=== PATIENT | female | born 1940 | race Caucasian/White ===

== ENCOUNTER 2016-06-03 18:05 | Observation (INO) | payer MEDICARE, BC ==
[2016-06-03] MEDS ORDERED: NITROGLYCERIN OINT 1 INCH/GM PACKET TOPICAL STA (18:22)
--- NOTE | 2016-06-03 18:24 | ED ---
General Adult HPI - General Chief complaint: Chest Pain Stated complaint: Chest Pain Time Seen by Provider: 06/03/16 18:10 Source: patient, EMS, RN notes reviewed Mode of arrival: EMS Limitations: altered mental status - History of Present Illness Initial comments: Patient is a pleasant 75-year-old female presenting to the emergency Department with complaints of chest discomfort. Patient believes her symptoms started yesterday and have been steady. Discomfort is mild at this time. Patient did have some associated dyspnea. Dyspnea has resolved. No nausea or diaphoresis. Patient feels she may have had similar symptoms once or twice previously however is unclear why. Her leg pain or swelling. No cough or fever. - Related Data Home Medications Medication Instructions Recorded Confirmed Gabapentin [Neurontin] 100 mg PO QAM 01/29/16 06/03/16 ALPRAZolam [Xanax] 0.25 mg PO TID 03/27/16 06/03/16 Atorvastatin [Lipitor] 40 mg PO HS 05/13/16 06/03/16 Furosemide [Lasix] 20 mg PO QAM 05/13/16 06/03/16 Levothyroxine Sodium [Synthroid] 50 mcg PO QAM 05/13/16 06/03/16 Nuedexta 1 tab PO BID 05/13/16 06/03/16 busPIRone HCL [Buspar] 7.5 mg PO BID 05/13/16 06/03/16 lamoTRIgine [LaMICtal] 25 mg PO BID 05/13/16 06/03/16 Gabapentin [Neurontin] 200 mg PO BID 05/29/16 06/03/16 Nystatin [Nystop] 1 applic TOPICAL BID 05/29/16 06/03/16 Phenytoin Sodium Extended 100 mg PO TID 05/29/16 06/03/16 [Dilantin] PARoxetine HCL [Paxil] 40 mg PO QAM 06/03/16 06/03/16 Allergies Allergy/AdvReac Type Severity Reaction Status Date / Time Penicillins Allergy Unknown Verified 06/03/16 18:44 aspirin AdvReac Severe Chest Pain Verified 06/03/16 18:44 cefuroxime axetil AdvReac Severe Chest Pain Verified 06/03/16 18:44 [From Ceftin] hydrocodone AdvReac Severe Confusion Verified 06/03/16 18:44 Iodinated Contrast Media - AdvReac Unknown Unknown Verified 06/03/16 18:44 Oral and antibiotics-all Allergy Unknown Uncoded 06/03/16 18:13 Review of Systems ROS Statement: Those systems with pertinent positive or pertinent negative responses have been documented in the HPI. ROS Other: All systems not noted in ROS Statement are negative. Constitutional: Denies: fever Eyes: Denies: eye pain ENT: Denies: ear pain Respiratory: Reports: dyspnea. Denies: cough Cardiovascular: Reports: chest pain Endocrine: Denies: fatigue Gastrointestinal: Denies: abdominal pain Genitourinary: Denies: dysuria Musculoskeletal: Denies: back pain Skin: Denies: rash Neurological: Denies: weakness Past Medical History Past Medical History: Cancer, Diabetes Mellitus, GERD/Reflux, Hearing Disorder / Deafness, Hyperlipidemia, Hypertension, Osteoarthritis (OA), Sleep Apnea/CPAP/ BIPAP, Thyroid Disorder Additional Past Medical History / Comment(s): Skin Cancer -left lower lip, right BREAST CANCER. left eye lid lump removed. SEIZURE WHEN HERE LAST.CATARACTS, UTI,CAREGIVER STATED PT HAS YEAST INFECTION UNDER BREAST AND GROIN FOLDS. History of Any Multi-Drug Resistant Organisms: None Reported Past Surgical History: Breast Surgery Additional Past Surgical History / Comment(s): Removal of skin cancer - left lower lip, [place] BREAST BX, HAD lumped removed from RT breast- THEN. RIGHT MASECTOMY with revision/COMPLICATED BY INFECTION(PER CAREGIVER). Past Anesthesia/Blood Transfusion Reactions: No Reported Reaction Additional Past Anesthesia/Blood Transfusion Reaction / Comment(s): TAKES HER A LONG TIME TO COME OUT ANESTHESIA Past Psychological History: Anxiety, Depression Additional Psychological History / Comment(s): SPOUSE OF 40 YEARS IN , uses cane.PTS STATED LIVES AT [facility]. Smoking Status: Never smoker Past Alcohol Use History: None Reported Additional Past Alcohol Use History / Comment(s): Patient states she is a lifelong nonsmoker. She denies any medical marijuana, marijuana, street drug or alcohol use. 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 She denies any recent travel. Her pets in the home. Past Drug Use History: None Reported - Past Family History Father Family Medical History: Coronary Artery Disease (CAD) (Father at age 72 from CAD) Additional Family Medical History / Comment(s): of heart disease Mother Family Medical History: Respiratory Disorder (Mother at the age of 79 from lung disease) Additional Family Medical History / Comment(s): of lung disease Brother(s) Family Medical History: Cancer, Coronary Artery Disease (CAD) Sister(s) Family Medical History: Cancer, Coronary Artery Disease (CAD) Additional Family Medical History / Comment(s): Patient has a nephew who cares for her and she has no children. General Exam Limitations: altered mental status General appearance: alert, in no apparent distress Head exam: Present: atraumatic Eye exam: Present: normal appearance, PERRL ENT exam: Present: normal oropharynx Neck exam: Present: normal inspection Respiratory exam: Present: normal lung sounds bilaterally. Absent: chest wall tenderness Cardiovascular Exam: Present: regular rate, normal rhythm Expanded Peripheral pulses: 2+: Radial (R), Radial (L), Dorsalis Pedis (R), Dorsalis Pedis (L) GI/Abdominal exam: Present: soft. Absent: tenderness Extremities exam: Present: normal inspection. Absent: pedal edema, calf tenderness Neurological exam: Present: alert Psychiatric exam: Present: normal affect, normal mood Skin exam: Absent: rash Course Vital Signs 06/03/16 06/03/16 06/03/16 18:07 18:17 19:14 Temperature 98.1 F Pulse Rate 61 60 58 L Respiratory 16 Rate Blood Pressure 200/87 192/86 198/91 O2 Sat by Pulse 99 96 98 Oximetry 06/03/16 19:50 Temperature Pulse Rate 58 L Respiratory Rate Blood Pressure 209/95 O2 Sat by Pulse 98 Oximetry EKG Findings - EKG Comments: EKG Findings:: Normal sinus rhythm at 61. Normal intervals. Normal axis. Normal QRS. Normal ST-T. Medical Decision Making - Medical Decision Making Patient reexamined and resting comfortably in bed. Patient is unable to recall where she lives. Patient is unable to recall what year it is. Case was discussed with Dr. Mendosa, who will admit for altered mental status. facility maintenance worker will be consult did for probable higher level of care at home. - Lab Data Result diagrams: 06/03/16 18:32 06/03/16 18:32 Lab Results 06/03/16 06/03/16 06/03/16 Range/Units 18:32 18:32 18:32 WBC 8.2 (3.8-10.6) k/uL RBC 4.50 (3.80-5.40) m/uL Hgb 12.9 (11.4-16.0) gm/dL Hct 38.7 (34.0-46.0) % MCV 86.0 (80.0-100.0) fL MCH 28.7 (25.0-35.0) pg MCHC 33.4 (31.0-37.0) g/dL RDW 14.1 (11.5-15.5) % Plt Count 255 (150-450) k/uL Neutrophils % 83 % Lymphocytes % 7 % Monocytes % 4 % Eosinophils % 4 % Basophils % 0 % Neutrophils # 6.8 (1.3-7.7) k/uL Lymphocytes # 0.6 L (1.0-4.8) k/uL Monocytes # 0.3 (0-1.0) k/uL Eosinophils # 0.3 (0-0.7) k/uL Basophils # 0.0 (0-0.2) k/uL Sodium 140 (137-145) mmol/L Potassium 3.7 (3.5-5.1) mmol/L Chloride 102 (98-107) mmol/L Carbon Dioxide 24 (22-30) mmol/L Anion Gap 14 mmol/L BUN 11 (7-17) mg/dL Creatinine 0.60 (0.52-1.04) mg/dL Est GFR (MDRD) Af Amer >60 (>60 ml/min/1.73 sqM) Est GFR (MDRD) Non-Af >60 (>60 ml/min/1.73 sqM) Glucose 284 H (74-99) mg/dL Calcium 8.5 (8.4-10.2) mg/dL Magnesium 2.0 (1.6-2.3) mg/dL Total Bilirubin 0.5 (0.2-1.3) mg/dL AST 25 (14-36) U/L ALT 29 (9-52) U/L Alkaline Phosphatase 97 (38-126) U/L Total Creatine Kinase 40 (30-135) U/L CK-MB (CK-2) <0.2 (0.0-2.4) ng/mL CK-MB (CK-2) Rel Index Troponin I <0.012 (0.000-0.034) ng/mL Total Protein 6.7 (6.3-8.2) g/dL Albumin 3.8 (3.5-5.0) g/dL - Radiology Data Radiology results: image reviewed (Chest x-ray shows no acute process.) Disposition Clinical Impression: Chest pain in adult, Altered mental status Disposition: ADMITTED IP TO THIS HOSP
[2016-06-03 18:47] LABS: Basophils % (A) 0 %; CH 29.3; CHCM 34.2; Eosinophils # (A) 0.3 k/uL (0-0.7); Eosinophils % (A) 4 %; HCT 38.7 % (34.0-46.0); HDW 2.84; HGB 12.9 gm/dL (11.4-16.0); Luc # (Auto) 0.11; Luc % (Auto) 1; Lymphocytes # (A) 0.6 k/uL (1.0-4.8); Lymphocytes % (A) 7 %; MCH 28.7 pg (25.0-35.0); MCHC 33.4 g/dL (31.0-37.0); Mean Platelet Volume 9.3; Monocytes # (A) 0.3 k/uL (0-1.0); Monocytes % (A) 4 %; Neutrophils # (A) 6.8 k/uL (1.3-7.7); Neutrophils % (A) 83 %; RDW 14.1 % (11.5-15.5); WBC 8.2 k/uL (3.8-10.6); WBC (Perox) 8.67
[2016-06-03 18:57] LABS: ALT 29 U/L (9-52); AST 25 U/L (14-36); Alkaline Phosphatase 97 U/L (38-126); Anion Gap 14 mmol/L; Blood Urea Nitrogen 11 mg/dL (7-17); Calcium 8.5 mg/dL (8.4-10.2); Carbon Dioxide 24 mmol/L (22-30); Chloride 102 mmol/L (98-107); Glucose 284 mg/dL (74-99); Non-African American GFR(MDRD) >60 (>60 ml/min/1.73 sqM); Potassium 3.7 mmol/L (3.5-5.1); Sodium 140 mmol/L (137-145); Total Bilirubin 0.5 mg/dL (0.2-1.3); Total Protein 6.7 g/dL (6.3-8.2)
[2016-06-03 18:59] LABS: Creatine Kinase 40 U/L (30-135)
[2016-06-03 19:11] LABS: Creatine Kinase MB <0.2 ng/mL (0.0-2.4); Troponin I <0.012 ng/mL (0.000-0.034)
--- NOTE | 2016-06-03 19:44 | XR ---
EXAMINATION TYPE: XR chest 2V DATE OF EXAM: 06/03/2016 6:45 PM COMPARISON: May 29, 2016 HISTORY: Pain with inspiration TECHNIQUE: Frontal and lateral views of the chest are obtained. FINDINGS: There is no focal air space opacity, pleural effusion, or pneumothorax seen. The cardiac silhouette size is within normal limits. The osseous structures are intact. IMPRESSION: No no interval change. No acute process.
[2016-06-03 20:13] LABS: Prothrombin Time 10.2 sec (9.0-12.0)
[2016-06-03] MEDS ORDERED: NITROGLYCERIN SL TABS 0.4 MG TAB SUBLINGUAL PRN (20:18)
[2016-06-03 20:31] LABS: Partial Thromboplastin Time 21.3 sec (22.0-30.0)
--- NOTE | 2016-06-03 20:55 | CT ---
EXAMINATION TYPE: CT brain wo con DATE OF EXAM: 06/03/2016 8:41 PM COMPARISON: February 01, [address] HISTORY: Patient poor historian. Patient shows signs of altered mental status. CT DLP: 827.3 mGycm. Automated exposure control for dose reduction was used. FINDINGS: There is no acute intracranial hemorrhage, mass effect, or midline shift identified. There are low-attenuation regions within the campos radiata and centrum semiovale bilaterally, but these a re seen on the prior study and there is no definite new attenuation defect. The ventricles and sulci are within normal limits in size. The globes are intact and the visualized sinuses are clear. IMPRESSION: NO ACUTE PROCESS, CT HEAD WITHOUT CONTRAST.
[2016-06-03] MEDS ORDERED: GABAPENTIN 100 MG CAP PO SCH (21:00)
[2016-06-03 21:33] VITALS: BMI 28.8
[2016-06-03] MEDS ORDERED: HALOPERIDOL LACTATE 5 MG/ML 1 ML VIAL IM PRN (21:46)
[2016-06-03] MEDS: ATORVASTATIN 40 MG TAB PO SCH (21:47)
[2016-06-03] MEDS: INSULIN LISPRO (humaLOG) 300 UNIT/3 ML VIAL SQ SCH (21:47)
[2016-06-03] MEDS: GABAPENTIN 100 MG CAP PO SCH (21:47)
[2016-06-03] MEDS: ALPRAZolam 0.25 MG TAB PO SCH (21:48)
[2016-06-03] MEDS: lamoTRIgine 25 MG TAB PO SCH (21:48)
[2016-06-03] MEDS: NITROGLYCERIN OINT 1 INCH/GM PACKET TOPICAL SCH (22:15)
[2016-06-04 05:23] LABS: Hemoglobin A1C 8.9 % (4.2-6.1)
[2016-06-04] MEDS: NITROGLYCERIN OINT 1 INCH/GM PACKET TOPICAL SCH ×3 (06:12→21:02)
[2016-06-04] MEDS: LEVOTHYROXINE 50 MCG TAB PO SCH (06:12)
[2016-06-04 06:43] LABS: Glucose,Whole Blood 262 mg/dL (75-99)
--- NOTE | 2016-06-04 10:16 | P.CRDCN ---
History of Present Illness Consult date: 06/04/16 History of present illness: This is a 75-year-old female with a history of anxiety and psychological disorders is admitted through the emergency room with complaints of chest discomfort. Patient is slightly confused but seemed to be oriented to place and time. She claims that she has been under a lot of stress because of some family health issues. She claims she is comfortable at the time of my examination. It is difficult to get more details about the nature of the pain. Patient has history of hypercholesterolemia. No definite history of previous myocardial infarctions. Her EKG showed a sinus rhythm without any acute ST-T abnormalities. First set of cardiac enzymes are negative. I'm going to get an echocardiogram to assess and rule out any segmental wall motion defects. If the second set of enzyme is negative and if echocardiogram is normal, patient could be evaluated by Lexiscan stress test and further recommendations depend upon the clinical course Review of Systems Not obtained Past Medical History Past Medical History: Cancer, Diabetes Mellitus, GERD/Reflux, Hearing Disorder / Deafness, Hyperlipidemia, Hypertension, Osteoarthritis (OA), Sleep Apnea/CPAP/ BIPAP, Thyroid Disorder Additional Past Medical History / Comment(s): Skin Cancer -left lower lip, right BREAST CANCER. left eye lid lump removed. SEIZURE WHEN HERE LAST8.CATARACTS, UTI,CAREGIVER STATED PT HAS YEAST INFECTION UNDER BREAST AND GROIN FOLDS. History of Any Multi-Drug Resistant Organisms: None Reported Past Surgical History: Breast Surgery Additional Past Surgical History / Comment(s): Removal of skin cancer - left lower lip, [place] BREAST BX, HAD lumped removed from RT breast- THEN. RIGHT MASECTOMY with revision/COMPLICATED BY INFECTION(PER CAREGIVER). Past Anesthesia/Blood Transfusion Reactions: No Reported Reaction Additional Past Anesthesia/Blood Transfusion Reaction / Comment(s): TAKES HER A LONG TIME TO COME OUT ANESTHESIA Past Psychological History: Anxiety, Depression Additional Psychological History / Comment(s): SPOUSE OF 40 YEARS IN , uses cane.PTS STATED LIVES AT [facility]. Smoking Status: Never smoker Past Alcohol Use History: None Reported Additional Past Alcohol Use History / Comment(s): Patient states she is a lifelong nonsmoker. She denies any medical marijuana, marijuana, street drug or alcohol use. 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 She denies any recent travel. Her pets in the home. Past Drug Use History: None Reported - Past Family History Father Family Medical History: Coronary Artery Disease (CAD) (Father at age 72 from CAD) Additional Family Medical History / Comment(s): of heart disease Mother Family Medical History: Respiratory Disorder (Mother at the age of 79 from lung disease) Additional Family Medical History / Comment(s): of lung disease Brother(s) Family Medical History: Cancer, Coronary Artery Disease (CAD) Sister(s) Family Medical History: Cancer, Coronary Artery Disease (CAD) Additional Family Medical History / Comment(s): Patient has a nephew who cares for her and she has no children. Medications and Allergies Home Medications Medication Instructions Recorded Confirmed Type Gabapentin [Neurontin] 100 mg PO QAM 01/29/16 06/03/16 History ALPRAZolam [Xanax] 0.25 mg PO TID 03/27/16 06/03/16 History Atorvastatin [Lipitor] 40 mg PO HS 05/13/16 06/03/16 History Furosemide [Lasix] 20 mg PO QAM 05/13/16 06/03/16 History Levothyroxine Sodium [Synthroid] 50 mcg PO QAM 05/13/16 06/03/16 History Nuedexta 1 tab PO BID 05/13/16 06/03/16 History busPIRone HCL [Buspar] 7.5 mg PO BID 05/13/16 06/03/16 History lamoTRIgine [LaMICtal] 25 mg PO BID 05/13/16 06/03/16 History Gabapentin [Neurontin] 200 mg PO BID 05/29/16 06/03/16 History Nystatin [Nystop] 1 applic TOPICAL BID 05/29/16 06/03/16 History Phenytoin Sodium Extended 100 mg PO TID 05/29/16 06/03/16 History [Dilantin] PARoxetine HCL [Paxil] 40 mg PO QAM 06/03/16 06/03/16 History Allergies Allergy/AdvReac Type Severity Reaction Status Date / Time Penicillins Allergy Unknown Verified 06/03/16 22:53 aspirin AdvReac Severe Chest Pain Verified 06/03/16 22:53 cefuroxime axetil AdvReac Severe Chest Pain Verified 06/03/16 22:53 [From Ceftin] hydrocodone AdvReac Severe Confusion Verified 06/03/16 22:53 Iodinated Contrast Media - AdvReac Unknown Unknown Verified 06/03/16 22:53 Oral and antibiotics-all Allergy Unknown Uncoded 06/03/16 22:53 Physical Exam Vitals: Vital Signs Temp Pulse Pulse Resp BP BP Pulse Ox 06/04/16 07:48 98.9 F 57 L 16 135/68 95 06/04/16 04:00 16 06/03/16 23:58 97.8 F 65 16 147/71 93 L 06/03/16 22:15 16 06/03/16 20:36 98.1 F 56 L 16 182/85 97 Intake and Output 06/03/16 06/04/16 06/04/16 22:59 06:59 14:59 Other: Voiding Method Toilet # Voids 0 1 # Bowel Movements 1 Weight 76.204 kg GENERAL EXAM: Patient is alert and oriented and doesn't appear to be in any acute distress HEENT: Normocephalic. Normal reaction of pupils, equal size, normal range of extraocular motion. No erythema or exudates in the throat. NECK: No masses, no nuchal rigidity. CHEST: No chest wall deformity. LUNGS: Equal air entry with no crackles or wheeze. HEART: S1 and S2 normal with no audible mumurs or gallops. Regular rhythm, femorals equal on both sides.. ABDOMEN: No hepatosplenomegaly, normal bowel sounds, no guarding or rigidity. SKIN: No rashes CENTRAL NERVOUS SYSTEM: No focal deficits. EXTREMITIES: No cyanosis, clubbing or edema. Results 06/03/16 18:32 06/03/16 18:32 Current Medications Generic Name Dose Route Start Last Admin Trade Name Freq PRN Reason Stop Dose Admin Alprazolam 0.25 mg 06/03/16 22:00 06/03/16 21:48 Xanax PO Not Given TID REBECCA Atorvastatin Calcium 40 mg 06/03/16 21:00 06/03/16 21:47 Lipitor PO Not Given HS REBECCA Furosemide 20 mg 06/04/16 09:00 Lasix PO QAM REBECCA Gabapentin 100 mg 06/04/16 09:00 Neurontin PO QAM REBECCA Gabapentin 200 mg 06/03/16 21:00 06/03/16 21:47 Neurontin PO Not Given BID@1700,2100 [facility] Haloperidol Lactate 4 mg 06/03/16 21:46 06/03/16 22:08 Haldol IM 4 mg Q4HR PRN Administration Psychosis Insulin Human Lispro 0 unit 06/03/16 21:00 06/03/16 21:47 Humalog SQ Not Given ACHS [facility] Protocol Lamotrigine 25 mg 06/03/16 21:00 06/03/16 21:48 Lamictal PO Not Given BID [facility] Levothyroxine Sodium 50 mcg 06/04/16 06:30 06/04/16 06:12 Synthroid PO Not Given DAILY@0630 [facility] Nitroglycerin 1 inch 06/04/16 00:00 06/04/16 06:12 Nitro-Bid Oint TOPICAL Not Given Q6HR [facility] Nitroglycerin 0.4 mg 06/03/16 20:18 Nitrostat SUBLINGUAL Q5M PRN Chest Pain Paroxetine HCl 40 mg 06/04/16 09:00 Paxil PO QAM [facility] Intake and Output 06/03/16 06/04/16 06/04/16 22:59 06:59 14:59 Other: Voiding Method Toilet # Voids 0 1 # Bowel Movements 1 Weight 76.204 kg EKG Interpretations (text) Sinus rhythm without acute ST-T changes Assessment and Plan (1) Chest pain in adult Status: Acute (2) Breast cancer Status: Acute (3) Hypertension Status: Acute Plan: I'm going to get an echocardiogram and a second set of cardiac enzymes. If they don't show any significant abnormality, Lexiscan stress test to be constricted. Further recommendations will depend upon clinical course.
[2016-06-04 11:07] LABS: Glucose,Whole Blood 352 mg/dL (75-99)
[2016-06-04] MEDS ORDERED: INSULIN LISPRO (humaLOG) 300 UNIT/3 ML VIAL SQ SCH (12:30)
[2016-06-04 12:31] LABS: Glucose,Whole Blood 364 mg/dL (75-99)
[2016-06-04] MEDS: FUROSEMIDE 20 MG TAB PO SCH (12:40)
[2016-06-04] MEDS: ALPRAZolam 0.25 MG TAB PO SCH ×3 (12:40→21:46)
[2016-06-04] MEDS: GABAPENTIN 100 MG CAP PO SCH ×3 (12:40→21:46)
[2016-06-04] MEDS: PARoxetine 20 MG TAB PO SCH (12:40)
[2016-06-04] MEDS: lamoTRIgine 25 MG TAB PO SCH ×2 (12:41→21:46)
[2016-06-04] MEDS: INSULIN LISPRO (humaLOG) 300 UNIT/3 ML VIAL SQ SCH ×4 (12:42→21:52)
--- NOTE | 2016-06-04 16:09 | P.HPIM ---
History of Present Illness H&P Date: 06/04/16 Chief Complaint: Chest pain This is a 75-year-old female one of Dr. Azar's patient with past medical history of breast cancer, diabetes, GERD, hypertension, hyperlipidemia, obstructive sleep apnea, and thyroid problem who also known to have history of seizure. Patient has been residing in [facility]. She had a recent hospitalization May 15 through May 19 for which she was treated for left-sided pneumonia, metabolic encephalopathy, depression and suicidal ideation. She was brought into [facility] emergency center on June 03 with complaints of chest discomfort that started the day before along with dyspnea which had resolved. Chest x-ray showed no acute process. CAT scan of the brain showed no acute process. Troponin was negative, phenytoin level less than 3. Patient was also found to be confused and was unable to relate where she lives in what year it was. Patient was placed in the observation unit and cardiology consult requested. Cardiology has recommended Lexiscan stress test if second set of enzymes are negative and echocardiogram is normal. Social worse consult was placed for possible placement which patient refuses. Consult placed with psychiatry to evaluate for competency to make own decisions. Patient does have a power of district attorney, Rajat, her nephew. Review of Systems All systems: negative Constitutional: Denies chills, Denies fever Eyes: denies blurred vision, denies pain Ears, nose, mouth and throat: Denies headache, Denies sore throat Cardiovascular: Reports chest pain, Denies shortness of breath Respiratory: Denies cough Gastrointestinal: Denies abdominal pain, Denies diarrhea, Denies nausea, Denies vomiting Genitourinary: Denies dysuria, Denies hematuria Musculoskeletal: Denies myalgias Integumentary: Denies pruritus, Denies rash Neurological: Denies numbness, Denies weakness Psychiatric: Denies anxiety, Denies depression Endocrine: Denies fatigue, Denies weight change Past Medical History Past Medical History: Cancer, Diabetes Mellitus, GERD/Reflux, Hearing Disorder / Deafness, Hyperlipidemia, Hypertension, Osteoarthritis (OA), Sleep Apnea/CPAP/ BIPAP, Thyroid Disorder Additional Past Medical History / Comment(s): Skin Cancer -left lower lip, right BREAST CANCER. left eye lid lump removed. SEIZURE WHEN HERE LAST8- 16.CATARACTS, UTI,CAREGIVER STATED PT HAS YEAST INFECTION UNDER BREAST AND GROIN FOLDS. History of Any Multi-Drug Resistant Organisms: None Reported Past Surgical History: Breast Surgery Additional Past Surgical History / Comment(s): Removal of skin cancer - left lower lip, [place] BREAST BX, HAD lumped removed from RT breast- THEN. RIGHT MASECTOMY with revision/COMPLICATED BY INFECTION(PER CAREGIVER). Past Anesthesia/Blood Transfusion Reactions: No Reported Reaction Additional Past Anesthesia/Blood Transfusion Reaction / Comment(s): TAKES HER A LONG TIME TO COME OUT ANESTHESIA Past Psychological History: Anxiety, Depression Additional Psychological History / Comment(s): SPOUSE OF 40 YEARS IN , uses cane.PTS STATED LIVES AT [facility]. Smoking Status: Never smoker Past Alcohol Use History: None Reported Additional Past Alcohol Use History / Comment(s): Patient states she is a lifelong nonsmoker. She denies any medical marijuana, marijuana, street drug or alcohol use. 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 She denies any recent travel. Her pets in the home. Past Drug Use History: None Reported - Past Family History Father Family Medical History: Coronary Artery Disease (CAD) (Father at age 72 from CAD) Additional Family Medical History / Comment(s): of heart disease Mother Family Medical History: Respiratory Disorder (Mother at the age of 79 from lung disease) Additional Family Medical History / Comment(s): of lung disease Brother(s) Family Medical History: Cancer, Coronary Artery Disease (CAD) Sister(s) Family Medical History: Cancer, Coronary Artery Disease (CAD) Additional Family Medical History / Comment(s): Patient has a nephew who cares for her and she has no children. Medications and Allergies Home Medications Medication Instructions Recorded Confirmed Type Gabapentin [Neurontin] 100 mg PO QAM 01/29/16 06/03/16 History ALPRAZolam [Xanax] 0.25 mg PO TID 03/27/16 06/03/16 History Atorvastatin [Lipitor] 40 mg PO HS 05/13/16 06/03/16 History Furosemide [Lasix] 20 mg PO QAM 05/13/16 06/03/16 History Levothyroxine Sodium [Synthroid] 50 mcg PO QAM 05/13/16 06/03/16 History Nuedexta 1 tab PO BID 05/13/16 06/03/16 History busPIRone HCL [Buspar] 7.5 mg PO BID 05/13/16 06/03/16 History lamoTRIgine [LaMICtal] 25 mg PO BID 05/13/16 06/03/16 History Gabapentin [Neurontin] 200 mg PO BID 05/29/16 06/03/16 History Nystatin [Nystop] 1 applic TOPICAL BID 05/29/16 06/03/16 History Phenytoin Sodium Extended 100 mg PO TID 05/29/16 06/03/16 History [Dilantin] PARoxetine HCL [Paxil] 40 mg PO QAM 06/03/16 06/03/16 History Allergies Allergy/AdvReac Type Severity Reaction Status Date / Time Penicillins Allergy Unknown Verified 06/03/16 22:53 aspirin AdvReac Severe Chest Pain Verified 06/03/16 22:53 cefuroxime axetil AdvReac Severe Chest Pain Verified 06/03/16 22:53 [From Ceftin] hydrocodone AdvReac Severe Confusion Verified 06/03/16 22:53 Iodinated Contrast Media - AdvReac Unknown Unknown Verified 06/03/16 22:53 Oral and antibiotics-all Allergy Unknown Uncoded 06/03/16 22:53 Physical Exam Vitals: Vital Signs Temp Pulse Pulse Resp BP BP Pulse Ox 06/04/16 07:48 98.9 F 57 L 16 135/68 95 06/04/16 04:00 16 06/03/16 23:58 97.8 F 65 16 147/71 93 L 06/03/16 22:15 16 06/03/16 20:36 98.1 F 56 L 16 182/85 97 Intake and Output 06/03/16 06/04/16 06/04/16 22:59 06:59 14:59 Other: Voiding Method Toilet # Voids 0 1 # Bowel Movements 1 Weight 76.204 kg Gen: This is a obese 75 Route female. She is seen sitting up in a chair and appears to be in no acute distress. She does appear to be somewhat anxious. HEENT: Head is atraumatic, normocephalic. Pupils equal, round. Sclerae is anicteric. NECK: Supple. No JVD. No lymphadenopathy. No thyromegaly. LUNGS: Clear to auscultation. No wheezes or rhonchi. No intercostal retractions. HEART: Regular rate and rhythm. Systolic murmur. ABDOMEN: Soft. Bowel sounds are present. No masses. No tenderness. EXTREMITIES: No pedal edema. No calf tenderness. NEUROLOGICAL: Patient is awake, alert and oriented x3. Cranial nerves 2 through 12 are grossly intact. Patient is unable to answer detailed questions. She is adamant that somebody is posing as her guardian and not her power of district attorney. Results CBC & Chem 7: 06/03/16 18:32 06/03/16 18:32 Labs: Abnormal Lab Results - Last 24 Hours (Table) 06/04/16 06/04/16 Range/Units 06:42 11:04 POC Glucose (mg/dL) 262 H 352 H (75-99) mg/dL Thrombosis Risk Factor Assmnt - DVT/VTE Prophylaxis DVT/VTE Prophylaxis: Mechanical Prophylaxis ordered - Choose All That Apply Each Risk Factor Represents 3 Points: Age 75 years or older Thrombosis Risk Factor Assessment Total Risk Factor Score: 3 Thrombosis Risk Factor Assessment Level: Moderate Risk Assessment and Plan Plan: 1. Chest pain. Cardiology has evaluated and ordered echocardiogram and possible plan for stress test. Troponin to be rechecked. 2. Mild confusion which has been chronically intermittent for patient. Consult with psychiatry regarding competence to make own decisions. 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 3. Diabetes mellitus type 2. Patient will be resumed back on Prandin 2 mg twice daily. 4. Chronic neuropathy. Continue Neurontin 200 mg twice daily. 5. Hyperlipidemia. Continue Lipitor 40 mg at bedtime. 6. Hypothyroidism. Continue levothyroxine 50 g daily. 7. History of breast cancer, stable. 8. Chronic edema. Continue Lasix. 9. History of seizure disorder, no seizures. 10. Depression recurrent with no suicidal ideation. Consult with psychiatry. Patient placed in the observation unit. Discharge plan: Consult to psychiatry and social work for discharge planning. Impression and plan of care have been directed as dictated by the signing physician. Harleen Chao nurse practitioner acting as scribe for signing physician. Time with Patient: Greater than 30
[2016-06-04 16:29] LABS: Glucose,Whole Blood 261 mg/dL (75-99)
[2016-06-04] MEDS: REPAGLINIDE 1 MG TAB PO SCH (17:45)
[2016-06-04 21:42] LABS: Glucose,Whole Blood 289 mg/dL (75-99)
[2016-06-04] MEDS: ATORVASTATIN 40 MG TAB PO SCH (21:46)
[2016-06-04] MEDS: NYSTATIN 100,000UNIT/GM CREAM 30 GM TUBE TOPICAL SCH (21:52)
[2016-06-05] MEDS: NITROGLYCERIN OINT 1 INCH/GM PACKET TOPICAL SCH ×3 (00:14→14:26)
[2016-06-05] MEDS: LEVOTHYROXINE 50 MCG TAB PO SCH (05:41)
[2016-06-05 07:20] LABS: Glucose,Whole Blood 310 mg/dL (75-99)
[2016-06-05] MEDS: INSULIN LISPRO (humaLOG) 300 UNIT/3 ML VIAL SQ SCH ×2 (07:51→14:35)
--- NOTE | 2016-06-05 10:56 | ECHOF ---
Referral Reason:Chest pain and cardiomyopathy MEASUREMENTS -------- HEIGHT: 162.6 cm WEIGHT: 76.2 kg BP: 135/68 RVIDd: 2.4 cm (< 3.3) IVSd: 1.2 cm (0.6 - 1.1) LVIDd: 3.6 cm (3.9 - 5.3) LVPWd: 1.2 cm (0.6 - 1.1) IVSs: 1.6 cm LVIDs: 2.6 cm LVPWs: 1.8 cm LA Diam: 3.7 cm (2.7 - 3.8) LAESV Index (A-L): 30.13 ml/m Ao Diam: 3.2 cm (2.0 - 3.7) AV Cusp: 1.9 cm (1.5 - 2.6) LA Diam: 3.9 cm (2.7 - 3.8) MV EXCURSION: 9.718 mm (> 18.000) MV EF SLOPE: 48 mm/s (70 - 150) EPSS: 1.0 cm MV E Wei: 0.75 m/s MV DecT: 335 ms MV A Wei: 1.23 m/s MV E/A Ratio: 0.61 RAP: 5.00 mmHg RVSP: 7.79 mmHg FINDINGS -------- Resting bradycardia (HR<60bpm). This was a technically adequate study. There is borderline concentric left ventricular hypertrophy. Overall left ventricular systolic function is normal with, an EF between 55 - 60 %. The right ventricle is normal in size. LA is midly dilated 29-33ml/m2. The right atrium is normal in size. Aortic valve is trileaflet and is mildly thickened. The mitral valve leaflets are mildly thickened. Mild mitral annular calcification present. Trace tricuspid regurgitation present. Right ventricular systolic pressure is normal at < 35 mmHg. Trace/mild (physiologic) pulmonic regurgitation. The aortic root size is normal. Normal inferior vena cava with normal inspiratory collapse consistent with estimated right atrial pressure of 5 mmHg. Echo free space may represent effusion or a pericardial fat pad. CONCLUSIONS -------- 1. Resting bradycardia (HR<60bpm). 2. Mild mitral annular calcification present. 3. Trace tricuspid regurgitation present. 4. Right ventricular systolic pressure is normal at < 35 mmHg. 5. Trace/mild (physiologic) pulmonic regurgitation. 6. The aortic root size is normal. 7. Echo free space may represent effusion or a pericardial fat pad. 8. This was a technically adequate study. 9. There is borderline concentric left ventricular hypertrophy. 10. Overall left ventricular systolic function is normal with, an EF between 55 - 60 %. 11. The right ventricle is normal in size. 12. LA is midly dilated 29-33ml/m2. 13. The right atrium is normal in size. 14. Aortic valve is trileaflet and is mildly thickened. 15. The mitral valve leaflets are mildly thickened. GLASS SELECTOR: Maria M Lizama RDCS
[2016-06-05] MEDS ORDERED: REGADENOSON 0.4 MG/5 ML SYRINGE IV ONE (11:49)
[2016-06-05] MEDS ORDERED: AMINOPHYLLINE 500 MG/20 ML VIAL IV PRN (11:49)
[2016-06-05 12:09] LABS: Glucose,Whole Blood 293 mg/dL (75-99)
[2016-06-05] MEDS ORDERED: AMINOPHYLLINE 250 MG/10 ML VIAL IV ONE (13:26)
--- NOTE | 2016-06-05 13:32 | P.CON ---
Psychiatric Consult - . Consult date: 06/05/16 Consult:: I went to Mrs. Tirado's room at 12:30, 1:30 and 2:00pm today. According to the nurse she left for study just prior to my first visit. I will try again tomorrow to complete my evaluation. 06/05/16 13:30 06/05/16 14:04
--- NOTE | 2016-06-05 14:27 | EST ---
DATE OF SERVICE: 06/05/2016 AGE: 75Y SEX: F HT: 64" WT: 168 lbs. Lexiscan Cardiolite Stress Test *Heart Rate Blood Pressure *Rest: 56 Rest: 198/87 * *Max. Achieved: 75 Maximum BP: 182/81 85% PMHR: 122 100% PMHR: 144 *METS: - INDICATIONS: - MEDICATIONS: - A Lexiscan nuclear study was performed. Patient was given Lexiscan injection over a period of 15 seconds. Peak heart rate of 75 was achieved. Maximum blood pressure of 182/80 mmHg was noted. An EKG shows normal sinus rhythm with normal DE interval and QRS duration and normal ST-T waves. No ST segment depression suggestive of ischemia was noted. Immediately after the Lexiscan injection was finished, the patient became kind of unresponsive and obtunded and staring at things. There is no definite convulsions noted. Patient remained normal sinus rhythm and her blood pressure was 190/90. Patient received 1 dose of ( ) and suddenly with that her condition improved. Patient does have a history of similar kind of seizure disorder in the past. These findings were reported to the patient's nurse on the floor. IMPRESSION: 1. This Lexiscan study did not show any evidence of stress-induced ischemia. 2. Patient had a possible seizure-like activity after the Lexiscan injection which spontaneously improved. Patient has history of similar kind of seizures in the past. 3. Patient's nurse was informed about that and she will get ( ) medications after she goes to the floor. The results of the nuclear study will follow.
[2016-06-05] MEDS: GABAPENTIN 100 MG CAP PO SCH (14:31)
[2016-06-05] MEDS: ALPRAZolam 0.25 MG TAB PO SCH (14:31)
[2016-06-05] MEDS: FUROSEMIDE 20 MG TAB PO SCH (14:31)
[2016-06-05] MEDS: REPAGLINIDE 1 MG TAB PO SCH (14:31)
[2016-06-05] MEDS: lamoTRIgine 25 MG TAB PO SCH (14:32)
[2016-06-05] MEDS: PARoxetine 20 MG TAB PO SCH (14:32)
[2016-06-05] MEDS: NYSTATIN 100,000UNIT/GM CREAM 30 GM TUBE TOPICAL SCH (14:41)
--- NOTE | 2016-06-05 15:06 | NM ---
EXAMINATION TYPE: NM stress Lexiscan cardiolite DATE OF EXAM: 06/05/2016 2:28 PM COMPARISON: NONE HISTORY: Chest pain TECHNIQUE: After the intravenous administration of 10.32 mCi Tc 99m Sestamibi - Cardiolite resting S PECT images acquired 45 minutes post injection. The patient received 0.4mg Lexiscan, 27.2 mCi Tc 99m Sestamibi - Stress images obtained [address] injection FINDINGS: Review of stress and rest SPECT images demonstrates no distinct perfusion abnormality. Gated analysi s shows normal wall motion with an estimated left ventricular ejection fraction of 77 %. There is no convincing evidence of inducible ischemic change. IMPRESSION: No scintigraphic evidence for reversible ischemia.
[2016-06-05 16:21] VITALS: BP 161/90; PULSE 95; RESP 16; TEMP 97.8
--- NOTE | 2016-06-05 16:38 | P.DS ---
Providers Date of admission: 06/03/16 20:18 Expected date of discharge: 06/05/16 Attending physician: Odette Rodney Consults: 06/04/16 09:40 Consult Physician Routine Consulting Provider: Deandre Venegas Consult Reason/Comments: chest pain Do you want consulting provider notified?: Already Contacted 06/04/16 11:45 Consult Physician Routine Consulting Provider: Lalo Arriaza Consult Reason/Comments: assess capability to make own decisions Do you want consulting provider notified?: Already Contacted Primary care physician: Stated None Hospital Course: This is a 75-year-old female one of Dr. Azar's patient with past medical history of breast cancer, diabetes, GERD, hypertension, hyperlipidemia, obstructive sleep apnea, and thyroid problem who also known to have history of seizure. Patient has been residing in [facility]. She had a recent hospitalization May 15 through May 19 for which she was treated for left-sided pneumonia, metabolic encephalopathy, depression and suicidal ideation. She was brought into [facility] emergency center on June 03 with complaints of chest discomfort that started the day before along with dyspnea which had resolved. Chest x-ray showed no acute process. CAT scan of the brain showed no acute process. Troponin was negative, phenytoin level less than 3. Patient was also found to be confused and was unable to relate where she lives in what year it was. Patient was placed in the observation unit and cardiology consult requested. Cardiology has recommended Lexiscan stress test if second set of enzymes are negative and echocardiogram is normal. Social worse consult was placed for possible placement which patient refuses. Consult placed with psychiatry to evaluate for competency to make own decisions. Patient does have a power of trademark attorney, Rajat, her nephew. Patient underwent Lexiscan stress test which was negative. It is noted that patient had a seizure like activity after Lexiscan injection which is not uncommon for the patient. Echocardiogram reveals trace tricuspid regurgitation , borderline concentric left ventricular hypertrophy, EF 55-60%, dilated. Psychiatry has made several attempts to see the patient but she was gone for testing. Patient will be discharged home today in stable condition. Discharge diagnoses: 1. Chest pain, resolved 2. Mild confusion which has been chronically intermittent for patient. 3. Diabetes mellitus type 2. 4. Chronic neuropathy. 5. Hyperlipidemia. 6. Hypothyroidism. 7. History of breast cancer, stable. 8. Chronic edema. 9. History of seizure disorder, no seizures. 10. Depression recurrent with no suicidal ideation. Patient placed in the observation unit. Discharge plan: Consult to psychiatry and social work for discharge planning. Impression and plan of care have been directed as dictated by the signing physician. Harleen Chao nurse practitioner acting as scribe for signing physician. Patient Condition at Discharge: Good Plan - Discharge Summary Discharge Medication List Gabapentin [Neurontin] 100 mg PO QAM 01/29/16 [History] ALPRAZolam [Xanax] 0.25 mg PO TID 03/27/16 [History] Atorvastatin [Lipitor] 40 mg PO HS 05/13/16 [History] Furosemide [Lasix] 20 mg PO QAM 05/13/16 [History] Levothyroxine Sodium [Synthroid] 50 mcg PO QAM 05/13/16 [History] Nuedexta 1 tab PO BID 05/13/16 [History] busPIRone HCL [Buspar] 7.5 mg PO BID 05/13/16 [History] lamoTRIgine [LaMICtal] 25 mg PO BID 05/13/16 [History] Gabapentin [Neurontin] 200 mg PO BID 05/29/16 [History] Nystatin [Nystop] 1 applic TOPICAL BID 05/29/16 [History] Phenytoin Sodium Extended [Dilantin] 100 mg PO TID 05/29/16 [History] PARoxetine HCL [Paxil] 40 mg PO QAM 06/03/16 [History] Follow up Appointment(s)/Referral(s): None,Stated [Primary Care Provider] - 1-2 days Fabiana Azar MD [STAFF PHYSICIAN] - 1 Week Discharge Disposition: HOME WITH HOME HEALTH SERVICES
== END 2016-06-05 18:20 | disposition home health service (06) ==
LOC: EC 18:05 → 3OBS 20:18
PROVIDERS: ADMIT Internal Medicine; ATTEND Internal Medicine
DX: R07.89 Other chest pain (principal); R41.82 Altered mental status, unspecified; E11.40 Type 2 diabetes mellitus with diabetic neuropathy, unspecified; E78.5 Hyperlipidemia, unspecified; E03.9 Hypothyroidism, unspecified; R60.9 Edema, unspecified; G40.909 Epilepsy, unspecified, not intractable, without status epilepticus; F32.9 Major depressive disorder, single episode, unspecified; I10 Essential (primary) hypertension; M19.90 Unspecified osteoarthritis, unspecified site; E78.00 Pure hypercholesterolemia, unspecified; G47.33 Obstructive sleep apnea (adult) (pediatric); F41.9 Anxiety disorder, unspecified; Z90.11 Acquired absence of right breast and nipple; Z99.89 Dependence on other enabling machines and devices; Z85.3 Personal history of malignant neoplasm of breast; Z85.828 Personal history of other malignant neoplasm of skin; Z79.899 Other long term (current) drug therapy; Z88.1 Allergy status to other antibiotic agents; Z88.0 Allergy status to penicillin; Z82.49 Family history of ischemic heart disease and other diseases of the circulatory system
CPT/HCPCS: 99285 ×2; 36415; 93005; 93017; 93306; 80053; 83036; 82550; 82553; 80185; 83735; 84484 ×3; 85025; 85610; 85730; 71020; 70450; 78452; G0378 ×3; A9500; J1630; J2785; J0280; 96372

== ENCOUNTER 2016-06-13 16:59 | Emergency (ER) | payer MEDICARE, BC ==
[2016-06-13 17:24] LABS: Glucose,Whole Blood 257 mg/dL (75-99)
[2016-06-13 17:52] VITALS: RESP 18
[2016-06-13 18:14] LABS: Basophils # (A) 0.1 k/uL (0-0.2); Basophils % (A) 1 %; CH 29.2; Eosinophils # (A) 0.2 k/uL (0-0.7); Eosinophils % (A) 3 %; HCT 45.1 % (34.0-46.0); HDW 2.79; HGB 14.5 gm/dL (11.4-16.0); Luc # (Auto) 0.13; Luc % (Auto) 2; Lymphocytes # (A) 0.5 k/uL (1.0-4.8); Lymphocytes % (A) 8 %; MCH 27.8 pg (25.0-35.0); MCHC 32.2 g/dL (31.0-37.0); MCV 86.3 fL (80.0-100.0); Mean Platelet Volume 10.2; Monocytes # (A) 0.4 k/uL (0-1.0); Monocytes % (A) 5 %; Neutrophils # (A) 5.5 k/uL (1.3-7.7); Neutrophils % (A) 81 %; RBC 5.22 m/uL (3.80-5.40); RDW 13.9 % (11.5-15.5); WBC 6.8 k/uL (3.8-10.6); WBC (Perox) 6.66
[2016-06-13 18:25] LABS: Anion Gap 13 mmol/L; Blood Urea Nitrogen 10 mg/dL (7-17); Calcium 9.3 mg/dL (8.4-10.2); Carbon Dioxide 23 mmol/L (22-30); Chloride 101 mmol/L (98-107); Glucose 285 mg/dL (74-99); Non-African American GFR(MDRD) >60 (>60 ml/min/1.73 sqM); Potassium 5.3 mmol/L (3.5-5.1); Sodium 137 mmol/L (137-145)
[2016-06-13] MEDS ORDERED: SODIUM POLYSTYRENE SULFONATE 15 GM/60 ML BOTTLE PO STA (18:35)
--- NOTE | 2016-06-13 18:37 | ED ---
General Adult HPI - General Chief complaint: Chest Pain Stated complaint: hypertension Time Seen by Provider: 06/13/16 17:05 Source: EMS Mode of arrival: EMS Limitations: altered mental status - History of Present Illness Initial comments: This patient is a 75-year-old woman with history of diabetes and also history of dementia. She is reportedly sent to be evaluated for chest pain. When I interview the patient she is not able to accurately identified symptoms. -: unknown Location: chest Consistency: now resolved Improves with: none Worsens with: none - Related Data Previous Rx's Medication Instructions Recorded Repaglinide [Prandin] 2 mg PO TID #90 tablet 06/17/16 Atorvastatin [Lipitor] 40 mg PO HS 30 Days 07/17/16 Clotrimazole/Betameth Cream 1 applic TOPICAL BID 30 Days 07/17/16 [Lotrisone] FLUoxetine ORAL SOLN [PROzac ORAL 20 mg PO DAILY 30 Days 07/17/16 SOLN] Famotidine [Pepcid] 40 mg PO HS 30 Days 07/17/16 Furosemide [Lasix] 20 mg PO QAM 30 Days 07/17/16 INSULIN LISPRO (humaLOG) [humaLOG 0 unit SQ ACHS #0 vial 07/17/16 (formulary)] Insulin Glargine [Lantus] 10 unit SQ 0900 vial 07/17/16 Insulin Glargine [Lantus] 15 unit SQ HS vial 07/17/16 LORazepam [Ativan] 0.5 mg PO HS #30 tab 07/17/16 Levothyroxine Sodium [Synthroid] 50 mcg PO QAM 30 Days 07/17/16 Lisinopril [Zestril] 20 mg PO BID 30 Days 07/17/16 Mirtazapine [Remeron] 7.5 mg PO HS 30 Days 07/17/16 Ziprasidone [Geodon] 20 mg PO HS 30 Days 07/17/16 amLODIPine [Norvasc] 10 mg PO DAILY 30 Days 07/17/16 sitaGLIPtin PHOSPHATE [Januvia] 25 mg PO DAILY 30 Days 07/17/16 Allergies Allergy/AdvReac Type Severity Reaction Status Date / Time Penicillins Allergy Unknown Verified 06/18/16 00:22 strawberry Allergy Rash/Hives Verified 07/14/16 16:18 aspirin AdvReac Severe Chest Pain Verified 06/18/16 00:23 cefuroxime axetil AdvReac Severe Chest Pain Verified 06/18/16 00:23 [From Ceftin] hydrocodone AdvReac Severe Confusion Verified 06/18/16 00:23 Iodinated Contrast Media - AdvReac Unknown Unknown Verified 06/18/16 00:23 Oral and antibiotics-all Allergy Unknown Uncoded 06/18/16 00:23 Review of Systems ROS Statement: Those systems with pertinent positive or pertinent negative responses have been documented in the HPI. ROS Other: All systems not noted in ROS Statement are negative. Limitations: ROS unobtainable due to patients medical condition Past Medical History Past Medical History: Cancer, Diabetes Mellitus, GERD/Reflux, Hearing Disorder / Deafness, Hyperlipidemia, Hypertension, Osteoarthritis (OA), Sleep Apnea/CPAP/ BIPAP, Thyroid Disorder Additional Past Medical History / Comment(s): Skin Cancer -left lower lip, right BREAST CANCER. left eye lid lump removed. SEIZURE WHEN HERE LAST8.CATARACTS, UTI,CAREGIVER STATED PT HAS YEAST INFECTION UNDER BREAST AND GROIN FOLDS. History of Any Multi-Drug Resistant Organisms: None Reported Past Surgical History: Breast Surgery Additional Past Surgical History / Comment(s): Removal of skin cancer - left lower lip, [place] BREAST BX, HAD lumped removed from RT breast- THEN. RIGHT MASECTOMY with revision/COMPLICATED BY INFECTION(PER CAREGIVER). Past Anesthesia/Blood Transfusion Reactions: No Reported Reaction Additional Past Anesthesia/Blood Transfusion Reaction / Comment(s): TAKES HER A LONG TIME TO COME OUT ANESTHESIA Past Psychological History: Anxiety, Depression Additional Psychological History / Comment(s): SPOUSE OF 40 YEARS IN , uses cane.PTS STATED LIVES AT [facility]. Smoking Status: Never smoker Past Alcohol Use History: None Reported Additional Past Alcohol Use History / Comment(s): Patient states she is a lifelong nonsmoker. She denies any medical marijuana, marijuana, street drug or alcohol use. 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 She denies any recent travel. Her pets in the home. Past Drug Use History: None Reported - Past Family History Father Family Medical History: Coronary Artery Disease (CAD) (Father at age 72 from CAD) Additional Family Medical History / Comment(s): of heart disease Mother Family Medical History: Respiratory Disorder (Mother at the age of 79 from lung disease) Additional Family Medical History / Comment(s): of lung disease Brother(s) Family Medical History: Cancer, Coronary Artery Disease (CAD) Sister(s) Family Medical History: Cancer, Coronary Artery Disease (CAD) Additional Family Medical History / Comment(s): Patient has a nephew who cares for her and she has no children. General Exam General appearance: alert, in no apparent distress Head exam: Present: atraumatic, normocephalic Neck exam: Present: normal inspection, full ROM Respiratory exam: Present: normal lung sounds bilaterally. Absent: respiratory distress, wheezes, rales, rhonchi Cardiovascular Exam: Present: regular rate, normal rhythm, normal heart sounds GI/Abdominal exam: Present: soft. Absent: tenderness, guarding, rebound Extremities exam: Present: normal capillary refill. Absent: pedal edema, calf tenderness Back exam: Absent: vertebral tenderness Neurological exam: Present: alert Skin exam: Present: warm, dry, intact, normal color. Absent: rash Course Vital Signs 06/13/16 06/13/16 17:50 19:07 Temperature 97.8 F 98.2 F Pulse Rate 68 75 Respiratory 18 18 Rate Blood Pressure 203/84 206/91 O2 Sat by Pulse 98 96 Oximetry Medical Decision Making - Lab Data Result diagrams: 06/13/16 17:40 06/13/16 17:40 Lab Results 06/13/16 06/13/16 06/13/16 Range/Units 17:21 17:40 17:40 WBC 6.8 (3.8-10.6) k/uL RBC 5.22 (3.80-5.40) m/uL Hgb 14.5 (11.4-16.0) gm/dL Hct 45.1 (34.0-46.0) % MCV 86.3 (80.0-100.0) fL MCH 27.8 (25.0-35.0) pg MCHC 32.2 (31.0-37.0) g/dL RDW 13.9 (11.5-15.5) % Plt Count 240 (150-450) k/uL Neutrophils % 81 % Lymphocytes % 8 % Monocytes % 5 % Eosinophils % 3 % Basophils % 1 % Neutrophils # 5.5 (1.3-7.7) k/uL Lymphocytes # 0.5 L (1.0-4.8) k/uL Monocytes # 0.4 (0-1.0) k/uL Eosinophils # 0.2 (0-0.7) k/uL Basophils # 0.1 (0-0.2) k/uL Sodium 137 (137-145) mmol/L Potassium 5.3 H (3.5-5.1) mmol/L Chloride 101 (98-107) mmol/L Carbon Dioxide 23 (22-30) mmol/L Anion Gap 13 mmol/L BUN 10 (7-17) mg/dL Creatinine 0.60 (0.52-1.04) mg/dL Est GFR (MDRD) Af Amer >60 (>60 ml/min/1.73 sqM) Est GFR (MDRD) Non-Af >60 (>60 ml/min/1.73 sqM) Glucose 285 H (74-99) mg/dL POC Glucose (mg/dL) 257 H (75-99) mg/dL POC Glu Mutual Funds Agent ID Lory Mcdowell Calcium 9.3 (8.4-10.2) mg/dL Disposition Clinical Impression: Hyperglycemia, Hyperkalemia, Hypertension Disposition: HOME SELF-CARE Condition: Fair Instructions: Diabetic Hyperglycemia (ED), Hypertension (ED) Referrals: None,Stated [Primary Care Provider] - 1-2 days
[2016-06-13 19:14] VITALS: BP 206/91; PULSE 75; TEMP 98.2
== END 2016-06-13 19:15 | disposition home or self-care (01) ==
LOC: EC 16:59
DX: I10 Essential (primary) hypertension (principal); E11.65 Type 2 diabetes mellitus with hyperglycemia; E87.5 Hyperkalemia; F41.9 Anxiety disorder, unspecified; E07.9 Disorder of thyroid, unspecified; G40.909 Epilepsy, unspecified, not intractable, without status epilepticus; F32.9 Major depressive disorder, single episode, unspecified; M19.90 Unspecified osteoarthritis, unspecified site; G47.30 Sleep apnea, unspecified; E78.5 Hyperlipidemia, unspecified; Z79.4 Long term (current) use of insulin; Z79.899 Other long term (current) drug therapy; Z88.0 Allergy status to penicillin; Z88.1 Allergy status to other antibiotic agents; Z99.89 Dependence on other enabling machines and devices
CPT/HCPCS: 36415; 80048; 85025; 93005; 99285

== ENCOUNTER 2016-06-14 06:24 | Emergency (ER) | payer MEDICARE ==
[2016-06-14 06:33] VITALS: RESP 18
[2016-06-14 07:30] LABS: Basophils % (A) 1 %; CHCM 33.2; Eosinophils # (A) 0.3 k/uL (0-0.7); Eosinophils % (A) 4 %; HCT 46.7 % (34.0-46.0); HDW 2.79; HGB 15.4 gm/dL (11.4-16.0); Luc # (Auto) 0.08; Luc % (Auto) 1; Lymphocytes # (A) 0.5 k/uL (1.0-4.8); Lymphocytes % (A) 7 %; MCH 28.8 pg (25.0-35.0); MCV 87.4 fL (80.0-100.0); Mean Platelet Volume 9.8; Monocytes # (A) 0.3 k/uL (0-1.0); Monocytes % (A) 5 %; Neutrophils # (A) 5.6 k/uL (1.3-7.7); Neutrophils % (A) 82 %; RBC 5.35 m/uL (3.80-5.40); RDW 13.7 % (11.5-15.5); WBC 6.8 k/uL (3.8-10.6)
[2016-06-14 07:42] LABS: Anion Gap 14 mmol/L; Blood Urea Nitrogen 10 mg/dL (7-17); Calcium 9.3 mg/dL (8.4-10.2); Carbon Dioxide 26 mmol/L (22-30); Chloride 99 mmol/L (98-107); Glucose 296 mg/dL (74-99); Non-African American GFR(MDRD) >60 (>60 ml/min/1.73 sqM); Potassium 4.2 mmol/L (3.5-5.1); Sodium 139 mmol/L (137-145)
--- NOTE | 2016-06-14 07:42 | ED ---
General Adult HPI - General Chief complaint: Weakness Stated complaint: DEHYDRATION Time Seen by Provider: 06/14/16 07:19 Source: EMS, RN notes reviewed Mode of arrival: EMS Limitations: altered mental status - History of Present Illness Initial comments: This patient is 75-year-old woman sent from her facility reportedly for having mental status changes. -: unknown - Related Data Home Medications Medication Instructions Recorded Confirmed Gabapentin [Neurontin] 100 mg PO QAM 01/29/16 06/14/16 ALPRAZolam [Xanax] 0.25 mg PO TID 03/27/16 06/14/16 Atorvastatin [Lipitor] 40 mg PO HS 05/13/16 06/14/16 Furosemide [Lasix] 20 mg PO QAM 05/13/16 06/14/16 Levothyroxine Sodium [Synthroid] 50 mcg PO QAM 05/13/16 06/14/16 Nuedexta 1 tab PO BID 05/13/16 06/14/16 busPIRone HCL [Buspar] 7.5 mg PO BID 05/13/16 06/14/16 lamoTRIgine [LaMICtal] 25 mg PO BID 05/13/16 06/14/16 Gabapentin [Neurontin] 200 mg PO BID 05/29/16 06/14/16 Nystatin [Nystop] 1 applic TOPICAL BID 05/29/16 06/14/16 Phenytoin Sodium Extended 100 mg PO TID 05/29/16 06/14/16 [Dilantin] PARoxetine HCL [Paxil] 40 mg PO QAM 06/03/16 06/14/16 Previous Rx's Medication Instructions Recorded Lisinopril [Zestril] 5 mg PO DAILY #14 tab 06/13/16 Allergies Allergy/AdvReac Type Severity Reaction Status Date / Time Penicillins Allergy Unknown Verified 06/14/16 07:31 aspirin AdvReac Severe Chest Pain Verified 06/14/16 07:31 cefuroxime axetil AdvReac Severe Chest Pain Verified 06/14/16 07:31 [From Ceftin] hydrocodone AdvReac Severe Confusion Verified 06/14/16 07:31 Iodinated Contrast Media - AdvReac Unknown Unknown Verified 06/14/16 07:31 Oral and antibiotics-all Allergy Unknown Uncoded 06/03/16 22:53 Review of Systems ROS Statement: Those systems with pertinent positive or pertinent negative responses have been documented in the HPI. ROS Other: All systems not noted in ROS Statement are negative. Constitutional: Denies: fever Respiratory: Denies: cough Cardiovascular: Denies: chest pain Gastrointestinal: Denies: abdominal pain, vomiting Musculoskeletal: Denies: back pain Neurological: Denies: headache Past Medical History Past Medical History: Cancer, Diabetes Mellitus, GERD/Reflux, Hearing Disorder / Deafness, Hyperlipidemia, Hypertension, Osteoarthritis (OA), Sleep Apnea/CPAP/ BIPAP, Thyroid Disorder Additional Past Medical History / Comment(s): Skin Cancer -left lower lip, right BREAST CANCER. left eye lid lump removed. SEIZURE WHEN HERE LAST8.CATARACTS, UTI,CAREGIVER STATED PT HAS YEAST INFECTION UNDER BREAST AND GROIN FOLDS. History of Any Multi-Drug Resistant Organisms: None Reported Past Surgical History: Breast Surgery Additional Past Surgical History / Comment(s): Removal of skin cancer - left lower lip, [place] BREAST BX, HAD lumped removed from RT breast- THEN. RIGHT MASECTOMY with revision/COMPLICATED BY INFECTION(PER CAREGIVER). Past Anesthesia/Blood Transfusion Reactions: No Reported Reaction Additional Past Anesthesia/Blood Transfusion Reaction / Comment(s): TAKES HER A LONG TIME TO COME OUT ANESTHESIA Past Psychological History: Anxiety, Depression Additional Psychological History / Comment(s): SPOUSE OF 40 YEARS IN , uses cane.PTS STATED LIVES AT [facility]. Smoking Status: Never smoker Past Alcohol Use History: None Reported Additional Past Alcohol Use History / Comment(s): Patient states she is a lifelong nonsmoker. She denies any medical marijuana, marijuana, street drug or alcohol use. 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 She denies any recent travel. Her pets in the home. Past Drug Use History: None Reported - Past Family History Father Family Medical History: Coronary Artery Disease (CAD) (Father at age 72 from CAD) Additional Family Medical History / Comment(s): of heart disease Mother Family Medical History: Respiratory Disorder (Mother at the age of 79 from lung disease) Additional Family Medical History / Comment(s): of lung disease Brother(s) Family Medical History: Cancer, Coronary Artery Disease (CAD) Sister(s) Family Medical History: Cancer, Coronary Artery Disease (CAD) Additional Family Medical History / Comment(s): Patient has a nephew who cares for her and she has no children. General Exam Limitations: altered mental status General appearance: alert, in no apparent distress Head exam: Present: atraumatic, normocephalic, normal inspection Eye exam: Present: normal appearance. Absent: scleral icterus, conjunctival injection ENT exam: Present: normal oropharynx Neck exam: Present: normal inspection, full ROM Respiratory exam: Present: normal lung sounds bilaterally. Absent: respiratory distress, wheezes, rales, rhonchi, stridor Cardiovascular Exam: Present: regular rate, normal rhythm, normal heart sounds. Absent: systolic murmur, diastolic murmur, rubs, gallop GI/Abdominal exam: Present: soft. Absent: distended, tenderness, guarding, rebound, mass Extremities exam: Present: normal inspection, normal capillary refill. Absent: pedal edema, calf tenderness Back exam: Present: normal inspection. Absent: CVA tenderness (R), CVA tenderness (L) Skin exam: Present: warm, dry, intact, normal color. Absent: rash Course Vital Signs 06/14/16 06/14/16 06/14/16 06:28 06:36 08:46 Temperature 97.5 F L Pulse Rate 66 Respiratory 18 Rate Blood Pressure 205/92 188/90 196/91 O2 Sat by Pulse 97 Oximetry 06/14/16 06/14/16 09:08 09:36 Temperature 98.0 F Pulse Rate 71 67 Respiratory 18 18 Rate Blood Pressure 159/77 O2 Sat by Pulse 97 98 Oximetry Medical Decision Making - Lab Data Result diagrams: 06/14/16 06:32 06/14/16 06:32 Lab Results 06/14/16 06/14/16 Range/Units 06:32 06:32 WBC 6.8 (3.8-10.6) k/uL RBC 5.35 (3.80-5.40) m/uL Hgb 15.4 (11.4-16.0) gm/dL Hct 46.7 H (34.0-46.0) % MCV 87.4 (80.0-100.0) fL MCH 28.8 (25.0-35.0) pg MCHC 33.0 (31.0-37.0) g/dL RDW 13.7 (11.5-15.5) % Plt Count 261 (150-450) k/uL Neutrophils % 82 % Lymphocytes % 7 % Monocytes % 5 % Eosinophils % 4 % Basophils % 1 % Neutrophils # 5.6 (1.3-7.7) k/uL Lymphocytes # 0.5 L (1.0-4.8) k/uL Monocytes # 0.3 (0-1.0) k/uL Eosinophils # 0.3 (0-0.7) k/uL Basophils # 0.0 (0-0.2) k/uL Sodium 139 (137-145) mmol/L Potassium 4.2 (3.5-5.1) mmol/L Chloride 99 (98-107) mmol/L Carbon Dioxide 26 (22-30) mmol/L Anion Gap 14 mmol/L BUN 10 (7-17) mg/dL Creatinine 0.70 (0.52-1.04) mg/dL Est GFR (MDRD) Af Amer >60 (>60 ml/min/1.73 sqM) Est GFR (MDRD) Non-Af >60 (>60 ml/min/1.73 sqM) Glucose 296 H (74-99) mg/dL Calcium 9.3 (8.4-10.2) mg/dL Disposition Clinical Impression: Hypertension, Dementia Disposition: HOME SELF-CARE Condition: Fair Instructions: Hypertension (ED) Referrals: Ana Luisa Resendiz MD [Primary Care Provider] - 1-2 days
[2016-06-14] MEDS ORDERED: LISINOPRIL 5 MG TAB PO STA (08:35)
[2016-06-14 09:37] VITALS: BP 159/77; PULSE 67; TEMP 98
== END 2016-06-14 10:55 | disposition home or self-care (01) ==
LOC: EC 06:24
DX: I10 Essential (primary) hypertension (principal); F03.90 Unspecified dementia, unspecified severity, without behavioral disturbance, psychotic disturbance, mood disturbance, and anxiety; Z79.899 Other long term (current) drug therapy; E78.5 Hyperlipidemia, unspecified; E07.9 Disorder of thyroid, unspecified; Z88.0 Allergy status to penicillin; Z88.5 Allergy status to narcotic agent; Z88.6 Allergy status to analgesic agent; Z88.1 Allergy status to other antibiotic agents; Z91.041 Radiographic dye allergy status; G47.30 Sleep apnea, unspecified; M19.90 Unspecified osteoarthritis, unspecified site; F41.9 Anxiety disorder, unspecified; F32.9 Major depressive disorder, single episode, unspecified
CPT/HCPCS: 36415; 80048; 85025; 99285

== ENCOUNTER 2016-06-14 15:22 | Observation (INO) | payer MEDICARE, BC ==
--- NOTE | 2016-06-14 16:18 | ED ---
General Adult HPI - General Chief complaint: Psychiatric Symptoms Stated complaint: mental health Time Seen by Provider: 06/14/16 15:59 Source: patient, police, EMS Mode of arrival: EMS Limitations: no limitations - History of Present Illness Initial comments: This 75-year-old white female presents via EMS from [facility]. She apparently was unresponsive in their lobby today. She apparently was somewhat dizzy. She apparently has multiple similar incidents. She was just seen earlier today as well as yesterday. She apparently had some blood pressure and blood sugar concerns. There apparently is some psychiatric concerns as well. She apparently is unable to care for herself at home. She was petitioned by the police and a temporary court appointed guardian is assigned. They are requesting ECF placement as she is unable to further care for herself at this facility. She did not take any of her medications this week. She is threatening the commander police [employer]. She apparently has been very paranoid and agitated. There maybe a degree of dementia as well. No other complaints or modifying factors. She denies any actual physical or medical type of complaints. She is quite argumentative with staff and is verbally abusive to just about every one in the emergency department. - Related Data Home Medications Medication Instructions Recorded Confirmed Gabapentin [Neurontin] 100 mg PO QAM 01/29/16 06/14/16 ALPRAZolam [Xanax] 0.25 mg PO TID 03/27/16 06/14/16 Atorvastatin [Lipitor] 40 mg PO HS 05/13/16 06/14/16 Furosemide [Lasix] 20 mg PO QAM 05/13/16 06/14/16 Levothyroxine Sodium [Synthroid] 50 mcg PO QAM 05/13/16 06/14/16 Nuedexta 1 tab PO BID 05/13/16 06/14/16 busPIRone HCL [Buspar] 7.5 mg PO BID 05/13/16 06/14/16 lamoTRIgine [LaMICtal] 25 mg PO BID 05/13/16 06/14/16 Gabapentin [Neurontin] 200 mg PO BID 05/29/16 06/14/16 Nystatin [Nystop] 1 applic TOPICAL BID 05/29/16 06/14/16 Phenytoin Sodium Extended 100 mg PO TID 05/29/16 06/14/16 [Dilantin] PARoxetine HCL [Paxil] 40 mg PO QAM 06/03/16 06/14/16 Previous Rx's Medication Instructions Recorded Lisinopril [Zestril] 5 mg PO DAILY #14 tab 06/13/16 Allergies Allergy/AdvReac Type Severity Reaction Status Date / Time Penicillins Allergy Unknown Verified 06/14/16 15:29 aspirin AdvReac Severe Chest Pain Verified 06/14/16 15:29 cefuroxime axetil AdvReac Severe Chest Pain Verified 06/14/16 15:29 [From Ceftin] hydrocodone AdvReac Severe Confusion Verified 06/14/16 15:29 Iodinated Contrast Media - AdvReac Unknown Unknown Verified 06/14/16 15:29 Oral and antibiotics-all Allergy Unknown Uncoded 06/03/16 22:53 Review of Systems ROS Statement: Those systems with pertinent positive or pertinent negative responses have been documented in the HPI. ROS Other: All systems not noted in ROS Statement are negative. Past Medical History Past Medical History: Cancer, Diabetes Mellitus, GERD/Reflux, Hearing Disorder / Deafness, Hyperlipidemia, Hypertension, Osteoarthritis (OA), Sleep Apnea/CPAP/ BIPAP, Thyroid Disorder Additional Past Medical History / Comment(s): Skin Cancer -left lower lip, right BREAST CANCER. left eye lid lump removed. SEIZURE WHEN HERE LAST.CATARACTS, UTI,CAREGIVER STATED PT HAS YEAST INFECTION UNDER BREAST AND GROIN FOLDS. History of Any Multi-Drug Resistant Organisms: None Reported Past Surgical History: Breast Surgery Additional Past Surgical History / Comment(s): Removal of skin cancer - left lower lip, [place] BREAST BX, HAD lumped removed from RT breast- THEN. RIGHT MASECTOMY with revision/COMPLICATED BY INFECTION(PER CAREGIVER). Past Anesthesia/Blood Transfusion Reactions: No Reported Reaction Additional Past Anesthesia/Blood Transfusion Reaction / Comment(s): TAKES HER A LONG TIME TO COME OUT ANESTHESIA Past Psychological History: Anxiety, Depression Additional Psychological History / Comment(s): SPOUSE OF 40 YEARS IN , uses cane.PTS STATED LIVES AT [facility]. Smoking Status: Never smoker Past Alcohol Use History: None Reported Additional Past Alcohol Use History / Comment(s): Patient states she is a lifelong nonsmoker. She denies any medical marijuana, marijuana, street drug or alcohol use. 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 She denies any recent travel. Her pets in the home. Past Drug Use History: None Reported - Past Family History Father Family Medical History: Coronary Artery Disease (CAD) (Father at age 72 from CAD) Additional Family Medical History / Comment(s): of heart disease Mother Family Medical History: Respiratory Disorder (Mother at the age of 79 from lung disease) Additional Family Medical History / Comment(s): of lung disease Brother(s) Family Medical History: Cancer, Coronary Artery Disease (CAD) Sister(s) Family Medical History: Cancer, Coronary Artery Disease (CAD) Additional Family Medical History / Comment(s): Patient has a nephew who cares for her and she has no children. General Exam - General Exam Comments Initial Comments: GENERAL: The patient is well nourished and well hydrated. VITAL SIGNS: Heart rate, blood pressure, respiratory rate reviewed as recorded in nurse's notes. EYES: Pupils are round and reactive. Extraocular movements are intact. No conjunctival / lid redness or swelling. ENT: No external evidence of injury, swelling, or ecchymosis. Airway is patent. Throat is clear. NECK: Nontender. No swelling or evidence of injury. No subcutaneous emphysema. Trachea is midline. No thyroid mass. HEART: Regular rate and rhythm. Good peripheral pulses. LUNGS/CHEST: Breath sounds clear and equal bilaterally. No rales, rhonchi, or wheezes. No ecchymosis, subcutaneous emphysema, or tenderness. ABDOMEN: Abdomen soft without tenderness. No palpable masses or organomegaly. No peritoneal signs. No abdominal wall swelling or ecchymosis. EXTREMITIES: No extremity tenderness. Normal muscle tone and function. No thoracolumbar tenderness. NEUROLOGIC: Sensation is grossly intact. Cranial nerve exam reveals face is symmetrical, tongue is midline, speech is clear. SKIN: No abrasions or ecchymosis is noted. No induration or masses noted. PSYCHIATRIC: Alert and conversive, agitated, very mad. Limitations: no limitations Course Vital Signs 06/14/16 15:42 Temperature 98.1 F Pulse Rate 85 Respiratory 18 Rate Blood Pressure 143/64 O2 Sat by Pulse 93 L Oximetry Medical Decision Making - Medical Decision Making The patient was seen and examined. Old records were reviewed. Case is discussed with staff who is aware of patient being here earlier today. She is fairly well known to the emergency department. This is her third visit here in the last day. It is felt as though she would require admission to the hospital. It is felt as though she would require an evaluation by psychiatry. She will likely need ECF placement. Case is discussed with Dr. Resendiz her and he is agreeable to admission. Disposition Clinical Impression: Agitation, Inability to perform activities of daily living, Accelerated hypertension, Diabetes, Hyperglycemia, Dementia Disposition: ADMITTED IP TO THIS HOSP Condition: Fair Time of Disposition: 16:59 Decision Date: 06/14/16 Decision Time: 16:59
[2016-06-14] MEDS ORDERED: LORazepam 2 MG/ML SYRINGE IM STA (16:35)
[2016-06-14] MEDS: LORazepam 2 MG/ML SYRINGE IV STA ×2 (16:39)
[2016-06-14 18:27] LABS: Glucose,Whole Blood 405 mg/dL (75-99)
[2016-06-14] MEDS ORDERED: HALOPERIDOL LACTATE 5 MG/ML 1 ML VIAL IM PRN (18:45)
[2016-06-14 19:37] VITALS: BMI 28.3
[2016-06-14] MEDS: ATORVASTATIN 40 MG TAB PO SCH (20:13)
[2016-06-14] MEDS: PHENYTOIN SODIUM EXTENDED 100 MG CAP PO SCH (20:13)
[2016-06-14] MEDS: GABAPENTIN 100 MG CAP PO SCH (20:13)
[2016-06-14] MEDS: FAMOTIDINE 20 MG TAB PO SCH (20:13)
[2016-06-14] MEDS: lamoTRIgine 25 MG TAB PO SCH (20:13)
[2016-06-14] MEDS: busPIRone HCl 5 MG TAB PO SCH (20:13)
[2016-06-14] MEDS: NYSTATIN 100,000 UNIT/GM POWD 15 GM TOPICAL SCH (20:13)
[2016-06-14 20:20] LABS: Glucose,Whole Blood 406 mg/dL (75-99)
[2016-06-14] MEDS ORDERED: NUEDEXTA PO SCH (21:00)
[2016-06-14] MEDS: INSULIN LISPRO (humaLOG) 300 UNIT/3 ML VIAL SQ SCH (21:40)
[2016-06-15 03:24] LABS: Glucose,Whole Blood 219 mg/dL (75-99)
[2016-06-15 03:27] LABS: Appearance,Urine Clear (Clear); Bilirubin,Urine Negative (Negative); Glucose,Urine (UA) 4+ (Negative); Ketones,Urine Negative (Negative); Leukocyte Esterase,Urine Negative (Negative); Nitrite,Urine Negative (Negative); Protein,Urine Negative (Negative); Specific Gravity,Urine 1.028 (1.001-1.035); UA Billing (MACRO vs. MICRO) CHEM; Urobilinogen,Urine <2.0 mg/dL (<2.0)
[2016-06-15] MEDS: LEVOTHYROXINE 50 MCG TAB PO SCH (05:07)
[2016-06-15 06:52] LABS: Glucose,Whole Blood 183 mg/dL (75-99)
[2016-06-15 12:23] LABS: Glucose,Whole Blood 302 mg/dL (75-99)
[2016-06-15] MEDS: INSULIN LISPRO (humaLOG) 300 UNIT/3 ML VIAL SQ SCH ×4 (12:55→21:08)
[2016-06-15 15:24] LABS: Glucose,Whole Blood 328 mg/dL (75-99)
[2016-06-15 17:18] LABS: Glucose,Whole Blood 281 mg/dL (75-99)
[2016-06-15] MEDS: REPAGLINIDE 1 MG TAB PO SCH ×2 (17:36→17:52)
[2016-06-15] MEDS: FUROSEMIDE 20 MG TAB PO SCH (17:45)
[2016-06-15] MEDS: lamoTRIgine 25 MG TAB PO SCH ×2 (17:47→19:47)
[2016-06-15] MEDS: GABAPENTIN 100 MG CAP PO SCH ×3 (17:48→19:47)
[2016-06-15] MEDS: ENOXAPARIN 40 MG/0.4 ML SYRINGE SQ SCH (17:49)
[2016-06-15] MEDS: PHENYTOIN SODIUM EXTENDED 100 MG CAP PO SCH ×3 (17:49→19:47)
[2016-06-15] MEDS: busPIRone HCl 5 MG TAB PO SCH ×2 (17:49→19:46)
[2016-06-15] MEDS: FAMOTIDINE 20 MG TAB PO SCH ×2 (17:51→19:48)
[2016-06-15] MEDS: NYSTATIN 100,000 UNIT/GM POWD 15 GM TOPICAL SCH ×2 (17:52→19:46)
[2016-06-15] MEDS: LISINOPRIL 5 MG TAB PO SCH (17:55)
[2016-06-15] MEDS: LORazepam 0.5 MG TAB PO PRN (17:55)
[2016-06-15] MEDS: ATORVASTATIN 40 MG TAB PO SCH (19:47)
[2016-06-15 20:09] LABS: Glucose,Whole Blood 262 mg/dL (75-99)
[2016-06-15] MEDS: PARoxetine 20 MG TAB PO SCH (21:08)
--- NOTE | 2016-06-15 21:16 | P.HPIM ---
History of Present Illness H&P Date: 06/15/16 Chief Complaint: paranoia, self neglect this document serves both hand p and discharge summary This is a 75-year-old female one of Dr. Azar's patient with past medical history of breast cancer, diabetes, GERD, hypertension, hyperlipidemia, obstructive sleep apnea, and thyroid problem who also known to have history of seizure. Patient has been residing in [facility]. She had a recent hospitalization May 15 through May 19 for which she was treated for left-sided pneumonia, metabolic encephalopathy, depression and suicidal ideation. She again was admitted to [facility] form 05/21/16- for metabolic encephalopathyy and anxiety with agitation worsening depression. the lengthy admission was complicated with hypersomnolence related to her ativan qhich was later switched to xanax which she tolerated, buspar was increased then, paxil lamictal and nuexta was unchanged. She was recommended to go to subacute rehab which she adamantly declined and was threatening people if she does not get her way. She was admitted again on 06/03 in our facilit for chest pain along with her increased stress, anxiety and depression. She was discharged to her assisted living place at [facility] in the [facility]. By the time she got to her own, she has been neglecting her care, not taking her medications , we tried getting home services for nursing for medication dispensation which she refused. she exhibits suicidality when not around her cats, and threatens to kill herself. she has called the practice performance manager to her place several times in a day that the senior facility has been for several months to the point of ridiculousness. multiple ER visits for her behaviors. she is aggressive to nursing staff as well as staff and house staff. Social work consult was placed for possible placement which patient refuses. Consult placed with psychiatry to evaluate for competency to make own decisions. Patient does have a power of sql ssrs developer, Rajat, her nephew, who is indisposed as he is in the hospital and cannot be available for medical decision making. the police has petitioned her for unpredictable threatening behaviors with paranoia and suicidal ideation. She gets emotional and get severyly sad and cries, once the topic is replaced to something she dislikes she gets angry and starts saying leave me alone, "i dont like you" later she says "huh" on everything else that requires a straight answer. She laughs at her mischief and her fierce behaviors and would recant her behavior and says she is only joking, all these after she puts a fist in the nurse's face or have thrown a chair or her shoes at nursing staff. Review of Systems Constitutional: Reports as per HPI, Denies anorexia, Denies chills, Denies chronic headaches, Denies chronic pain, Denies daytime sleepiness, Denies fatigue, Denies fever, Denies lethargy, Denies malaise, Denies night sweats, Denies poor appetite, Denies sweats, Denies weakness, Denies weight gain, Denies weight loss Ears, nose, mouth and throat: Reports as per HPI, Denies ant. neck pain, Denies bleeding gums, Denies dental pain, Denies dysphagia, Denies epistaxis, Denies headache, Denies hoarseness, Denies mouth pain, Denies nasal congestion, Denies nasal discharge, Denies neck fullness/pressure, Denies neck lump, Denies nose pain, Denies odynophagia, Denies post-nasal drip, Denies sinus pain, Denies sinus pressure, Denies swelling in mouth, Denies swelling in throat, Denies sore throat, Denies vertigo, Denies voice changes Cardiovascular: Reports as per HPI, Denies chest pain, Denies claudication, Denies decreased exercise tolerance, Denies dyspnea on exertion, Denies edema, Denies high blood pressure, Denies irregular heart beat, Denies leg edema, Denies lightheadedness, Denies orthopnea, Denies palpitations, Denies paroxysmal nocturnal dyspnea, Denies phlebitis, Denies rapid heart beat, Denies shortness of breath, Denies syncope Respiratory: Reports as per HPI, Denies congestion, Denies cough, Denies cough with sputum, Denies dyspnea, Denies excessive sputum, Denies hemoptysis, Denies home oxygen, Denies pain, Denies pain on inspiration, Denies pleurisy, Denies respiratory infections, Denies sleep apnea, Denies snoring, Denies wheezing Gastrointestinal: Reports as per HPI, Denies abdominal pain, Denies belching, Denies bloating, Denies BRBPR, Denies change in bowel habits, Denies coffee ground emesis, Denies constipation, Denies diarrhea, Denies dyspepsia, Denies early satiety, Denies excessive gas, Denies heartburn, Denies hematemesis, Denies hematochezia, Denies indigestion, Denies jaundice, Denies lactose intolerance, Denies loss of appetite, Denies melena, Denies nausea, Denies vomiting Genitourinary: Reports as per HPI, Reports urge incontinence, Denies abnormal vaginal bleeding, Denies decreased libido, Denies difficulty conceiving, Denies difficulty voiding, Denies dysmenorrhea, Denies dyspareunia, Denies dysuria, Denies flank pain, Denies genital sores, Denies hematuria, Denies hot flashes, Denies incomplete emptying, Denies kidney stones, Denies menorrhagia, Denies mixed incontinence, Denies nocturia, Denies pelvic pain, Denies post void dribbling, Denies , Denies prolapse symptoms, Denies stress incontinence , Denies urgency, Denies urinary frequency, Denies vaginal discharge, Denies vaginal dryness, Denies vaginal itching, Denies vaginal odor Menstruation: Reports as per HPI, Reports postmenopausal Musculoskeletal: Reports as per HPI, Denies arm numbness/tingling, Denies atrophy, Denies fractures, Denies frequent falls, Denies gait dysfunction, Denies hot joints, Denies leg numbness/tingling, Denies limitation of motion, Denies loss of height, Denies low back pain, Denies morning stiffness, Denies muscle cramps, Denies muscle weakness, Denies myalgias, Denies neck pain, Denies neck stiffness, Denies prior amputations, Denies redness of joints, Denies shooting arm pain, Denies shooting leg pain Integumentary: Reports as per HPI, Denies acne, Denies boils, Denies brittle nails, Denies change in hair/nails, Denies color changes, Denies darkening of skin, Denies depigmentation, Denies dryness, Denies foot/leg ulcers, Denies growths, Denies hirsutism, Denies lesions, Denies onychomycosis, Denies pruritus , Denies rash, Denies sores, Denies striae, Denies unusual bruising, Denies wounds Neurological: Reports as per HPI, Reports memory loss, Denies aphasia, Denies ataxia, Denies balance difficulties, Denies burning pain, Denies change in mentation, Denies change in smell/taste, Denies change in speech, Denies confusion, Denies convulsions, Denies double vision, Denies gait dysfunction, Denies head injury, Denies headaches, Denies hearing difficulties, Denies lack of coordination, Denies loss of vision, Denies migraines, Denies motor disturbance, Denies numbness, Denies paralysis, Denies paresthesias, Denies seizures, Denies sensory deficit, Denies spasticity, Denies syncope, Denies tic , Denies tingling, Denies transient paralysis, Denies tremors, Denies vertigo, Denies weakness, Denies visual changes Psychiatric: Reports as per HPI, Reports anxiety, Reports anxiety attacks, Reports change in sleep habits, Reports depression, Reports difficulty concentrating, Reports hallucinations, Reports insomnia, Reports irritability, Reports memory loss, Reports mood swings, Reports paranoia, Reports sadness/ tearfulness, Reports sleep disturbances, Reports suicidal ideation Endocrine: Reports as per HPI Hematologic/Lymphatic: Reports as per HPI, Denies easy bleeding, Denies easy bruising, Denies lymphadenopathy, Denies lymphedema, Denies thrombophilia Allergic/Immunologic: Reports as per HPI, Denies allergic rhinitis, Denies anaphylaxis, Denies angioedema, Denies gluten intolerance, Denies persistent infections, Denies seasonal allergies, Denies urticaria, Denies wheezing Past Medical History Past Medical History: Cancer, Diabetes Mellitus, GERD/Reflux, Hearing Disorder / Deafness, Hyperlipidemia, Hypertension, Osteoarthritis (OA), Sleep Apnea/CPAP/ BIPAP, Thyroid Disorder Additional Past Medical History / Comment(s): Skin Cancer -left lower lip, right BREAST CANCER. left eye lid lump removed. SEIZURE WHEN HERE LAST829- 16.CATARACTS, UTI,CAREGIVER STATED PT HAS YEAST INFECTION UNDER BREAST AND GROIN FOLDS. History of Any Multi-Drug Resistant Organisms: None Reported Past Surgical History: Breast Surgery Additional Past Surgical History / Comment(s): Removal of skin cancer - left lower lip, [place] BREAST BX, HAD lumped removed from RT breast- THEN. RIGHT MASECTOMY with revision/COMPLICATED BY INFECTION(PER CAREGIVER). Past Anesthesia/Blood Transfusion Reactions: No Reported Reaction Additional Past Anesthesia/Blood Transfusion Reaction / Comment(s): TAKES HER A LONG TIME TO COME OUT ANESTHESIA Past Psychological History: Anxiety, Depression Additional Psychological History / Comment(s): SPOUSE OF 40 YEARS IN , uses cane.PTS ST[facility] LIVES AT [facility]. Smoking Status: Never smoker Past Alcohol Use History: None Reported Additional Past Alcohol Use History / Comment(s): Patient states she is a lifelong nonsmoker. She denies any medical marijuana, marijuana, street drug or alcohol use. 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 She denies any recent travel. Her pets in the home. Past Drug Use History: None Reported - Past Family History Father Family Medical History: Coronary Artery Disease (CAD) (Father at age 72 from CAD) Additional Family Medical History / Comment(s): of heart disease Mother Family Medical History: Respiratory Disorder (Mother at the age of 79 from lung disease) Additional Family Medical History / Comment(s): of lung disease Brother(s) Family Medical History: Cancer, Coronary Artery Disease (CAD) Sister(s) Family Medical History: Cancer, Coronary Artery Disease (CAD) Additional Family Medical History / Comment(s): Patient has a nephew who cares for her and she has no children. Medications and Allergies Home Medications Medication Instructions Recorded Confirmed Type ALPRAZolam [Xanax] 0.25 mg PO TID 03/27/16 06/18/16 History Atorvastatin [Lipitor] 40 mg PO HS 05/13/16 06/18/16 History Furosemide [Lasix] 20 mg PO QAM 05/13/16 06/18/16 History Levothyroxine Sodium [Synthroid] 50 mcg PO QAM 05/13/16 06/18/16 History Nuedexta 1 tab PO BID 05/13/16 06/18/16 History busPIRone HCL [Buspar] 7.5 mg PO BID 05/13/16 06/18/16 History lamoTRIgine [LaMICtal] 25 mg PO BID 05/13/16 06/18/16 History Gabapentin [Neurontin] 200 mg PO BID 05/29/16 06/18/16 History Nystatin [Nystop] 1 applic TOPICAL BID 05/29/16 06/18/16 History Phenytoin Sodium Extended 100 mg PO TID 05/29/16 06/18/16 History [Dilantin] PARoxetine HCL [Paxil] 40 mg PO QAM 06/03/16 06/18/16 History Allergies Allergy/AdvReac Type Severity Reaction Status Date / Time Penicillins Allergy Unknown Verified 06/18/16 00:22 aspirin AdvReac Severe Chest Pain Verified 06/18/16 00:23 cefuroxime axetil AdvReac Severe Chest Pain Verified 06/18/16 00:23 [From Ceftin] hydrocodone AdvReac Severe Confusion Verified 06/18/16 00:23 Iodinated Contrast Media - AdvReac Unknown Unknown Verified 06/18/16 00:23 Oral and antibiotics-all Allergy Unknown Uncoded 06/18/16 00:23 Physical Exam Vitals: Vital Signs Temp Pulse Pulse Pulse Resp BP BP 06/15/16 12:12 98.6 F 61 16 153/67 06/15/16 12:00 16 06/15/16 08:00 97.7 F 56 L 16 189/73 06/15/16 04:00 98.1 F 60 18 158/75 06/15/16 03:53 71 16 06/15/16 00:00 71 16 06/14/16 20:00 71 16 06/14/16 18:17 98.6 F 71 16 161/69 06/14/16 18:05 16 06/14/16 18:01 97.4 F L 81 18 156/80 Pulse Ox 06/15/16 12:12 96 06/15/16 12:00 06/15/16 08:00 98 06/15/16 04:00 97 06/15/16 03:53 06/15/16 00:00 06/14/16 20:00 06/14/16 18:17 95 06/14/16 18:05 06/14/16 18:01 96 Intake and Output 06/14/16 06/15/16 06/15/16 22:59 06:59 14:59 Intake Total 0 Output Total 500 Balance -500 Intake: Oral 0 Output: Urine 500 Other: Voiding Method Bedpan Diaper Incontinent # Voids 1 Weight 75 kg - Constitutional General appearance: average body habitus, cooperative, no acute distress - EENT Eyes: anicteric sclerae, EOMI, PERRLA, dentition normal, normal appearance ENT: hearing grossly normal, NA/AT, normal oropharynx - Respiratory Respiratory: bilateral: CTA, negative: diminished, dullness, rales, wheezing - Cardiovascular Rhythm: regular Heart sounds: normal: S1, S2 Abnormal Heart Sounds: no systolic murmur, no diastolic murmur, no rub, no S3 Gallop, no S4 Gallop, no click, no other - Gastrointestinal General gastrointestinal: normal bowel sounds, soft - Integumentary Integumentary: normal, normal turgor - Musculoskeletal Musculoskeletal: gait normal, strength equal bilaterally - Psychiatric Psychiatric: A&O x's 3, appropriate affect (inappropriate) Results Labs: Abnormal Lab Results - Last 24 Hours (Table) 06/14/16 06/14/16 06/15/16 Range/Units 18:24 20:18 03:04 POC Glucose (mg/dL) 405 H 406 H 219 H (75-99) mg/dL Urine Glucose (UA) (Negative) 06/15/16 06/15/16 06/15/16 Range/Units 03:16 06:48 12:20 POC Glucose (mg/dL) 183 H 302 H (75-99) mg/dL Urine Glucose (UA) 4+ H (Negative) Care Plans Diabetes Mellitus Start: 06/14/16 18: 26 Freq: Status: Active Created 06/14/16 18:26 [facility] (Rec: 06/14/16 18:26 [id number] MPH Standard Problems Start: 06/14/16 17: 53 Freq: Status: Active Created 06/14/16 17:53 System (Rec: 06/14/16 17:53 [id number] POC Problems Discharge Planning Start: 06/14/16 17: 53 Freq: Status: Active Created 06/14/16 17:53 System (Rec: 06/14/16 17:53 [id number] Falls - Risk of Start: 06/14/16 19: 05 Freq: Status: Active Created 06/14/16 19:05 [facility] (Rec: 06/14/16 19:05 [id number] Fluid Volume - Risk of, Imbalanced Start: 06/14/16 18: 26 Freq: Status: Active Created 06/14/16 18:26 [facility] (Rec: 06/14/16 18:26 [id number]) Knowledge Deficit Start: 06/14/16 17: 53 Text: May be related to: Status: Active Recent diagnosis Ineffective past teaching/learning Possibly evidenced by: Requests for information Verbalizing inaccurate information Inaccurate task performance Denying need to learn Freq: Created 06/14/16 17:53 System (Rec: 06/14/16 17:53 System [place] [id number]-) Knowledge Deficit Start: 06/14/16 19: 05 Text: May be related to: Status: Active Recent diagnosis Ineffective past teaching/learning Possibly evidenced by: Requests for information Verbalizing inaccurate information Inaccurate task performance Denying need to learn Freq: Created 06/14/16 19:05 [facility] (Rec: 06/14/16 19:05 [email or web address]-) Pain Management Start: 06/14/16 17: 53 Freq: Status: Active Created 06/14/16 17:53 System (Rec: 06/14/16 17:53 System [place] [id number]) Safety/Protection Start: 06/14/16 17: 53 Freq: Status: Active Created 06/14/16 17:53 System (Rec: 06/14/16 17:53 System [place] [id number]) Sensory Perception - Impaired Start: 06/14/16 18: 26 Freq: Status: Active Created 06/14/16 18:26 [facility] (Rec: 06/14/16 18:26 [id number] Serum Glucose Level - Abnormal Start: 06/14/16 18: 26 Freq: Status: Active Created 06/14/16 18:26 [facility] (Rec: 06/14/16 18:26 [id number]-) Skin Integrity - Risk of, Impaired Start: 06/14/16 19: 05 Freq: Status: Active Created 06/14/16 19:05 [facility] (Rec: 06/14/16 19:05 [id number] Outcomes Absence of Imbalanced Fluid Volume S/S Start: 06/14/16 18:26 Freq: 0200,1400 Status: Active Target: Created 06/14/16 18:26 [facility] (Rec: 06/14/16 18:26 [id number] Edit Target 06/15/16 01:33 [facility] (Rec: 06/15/16 01:33 [id number] 06/17/16 Document 06/15/16 01:34 [facility] (Rec: 06/15/16 01:37 [id number]-) Outcome Progress Current Progress Partially Met Comment po intake encouraged. no iv Query Text:*If Not Met or Partially Met, access. no s/s of imbalanced State Reason fluid status Document 06/15/16 14:00 [facility] (Rec: 06/15/16 18:[address] [facility]-[id number]-) Outcome Progress Current Progress Partially Met Comment pt. toelrating PO fluids, skin Query Text:*If Not Met or Partially Met, pink, brisk capillary refill State Reason Absence of Neurologic Deterioration S/S Start: 06/14/16 18:26 Freq: 0200,1400 Status: Active Target: Created 06/14/16 18:26 JRS (Rec: 06/14/16 18:26 [id number]) Edit Target 06/15/16 01:33 JR (Rec: 06/15/16 01:33 [facility][id number]-) 06/17/16 Document 06/15/16 01:34 [facility] (Rec: 06/15/16 01:37 [id number] Outcome Progress Current Progress Partially Met Comment pt a & ox1. no new neuro Query Text:*If Not Met or Partially Met, deficits noted at this time State Reason Document 06/15/16 14:00 [facility] (Rec: 06/15/16 18:[address] [facility]-[id number]) Outcome Progress Current Progress Partially Met Comment pt. at baseline level of Query Text:*If Not Met or Partially Met, mentation, neuro checks in State Reason place, Absence of falls Start: 06/14/16 19:05 Freq: Status: Active Target: Created 06/14/16 19:05 JRS (Rec: 06/14/16 19:05 [id number] Edit Target 06/15/16 01:32 [facility] (Rec: 06/15/16 01:32 [id number] 06/17/16 Absence of physical injury Start: 06/14/16 17:53 Freq: 0200,1400 Status: Active Target: Created 06/14/16 17:53 System (Rec: 06/14/16 17:53 System [facility]-[id number]-) Edit Target 06/15/16 01:33 JRG (Rec: 06/15/16 01:33 [facility][id number]-) 06/17/16 Document 06/15/16 01:34 J[facility] (Rec: 06/15/16 01:37 [facility][id number]-) Outcome Progress Current Progress Partially Met Comment safety intern at bedside. pt Query Text:*If Not Met or Partially Met, remains free from injury at State Reason this time Document 06/15/16 14:00 JR (Rec: 06/15/16 18:04 [id number] Outcome Progress Current Progress Partially Met Comment pt. free from injury, bed low, Query Text:*If Not Met or Partially Met, call light in reach, sitter State Reason at bedside Glucose Level W/In Specified Parameters Start: 06/14/16 18:26 Freq: 0200,1400 Status: Active Target: Created 06/14/16 18:26 JRS (Rec: 06/14/16 18:[address] [facility]-[id number]-) Edit Target 06/15/16 01:33 JRG (Rec: 06/15/16 01:33 [id number]-) 06/17/16 Document 06/15/16 01:34 J[facility] (Rec: 06/15/16 01:37 [facility][id number]-) Outcome Progress Current Progress Partially Met Comment cbg elevated. sliding scale Query Text:*If Not Met or Partially Met, coverage as needed State Reason Document 06/15/16 14:00 JRS (Rec: 06/15/16 18:04 [id number] Outcome Progress Current Progress Partially Met Comment accu checks completed per Query Text:*If Not Met or Partially Met, protocol, continue monitoring State Reason Knowledge of Discharge Instructions Start: 06/14/16 17:53 Text: *Verbalizes understanding of discharge Status: Active Target: instructions Freq: 0200,1400 Created 06/14/16 17:53 System (Rec: 06/14/16 17:53 System [place] [id number]-) Edit Target 06/15/16 01:32 JRG (Rec: 06/15/16 01:32 JRG [facility]-[id number]) 06/17/16 Document 06/15/16 01:34 JRG (Rec: 06/15/16 01:37 JRG [facility]-[id number]-) Outcome Progress Current Progress Partially Met Comment pt unable to comprehend info Query Text:*If Not Met or Partially Met, at this time State Reason Document 06/15/16 14:00 JRS (Rec: 06/15/16 18:[address] [facility]-65-) Outcome Progress Current Progress Partially Met Comment education ongoing on placement Query Text:*If Not Met or Partially Met, , safety, POA, possible State Reason discharge Reduction in Pain Sensation Start: 06/14/16 17:53 Text: *Verbalizes decrease in pain sensation Status: Active Target: Freq: 0200,1400 Created 06/14/16 17:53 System (Rec: 06/14/16 17:53 System [facility]--) Edit Target 06/15/16 01:33 JRG (Rec: 06/15/16 01:33 [id number] 06/17/16 Document 06/15/16 01:34 JRG (Rec: 06/15/16 01:37 [facility]65-) Outcome Progress Current Progress Partially Met Comment pt denies pain at this time Query Text:*If Not Met or Partially Met, State Reason Document 06/15/16 14:00 JRS (Rec: 06/15/16 18:[address] [facility]-[id number]-) Outcome Progress Current Progress Partially Met Comment pharmalogical and non- Query Text:*If Not Met or Partially Met, pharmalogical interventions State Reason utilized Skin integrity intact Start: 06/14/16 19:05 Freq: 0200,1400 Status: Active Target: Created 06/14/16 19:05 JRS (Rec: 06/14/16 19:[address] [facility]-[id number]-) Edit Target 06/15/16 01:33 JRG (Rec: 06/15/16 01:33 [facility]65-) 06/17/16 Document 06/15/16 01:34 JRG (Rec: 06/15/16 01:37 [id number] Outcome Progress Current Progress Partially Met Comment excoriation noted in several Query Text:*If Not Met or Partially Met, areas. no new skin breakdown State Reason noted Document 06/15/16 14:00 JRS (Rec: 06/15/16 18:04 [id number] Outcome Progress Current Progress Partially Met Comment barrier cream applied, Query Text:*If Not Met or Partially Met, nystatin per order, pt. turned State Reason , continue to monitor Understand Plan of Care Start: 06/14/16 17:53 Freq: 0200,1400 Status: Active Target: Created 06/14/16 17:53 System (Rec: 06/14/16 17:53 [id number] Edit Target 06/15/16 01:33 JRG (Rec: 06/15/16 01:33 [id number] 06/17/16 Document 06/15/16 01:34 JR (Rec: 06/15/16 01:37 [facility]65-) Outcome Progress Current Progress Partially Met Comment pt unable to comprehend info Query Text:*If Not Met or Partially Met, at this time State Reason Document 06/15/16 14:00 [facility] (Rec: 06/15/16 18:04 [email or web address] Outcome Progress Current Progress Partially Met Comment pt. educated on court Query Text:*If Not Met or Partially Met, appointed guardian, safety State Reason plan, discharge Understand disease process Start: 06/14/16 19:05 Text: * Understands anatomy and physiology Status: Active Target: * Describes reportable s/s * Understands treatment plan * Understands medication regime Freq: Created 06/14/16 19:05 JRS (Rec: 06/14/16 19:05 [email or web address] Edit Target 06/15/16 01:33 JRG (Rec: 06/15/16 01:33 JRG [facility]-[id number]) 06/17/16 Document 06/15/16 01:37 JRG (Rec: 06/15/16 01:37 [id number]) Outcome Progress Current Progress Partially Met Comment pt unable to comprehend Query Text:*If Not Met or Partially Met, education at this time State Reason Document 06/15/16 14:00 JR (Rec: 06/15/16 18:04 [id number] Outcome Progress Current Progress Partially Met Comment education ongoing dementia, Query Text:*If Not Met or Partially Met, weakness, depression, diabetes State Reason Interventions/Assessments *Admission Data Start: 06/14/16 17: 53 Text: Status: Complete Freq: ONCE Created 06/14/16 17:53 System (Rec: 06/14/16 17:53 System [facility]-[id number]) Document 06/14/16 18:05 [facility] (Rec: 06/14/16 19:[address] [facility]-[id number]) General Questions General Date of Arrival on Unit 06/14/16 Time of Arrival on Unit 18:05 Admitted From Emergency Dept Mode of Arrival Stretcher Self Treatment of Chief Complaint PT. WAS FOUND UNRESPONSIVE AT [facility] TODAY, PT. WAS PETITIONED BY POLICE AND BROUGHT INTO THE HOSPITAL, PT. NOW HAS COURT APPOINTED GUARDIAN History Provided by Patient Medical [facility] No Query Text:*Enter Information in Comment Discharge Rx Information Discharge Rx Participant No Communication Assessment Preferred Language [place] CITIZ[place] Preferred Language for Discussing [place] CITIZ[place] Healthcare Professional Athlete Required No Oral/Written Communicaton Needs No Access to Glasses Comprehension Ability Mild Impairment Oral Expression Ability No Impairment Written Expression Ability Mild Impairment Ability to Follow Directions Poor Able to Read Yes Able to Write Yes Speech Pattern Clear Appropriate Visual Communication Barrier Bilateral Visual Assistive Devices Glasses Auditory Communication Barrier Bilateral Hearing Ability Hard of Hearing Admission Information Healthcare Provider Information DR. AZAR DVT/PE Present on Admission No Patient ? No: POST MENOPAUSAL Currently Breast Feeding? N/A Have You Been Hospitalized in the Last Yes: PT. HAS HAD MULTIPLE 30 Days? ADMISSIONS Query Text:*If yes then specify reason Is Patient Currently Admitted with HF No Query Text:*If yes, finish summary below Clinical Trial Information Clinical Trial Participant No Substance Abuse Smoking Status Never smoker Substance Use Type None Spiritual/Cultural Assessment Sabianism Preference No Preference Race Advance Directives Advance Directives Advance Directives No Advance Directives Information Provided Yes: WELCOME PACKET Query Text:*A.D. information included in "Welcome Packet" Patient Wishes *This pertains to the patient's wishes NOT the Physician order. Wishes Provided By Family/Legal Produce Wrapper Family/Legal Produce Wrapper Name Sharon Sanders Resuscitation Status Full Code Legal Guardian Legal Guardian Name Sharon Sanders Legal Guardian Organ Donation Organ Donor No Teaching Assessment Teaching Assessment Person Assessed Patient Preferences Visual Barriers to Learning Cognitive/Verbal Cognitive/Written Motivation Age related Emotional Readiness To Learn Poor Safety Assessment Orientation Patient Orientation Person Place Precautions Orientation To Call Light Bed Phone TV Bathroom ID Bracelet On Safety Policy Call Seay Within Reach Yes Bed Position Side Rails Up X2 Low Precautions/Isolation Fall Prevention Pain Management Pain Management Information Given to Yes Patient Abuse Screening General Patient Lives With 24-7 Care Feels Safe at Home No Safety Social Service Consult Yes Initial Screening Do you have a history of any of the Vulnerable Adult following: Is The Abuse Currently Happening? No Height and Weight Height *Height 5 ft 4 in Weight *Weight 75 kg Weight Measurement [facility] Body Mass Index (BMI) 28.3 BMI Classification Normal Pain Assessment Pain Scale Scale Used PAINAD Comment Pain Comment PT. RESTING COMFORTABLY AT THIS TIME Admission Assessment Confirmation Assessment Complete Admission Assessment Complete Yes Edit Status 06/14/16 18:05 [facility] (Rec: 06/14/16 19:[address] [facility]-[id number]) Active=>Complete *Admission [facility] Start: 06/14/16 17: 53 Text: Status: Complete Freq: ONCE Document 06/14/16 17:53 [facility] (Rec: 06/14/16 19:[address] [facility]-[id number]) Past Medical History Verified Past Medical History Verified /Confirmed Past Medical History Verified/Confirmed Yes w/ Pt or Caregiver Date Past Medical History Verified w06/14/16 Patient or Caregiver Travel History Screen History of Travel Domestic or International Travel No Past Medical History Past Medical History Past Medical History Cancer Diabetes Mellitus GERD/Reflux Hearing Disorder / Deafness Hyperlipidemia Hypertension Osteoarthritis (OA) Sleep Apnea/CPAP/BIPAP Thyroid Disorder Additional Past Medical History / Skin Cancer -left lower lip, Comment(s) right BREAST CANCER. left eye lid lump removed. SEIZURE WHEN HERE LAST8. CATARACTS, UTI,CAREGIVER STATED PT HAS YEAST INFECTION UNDER BREAST AND GROIN FOLDS. Past Surgical History Past Surgical History Past Surgical History Breast Surgery Additional Past Surgical History / Removal of skin cancer - left Comment(s) lower lip, [place] BREAST BX, HAD lumped removed from RT breast- THEN RIGHT MASECTOMY with revision/ COMPLICATED BY INFECTION(PER CAREGIVER). History of Multi-Drug Resisitant Organisms Multi-Drug Resistant Organism History of Any Multi-Drug Resistant None Reported Organisms Query Text:*If any MDRO exist specify the year and source *If other specify below *Only document C-diff if positive w/in last 30 days Past Anesthesia/Blood Transfusion Reactions Past Anesthesia/Blood Transfusion Reactions Past Anesthesia/Blood Transfusion No Reported Reaction Reactions Additional Past Anesthesia/Blood TAKES HER A LONG TIME TO COME Transfusion Reaction / Comment(s) OUT ANESTHESIA Past Psychological/Social History Psychological History Past Psychological History Anxiety Depression Additional Psychological History / SPOUSE OF 40 YEARS Comment(s) IN , uses cane.PTS STATED LIVES AT [facility] . Social History Smoking Status Never smoker Past Alcohol Use History None Reported Additional Past Alcohol Use History / Patient states she is a Comment(s) lifelong nonsmoker. She denies any medical marijuana, marijuana, street drug or alcohol use. 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 She denies any recent travel. Her pets in the home. Past Drug Use History None Reported Family Medical History Family Medical History Sister(s) Family Medical History Cancer Coronary Artery Disease (CAD) Additional Family Medical History / Patient has a nephew who cares Comment(s) for her and she has no children. Brother(s) Family Medical History Cancer Coronary Artery Disease (CAD) Created 06/14/16 17:53 System (Rec: 06/14/16 17:53 System [facility]-[id number]) Edit Status 06/14/16 19:57 [facility] (Rec: 06/14/16 19:57 [facility]-[id number]) Active=>Complete *Complete Clinical Data Tab Start: 06/14/16 17: 53 Freq: ONCE Status: Complete Document 06/14/16 17:53 [facility] ([facility]14[facility]16 [id number] Edit Status 06/14/16 17:53 JRS (Rec: 06/14/16 18:[address] [facility]-[id number]-) Active=>Complete Created 06/14/16 17:53 System (Rec: 06/14/16 17:53 System [facility]-[id number]) *Complete Immunizations in Summary Tab Start: 06/14/16 17: 53 Freq: ONCE Status: Complete Document 06/14/16 17:53 JRS (Rec: 06/14/16 18:[address] [facility]-[id number]-) Edit Status 06/14/16 17:53 JRS (Rec: 06/14/16 18:[address] [facility]-[id number]-) Active=>Complete Created 06/14/16 17:53 System (Rec: 06/14/16 17:53 System [facility]-[id number]) *Immunization Screen Start: 06/14/16 19: 05 Freq: .NOW Status: Complete Created 06/14/16 19:05 JRS (Rec: 06/14/16 19:05 [id number] Edit Status 06/14/16 19:57 JRG (Rec: 06/14/16 19:57 JRG [facility]-[id number]) Active=>Complete *Initiate Individualized Plan of Care Start: 06/14/16 17: 53 Freq: ONCE Status: Complete Document 06/14/16 17:53 JRS (Rec: 06/14/16 18:[address] [facility]-[id number]-) Edit Status 06/14/16 17:53 JRS (Rec: 06/14/16 18:[address] [facility]-[id number]-) Active=>Complete Created 06/14/16 17:53 System (Rec: 06/14/16 17:53 System [facility]-[id number]) *Risk Screen Start: 06/14/16 17: 53 Freq: ONCE Status: Complete Document 06/14/16 17:53 JRS (Rec: 06/14/16 19:[address] [facility]-[id number]-) Immunization Reporting Opt Out [facility] Reporting Immunization Reporting Opt Out No Query Text: *To NOT send patient immunization information to the [place] [facility] ([facility]) select "Yes. " *If yes, print [facility] Participation form and obtain patient signature. Then give signed form to [employer] for faxing . Immunization Screening Pneumonia Vaccine Screen Contraindications Patient Refuses Do You Want the Pneumonia Vaccine AT No THIS TIME? Influenza Vaccine Screen Contraindications Patient Refuses Do You Want the Flu Vaccine AT THIS TIME No ? Diabetes Screening Diabetes Screening Diabetes Screening Yes - Complete Diabetes Query Text:*If answer is yes, complete Education Diabetes Mellitus Self-Assessment* Type of Diabetes Type II Diabetes Mellitus Self-Assessment How often do you check your blood PT. STATES SHE HAS NOT DONE glucose? ANYTHING IN A WEEK What physician currently manages your [place] Nissa diabetes? Depression Scale Over the last two weeks, how often have you been bothered by any of the following problems? *If "Not At All" selected for first two questions, skip down to next documentation section. Little interest or pleasure in doing Not At All things Feeling down, depressed, or hopeless Not At All Trouble falling or staying asleep, or Not At All sleeping too much Feeling tired or having little energy Not At All Poor appetitie or overeating Not At All Suicide Risk Screen Suicidal Ideation Wish to be No Query Text:In the past week, have you wished you were , or wished you could go to sleep and not wake up? Suicidal Thoughts No Query Text:In the past week, have you had any actual thoughts of killing yourself? Thrombosis Risk Factor Assessment Choose All That Apply Any of the Below Risk Factors Present? Yes Each Factor Represents 1 point Obesity (BMI >25) Other Risk Factors Yes Each Risk Factor Represents 3 Points Age 75 years or older Other congenital or acquired No thrombophilia - If yes, enter type in comment Total Risk Factor Score 4 Risk Level Moderate Risk Lencho Scale Lencho Scale Sensory Perception Very Limited Moisture Occasionally Moist Activity Walks Occasionally Mobility Slightly Limited Nutrition Probably Inadequate Friction/Shear Potential Problem Lencho Score Total 15 Lencho Score Mild Risk Elias Fall Risk Scale Fall Risk History of Falling < 3 Months Yes Query Text:*Yes=20 No=0 * Select "Yes" if the patient has fallen during the present hospital admission or if there was an immediate history of physiological falls, such as from seizure or impaired gait prior to admission. * Select "No" if the patient has not fallen. Secondary Diagnosis Yes Query Text:*Yes=15 No=0 * Select "Yes" if more than one active medical diagnosis is identified. * Select "No" if only one active diagnosis is identified. IV Access No Query Text:*Yes=20 No=0 * Select "Yes" if patient has IV or Lock access. * Select "No" if patient does not have IV or Lock access. Gait/Transfer Weak Query Text:*Weak=10 Impaired=20 Normal =0 Bedrest=0 Immobile=0 Mental Status Over Estimates or Forgets Query Text:*Over Estimates or Forgets=15Limitations Oriented=0 Fall Risk Total Score 65 Fall Risk Level High Risk Fall Level of Risk > 51 Confusion Disoriented Nutritional Screen Level of Care/Transition Change Change in Level of Care or Transition No Query Text:*If yes, update Nutrition Screen Nutritional Screen Have you recently lost weight without No trying? Query Text:*If yes, advance directly to next question. Weight Loss Score 0 TB Screening TB Screening Tool Have You Been Exposed to Anyone With TB? No History of Positive TB Skin Test? No Latex Allergy Latex Allergy Screening Tool Any Latex Reactions? No Reactions Query Text:*Initiate Latex Precautions Per Policy Latex Precautions None Travel History Screen History of Travel Domestic or International Travel No Clostridium difficile Screen C.difficile History Arrived From Emergency Dept Hospitalized in the last 30 days Yes Antibiotics in the last 30 days No Change in bowel pattern No Liquid Watery Stools x 3 Within 24 hr No Created 06/14/16 17:53 System (Rec: 06/14/16 17:53 System [facility]-[id number]) Edit Status 06/14/16 19:56 JRG (Rec: 06/14/16 19:56 JRG [facility]-[id number]) Active=>Complete Activities of Daily Living Start: 06/14/16 17: 53 Freq: .PRN Status: Active Created 06/14/16 17:53 JRS (Rec: 06/14/16 17:53 JRS [facility]-[id number]) Document 06/14/16 18:17 JLW (Rec: 06/14/16 18:20 JLW [facility]-[id number]) Activities of Daily Living Height and Weight Height 5 ft 4 in Weight 75 kg Weight Measurement Method Built in Bedscale Room Orientation Orientation To Call Light Bed Phone TV Safety Policy Activity Patient Activity HOB up Safety Safety Precautions Bed Low Fall Precautions Call Light Within Reach Patient Checked Rails Up x2 Document 06/15/16 08:00 ESC (Rec: 06/15/16 08:46 [facility]-[id number]) Activities of Daily Living Activity Patient Activity HOB Flat HOB up Safety Safety Precautions Bed Low Fall Precautions Call Light Within Reach Patient Checked Rails Up x2 Yellow Socks On Yellow Fall Bracelet On Fall [place] on Door Document 06/15/16 12:12 ESC (Rec: 06/15/16 12:13 ESC [facility]-[id number]) Activities of Daily Living Activity Patient Activity HOB Flat Safety Safety Precautions Bed Low Fall Precautions Call Light Within Reach Patient Checked Rails Up x2 Sitter at Bedside Yellow Socks On Yellow Fall Bracelet On Fall [place] on Door Document 06/15/16 17:15 [facility] (Rec: 06/15/16 19:[address] [facility]-[id number]-) Activities of Daily Living Room Orientation Orientation To Call Light Bed Phone TV Bathroom ID Bracelet On Safety Policy Activity Patient Activity Bathroom Privilege Chair Activity Ability Standby Assistance Gait Weak Stiff Tolerates Activity Fair Safety Safety Precautions Bed Low Fall Precautions Bed Alarm nutrition intern Light Within Reach Close Observation Close to Nurse's Station Rails Up x2 Staff at Bedside Sitter at Bedside Yellow Socks On Yellow Fall Bracelet On Fall [place] on Door Activity Assistance Start: 06/14/16 19: 05 Freq: Status: Active Created 06/14/16 19:05 [facility] (Rec: 06/14/16 19:05 [id number] Assess Blood Glucose Start: 06/14/16 18: 26 Freq: Status: Active Created 06/14/16 18:26 [facility] (Rec: 06/14/16 18:26 [id number] Assess IV /invasive line status Start: 06/14/16 17: 53 Text: Status: Active Freq: 0000,0400,0800,1200,1600,2000 Created 06/14/16 17:53 [facility] (Rec: 06/14/16 17:53 [id number] Document 06/14/16 18:05 [facility] (Rec: 06/14/16 19:[address] [facility]-XA65-) IV/Invasive Line Assessment IV Invasive Line 1 IV Comment pt. has no IV line, physician aware Document 06/14/16 19:55 JRG (Rec: 06/14/16 19:55 JRG [id number]) IV/Invasive Line Assessment IV Invasive Line 1 IV Comment no iv access. dr nissa roth Document 06/15/16 00:00 JRG (Rec: 06/15/16 01:26 [facility]-XA65-) IV/Invasive Line Assessment IV Invasive Line 1 IV Comment no iv access. dr nissa roth Document 06/15/16 03:50 JRG (Rec: 06/15/16 03:51 [facility] IV/Invasive Line Assessment IV Invasive Line 1 IV Comment no iv access. dr nissa roth Additional Central Line Documentation *FAQ Given CLABSI Edit Result 06/15/16 03:50 JRG (Rec: 06/15/16 19:35 [facility]-[id number]) IV/Invasive Line Assessment IV Invasive Line 1 IV Comment pt. has no iv access, Dr. Nissa roth Additional Central Line Documentation *FAQ Given Document 06/15/16 08:00 [facility] (Rec: 06/15/16 12:[address] [facility]-[id number]-) IV/Invasive Line Assessment IV Invasive Line 1 IV Comment pt. has no iv access, Dr. Nissa roth Additional Central Line Documentation *FAQ Given CLABSI Document 06/15/16 12:00 [facility] (Rec: 06/15/16 12:[address] [facility]-XA65-) IV/Invasive Line Assessment IV Invasive Line 1 IV Comment pt. has no iv access, Dr. Nissa roth Additional Central Line Documentation *FAQ Given CLABSI Document 06/15/16 16:00 JRS (Rec: 06/15/16 19:[address] [facility]-XA65-) IV/Invasive Line Assessment IV Invasive Line 1 IV Comment pt. has no iv access, Dr. Nissa roth Additional Central Line Documentation *FAQ Given CLABSI Document 06/15/16 19:34 [facility] (Rec: 06/15/16 19:35 [facility]-[id number]) IV/Invasive Line Assessment IV Invasive Line 1 IV Comment pt. has no iv access, Dr. Nissa roth Additional Central Line Documentation *FAQ Given Assess Pain Signs/Symptoms Start: 06/14/16 17: 53 Freq: Status: Active Created 06/14/16 17:53 System (Rec: 06/14/16 17:53 [id number] Assess feeding method and intake Start: 06/14/16 17: 53 Text: Status: Active Freq: 0900,1300,1900,2200 Created 06/14/16 17:53 [facility] (Rec: 06/14/16 17:53 [id number] Document 06/14/16 19:00 [facility] (Rec: 06/14/16 19:20 [id number] Feeding Assessment Diet Meal Dinner *Percent Meal Consumed 25% Diet Tolerated Poor Actions Taken Alternate Foods Offered Declined Substitution Self Feeding Ability Independent Not Done 06/14/16 22:00 [facility] (Rec: 06/14/16 22:05 [id number] Patient Asleep Document 06/15/16 09:00 [facility] (Rec: 06/15/16 12:06 [email or web address] Feeding Assessment Diet Meal Breakfast *Percent Meal Consumed 25% Diet Tolerated Fair Self Feeding Ability Independent Document 06/15/16 13:00 [facility] (Rec: 06/15/16 13:27 [facility] Feeding Assessment Diet Meal Lunch *Percent Meal Consumed 50% Diet Tolerated Fair Self Feeding Ability Minimum Assistance Document 06/15/16 19:00 [facility] (Rec: 06/15/16 19:21 [email or web address] Feeding Assessment Diet Meal Dinner *Percent Meal Consumed 50% Diet Tolerated Fair Self Feeding Ability Minimum Assistance Assess pain Start: 06/14/16 17: 53 Freq: 0000,0400,0800,1200,1600,2000 Status: Active Created 06/14/16 17:53 [facility] (Rec: 06/14/16 17:53 [id number] Document 06/14/16 18:05 [facility] (Rec: 06/14/16 19:22 [id number] Pain Assessment Pain Scale Scale Used PAINAD Location None Intensity 0 Comment Pain Comment pt. resting comfortably at this time Document 06/14/16 19:55 [facility] (Rec: 06/14/16 19:55 [facility]-[id number]) Pain Assessment Pain Scale Scale Used Numeric (1 - 10) Location None Intensity 0 Document 06/15/16 00:00 JRG (Rec: 06/15/16 01:26 [facility]65-) Pain Assessment Pain Scale Scale Used Numeric (1 - 10) Location None Intensity 0 Document 06/15/16 03:50 JRG (Rec: 06/15/16 03:51 [facility]65-) Pain Assessment Pain Scale Scale Used Numeric (1 - 10) Location None Intensity 0 Document 06/15/16 08:00 JRS (Rec: 06/15/16 12:09 [facility]-) Pain Assessment Pain Scale Scale Used PAINAD Comment Pain Comment pt. resting comfortably at time of assessment Document 06/15/16 12:00 JRS (Rec: 06/15/16 12:28 [facility]-) Pain Assessment Pain Scale Scale Used PAINAD Comment Pain Comment pt. resting comfortably at this time, no distress noted Document 06/15/16 16:00 JRS (Rec: 06/15/16 19:31 [facility]-) Pain Assessment Pain Scale Scale Used Numeric (1 - 10) Comment Pain Comment pt. has no complaints of pain at this time Document 06/15/16 19:35 JR (Rec: 06/15/16 19:35 [id number] Pain Assessment Pain Scale Scale Used Numeric (1 - 10) Location None Intensity 0 Blood Glucose Monitoring Start: 06/14/16 21: 59 Text: Notify physician for CBG less than 70 mg/dL or over Status: Active 400 mg/dL. Freq: Document 06/14/16 20:18 JRG (Rec: 06/14/16 22:05 [id number] Blood Glucose Assessment Blood Glucose Finger Stick Blood Glucose (70-120) 406 Critical Value Critical Value Critical Value Lab Physician/Practitioner Notified dr azar Hyperglycemia Assessment MD Notification *Two Blood Glucose Levels of >180 or One Blood Glucose >150 for Cardiac Surgery Patients will Require Physician Notification MD Notified of Blood Glucose Yes MD Notified: dr azar aware of blood glucose levels > 400. Hypoglycemia Assessment-Adult MD Notification MD notified: pt had blood glucose level of [address] azar aware of cbg of 405. no coverage provided awaiting insulin for cbg. cbg of 406 covered per protocol. will contact dr azar again per protocol if needed Created 06/14/16 21:59 JRG (Rec: 06/14/16 21:59 JRG [facility]-[id number]-) Blood glucose assessment Start: 06/14/16 21: 58 Freq: Status: Active Created 06/14/16 21:58 JRG (Rec: 06/14/16 21:58 JRG [facility]-[id number]-) Lencho Scale Start: 06/14/16 17: 53 Freq: 0800 Status: Active Created 06/14/16 17:53 JRS (Rec: 06/14/16 17:53 JRS [facility]-[id number]-) Public Service Administrator Start: 06/14/16 17: 53 Freq: 0000,0400,0800,1200,1600,2000 Status: Complete Created 06/14/16 17:53 JRS (Rec: 06/14/16 17:53 JRS [facility]-XA65-) Document 06/14/16 18:05 JRS (Rec: 06/14/16 19:22 JRS [facility]-65-) Public Service Administrator Public Service Administrator TTX# N/A Edit Status 06/15/16 06:28 JRG (Rec: 06/15/16 06:28 JRG [facility]-[id number]-) Active=>Complete Case Management/Social Work Assessment Start: 06/14/16 17: 53 Freq: ONCE Status: Active Created 06/14/16 17:53 JRS (Rec: 06/14/16 17:53 JRS [facility]-[id number]-) Collect Specimen: Phenytoin (Dilantin) Start: 06/14/16 17: 10 Freq: ONCE Status: Complete Created 06/14/16 17:05 MJK (Rec: 06/14/16 17:05 MJK [facility]-[id number]) Document 06/14/16 17:10 MLK (Rec: 06/14/16 17:10 MLK [facility]-[id number]) Edit Status 06/14/16 17:10 MLK (Rec: 06/14/16 17:10 MLK [facility]-[id number]) Active=>Complete Edit Status 06/14/16 17:10 MLK (Rec: 06/14/16 17:10 MLK [facility]-[id number]) Active=>Completed Collect Specimen: Urinalysis Start: 06/15/16 03: 21 Freq: ONCE Status: Complete Created 06/14/16 16:23 MJK (Rec: 06/14/16 16:23 [facility]-[id number]) Document 06/15/16 03:21 SMS (Rec: 06/15/16 03:21 [facility]-[id number]) Edit Status 06/15/16 03:21 SMS (Rec: 06/15/16 03:21 [id number] Active=>Complete Edit Status 06/15/16 03:21 SMS (Rec: 06/15/16 03:21 [id number] Active=>Completed [place]-Suicide Severity Rating Scale Start: 06/15/16 17: 07 Text: Wish to be Status: Active Person endorses thoughts about a wish to be or not alive anymore, or wish to fall asleep and not wake up . In the past week, have you wished you were , or wished you could go to sleep and not wake up? Suicidal Thoughts General non-specific thoughts of wanting to end one 's life/commit suicide, "I've thought about killing myself " without general thoughts of ways to kill oneself/ associated methods, intent or plan. In the past week, have you had any actual thoughts of killing yourself? Suicidal Thoughts w/Method (w/o Specific Plan/ Intent to Act) Person endorses thoughts of suicide and has thought of at least one method during the assessment period. This is different than a specific plan w/time, place, or method details worked out. "I thought about taking an overdose but I never made a specific plan as to when, where, or how I would actually do it...and I would never go through with it." In the past week, have you been thinking about how you might do this? Suicidal Intent (without specific plan) Active suicidal thoughts of killing oneself and patient reports having some intent to act on such thoughts , as opposed to "I have the thoughts but I definitely will not do anything about them." In the past week, have you had these thoughts and had some intention of acting on them? Suicidal Intent With Specific Plan Thoughts of killing oneself with details of plan fully or partially worked out, and person has some intent to carry it out. In the past week, have you started to work out or worked out the details of how to kill yourself ? Do you intend to carry out this plan? Suicide Behavior Question Have you ever done anything, started to do anything , or prepared to do anything with any intent to ? Examples: Attempt: Took pills, shot self, cut self, jumped from a tall place; Preparation: Collecting pills, getting a gun, giving valuables away, writing a suicide or goodbye note, etc. If yes, How Long Ago Did You Do Any of These -More than a Year Ago - Within the Last Year - Between a Week and Year Freq: Created 06/15/16 17:07 [facility] (Rec: 06/15/16 17:07 [facility]-[id number]) Document 06/15/16 17:08 [facility] (Rec: 06/15/16 17:10 [facility]-[id number]) [place]-Suicide Severity Rating Suicide Ideation Wish to be No Query Text:In the past week, have you wished you were , or wished you could go to sleep and not wake up? Suicidal Thoughts No Query Text:In the past week, have you had any actual thoughts of killing yourself? Suicidal Thoughts w/Method (w/o Specific No Plan/Intent to Act) Query Text:In the past week, have you been thinking about how you might do this? Disposition Disposition Psychiatric Consultation and Patient Safety Monitor/ Procedures Communication, Pharmacist Start: 06/14/16 19: 05 Freq: Status: Active Created 06/14/16 19:05 JRS (Rec: 06/14/16 19:[address] [facility]-[id number]) Daily Weight Start: 06/14/16 17: 53 Freq: 0500 Status: Complete Created 06/14/16 17:53 JRS (Rec: 06/14/16 17:[address] [facility]-[id number]-) Edit Status 06/15/16 05:18 [facility] (Rec: 06/15/16 05:18 [facility]-[id number]) Active=>Complete Dehydration Signs/Symptoms Assessment Start: 06/14/16 18: 26 Freq: Status: Active Created 06/14/16 18:26 JRS (Rec: 06/14/16 18:[address] [facility]-[id number]) Distress Thermometer for Patients Start: 06/14/16 19: 20 Freq: Status: Active Created 06/14/16 19:20 JR (Rec: 06/14/16 19:[address] [facility]-[id number]) E.D. Triage Assessment Start: 06/14/16 15: 22 Freq: Status: Complete Created 06/14/16 15:22 System (Rec: 06/14/16 15:22 System [facility]-[id number]) Document 06/14/16 15:42 MLK (Rec: 06/14/16 15:47 MLK [facility]-[id number]) Triage Intake Arrival Mode of arrival EMS Source patient police EMS Limitations no limitations ED Triage Comment petitioned unable to take care of self and basic needs greens or grounds superintendent ekllbindu petitioned pt and has new guardian at this time states wants to leave home states where she lives there trying to kill here, states they are trying to decapitate her cats seen here yesterday and this am. When did these symptoms begin? 06/14/16 Type of Emergency Medical OJ/Chief Complaint OJ 2 Chief Complaint Psychiatric Symptoms Medical Jewelry Medical Jewelry No Query Text:*Enter Information in Comment Vital Signs Temperature (97.6 F-99.6 F) 98.1 F Temperature Source Oral Pulse Rate (60-100 beats/min) 85 Respiratory Rate (12-24 breaths/min) 18 Blood Pressure (mm Hg) 143/64 Blood Pressure Mean (mm Hg) 90 O2 Sat by Pulse Oximetry (95-100) 93 Oxygen Delivery Method Room Air Pain Scale Used Numeric (1 - 10) Pain Scale 0 Sepsis Screen Recent Fever No Suspicion or Documented Infection No Query Text:If yes: *EC - Notify Physician *Inpatient - Obtain lactic acid per protocol & call A-Team *Proceed to "Organ Dysfunction New/Unexplained Mental Status No Is Sepsis Result Severe No Height/Weight Height 5 ft 3 in Weight 79.379 kg Immunization/Infectious Risk Hx Tetanus, Diphtheria Vaccination No Hx Influenza Vaccination No Hx Pneumococcal Vaccination No Immunizations Up to Date No TB Screen None of the Above Query Text:* For cough > 3 weeks and 3 or > S/S in TB Screen: * Initiate Airborne Precautions * Initiate TB Order Suicide Risk Assessment Wish to be No Query Text:In the past week, have you wished you were , or wished you could go to sleep and not wake up? Suicidal Thoughts No Query Text:In the past week, have you had any actual thoughts of killing yourself? Suicidal Thoughts w/Method (w/o Specific No Plan/Intent to Act) Query Text:In the past week, have you been thinking about how you might do this? Contraband Assessment No Items Present Domestic Abuse Screen Do you have a history of any of the None following: Alexis Coma Scale Eye Response (4) open spontaneously Motor Response (6) obeys commands Verbal Response (5) oriented Alexis Total 15 Elias Fall Risk Scale Assessment Fall Risk History of Falling < 3 Months No Query Text:*Yes=20 No=0 * Select "Yes" if the patient has fallen during the present hospital admission or if there was an immediate history of physiological falls, such as from seizure or impaired gait prior to admission. * Select "No" if the patient has not fallen. Secondary Diagnosis No Query Text:*Yes=15 No=0 * Select "Yes" if more than one active medical diagnosis is identified. * Select "No" if only one active diagnosis is identified. IV Access No Query Text:*Yes=20 No=0 * Select "Yes" if patient has IV or Lock access. * Select "No" if patient does not have IV or Lock access. Gait/Transfer Normal Query Text:*Weak=10 Impaired=20 Normal =0 Bedrest=0 Immobile=0 Mental Status Oriented to Own Ability Query Text:*Over Estimates or Forgets=15 Oriented=0 Fall Risk Total Score 0 Edit Status 06/14/16 15:47 MLK (Rec: 06/14/16 15:47 MLK [facility]-[id number]) Active Edit Start 06/14/16 15:47 MLK (Rec: 06/14/16 15:47 MLK [facility]-[id number]) =>06/14/16 15:22 Edit Status 06/14/16 19:57 JRG (Rec: 06/14/16 19:57 JRG [facility]-[id number]) Active=>Complete EC Charge Sheet Start: 06/14/16 15: 22 Freq: Status: Complete Created 06/14/16 15:22 System (Rec: 06/14/16 15:22 System [facility]-[id number]) Edit Status 06/14/16 15:47 MLK (Rec: 06/14/16 15:47 [id number] Active Edit Start 06/14/16 15:47 MLK (Rec: 06/14/16 15:47 MLK [facility]-[id number]) =>06/14/16 15:22 Document 06/14/16 18:01 JLM (Rec: 06/14/16 18:02 JLM [facility]-[id number]) Emergency Center Supplies Supplies *If documenting splints please document on Splint Intervention on Worklist . EC Charge Item Sheet NO SUPPLIES USED Edit Status 06/14/16 19:57 JRG (Rec: 06/14/16 19:57 [id number] Active=>Complete EC Mental Health Start: 06/14/16 15: 47 Freq: Status: Active Created 06/14/16 15:47 System (Rec: 06/14/16 15:47 [facility] Document 06/14/16 16:18 MLK (Rec: 06/14/16 16:21 MLK [facility]-[id number]) EC Mental Health Precautions Suicide Precautions No Safe Environment Implemented Yes Query Text:*Secure Environment: Immediate Safety - Call seay, cords - Sheets, linen, gowns w/ties - Plastic bags, trash containers - Elastic, oxygen tubing, dressings - Access to anchor points, fixtures - Personal belongings including cell phone, chargers, clothing, belts, shoes - Elopement - Body wand Valuables EC Locked Cabinent Belongings Purse Shoes Belongings labeled and secured Yes Belongings Searched No ED Discharge Assessment Start: 06/14/16 15: 22 Freq: Status: Complete Created 06/14/16 15:22 System (Rec: 06/14/16 15:22 System [facility]-[id number]) Edit Status 06/14/16 15:47 MLK (Rec: 06/14/16 15:47 MLK [facility]-[id number]) Active Edit Start 06/14/16 15:47 MLK (Rec: 06/14/16 15:47 MLK [facility]-[id number]) =>06/14/16 15:22 Document 06/14/16 18:01 [facility] (Rec: 06/14/16 18:02 [facility]-[id number]) Discharge Assessment Instructions Summary of Care Provided No Discharge Instructions Given To Patient Patient Education Given Yes Was a PHS printed/downloaded for the No patient? Was follow up care ordered for the No patient? Mode of Discharge Stretcher Glascow Coma Scale Eye Response (4) open spontaneously Motor Response (6) obeys commands Verbal Response (5) oriented Alexis Total 15 Vital Signs Temperature (97.6 F-99.6 F) 97.4 F Temperature Source Oral Pulse Rate (60-100 beats/min) 81 Respiratory Rate (12-24 breaths/min) 18 Blood Pressure (mm Hg) 156/80 Pulse Ox (95-100) 96 Pain Severity scale (1-10) 0 Pain Scale Used Standard (1-10) Edit Status 06/14/16 18:01 [facility] (Rec: 06/14/16 18:02 [facility]-[id number]) Active=>Complete ED Past Medical History Start: 06/14/16 15: 22 Freq: Status: Complete Created 06/14/16 15:22 System (Rec: 06/14/16 15:22 System [facility]-[id number]) Document 06/14/16 15:42 MLK (Rec: 06/14/16 15:47 MLK [facility]-[id number]) Past Medical History Medical History Past Medical History Cancer Diabetes Mellitus GERD/Reflux Hearing Disorder / Deafness Hyperlipidemia Hypertension Osteoarthritis (OA) Sleep Apnea/CPAP/BIPAP Thyroid Disorder Additional Past Medical History / Skin Cancer -left lower lip, Comment(s) right BREAST CANCER. left eye lid lump removed. SEIZURE WHEN HERE LAST8-16. CATARACTS, UTI,CAREGIVER STATED PT HAS YEAST INFECTION UNDER BREAST AND GROIN FOLDS. Surgical History Past Surgical History Breast Surgery Additional Past Surgical History / Removal of skin cancer - left Comment(s) lower lip, [place] BREAST BX, HAD lumped removed from RT breast- THEN RIGHT MASECTOMY with revision/ COMPLICATED BY INFECTION(PER CAREGIVER). Social History Smoking Status Never smoker Past Alcohol Use History None Reported Past Drug Use History None Reported Infectious Risk History of Any Multi-Drug Resistant None Reported Organisms Query Text:*If any MDRO exist specify the year and source *If other specify below *Only document C-diff if positive w/in last 30 days Psych History Past Psychological History Anxiety Depression Edit Status 06/14/16 15:42 MLK (Rec: 06/14/16 15:47 MLK [facility]-[id number]) Active=>Complete Edit Status 06/14/16 15:47 MLK (Rec: 06/14/16 15:47 MLK [facility]-[id number]) Complete Edit Start 06/14/16 15:47 MLK (Rec: 06/14/16 15:47 MLK [facility]-[id number]) =>06/14/16 15:22 EPS Assessment Start: 06/15/16 17: 07 Freq: Status: Active Created 06/15/16 17:07 [facility] (Rec: 06/15/16 17:07 [facility]-[id number]) Document 06/15/16 17:10 [facility] (Rec: 06/15/16 17:51 [facility]-[id number]) EPS Assessment EPS Contact Information EPS Contact Time 13:57 EPS Referral Source Observation Unit Demographic Validation Verified Demographics Yes Registration Notified No Psychiatric History Current Psychiatric Treatment No Hx Psychiatric Hospitalization Yes: [facility] [place] Initial Presentation Presenting Problem The pt. lives at [facility] and was found unresponsive and brought to the EC; She was petitioned by a female public safety police of 25 years; The pt's. nephew Rajat was her DPOA, but is unable to assist with her care , as he's hospitalized and unable to make decisions; Thus , the pt. now has a public guardian; The pt. states: " Someone at [facility] told me they would cut my cat's heads off; Herman sleeps with me all night and kisses me; Morenita hides under the recliner, but then he comes to bed and kisses me too; I'm upset about being here; I'm depressed because I haven't talked to Rajat; I want to know the truth about Rajat; Is he or alive; My brother has told me that Rajat was over at his house, but why hasn't he called me? He always calls me." When this RN asked the pt. why she isn't taking her meds., she states: "Dr. Magana in the ER told me "don't take this med., it's not proper"." The pt. also states it's bothering her to be in bed and the curtains around her bed are making her claustraphobic. Suicidal Ideation Suicidal Within Last 6 Months No Currently Suicidal No Suicide Plan No Plan Previous Suicide Attempt No Suicide Ideation Comment The pt. denies being currently suicidal and states she would only be suicidal, if her cats were killed or . However , the OBS RN heard her say "if I can't have my cats, I just want to ; If I had a gun I' d just go bang". The petition states that the pt. stated she'd jump in the river. Homicidal Ideation Homicidal Within Last 6 Months No Currently Homicidal No Specific Target No Homicidal Ideation Comment The pt. denies homocidal ideations and states that she would only be homocidal toward the person that would or did kill her cats; However, the petition states that the pt. left a three minute msg. for Maria Del Rosario Pickett at 10pm on stating how she was going to assault Lt. Naomi Painting and kill her. Also, the OBS RN's heard the pt. say "if I see Maria Del Rosario, she's not my friend, I' d strangle her to ". Competency Delusions Paranoid Ideation Hallucinations None Impulse Control Description Poor Competency Comment The pt. states that an EC Dr. Magana told her not to take her meds. and that name isn't familiar to several RN's. The pt. states somebody at [facility] told her that they were going to cut her cat's heads off. It's unclear whether or not the pt's. having hallucinations or paranoid delusions. Daily Functioning Patient Appearance Disheveled Loss of Daily Functioning No Change in Appetite No Change Able to Maintain Adequate Hygiene Compromised Daily Functioning Comment The petition states that the pt. has been refusing to go down for breakfast or lunch for fear of ; She stated she stopped taking her meds., because it makes her sick. General Information Primary Care Provider Dr. Ana Luisa Resendiz Is Patient a ? No Does Patient Have a Guardian? Yes: Sharon Sanders/Public Guardian Are There Firearms in the Home? No Support System Family Behavior Problem in EC Yes: Pt. was argumentative and verbally abusive to the EC staff. General Information Comment Today on the OBS Unit the pt. was trying to get out of bed today stating: "I'm going to leave; You can't tell me what to do; I don't want Dr. Azar for my doctor; I fired her". This RN told the pt. if she is allowed to get up and walk that she shouldn't attempt to leave the unit until the doctor discharges her; Then, she put her hand up to hide her mouth from the other RN and told me in a whisper "I'll just leave", and then she laughed. Apparently she tried to elope from OBS on a previous hospital stay. Substance Abuse History Alcohol Current Use No Drug/Alcohol Use None Reported Additional Drug/Alcohol Use History / UDS negative; Bernice. 0.00 Comment(s) Legal Status Legal Status Involuntary Insurance Authorization Insurance Provider MEDICARE Edit Result 06/15/16 17:10 [facility] (Rec: 06/15/16 18:00 [facility]-[id number]) EPS Assessment Competency Thought Process Circumstantial Disorganized Substance Abuse History Alcohol Additional Drug/Alcohol Use History / UDS positive for Benzos but pt Comment(s) . is on Ativan; Serum Alcohol was negative. Psychiatrist Contact Psychiatrist Contacted Shree Verde Edit Result 06/15/16 17:10 [facility] (Rec: 06/15/16 18:17 [facility]-[id number]) EPS Assessment Psychiatrist Contact Time of Contact 18:[address] Azar to see if she wants the pt. to go to a Psychiatric Unit, and ask her if the pt. is medically cleared to come to Psych.; Also, inform her that we need her to do a Clinical Cert.; When Dr. Azar medically clears the pt. to go to Psych. and does the Clinical Cert., try to transfer the pt. out to a [facility]. Unit and if unable to find placement, admit her to our MHU. Edit Result 06/15/16 17:10 [facility] (Rec: 06/15/16 18:27 [facility]-[id number]) EPS Assessment Initial Presentation Presenting Problem The pt. lives at [facility] and was found unresponsive and brought to the EC; She was petitioned by a female friend/public safety police of 25 years; The pt's. nephew Rajat was her DPOA, but is unable to assist with her care , as he's hospitalized and unable to make decisions; Thus , the pt. now has a public guardian; The pt. states: " Someone at [facility] told me they would cut my cat's heads off; Herman sleeps with me all night and kisses me; Morenita hides under the recliner, but then he comes to bed and kisses me too; I'm upset about being here; I'm depressed because I haven't talked to Rajat; I want to know the truth about Rajat; Is he or alive; My brother has told me that Rajat was over at his house, but why hasn't he called me? He always calls me." When this RN asked the pt. why she isn't taking her meds., she states: "Dr. Magana in the ER told me "don't take this med., it's not proper"." The pt. also states it's bothering her to be in bed and the curtains around her bed are making her claustraphobic. Daily Functioning Daily Functioning Comment The petition states that the pt. has been refusing to go down for breakfast or lunch for fear of and thinks someone at [facility] wants to kill her; She stated she stopped taking her meds., because it makes her sick. Environmental Safety Management Start: 06/14/16 17: 53 Freq: Status: Active Created 06/14/16 17:53 System (Rec: 06/14/16 17:53 System [facility]-[id number]) Evaluate Coordination of Hospital DC Start: 06/14/16 17: 53 Freq: Status: Active Created 06/14/16 17:53 System (Rec: 06/14/16 17:53 System [facility]-[id number]) Fall Precaution Identifier Start: 06/14/16 19: 05 Text: *Fall-precaution medical chart sticker Status: Active *Fall-precaution sign Freq: Created 06/14/16 19:05 [facility] (Rec: 06/14/16 19:05 [id number] Fall Risk Assessment - Med-Related Start: 06/14/16 19: 05 Freq: Status: Active Created 06/14/16 19:05 JRS (Rec: 06/14/16 19:[address] [facility]-[id number]) Fall Risk Assessment Scale Start: 06/14/16 19: 05 Freq: Status: Active Created 06/14/16 19:05 JRS (Rec: 06/14/16 19:[address] [facility]-[id number]) Fall precautions Start: 06/14/16 17: 03 Freq: .Routine Status: Active Created 06/14/16 17:05 MJK (Rec: 06/14/16 17:05 [facility]-GIUSEPPE- [id number]) Fall risk assessment Start: 06/14/16 17: 53 Freq: 0000,0800,1600 Status: Active Created 06/14/16 17:53 JRS (Rec: 06/14/16 17:[address] [facility]-[id number]) Document 06/15/16 00:00 G (Rec: 06/15/16 01:26 [facility]-[id number]) Elias Fall Risk Scale Fall Risk History of Falling < 3 Months Yes Query Text:*Yes=20 No=0 * Select "Yes" if the patient has fallen during the present hospital admission or if there was an immediate history of physiological falls, such as from seizure or impaired gait prior to admission. * Select "No" if the patient has not fallen. Secondary Diagnosis Yes Query Text:*Yes=15 No=0 * Select "Yes" if more than one active medical diagnosis is identified. * Select "No" if only one active diagnosis is identified. IV Access No Query Text:*Yes=20 No=0 * Select "Yes" if patient has IV or Lock access. * Select "No" if patient does not have IV or Lock access. Gait/Transfer Bedrest Query Text:*Weak=10 Impaired=20 Normal =0 Bedrest=0 Immobile=0 Mental Status Over Estimates or Forgets Query Text:*Over Estimates or Forgets=15 Limitations Oriented=0 Fall Risk Total Score 55 Fall Risk Level High Risk Fall Level of Risk > 51 Confusion Disoriented Document 06/15/16 08:00 JRS (Rec: 06/15/16 12:[address] [facility]-[id number]) Elias Fall Risk Scale Fall Risk History of Falling < 3 Months Yes Query Text:*Yes=20 No=0 * Select "Yes" if the patient has fallen during the present hospital admission or if there was an immediate history of physiological falls, such as from seizure or impaired gait prior to admission. * Select "No" if the patient has not fallen. Secondary Diagnosis Yes Query Text:*Yes=15 No=0 * Select "Yes" if more than one active medical diagnosis is identified. * Select "No" if only one active diagnosis is identified. IV Access No Query Text:*Yes=20 No=0 * Select "Yes" if patient has IV or Lock access. * Select "No" if patient does not have IV or Lock access. Gait/Transfer Weak Query Text:*Weak=10 Impaired=20 Normal =0 Bedrest=0 Immobile=0 Mental Status Over Estimates or Forgets Query Text:*Over Estimates or Forgets=15 Limitations Oriented=0 Fall Risk Total Score 65 Fall Risk Level High Risk Fall Level of Risk > 51 Confusion Disoriented Document 06/15/16 16:00 [facility] (Rec: 06/15/16 19:[address] [facility]-[id number]) [place] Fall Risk Scale Fall Risk History of Falling < 3 Months Yes Query Text:*Yes=20 No=0 * Select "Yes" if the patient has fallen during the present hospital admission or if there was an immediate history of physiological falls, such as from seizure or impaired gait prior to admission. * Select "No" if the patient has not fallen. Secondary Diagnosis Yes Query Text:*Yes=15 No=0 * Select "Yes" if more than one active medical diagnosis is identified. * Select "No" if only one active diagnosis is identified. IV Access No Query Text:*Yes=20 No=0 * Select "Yes" if patient has IV or Lock access. * Select "No" if patient does not have IV or Lock access. Gait/Transfer Weak Query Text:*Weak=10 Impaired=20 Normal =0 Bedrest=0 Immobile=0 Mental Status Over Estimates or Forgets Query Text:*Over Estimates or Forgets=15 Limitations Oriented=0 Fall Risk Total Score 65 Fall Risk Level High Risk Fall Level of Risk > 51 Confusion Disoriented Fluid Overload Signs/Symptoms Assessment Start: 06/14/16 18: 26 Freq: Status: Active Created 06/14/16 18:26 JRS (Rec: 06/14/16 18:26 JRS [facility]-[id number]) Hourly Rounding Start: 06/14/16 15: 47 Freq: Q1H Status: Active Created 06/14/16 15:47 System (Rec: 06/14/16 15:47 System [facility]-[id number]) Document 06/14/16 17:04 JL (Rec: 06/14/16 17:06 [id number] Rounding Comment Comment/Details: safety intern with patient. Document 06/14/16 17:57 JL (Rec: 06/14/16 17:58 [id number] Rounding Patient Status Patient Status In Bed Side Rails Up Bed in Low Position Bed Locked Patient Comfort Level Comfortable Patient/Family Updated on Plan of Care? Yes Patient/Family Informed of Delays? Yes Call Light Within Reach? Yes Comment Comment/Details: PT RESTING WITH EYES CLOSED, NO DISTRESS NOTED Document 06/14/16 17:58 JL (Rec: 06/14/16 17:59 [id number] Patient Status Patient Status In Bed Side Rails Up Bed in Low Position Bed Locked Patient Comfort Level Comfortable Patient/Family Updated on Plan of Care? Yes Patient/Family Informed of Delays? Yes Call Light Within Reach? Yes Glascow Coma Scale Eye Response (4) open spontaneously Motor Response (6) obeys commands Verbal Response (5) oriented [place] Total 15 Transfer of Care Notified RN chart is ready for review: NAILA RN CALLED AND GIVEN REPORT. Identify Acceptable Level of Pain Start: 06/14/16 17: 53 Freq: Status: Active Created 06/14/16 17:53 System (Rec: 06/14/16 17:53 System [facility]-[id number]) Identify Alternatives to Medication Start: 06/14/16 17: 53 Freq: Status: Active Created 06/14/16 17:53 System (Rec: 06/14/16 17:53 System [facility]-[id number]) Identify Appropriate Pain Tool Start: 06/14/16 17: 53 Freq: Status: Active Created 06/14/16 17:53 System (Rec: 06/14/16 17:53 [id number] Impaired Neurovascular Risk Assessment Start: 06/14/16 18: 26 Freq: Status: Active Created 06/14/16 18:26 JRS (Rec: 06/14/16 18:26 [facility] Impaired Skin Integrity Risk Assessment Start: 06/14/16 19: 05 Freq: Status: Active Created 06/14/16 19:05 JRS (Rec: 06/14/16 19:05 [facility] Impaired Vision Risk Assessment Start: 06/14/16 18: 26 Freq: Status: Active Created 06/14/16 18:26 JRS (Rec: 06/14/16 18:26 [facility] Intake and Output - Adult Start: 06/14/16 17: 53 Freq: Q8H Status: Active Not Done 06/14/16 17:53 JRS (Rec: 06/14/16 18:58 [facility] Not In Room Created 06/14/16 17:53 JRS (Rec: 06/14/16 17:53 [email or web address] Document 06/15/16 01:53 JRG (Rec: 06/15/16 04:42 JRG [facility]65-) Intake and Output Oral Intake Intake, Oral Amount (ml) 0 Total Intake Amount Total, Intake Amount (ml) 0 Output Output, Urine Amount (ml) 500 Total, Output Amount (ml) 500 Document 06/15/16 09:00 JRS (Rec: 06/15/16 12:06 [id number]-) Intake and Output Output Number of Voids 1 Document 06/15/16 17:00 JRS (Rec: 06/15/16 19:21 [id number]-) Intake and Output Output Number of Voids 3 Interdisciplinary Rounds Start: 06/14/16 17: 53 Freq: .PRN Status: Active Created 06/14/16 17:53 JRS (Rec: 06/14/16 17:53 [id number] Leadership Rounding Start: 06/14/16 15: 47 Freq: Status: Active Created 06/14/16 15:47 System (Rec: 06/14/16 15:47 [id number] Maintain Fall Prevention Interventions Start: 06/14/16 17: 53 Freq: Status: Active Created 06/14/16 17:53 System (Rec: 06/14/16 17:53 [id number] Medication History Completed Start: 06/14/16 15: 28 Freq: Status: Active Created 06/14/16 15:28 BMG (Rec: 06/14/16 15:28 [id number] Document 06/14/16 15:44 BMG (Rec: 06/14/16 15:44 [id number] Medication History Completed Medication History Completed Medication History Completed Yes Edit Status 06/14/16 15:47 MLK (Rec: 06/14/16 15:47 [facility]K [id number] Active Edit Start 06/14/16 15:47 MLK (Rec: 06/14/16 15:47 MLK [id number][facility] =>06/14/16 15:28 Mental Health Agency Contact Start: 06/14/16 15: 47 Freq: Status: Active Created 06/14/16 15:47 System (Rec: 06/14/16 15:47 [id number] Mental Health Assessment Start: 06/14/16 15: 47 Text: Status: Active Freq: Created 06/14/16 15:47 System (Rec: 06/14/16 15:47 [id number] Document 06/14/16 16:18 MLK (Rec: 06/14/16 16:21 [id number][facility] Mental Health Assessment Mental Status Exam Patient Appearance Unkempt Mood Description Angry Anxious Apprehensive Affect Description Flat Patient Behavior Anxious Combative Talkative Confused Speech Pattern Clear Excessive Voice Loudness Normal Moderately Loud Thought Process Intact Hallucinations Visual Comment/Details: states people are trying to catch her cats and decapitate them, Monitor S/S Impaired Skin Integrity Start: 06/14/16 19: 05 Text: * Redness, especially over bony prominences Status: Active * Skin tears, abrasions * Skin lesions * Shearing/friction skin damage Freq: Created 06/14/16 19:05 JRS (Rec: 06/14/16 19:[address] [facility]-[id number]) Neurological Assessment Start: 06/14/16 17: 01 Freq: Q4H Status: Active Not Done 06/14/16 17:01 JRS (Rec: 06/14/16 18:58 JRS [facility]-[id number]) Not In Room Created 06/14/16 17:05 MJK (Rec: 06/14/16 17:05 BKG DAKEVIN [facility]- [id number]) Document 06/14/16 21:01 JRG (Rec: 06/14/16 21:43 [facility]-[id number]) Neuro Checks Orientation Patient Orientation Person Arousable To Name Eye Opening Spontaneous Facial Expression Alert/Appropriate Verbal Response Oriented Speech Pattern Clear Appropriate Motor Response Obeys Commands Neurological Assessment Bilateral Eye Position Normal Eye Deviation None Nystagmus Presence None Reflexes Hand Grasp Bilateral Hand Grasp Equal Weak Strength Bilateral Upper Extremity Motor Strength Mild Weakness Equal Bilateral Lower Extremity Motor Strength Severe Weakness Equal Sensation Sensation Description Within Normal Limits Document 06/15/16 01:00 JRG (Rec: 06/15/16 01:26 JRG [facility]-[id number]) Neuro Checks Orientation Patient Orientation Person Arousable To Name Eye Opening Spontaneous Facial Expression Alert/Appropriate Verbal Response Oriented Speech Pattern Clear Appropriate Motor Response Obeys Commands Neurological Assessment Bilateral Eye Position Normal Eye Deviation None Nystagmus Presence None Reflexes Hand Grasp Bilateral Hand Grasp Equal Weak Strength Bilateral Upper Extremity Motor Strength Mild Weakness Equal Bilateral Lower Extremity Motor Strength Severe Weakness Equal Sensation Sensation Description Within Normal Limits Document 06/15/16 05:00 JRG (Rec: 06/15/16 05:18 JRG [id number] Neuro Checks Orientation Patient Orientation Person Arousable To Name Eye Opening Spontaneous Facial Expression Alert/Appropriate Verbal Response Oriented Speech Pattern Clear Appropriate Motor Response Obeys Commands Neurological Assessment Bilateral Eye Position Normal Eye Deviation None Nystagmus Presence None Reflexes Hand Grasp Bilateral Hand Grasp Equal Weak Strength Bilateral Upper Extremity Motor Strength Mild Weakness Equal Bilateral Lower Extremity Motor Strength Severe Weakness Equal Sensation Sensation Description Within Normal Limits Document 06/15/16 09:00 JRS (Rec: 06/15/16 12:07 JRS [id number] Neuro Checks Orientation Patient Orientation Person Arousable To Name Touch Eye Opening To Voice Facial Expression Alert/Appropriate Verbal Response Confused Speech Pattern Clear Motor Response Obeys Commands Neurological Assessment Bilateral Pupil Size (mm) 2 Pupil Reaction Sluggish Pupil [place] PERRL Eye Position Sunken Eye Deviation None Nystagmus Presence None Reflexes Hand Grasp Bilateral Hand Grasp Equal Strength Bilateral Upper Extremity Motor Strength Mild Weakness Equal Bilateral Lower Extremity Motor Strength Severe Weakness Equal Sensation Sensation Description Within Normal Limits Document 06/15/16 13:00 JRS (Rec: 06/15/16 13:28 JRS [facility]-[id number]) Neuro Checks Orientation Patient Orientation Person Place Arousable To Name Touch Eye Opening To Voice Facial Expression Alert/Appropriate Verbal Response Confused Speech Pattern Clear Motor Response Obeys Commands Neurological Assessment Bilateral Pupil Size (mm) 2 Pupil Reaction Sluggish Pupil [place] PERRL Eye Position Sunken Eye Deviation None Nystagmus Presence None Reflexes Hand Grasp Bilateral Hand Grasp Equal Strength Bilateral Upper Extremity Motor Strength Mild Weakness Equal Bilateral Lower Extremity Motor Strength Severe Weakness Equal Sensation Sensation Description Within Normal Limits Document 06/15/16 17:00 JRS (Rec: 06/15/16 18:37 JRS [facility]-[id number]) Neuro Checks Orientation Patient Orientation Person Place Arousable To Name Touch Eye Opening Spontaneous Facial Expression Tense Verbal Response Confused Speech Pattern Clear Motor Response Obeys Commands Neurological Assessment Bilateral Pupil Size (mm) 2 Pupil Reaction Sluggish Pupil [place] PERRL Eye Position Sunken Reflexes Hand Grasp Bilateral Hand Grasp Equal Strength Bilateral Upper Extremity Motor Strength Equal Bilateral Lower Extremity Motor Strength Mild Weakness Sensation Sensation Description Within Normal Limits Notify Provider Start: 06/14/16 16: 17 Freq: Status: Active Document 06/14/16 15:55 EEV (Rec: 06/14/16 16:17 EEV [facility]-[id number]) Physician Notification Notification Comment Comment Paged Dr. Marie juarez Created 06/14/16 16:17 EEV (Rec: 06/14/16 16:17 EEV [facility]-[id number]) Document 06/14/16 16:20 EEV (Rec: 06/14/16 16:21 EEV [facility]-[id number]) Physician Notification Notification Comment Comment Second page to Dr. Marie juarez. Document 06/14/16 16:26 EEV (Rec: 06/14/16 16:30 EEV [facility]-[id number]) Physician Notification Physician/Practitioner Notified Physician/Practitioner Notifed: Dr. Resendiz Spoke With Dr. Bradley Notify Provider Start: 06/14/16 17: 53 Freq: .PRN Status: Active Created 06/14/16 17:53 JRS (Rec: 06/14/16 17:53 JRS [facility]-[id number]) Notify consulting provider of consult Start: 06/14/16 17: 02 Text: Notify physician of consult and document in Status: Complete physician notification assessment. Freq: .NOW Created 06/14/16 17:05 MJK (Rec: 06/14/16 17:05 [facility] SAMUELJACQUI [facility]- [id number]) Document 06/15/16 10:46 ESC (Rec: 06/15/16 10:47 ESC [facility]-[id number]) Physician Notification Physician/Practitioner Notified Physician/Practitioner Notifed: Will Gonzalez Spoke With EPS- Nurse Reason Consultation Edit Status 06/15/16 10:46 ESC (Rec: 06/15/16 10:47 ESC [facility]-[id number]) Active=>Complete Nursing End of Shift Summary Start: 06/14/16 17: 53 Freq: .PRN Status: Active Created 06/14/16 17:53 JRS (Rec: 06/14/16 17:53 S [facility]-XA65-) Patient/Family Participation Promotion Start: 06/14/16 17: 53 Freq: Status: Active Created 06/14/16 17:53 System (Rec: 06/14/16 17:53 System [facility]-[id number]) Peripheral venous cannula insertion/mgmt Start: 06/14/16 16: 31 Freq: .NOW Status: Inactive Created 06/14/16 16:32 MJK (Rec: 06/14/16 16:32 BK [facility]AC[facility]I [facility] [id number]) Edit Status 06/14/16 16:34 MJK (Rec: 06/14/16 16:34 K [facility]-[id number]) Active=>Inactive Physical Assessment Start: 06/14/16 17: 53 Text: Status: Active Freq: 0000,0400,0800,1200,1600,2000 Created 06/14/16 17:53 JRS (Rec: 06/14/16 17:53 JRS [facility]-XA65-) Document 06/14/16 18:05 SHIRLEY (Rec: 06/14/16 19:26 SHIRLEY [facility]-[id number]) Neurological Assessment Within Normal Limits: Within Normal Limits No Query Text:*Spontaneous Eye Opening *Alert and oriented to person, place, and time *Understands concepts *Speech is clear and appropriate *Patient is calm and relaxed Orientation Patient Orientation Person Place Arousable To Name Eye Opening Spontaneous Motor Response Obeys Commands Verbal Response Oriented Cognitive Comprehension Ability Unable to Comprehend Memory Description Recent Intact Recent Impaired Speech Pattern Clear Excessive Patient Behavior Cooperative Confused Mood Description Calm Hand Grasp Bilateral Hand Grasp Equal Neurological Comment Neurological Assessment Comment PT. ALERT TO PERSON AND PLACE AT THIS TIME, COOPERATIVE WITH STAFF, BUSINESS ADMINISTRATION TEACHER AT BEDSIDE, FALL PRECAUTIONS IN PLACE, WILL CONTINUE TO CLOSELY MONITOR Cardiovascular Assessment Within Normal Limits: Within Normal Limits Yes Query Text:*Pulse Rate 60-100 beats per minute *Heart rate and rhythm regular, no gallops, murmurs or rubs *S1 and S2 present *No jugular vein distention *Capillary refill is <3 seconds *Nati's sign is negative *No edema *No chest pain Heart Sounds Heart Sounds Regular S1 & S2 Circulation Jugular Vein Distention Flat Capillary Refill Fingers Toes < 3 seconds Chest Pain Chest Pain Complaint No Respiratory Assessment Within Normal Limits: Within Normal Limits Yes Query Text:*Rhythm regular *Breathes easily *Symmetrical chest expansion and contraction *No dyspnea *Lungs are clear throughout *Patient on room air with a pulse oximetry >92% *Cough absent Observation Respiratory Rate (12-24 breaths/min) 16 Effort Normal Non-Labored Depth Normal Pattern Normal Inspection and Palpation Chest Shape Normal Expansion Symmetrical Auscultation Throughout Phase Inspiratory & Expiratory Breath Sounds Clear Diminished Equal Gastrointestinal Assessment Within Normal Limits Within Normal Limits Yes Query Text:* Bowel sounds present in all four quadrants * Passing flatus * Abdomen symmetrical, rounded, or flat * Smooth, intact skin without lesions or rashes * Bowel movements normal soft and brown Abdomen Abdomen Description Soft Non-Tender Musculoskeletal Within Normal Limits: Within Normal Limits No Query Text:*Steady gait *Good balance *No signs of muscle weakness or pain *Equal muscle mass to bilateral upper and bilateral lower extremities *Full range of motion *Joints move freely without swelling *Symmetrical Movement Of Extremities Assessment Bilateral Lower Extremity Muscle tone Weak Movement Description Stiff Muscle Strength Poor Activity Patient Activity HOB up Hotel Room Attendant Physical Assistance Standby Assistance Gait Weak Stiff Ambulation Ability Moderate Assistance 2 Person Assist Factors Limiting Ambulation Function Poor Balance Poor Trunk/Head Control Decreased Strength Decreased Endurance Poor Safety Awareness Poor Cognition Dizziness Integumentary Assessment Within Normal Limits Within Normal Limits No Query Text:* Skin color is appropriate for race * Skin is warm, dry, elastic, and free from breakdown * Fingernails are smooth without clubbing Skin Generalized Skin Condition Bruise Skin Color Pallor Document 06/14/16 20:00 ZULMA (Rec: 06/14/16 20:29 ZULMA [facility]-[id number]) Neurological Assessment Within Normal Limits: Within Normal Limits No Query Text:*Spontaneous Eye Opening *Alert and oriented to person, place, and time *Understands concepts *Speech is clear and appropriate *Patient is calm and relaxed Orientation Patient Orientation Person Arousable To Name Eye Opening Spontaneous Motor Response Obeys Commands Verbal Response Oriented PERRLA Bilateral Eye Position Normal Eye Deviation None Nystagmus Presence None Visual Assistive Devices Glasses Cognitive Comprehension Ability Understands Concepts Memory Description Recent Intact Recent Impaired Speech Pattern Clear Appropriate Patient Behavior Cooperative Fatigued Confused Mood Description Calm Facial Expressions Facial Expression Alert/Appropriate Reflexes Blink Reflex Present Cough/Gag Reflex Normal Hand Grasp Bilateral Hand Grasp Equal Weak Strength Bilateral Upper Extremity Motor Strength Mild Weakness Equal Bilateral Lower Extremity Motor Strength Severe Weakness Equal Neurological Comment Neurological Assessment Comment PT. ALERT TO PERSON AT THIS TIME, COOPERATIVE WITH STAFF, BUSINESS ADMINISTRATION TEACHER AT BEDSIDE, FALL PRECAUTIONS IN PLACE, WILL CONTINUE TO CLOSELY MONITOR Cardiovascular Assessment Within Normal Limits: Within Normal Limits Yes Query Text:*Pulse Rate 60-100 beats per minute *Heart rate and rhythm regular, no gallops, murmurs or rubs *S1 and S2 present *No jugular vein distention *Capillary refill is <3 seconds *Nati's sign is negative *No edema *No chest pain Pulse Public Service Administrator Pulse Rate (60-100 beats/min) 71 Method Pulse Oximetry Heart Sounds Heart Sounds Regular S1 & S2 Circulation Jugular Vein Distention Flat Capillary Refill Fingers Toes < 3 seconds Chest Pain Chest Pain Complaint No Respiratory Assessment Within Normal Limits: Within Normal Limits Yes Query Text:*Rhythm regular *Breathes easily *Symmetrical chest expansion and contraction *No dyspnea *Lungs are clear throughout *Patient on room air with a pulse oximetry >92% *Cough absent Observation Respiratory Rate (12-24 breaths/min) 16 Effort Normal Non-Labored Depth Normal Pattern Normal Inspection and Palpation Chest Shape Normal Expansion Symmetrical Auscultation Throughout Phase Inspiratory & Expiratory Breath Sounds Clear Diminished Equal Cough Cough Description Non-productive Dry Cough Frequency Intermittent Sputum Sputum Amount None Color Described by Patient Consistency Described by Patient Genitourinary Assessment Within Normal Limits Within Normal Limits No Query Text:* Bladder is not distended * Urine is clear and yellow * Denies complaints or distress Voiding Pattern Bladder Pattern Incontinent Urine Urine Appearance Clear Color Yellow Odor None Palpatation Bladder Distention None Symptoms Genitourinary Symptoms Incontinent Gastrointestinal Assessment Within Normal Limits Within Normal Limits No Query Text:* Bowel sounds present in all four quadrants * Passing flatus * Abdomen symmetrical, rounded, or flat * Smooth, intact skin without lesions or rashes * Bowel movements normal soft and brown Abdomen Abdomen Description Soft Non-Tender Bowel Pattern Bowel Pattern Incontinent Date of Last Bowel Movement 06/14/16 Stool Characteristics Stool Characteristics Black Stool Size Smear Symptoms Gastrointestinal Symptoms No Symptoms Musculoskeletal Within Normal Limits: Within Normal Limits No Query Text:*Steady gait *Good balance *No signs of muscle weakness or pain *Equal muscle mass to bilateral upper and bilateral lower extremities *Full range of motion *Joints move freely without swelling *Symmetrical Movement Of Extremities Assessment Bilateral Upper Extremity Muscle tone Weak Movement Description Shaky Muscle Strength Fair Capillary Refill Fingers < 3 seconds Bilateral Lower Extremity Muscle tone Weak Movement Description Limited Stiff Muscle Strength Poor Capillary Refill Toes < 3 seconds Activity Patient Activity Bedrest HOB up Hotel Room Attendant Physical Assistance Ambulation Ability 2 Person Assist Integumentary Assessment Within Normal Limits Within Normal Limits No Query Text:* Skin color is appropriate for race * Skin is warm, dry, elastic, and free from breakdown * Fingernails are smooth without clubbing Skin Bilateral Groin Skin Condition excoriation Temperature Warm Moisture Moist Texture Intact Skin Color Erythema Face Physician/LIP Diagnosed scab on lip Temperature Warm Moisture Dry Skin Color Erythema Abdomen Skin Condition umbilicus Temperature Warm Moisture Moist Skin Color Erythema Buttock Skin Condition pink/blanchable Temperature Warm Moisture Dry Texture Intact Skin Color [place] Left Breast Skin Condition excoriation Temperature Warm Moisture Moist Skin Color Erythema Generalized Skin Condition Bruise Skin Color Pallor Integumentary Comment Integumentary Assessment Comment nystatin powder applied under left breast and bilat groin Edit Result 06/14/16 20:00 ZULMA (Rec: 06/14/16 20:32 [facility]-[id number]) VTE Assessment VTE Pharmacological Prophylaxis Pharmacological Prophylaxis for VTE Low Molecular Weight Heparin ( Enoxaparin-Lovenox) Edit Result 06/14/16 20:00 ZULMA (Rec: 06/15/16 01:31 ZULMA [id number]) Neurological Assessment Within Normal Limits: Within Normal Limits No Query Text:*Spontaneous Eye Opening *Alert and oriented to person, place, and time *Understands concepts *Speech is clear and appropriate *Patient is calm and relaxed Orientation Patient Orientation Person Arousable To Name Eye Opening Spontaneous Motor Response Obeys Commands Verbal Response Oriented PERRLA Bilateral Eye Position Normal Eye Deviation None Nystagmus Presence None Cognitive Comprehension Ability Understands Concepts Memory Description Recent Impaired Remote Impaired Speech Pattern Clear Appropriate Patient Behavior Cooperative Fatigued Confused Mood Description Appropriate Calm Facial Expressions Facial Expression Alert/Appropriate Reflexes Blink Reflex Present Cough/Gag Reflex Normal Hand Grasp Bilateral Hand Grasp Equal Weak Strength Bilateral Upper Extremity Motor Strength Mild Weakness Equal Bilateral Lower Extremity Motor Strength Severe Weakness Equal Neurological Comment Neurological Assessment Comment PT. ALERT TO PERSON AT THIS TIME, COOPERATIVE WITH STAFF, BUSINESS ADMINISTRATION TEACHER AT BEDSIDE, FALL PRECAUTIONS IN PLACE, WILL CONTINUE TO CLOSELY MONITOR Cardiovascular Assessment Within Normal Limits: Within Normal Limits Yes Query Text:*Pulse Rate 60-100 beats per minute *Heart rate and rhythm regular, no gallops, murmurs or rubs *S1 and S2 present *No jugular vein distention *Capillary refill is <3 seconds *Nati's sign is negative *No edema *No chest pain Pulse Public Service Administrator Pulse Rate (60-100 beats/min) 71 Method Pulse Oximetry Heart Sounds Heart Sounds Regular S1 & S2 Circulation Jugular Vein Distention Flat Capillary Refill Fingers Toes < 3 seconds Chest Pain Chest Pain Complaint No VTE Assessment VTE Pharmacological Prophylaxis Pharmacological Prophylaxis for VTE Low Molecular Weight Heparin ( Enoxaparin-Lovenox) Respiratory Assessment Within Normal Limits: Within Normal Limits Yes Query Text:*Rhythm regular *Breathes easily *Symmetrical chest expansion and contraction *No dyspnea *Lungs are clear throughout *Patient on room air with a pulse oximetry >92% *Cough absent Observation Respiratory Rate (12-24 breaths/min) 16 Effort Normal Non-Labored Depth Normal Pattern Normal Inspection and Palpation Chest Shape Normal Expansion Symmetrical Auscultation Throughout Phase Inspiratory & Expiratory Breath Sounds Clear Diminished Equal Cough Cough Description Non-productive Dry Congested Cough Frequency Intermittent Sputum Sputum Amount None Color Described by Patient Consistency Described by Patient Symptoms Respiratory Symptoms SOB with Exertion Genitourinary Assessment Within Normal Limits Within Normal Limits No Query Text:* Bladder is not distended * Urine is clear and yellow * Denies complaints or distress Voiding Pattern Bladder Pattern Incontinent Urine Urine Appearance Clear Color Yellow Odor None Palpatation Bladder Distention None Symptoms Genitourinary Symptoms Incontinent Gastrointestinal Assessment Within Normal Limits Within Normal Limits No Query Text:* Bowel sounds present in all four quadrants * Passing flatus * Abdomen symmetrical, rounded, or flat * Smooth, intact skin without lesions or rashes * Bowel movements normal soft and brown Abdomen Abdomen Description Soft Non-Tender Bowel Pattern Bowel Pattern Incontinent Date of Last Bowel Movement 06/14/16 Stool Characteristics Stool Characteristics Black Stool Size Smear Symptoms Gastrointestinal Symptoms No Symptoms Musculoskeletal Within Normal Limits: Within Normal Limits No Query Text:*Steady gait *Good balance *No signs of muscle weakness or pain *Equal muscle mass to bilateral upper and bilateral lower extremities *Full range of motion *Joints move freely without swelling *Symmetrical Movement Of Extremities Assessment Bilateral Upper Extremity Muscle tone Weak Movement Description Shaky Muscle Strength Fair Capillary Refill Fingers < 3 seconds Bilateral Lower Extremity Muscle tone Weak Movement Description Limited Stiff Muscle Strength Poor Capillary Refill Toes < 3 seconds Activity Patient Activity Bedrest HOB up Hotel Room Attendant Physical Assistance Ambulation Ability 2 Person Assist Integumentary Assessment Within Normal Limits Within Normal Limits No Query Text:* Skin color is appropriate for race * Skin is warm, dry, elastic, and free from breakdown * Fingernails are smooth without clubbing Skin Bilateral Groin Skin Condition excoriation Temperature Warm Moisture Moist Texture Intact Skin Color Erythema Face Physician/LIP Diagnosed scab on lip Temperature Warm Moisture Dry Skin Color Erythema Abdomen Skin Condition umbilicus Temperature Warm Moisture Moist Skin Color Erythema Buttock Skin Condition pink/blanchable Temperature Warm Moisture Dry Texture Intact Skin Color [place] Left Breast Skin Condition excoriation Temperature Warm Moisture Moist Skin Color Erythema Generalized Skin Condition Bruise Skin Color Pallor Document 06/15/16 00:00 ZULMA (Rec: 06/15/16 01:31 [id number]) Neurological Assessment Within Normal Limits: Within Normal Limits No Query Text:*Spontaneous Eye Opening *Alert and oriented to person, place, and time *Understands concepts *Speech is clear and appropriate *Patient is calm and relaxed Orientation Patient Orientation Person Arousable To Name Eye Opening Spontaneous Motor Response Obeys Commands Verbal Response Oriented PERRLA Bilateral Eye Position Normal Eye Deviation None Nystagmus Presence None Cognitive Comprehension Ability Understands Concepts Memory Description Recent Impaired Remote Impaired Speech Pattern Clear Appropriate Patient Behavior Cooperative Fatigued Confused Mood Description Appropriate Calm Facial Expressions Facial Expression Alert/Appropriate Reflexes Blink Reflex Present Cough/Gag Reflex Normal Hand Grasp Bilateral Hand Grasp Equal Weak Strength Bilateral Upper Extremity Motor Strength Mild Weakness Equal Bilateral Lower Extremity Motor Strength Severe Weakness Equal Neurological Comment Neurological Assessment Comment PT. ALERT TO PERSON AT THIS TIME, COOPERATIVE WITH STAFF, BUSINESS ADMINISTRATION TEACHER AT BEDSIDE, FALL PRECAUTIONS IN PLACE, WILL CONTINUE TO CLOSELY MONITOR Cardiovascular Assessment Within Normal Limits: Within Normal Limits Yes Query Text:*Pulse Rate 60-100 beats per minute *Heart rate and rhythm regular, no gallops, murmurs or rubs *S1 and S2 present *No jugular vein distention *Capillary refill is <3 seconds *Nati's sign is negative *No edema *No chest pain Pulse Public Service Administrator Pulse Rate (60-100 beats/min) 71 Method Pulse Oximetry Heart Sounds Heart Sounds Regular S1 & S2 Circulation Jugular Vein Distention Flat Capillary Refill Fingers Toes < 3 seconds Chest Pain Chest Pain Complaint No VTE Assessment VTE Pharmacological Prophylaxis Pharmacological Prophylaxis for VTE Low Molecular Weight Heparin ( Enoxaparin-Lovenox) Respiratory Assessment Within Normal Limits: Within Normal Limits Yes Query Text:*Rhythm regular *Breathes easily *Symmetrical chest expansion and contraction *No dyspnea *Lungs are clear throughout *Patient on room air with a pulse oximetry >92% *Cough absent Observation Respiratory Rate (12-24 breaths/min) 16 Effort Normal Non-Labored Depth Normal Pattern Normal Inspection and Palpation Chest Shape Normal Expansion Symmetrical Auscultation Throughout Phase Inspiratory & Expiratory Breath Sounds Clear Diminished Equal Cough Cough Description Non-productive Dry Congested Cough Frequency Intermittent Sputum Sputum Amount None Color Described by Patient Consistency Described by Patient Symptoms Respiratory Symptoms SOB with Exertion Genitourinary Assessment Within Normal Limits Within Normal Limits No Query Text:* Bladder is not distended * Urine is clear and yellow * Denies complaints or distress Voiding Pattern Bladder Pattern Incontinent Urine Urine Appearance Clear Color Yellow Odor None Palpatation Bladder Distention None Symptoms Genitourinary Symptoms Incontinent Gastrointestinal Assessment Within Normal Limits Within Normal Limits No Query Text:* Bowel sounds present in all four quadrants * Passing flatus * Abdomen symmetrical, rounded, or flat * Smooth, intact skin without lesions or rashes * Bowel movements normal soft and brown Abdomen Abdomen Description Soft Non-Tender Bowel Pattern Bowel Pattern Incontinent Date of Last Bowel Movement 01/13/17 Stool Characteristics Stool Characteristics Black Stool Size Smear Symptoms Gastrointestinal Symptoms No Symptoms Musculoskeletal Within Normal Limits: Within Normal Limits No Query Text:*Steady gait *Good balance *No signs of muscle weakness or pain *Equal muscle mass to bilateral upper and bilateral lower extremities *Full range of motion *Joints move freely without swelling *Symmetrical Movement Of Extremities Assessment Bilateral Upper Extremity Muscle tone Weak Movement Description Shaky Muscle Strength Fair Capillary Refill Fingers < 3 seconds Bilateral Lower Extremity Muscle tone Weak Movement Description Limited Stiff Muscle Strength Poor Capillary Refill Toes < 3 seconds Activity Patient Activity Bedrest HOB up Hotel Room Attendant Physical Assistance Ambulation Ability 2 Person Assist Integumentary Assessment Within Normal Limits Within Normal Limits No Query Text:* Skin color is appropriate for race * Skin is warm, dry, elastic, and free from breakdown * Fingernails are smooth without clubbing Skin Bilateral Groin Skin Condition excoriation Temperature Warm Moisture Moist Texture Intact Skin Color Erythema Face Physician/LIP Diagnosed scab on lip Temperature Warm Moisture Dry Skin Color Erythema Abdomen Skin Condition umbilicus Temperature Warm Moisture Moist Skin Color Erythema Buttock Skin Condition pink/blanchable Temperature Warm Moisture Dry Texture Intact Skin Color [place] Left Breast Skin Condition excoriation Temperature Warm Moisture Moist Skin Color Erythema Generalized Skin Condition Bruise Skin Color Pallor Document 06/15/16 03:53 [facility] (Rec: 06/15/16 03:55 [facility] ([place], [place])[id number]) Neurological Assessment Within Normal Limits: Within Normal Limits No Query Text:*Spontaneous Eye Opening *Alert and oriented to person, place, and time *Understands concepts *Speech is clear and appropriate *Patient is calm and relaxed Orientation Patient Orientation Person Arousable To Name Eye Opening Spontaneous Motor Response Obeys Commands Verbal Response Oriented PERRLA Bilateral Eye Position Normal Eye Deviation None Nystagmus Presence None Cognitive Comprehension Ability Understands Concepts Memory Description Recent Impaired Remote Impaired Speech Pattern Clear Appropriate Patient Behavior Cooperative Fatigued Confused Mood Description Appropriate Calm Facial Expressions Facial Expression Alert/Appropriate Reflexes Blink Reflex Present Cough/Gag Reflex Normal Hand Grasp Bilateral Hand Grasp Equal Weak Strength Bilateral Upper Extremity Motor Strength Mild Weakness Equal Bilateral Lower Extremity Motor Strength Severe Weakness Equal Neurological Comment Neurological Assessment Comment PT. ALERT TO PERSON AT THIS TIME, COOPERATIVE WITH STAFF, BUSINESS ADMINISTRATION TEACHER AT BEDSIDE, FALL PRECAUTIONS IN PLACE, WILL CONTINUE TO CLOSELY MONITOR Cardiovascular Assessment Within Normal Limits: Within Normal Limits Yes Query Text:*Pulse Rate 60-100 beats per minute *Heart rate and rhythm regular, no gallops, murmurs or rubs *S1 and S2 present *No jugular vein distention *Capillary refill is <3 seconds *Nati's sign is negative *No edema *No chest pain Pulse Public Service Administrator Pulse Rate (60-100 beats/min) 71 Method Pulse Oximetry Heart Sounds Heart Sounds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 Skin Color Erythema Abdomen Temperature Warm Moisture Moist Skin Color Erythema Buttock Skin Condition pink/blanchable Temperature Warm Moisture Dry Texture Intact Skin Color [place] Left Breast Skin Condition excoriation Temperature Warm Moisture Moist Skin Color Erythema Generalized Skin Condition Bruise Skin Color Pallor Integumentary Comment Integumentary Assessment Comment pt. with generalized bruisng on left thigh. 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 Status: Active Freq: .NOW Created 06/14/16 18:49 SHIRLEY (Rec: 06/14/16 18:49 [id number]- [id number]) Reevaluate Plan of Care Start: 06/14/16 17: 53 Freq: 0400,1600 Status: Active Created 06/14/16 17:53 JRS (Rec: 06/14/16 17:53 JRS [facility]-[id number]) Document 06/15/16 01:32 JRG (Rec: 06/15/16 01:32 JRG [facility]-[id number]) Document 06/15/16 14:00 JRS (Rec: 06/15/16 17:18 JRS [facility]-[id number]) Sepsis Screening Start: 06/14/16 17: 53 Freq: 0800,1600,0000 Status: Active Created 06/14/16 17:53 JRS (Rec: 06/14/16 17:53 JRS [facility]-[id number]) Document 06/15/16 00:00 JRG (Rec: 06/15/16 01:26 JRG [id number]) Sepsis Screening Level 1 - Infection Infection Criteria Present None Query Text:*As evidenced by any of the following: - Recent Invasive Procedure or Surgery - Fever/Chills - Cough/Shortness of Breath - Central Line - Abdominal Pain - Purulent Wound Drainage - On Antibiotic Therapy (Not Prophylactic) Level 2 - SIRS SIRS Criteria Present None Responses Sepsis Result No Definite Risk Action Taken No Definite Risk No Action Required Special Instructions *Common reasons that the nurse may initiate the A-Team are as follows. *Patient demonstrates any of the following: - Respiratory Distress/Threatened Airway - Acute changes in Blood Pressure/Heart Rate/Dysrhythmias - Changes in level of consciousness or altered mental status - Chest Pain - Acute Bleeding - Nursing is uncomfortable w/the situation or has a concern about the patient - S/S of sepsis *Upon activation of the A-Team, the A-Team responder may implement the A- Team protocol. Document 06/15/16 08:00 JRS (Rec: 06/15/16 12:09 JRS [facility]-[id number]) Sepsis Screening Level 1 - Infection Infection Criteria Present None Query Text:*As evidenced by any of the following: - Recent Invasive Procedure or Surgery - Fever/Chills - Cough/Shortness of Breath - Central Line - Abdominal Pain - Purulent Wound Drainage - On Antibiotic Therapy (Not Prophylactic) Level 2 - SIRS SIRS Criteria Present None Responses Sepsis Result No Definite Risk Special Instructions *Common reasons that the nurse may initiate the A-Team are as follows. *Patient demonstrates any of the following: - Respiratory Distress/Threatened Airway - Acute changes in Blood Pressure/Heart Rate/Dysrhythmias - Changes in level of consciousness or altered mental status - Chest Pain - Acute Bleeding - Nursing is uncomfortable w/the situation or has a concern about the patient - S/S of sepsis *Upon activation of the A-Team, the A-Team responder may implement the A- Team protocol. Document 06/15/16 16:00 [facility] (Rec: 06/15/16 19:[address] [facility]-[id number]) Sepsis Screening Level 1 - Infection Infection Criteria Present None Query Text:*As evidenced by any of the following: - Recent Invasive Procedure or Surgery - Fever/Chills - Cough/Shortness of Breath - Central Line - Abdominal Pain - Purulent Wound Drainage - On Antibiotic Therapy (Not Prophylactic) Level 2 - SIRS SIRS Criteria Present None Responses Sepsis Result No Definite Risk Special Instructions *Common reasons that the nurse may initiate the A-Team are as follows. *Patient demonstrates any of the following: - Respiratory Distress/Threatened Airway - Acute changes in Blood Pressure/Heart Rate/Dysrhythmias - Changes in level of consciousness or altered mental status - Chest Pain - Acute Bleeding - Nursing is uncomfortable w/the situation or has a concern about the patient - S/S of sepsis *Upon activation of the A-Team, the A-Team responder may implement the A- Team protocol. Sepsis Screening Tool Start: 06/14/16 17: 53 Freq: 0800,1600,0000 Status: Inactive Created 06/14/16 17:53 [facility] (Rec: 06/14/16 17:[address] [facility]-[id number]) Teach: Disease Process Start: 06/14/16 19: 05 Text: Status: Active Freq: Created 06/14/16 19:05 [facility] (Rec: 06/14/16 19:[address] [facility]-[id number]) Teach: Medication Regime Start: 06/14/16 19: 05 Text: * Name of medication Status: Active * Dosage of medication * Time of Administration * Purpose of medication * Side effects of medication Freq: Created 06/14/16 19:05 [facility] (Rec: 06/14/16 19:[address] [facility]-[id number]) Teach: Reportable Signs and Symptoms Start: 06/14/16 19: 05 Text: Status: Active Freq: Created 06/14/16 19:05 JRS (Rec: 06/14/16 19:05 [id number] Teach: Treatment Plan Start: 06/14/16 19: 05 Text: * Treatment Goals Status: Active * Procedures * Activity * Diet * Medications Freq: Created 06/14/16 19:05 JRS (Rec: 06/14/16 19:[address] [facility]-[id number]-) Teaching Record Start: 06/14/16 17: 53 Text: Status: Active Freq: Created 06/14/16 17:53 System (Rec: 06/14/16 17:53 [id number] Document 06/15/16 01:38 [facility] (Rec: 06/15/16 01:38 [id number] Teaching Record General Teaching Record Education Topic Pertinence Hospitalization Education Topics *Med/Related Fall Potential *Medication Side Effects *Discharge Plan *Medication Management *Nonpharmacological Int. *Pain Management Equipment Use Fall Prevention Hospital Environment Safety Methods Discussion Response Unable to comprehend Recipient Patient Teaching Record Start: 06/14/16 17: 53 Text: Status: Inactive Freq: .PRN Created 06/14/16 17:53 [facility] (Rec: 06/14/16 17:53 [id number] Travel History Screen Start: 06/14/16 15: 22 Freq: Status: Active Created 06/14/16 15:22 System (Rec: 06/14/16 15:22 [id number] Edit Status 06/14/16 15:47 MLK (Rec: 06/14/16 15:47 ML[id number] Active Edit Start 06/14/16 15:47 MLK (Rec: 06/14/16 15:47 MLK [id number] =>06/14/16 15:22 Unit to Unit Transfer Record Start: 06/14/16 17: 53 Freq: .PRN Status: Active Created 06/14/16 17:53 JR (Rec: 06/14/16 17:[address] [facility]-[id number]-) Use [facility] Approved Protocols Start: 06/14/16 17: 01 Text: *Oral Nutrition Supplement Protocol Status: Active *Clostridium difficile Protocol Freq: .PER PROTOCOL Created 06/14/16 17:05 LEIDY (Rec: 06/14/16 17:05 [facility]- [id number]) Vital Signs Assessment Start: 06/14/16 17: 53 Freq: Q8H Status: Active Created 06/14/16 17:53 JRS (Rec: 06/14/16 17:53 JRS [facility]-[id number]) Document 06/14/16 18:17 JLW (Rec: 06/14/16 18:20 JLW [facility]-[id number]) Vital Signs Temperature Temperature (97.6 F-99.6 F) 98.6 F Temperature Source Oral Pulse Public Service Administrator Pulse Rate (60-100 beats/min) 71 Pulse Assessment Method Pulse Oximetry Respirations Respiratory Rate (12-24 breaths/min) 16 Oxygen Delivery Method Room Air O2 Sat by Pulse Oximetry (95-100) 95 Blood Pressure Left Arm Blood Pressure (mm Hg) 161/69 Blood Pressure Mean (mm Hg) 99 Blood Pressure Source Automatic Cuff Not Done 06/14/16 20:00 JRG (Rec: 06/14/16 19:56 JRG [facility]-[id number]) done at 18:17 Not Done 06/15/16 00:00 JRG (Rec: 06/15/16 01:28 JRG [facility]-[id number]) q 8 Frequency 06/15/16 01:27 JRG (Rec: 06/15/16 01:27 G [facility]-[id number]) Date/Time Frequency 06/14/16 17:53 0000,0400,0800,1200,1600,2000 06/15/16 04:00 Q8H Document 06/15/16 04:00 JMD (Rec: 06/15/16 05:09 JMD [facility]-[id number]) Vital Signs Temperature Temperature (97.6 F-99.6 F) 98.1 F Temperature Source Oral Pulse Public Service Administrator Pulse Rate (60-100 beats/min) 60 Pulse Assessment Method Pulse Oximetry Respirations Respiratory Rate (12-24 breaths/min) 18 Oxygen Delivery Method Room Air O2 Sat by Pulse Oximetry (95-100) 97 Blood Pressure Left Arm Blood Pressure (mm Hg) 158/75 Blood Pressure Mean (mm Hg) 102 Blood Pressure Source Automatic Cuff Document 06/15/16 08:00 ESC (Rec: 06/15/16 08:46 ESC [facility]-[id number]) Vital Signs Temperature Temperature (97.6 F-99.6 F) 97.7 F Temperature Source Oral Pulse Left Pulse Oximetery Pulse Rate (60-100 beats/min) 56 Pulse Assessment Method Pulse Oximetry Respirations Respiratory Rate (12-24 breaths/min) 18 Oxygen Delivery Method Room Air O2 Sat by Pulse Oximetry (95-100) 98 Blood Pressure Left Arm Blood Pressure (mm Hg) 189/73 Blood Pressure Mean (mm Hg) 111 Document 06/15/16 12:12 [facility] (Rec: 06/15/16 12:13 ESC [facility]-[id number]) Vital Signs Temperature Temperature (97.6 F-99.6 F) 98.6 F Temperature Source Oral Pulse Left Pulse Oximetery Pulse Rate (60-100 beats/min) 61 Pulse Assessment Method Pulse Oximetry Respirations Respiratory Rate (12-24 breaths/min) 16 Oxygen Delivery Method Room Air O2 Sat by Pulse Oximetry (95-100) 96 Blood Pressure Left Arm Blood Pressure (mm Hg) 153/67 Blood Pressure Mean (mm Hg) 95 Blood Pressure Source Automatic Cuff Document 06/15/16 16:15 [facility] (Rec: 06/15/16 19:36 JRS [facility]-[id number]) Vital Signs Temperature Temperature (97.6 F-99.6 F) 97.9 F Temperature Source Oral Pulse Public Service Administrator Pulse Rate (60-100 beats/min) 57 Pulse Assessment Method Pulse Oximetry Respirations Respiratory Rate (12-24 breaths/min) 16 Oxygen Delivery Method Nasal Cannula Oxygen Flow Rate (L/min) 2 O2 Sat by Pulse Oximetry (95-100) 100 Blood Pressure Left Arm Blood Pressure (mm Hg) 151/87 Blood Pressure Mean (mm Hg) 108 Blood Pressure Source Automatic Cuff Document 06/15/16 19:38 BLAS (Rec: 06/15/16 19:38 D [facility]-[id number]) Vital Signs Temperature Temperature (97.6 F-99.6 F) 97.9 F Temperature Source Oral Pulse Left Pulse Oximetery Pulse Rate (60-100 beats/min) 64 Pulse Assessment Method Pulse Oximetry Laboratory Results POC Glucose (mg/dL) 281 mg/dL (75-99) H 01/14/17 17:14 POC Glu Plate Developer ID Senia Blanchard 06/15/16 17:14 Urine Color Yellow 06/15/16 03:16 Urine Appearance Clear (Clear) 06/15/16 03:16 Urine pH 5.0 (5.0-8.0) 06/15/16 03:16 Ur Specific Harper 1.028 (1.001-1.035) 06/15/16 03:16 Urine Protein Negative (Negative) 06/15/16 03:16 Urine Glucose (UA) 4+ (Negative) H 06/15/16 03:16 Urine Ketones Negative (Negative) 06/15/16 03:16 Urine Blood Negative (Negative) 06/15/16 03:16 Urine Nitrate Negative (Negative) 06/15/16 03:16 Urine Bilirubin Negative (Negative) 06/15/16 03:16 Urine Urobilinogen <2.0 mg/dL (<2.0) 06/15/16 03:16 Ur Leukocyte Esterase Negative (Negative) 06/15/16 03:16 Phenytoin <3.0 ug/mL 06/14/16 17:10 Respirations Respiratory Rate (12-24 breaths/min) 18 Oxygen Delivery Method Room Air O2 Sat by Pulse Oximetry (95-100) 93 Blood Pressure Left Arm Blood Pressure (mm Hg) 159/68 Blood Pressure Mean (mm Hg) 98 Blood Pressure Source Automatic Cuff Thrombosis Risk Factor Assmnt - Choose All That Apply Any of the Below Risk Factors Present?: Yes Each Factor Represents 1 point: Obesity (BMI >25) Other Risk Factors: Yes Each Risk Factor Represents 3 Points: Age 75 years or older Other congenital or acquired thrombophilia - If yes, enter type in comment: No Thrombosis Risk Factor Assessment Total Risk Factor Score: 4 Thrombosis Risk Factor Assessment Level: Moderate Risk Assessment and Plan Plan: 1. Paranoia with suicidality, major depression with mood disorder suspect bipolar 1 disorder, patient currently is petitioned by the police for mental health reasons. She is incapable of making sound decisions with her health, has multiple self harmful activities including non compliance, unable to provide simple adl's despite staying at assisted living situations, refusing nursing care for medication dispensation at her residence. patient need 24 supervision and med compliance. Psychotropics will be provided by psychiatry. She is expected to be in a geriatric psychiatry unit for mental stabilization. petition is filed by police, court appointed guardian is in place. She is medically cleared, she has multiple workup leading to this admission including a ct brain, multiple chest xrays, urinalysis including thyroid and gastrointestinal related encephalopathy, all leading to negative etiologies. 2 diabetes mellitus type 2 uncontrolled secondary to non-compliance.: Continue patient on Prandin Accu-Chek with sliding scales coverage will be done. 3 chronic neuropathy: Has been on Neurontin 100 mg twice a day. 4 hyperlipidemia: Patient is on Lipitor 40 mg daily. 5. Dementia with behavior disorder. currently on nuedexta 7 hypothyroidism: Continue patient on levothyroxine 50 g daily. 8 chronic depression and mild diffusion patient has been on nuedexta along with Paxil and Xanax with BuSpar. 9 pseudoseizure: follows closely by neurologist, her Lamictal 25 mg twice a day is for her mood disorder 10 chronic edema: Has been on Lasix 20 mg daily. 11 history of breast cancer: Has been on Femara 2.5 mg daily, right breast mastectomy, with residual wound dehisence, no signs of cellulitis, continue [facility] 12 GI prophylaxis: Patient will be on Pepcid 20 mg daily. 13 DVT prophylaxis: Patient will have knee-high KAMRYN hose and Venodyne boots. CODE STATUS: Full code. Expectation from this admission: Patient be in the hospital overnight with transfer to [facility]-psychiatry once accepted Procedures DRAINAGE OF CHEST SUBCU/FASCIA, OPEN APPROACH (04/09/15) EMERGENCY DEPT VISIT (06/03/16) EMERGENCY DEPT VISIT (05/30/16) EMERGENCY DEPT VISIT (05/29/16) EMERGENCY DEPT VISIT (04/11/16) EMERGENCY DEPT VISIT (03/28/16) EMERGENCY DEPT VISIT (03/27/16) EMERGENCY DEPT VISIT (12/21/15) EMERGENCY DEPT VISIT (11/11/15) EMERGENCY DEPT VISIT (09/19/15) EMERGENCY DEPT VISIT (09/08/15) EMERGENCY DEPT VISIT (06/24/15) EMERGENCY DEPT VISIT (11/23/14) EMERGENCY DEPT VISIT (08/31/14) EMERGENCY DEPT VISIT (06/30/14) EMERGENCY DEPT VISIT (05/31/14) EXCISION OF CHEST SUBCU/FASCIA, OPEN APPROACH (04/09/15) FLUOROSCOPY OF LEFT UPPER EXTREMITY VEINS, GUIDANCE (04/09/15) HYDRATE IV INFUSION ADD-ON (05/29/16) HYDRATION IV INFUSION INIT (05/29/16) INSERTION OF INFUSION DEV INTO L INNOM VEIN, PERC APPROACH (04/09/15) INTRODUCE OTH THERAP SUBST IN PERIPH VEIN, PERC (03/07/15) THER/PROPH/DIAG INJ IV PUSH (05/13/16) THER/PROPH/DIAG IV INF ADDON (03/07/15) THER/PROPH/DIAG IV INF INIT (03/27/16) TX/PRO/DX INJ NEW DRUG ADDON (03/27/16) TX/PRO/DX INJ SAME DRUG COMBINING MACHINE OPERATOR (09/08/15) UNILAT EXTEN SIMP MASTEC (02/16/15) Discharge Medication List Gabapentin [Neurontin] 100 mg PO QAM 01/29/16 [History] ALPRAZolam [Xanax] 0.25 mg PO TID 03/27/16 [History] Atorvastatin [Lipitor] 40 mg PO HS 05/13/16 [History] Furosemide [Lasix] 20 mg PO QAM 05/13/16 [History] Levothyroxine Sodium [Synthroid] 50 mcg PO QAM 05/13/16 [History] Nuedexta 1 tab PO BID 05/13/16 [History] busPIRone HCL [Buspar] 7.5 mg PO BID 05/13/16 [History] lamoTRIgine [LaMICtal] 25 mg PO BID 05/13/16 [History] Gabapentin [Neurontin] 200 mg PO BID 05/29/16 [History] Nystatin [Nystop] 1 applic TOPICAL BID 05/29/16 [History] Phenytoin Sodium Extended [Dilantin] 100 mg PO TID 05/29/16 [History] PARoxetine HCL [Paxil] 40 mg PO QAM 06/03/16 [History] Lisinopril [Zestril] 5 mg PO DAILY #14 tab 06/13/16 [Rx] INSULIN LISPRO (humaLOG) [humaLOG (formulary)] 0 unit SQ ACHS vial 06/16/16 [Rx ] Time with Patient: Greater than 30
[2016-06-16] MEDS: LEVOTHYROXINE 50 MCG TAB PO SCH (05:12)
[2016-06-16 07:00] LABS: Glucose,Whole Blood 250 mg/dL (75-99)
[2016-06-16] MEDS: FAMOTIDINE 20 MG TAB PO SCH ×2 (08:47→21:17)
[2016-06-16] MEDS: ENOXAPARIN 40 MG/0.4 ML SYRINGE SQ SCH (08:48)
[2016-06-16] MEDS: busPIRone HCl 5 MG TAB PO SCH ×2 (08:48→21:16)
[2016-06-16] MEDS: REPAGLINIDE 1 MG TAB PO SCH ×4 (08:49→18:21)
[2016-06-16] MEDS: PARoxetine 20 MG TAB PO SCH (08:50)
[2016-06-16] MEDS: FUROSEMIDE 20 MG TAB PO SCH (08:50)
[2016-06-16] MEDS: GABAPENTIN 100 MG CAP PO SCH ×3 (08:50→21:16)
[2016-06-16] MEDS: PHENYTOIN SODIUM EXTENDED 100 MG CAP PO SCH ×4 (08:50→21:17)
[2016-06-16] MEDS: LISINOPRIL 5 MG TAB PO SCH (08:51)
[2016-06-16] MEDS: lamoTRIgine 25 MG TAB PO SCH ×3 (08:51→21:17)
[2016-06-16] MEDS: LORazepam 0.5 MG TAB PO PRN ×3 (10:02→21:49)
[2016-06-16] MEDS: ACETAMINOPHEN TAB 325 MG TAB PO PRN ×2 (10:02→15:59)
[2016-06-16 12:20] LABS: Glucose,Whole Blood 318 mg/dL (75-99)
--- NOTE | 2016-06-16 12:47 | XR ---
EXAMINATION TYPE: XR chest 2V DATE OF EXAM: 06/16/2016 12:41 PM COMPARISON: 06/03/2016 HISTORY: Short of breath and COPD TECHNIQUE: Frontal and lateral views of the chest are obtained. FINDINGS: Heart is normal. Lungs are clear of consolidation. There is linear density in the right up per lobe. There are no hilar masses. There is no heart failure. There is mild pulmonary hyperinflatio n. Bony thorax appears intact. IMPRESSION: There is some right upper lobe atelectasis that is new compared to last exam. COPD. No h eart failure.
[2016-06-16] MEDS: INSULIN LISPRO (humaLOG) 300 UNIT/3 ML VIAL SQ SCH ×5 (13:41→21:17)
[2016-06-16] MEDS: NYSTATIN 100,000 UNIT/GM POWD 15 GM TOPICAL SCH ×2 (14:28→21:16)
--- NOTE | 2016-06-16 16:35 | XR ---
EXAMINATION TYPE: XR chest 2V DATE OF EXAM: 06/16/2016 4:15 PM COMPARISON: 06/03/2016 HISTORY: Chest pain TECHNIQUE: Frontal and lateral views of the chest are obtained. FINDINGS: Heart and mediastinum are normal. Lungs are clear of consolidation. There is no pleural ef fusion. There are no hilar masses. IMPRESSION: No active cardiopulmonary disease. No change.
[2016-06-16 17:17] LABS: Glucose,Whole Blood 263 mg/dL (75-99)
[2016-06-16 21:09] LABS: Glucose,Whole Blood 213 mg/dL (75-99)
[2016-06-16] MEDS: ATORVASTATIN 40 MG TAB PO SCH (21:16)
[2016-06-17 06:37] LABS: Glucose,Whole Blood 275 mg/dL (75-99)
[2016-06-17] MEDS: LEVOTHYROXINE 50 MCG TAB PO SCH (06:39)
[2016-06-17] MEDS: LISINOPRIL 5 MG TAB PO SCH (08:29)
[2016-06-17] MEDS: busPIRone HCl 5 MG TAB PO SCH (08:30)
[2016-06-17] MEDS: FAMOTIDINE 20 MG TAB PO SCH (08:30)
[2016-06-17] MEDS: GABAPENTIN 100 MG CAP PO SCH ×2 (08:30→18:22)
[2016-06-17] MEDS: REPAGLINIDE 1 MG TAB PO SCH ×2 (08:30→12:30)
[2016-06-17] MEDS: ENOXAPARIN 40 MG/0.4 ML SYRINGE SQ SCH (08:30)
[2016-06-17] MEDS: NYSTATIN 100,000 UNIT/GM POWD 15 GM TOPICAL SCH (08:31)
[2016-06-17] MEDS: PARoxetine 20 MG TAB PO SCH (08:31)
[2016-06-17] MEDS: PHENYTOIN SODIUM EXTENDED 100 MG CAP PO SCH ×2 (08:32→17:21)
[2016-06-17] MEDS: FUROSEMIDE 20 MG TAB PO SCH (08:32)
[2016-06-17] MEDS: lamoTRIgine 25 MG TAB PO SCH (08:32)
[2016-06-17] MEDS: INSULIN LISPRO (humaLOG) 300 UNIT/3 ML VIAL SQ SCH ×3 (08:34→18:24)
[2016-06-17 12:16] VITALS: TEMP 98.1
[2016-06-17 12:20] LABS: Glucose,Whole Blood 228 mg/dL (75-99)
[2016-06-17] MEDS: ACETAMINOPHEN TAB 325 MG TAB PO PRN (12:30)
[2016-06-17] MEDS: LORazepam 0.5 MG TAB PO PRN (12:30)
[2016-06-17] MEDS ORDERED: LISINOPRIL 5 MG TAB PO ONE (14:15)
--- NOTE | 2016-06-17 14:47 | P.PN ---
Subjective This is a 75-year-old female one of Dr. Azar's patient with past medical history of breast cancer, diabetes, GERD, hypertension, hyperlipidemia, obstructive sleep apnea, and thyroid problem who also known to have history of seizure. Patient has been residing in [facility]. She had a recent hospitalization May 15 through May 19 for which she was treated for left-sided pneumonia, metabolic encephalopathy, depression and suicidal ideation. She again was admitted to [facility] form 05/21/16- for metabolic encephalopathyy and anxiety with agitation worsening depression. the lengthy admission was complicated with hypersomnolence related to her ativan qhich was later switched to xanax which she tolerated, buspar was increased then, paxil lamictal and nuexta was unchanged. She was recommended to go to subacute rehab which she adamantly declined and was threatening people if she does not get her way. She was admitted again on 06/03 in our facilit for chest pain along with her increased stress, anxiety and depression. She was discharged to her assisted living place at [facility] in the [facility]. By the time she got to her own, she has been neglecting her care, not taking her medications , we tried getting home services for nursing for medication dispensation which she refused. she exhibits suicidality when not around her cats, and threatens to kill herself. she has called the preparole counseling aide to her place several times in a day that the senior facility has been for several months to the point of ridiculousness. multiple ER visits for her behaviors. she is aggressive to nursing staff as well as staff in nursing staff. Social worse consult was placed for possible placement which patient refuses. Consult placed with psychiatry to evaluate for competency to make own decisions. Patient does have a power of district attorney, Rajat, her nephew, who is indisposed as he is in the hospital and cannot be available for medicql decision making. the police has petitioned her for unpredictable threatening behaviors with paranoia and suicidal ideation. She gets emotional and get seveyly sad and cries, once the topic is replaced to something she dislikes she gets angry and starts saying leave me alone, "i dont like you" later she says "huh. on everything else that requires a straight answer. She laughs at her mischief and her fierce behaviors and would recant her behavior and says she is only joking, all these after she puts a fist in the nurse's face or have thrown a chair or her shoes at nursing staff. 06/17: Patient is very cooperative today. Blood pressure has been high for which lisinopril increased. Blood sugars have been elevated for which Prandin increased. We are waiting psychiatrist determination of discharge plan. Objective - Vital Signs Vital signs: Vital Signs Temp 98.1 F 06/17/16 12:14 Pulse 62 06/17/16 12:14 Resp 16 06/17/16 12:14 BP 184/98 06/17/16 12:14 Pulse Ox 95 06/17/16 12:14 Intake & Output 06/16/16 06/17/16 06/17/16 18:59 06:59 18:59 Intake Total 350 450 447 Output Total 350 Balance 0 450 447 Intake: Oral 350 450 447 Output: Urine 350 Other: Voiding Method Toilet Toilet Toilet Diaper Bedpan Diaper Diaper # Voids 3 2 - Exam General appearance: average body habitus, cooperative, no acute distress - EENT Eyes: anicteric sclerae, EOMI, PERRLA, dentition normal, normal appearance ENT: hearing grossly normal, NA/AT, normal oropharynx - Respiratory Respiratory: bilateral: CTA, negative: diminished, dullness, rales, wheezing - Cardiovascular Rhythm: regular Heart sounds: normal: S1, S2 Abnormal Heart Sounds: no systolic murmur, no diastolic murmur, no rub, no S3 Gallop, no S4 Gallop, no click, no other - Gastrointestinal General gastrointestinal: normal bowel sounds, soft - Integumentary Integumentary: normal, normal turgor - Musculoskeletal Musculoskeletal: gait normal, strength equal bilaterally - Psychiatric Psychiatric: A&O x's 3, appropriate affect (inappropriate) - Labs Labs: Abnormal Lab Results - Last 24 Hours (Table) 06/16/16 06/16/16 06/17/16 Range/Units 17:15 20:58 06:30 POC Glucose (mg/dL) 263 H 213 H 275 H (75-99) mg/dL 06/17/16 Range/Units 12:16 POC Glucose (mg/dL) 228 H (75-99) mg/dL Assessment and Plan Plan: 1. Paranoia with suicidality, major depression with mood disorder suspect bipolar 1 disorder, patient currently is petitioned by the police for mental health reasons. She is incapable of making sound decisions with her health, has multiple self harmful activities including non compliance, unable to provide simple adl's despite staying at assisted living situations, refusing nursing care for medication dispensation at her residence. patient need 24 supervision and med compliance. Psychotropics will be provided by psychiatry. She is expected to be in a geriatric psychiatry unit for mental stabilization. petition is filed by police, court appointed guardian is in place. She is medically cleared, she has multiple workup leading to this admission including a ct brain, multiple chest xrays, urinalysis including thyroid and gastrointestinal related encephalopathy, all leading to negative etiologies. 2 diabetes mellitus type 2 uncontrolled secondary to non-compliance.: Continue patient on Prandin Accu-Chek with sliding scales coverage will be done. 3 chronic neuropathy: Has been on Neurontin 100 mg twice a day. 4 hyperlipidemia: Patient is on Lipitor 40 mg daily. 5. Dementia with behavior disorder. currently on nuedexta 7 hypothyroidism: Continue patient on levothyroxine 50 g daily. 8 chronic depression and mild diffusion patient has been on nuedexta along with Paxil and Xanax with BuSpar. 9 pseudoseizure: follows closely by neurologist, her Lamictal 25 mg twice a day is for her mood disorder 10 chronic edema: Has been on Lasix 20 mg daily. 11 hypertension. Lisinopril increased to 20 mg twice daily. 12. history of breast cancer: Has been on Femara 2.5 mg daily, right breast mastectomy, with residual wound dehisence, no signs of cellulitis, continue [facility] 13 GI prophylaxis: Patient will be on Pepcid 20 mg daily. 14 DVT prophylaxis: Patient will have knee-high KAMRYN hose and Venodyne boots. CODE STATUS: Full code. Expectation from this admission: Patient be in the hospital overnight with transfer to [facility] once accepted Impression and plan of care have been directed as dictated by the signing physician. Harleen Chao nurse practitioner acting as scribe for signing physician. Time with Patient: Greater than 30
[2016-06-17 16:36] LABS: Glucose,Whole Blood 229 mg/dL (75-99)
[2016-06-17 17:07] VITALS: BP 142/77; RESP 18
[2016-06-17] MEDS ORDERED: REPAGLINIDE 1 MG TAB PO SCH (17:30)
[2016-06-17 18:36] VITALS: PULSE 58
[2016-06-17] MEDS ORDERED: LISINOPRIL 20 MG TAB PO SCH (21:00)
== END 2016-06-17 18:35 ==
LOC: EC 15:22 → 3OBS 17:01
PROVIDERS: ADMIT Internal Medicine; ATTEND Internal Medicine
DX: F32.3 Major depressive disorder, single episode, severe with psychotic features (principal); R41.82 Altered mental status, unspecified; E11.65 Type 2 diabetes mellitus with hyperglycemia; E11.40 Type 2 diabetes mellitus with diabetic neuropathy, unspecified; Z91.19 Patient's noncompliance with other medical treatment and regimen; E78.5 Hyperlipidemia, unspecified; F03.91 Unspecified dementia, unspecified severity, with behavioral disturbance; E03.9 Hypothyroidism, unspecified; F32.9 Major depressive disorder, single episode, unspecified; G47.33 Obstructive sleep apnea (adult) (pediatric); K21.9 Gastro-esophageal reflux disease without esophagitis; H91.90 Unspecified hearing loss, unspecified ear; I10 Essential (primary) hypertension; R45.851 Suicidal ideations; R45.850 Homicidal ideations; M19.90 Unspecified osteoarthritis, unspecified site; F41.9 Anxiety disorder, unspecified; R32 Unspecified urinary incontinence; Z99.89 Dependence on other enabling machines and devices; Z90.11 Acquired absence of right breast and nipple; Z85.3 Personal history of malignant neoplasm of breast; Z85.828 Personal history of other malignant neoplasm of skin; Z79.899 Other long term (current) drug therapy; Z88.0 Allergy status to penicillin; Z88.1 Allergy status to other antibiotic agents; Z91.040 Latex allergy status; Z82.49 Family history of ischemic heart disease and other diseases of the circulatory system
CPT/HCPCS: 99285 ×3; 96372 ×5; 36415; 97162; 80048; 80185; 85025; 81003; 71020; G0378 ×4; J2060; J1630; J1650 ×2

== ENCOUNTER 2016-06-17 18:40 | Inpatient (IN) | payer MEDICARE, BC ==
[2016-06-17] MEDS ORDERED: MAGNESIUM HYDROXIDE 2,400 MG/10 ML CUP PO PRN (19:13)
[2016-06-17] MEDS ORDERED: MAG HYDROX/AL HYDROX/SIMETH 30 ML CUP PO PRN (19:13)
[2016-06-17 20:02] LABS: Glucose,Whole Blood 285 mg/dL (75-99)
[2016-06-17] MEDS: INSULIN LISPRO (humaLOG) 300 UNIT/3 ML VIAL SQ SCH (20:29)
[2016-06-17] MEDS ORDERED: GABAPENTIN 100 MG CAP PO SCH (21:00)
[2016-06-17] MEDS: busPIRone HCl 5 MG TAB PO SCH (21:55)
[2016-06-17] MEDS: LISINOPRIL 20 MG TAB PO SCH (21:56)
[2016-06-17] MEDS: PHENYTOIN SODIUM EXTENDED 100 MG CAP PO SCH ×2 (21:57→22:05)
[2016-06-17] MEDS: GABAPENTIN 100 MG CAP PO SCH (21:57)
[2016-06-17] MEDS: FAMOTIDINE 20 MG TAB PO SCH (22:03)
[2016-06-17] MEDS: ATORVASTATIN 40 MG TAB PO SCH (22:03)
[2016-06-17] MEDS: NYSTATIN 100,000 UNIT/GM POWD 15 GM TOPICAL SCH (22:03)
[2016-06-17] MEDS: lamoTRIgine 25 MG TAB PO SCH (22:03)
[2016-06-18 04:29] LABS: Glucose,Whole Blood 247 mg/dL (75-99)
[2016-06-18] MEDS: ACETAMINOPHEN TAB 325 MG TAB PO PRN (04:47)
[2016-06-18] MEDS: LEVOTHYROXINE 50 MCG TAB PO SCH (06:44)
[2016-06-18 06:55] LABS: Glucose,Whole Blood 244 mg/dL (75-99)
[2016-06-18] MEDS: INSULIN LISPRO (humaLOG) 300 UNIT/3 ML VIAL SQ SCH ×4 (07:59→20:26)
[2016-06-18] MEDS: REPAGLINIDE 1 MG TAB PO SCH ×3 (08:00→17:57)
[2016-06-18 08:56] LABS: Basophils % (A) 1 %; CHCM 32.8; Eosinophils # (A) 0.3 k/uL (0-0.7); Eosinophils % (A) 5 %; HDW 2.69; HGB 13.9 gm/dL (11.4-16.0); Luc # (Auto) 0.21; Luc % (Auto) 3; Lymphocytes # (A) 0.6 k/uL (1.0-4.8); Lymphocytes % (A) 8 %; MCHC 31.6 g/dL (31.0-37.0); MCV 88.7 fL (80.0-100.0); Mean Platelet Volume 8.6; Monocytes # (A) 0.3 k/uL (0-1.0); Monocytes % (A) 4 %; Neutrophils # (A) 5.5 k/uL (1.3-7.7); Neutrophils % (A) 80 %; RBC 4.96 m/uL (3.80-5.40); RDW 13.9 % (11.5-15.5); WBC 6.9 k/uL (3.8-10.6); WBC (Perox) 6.99
[2016-06-18 09:19] LABS: ALT 38 U/L (9-52); AST 24 U/L (14-36); Alkaline Phosphatase 114 U/L (38-126); Anion Gap 11 mmol/L; Blood Urea Nitrogen 9 mg/dL (7-17); Calcium 8.9 mg/dL (8.4-10.2); Carbon Dioxide 27 mmol/L (22-30); Chloride 101 mmol/L (98-107); Glucose 321 mg/dL (74-99); Non-African American GFR(MDRD) >60 (>60 ml/min/1.73 sqM); Potassium 4.3 mmol/L (3.5-5.1); Sodium 139 mmol/L (137-145); Total Bilirubin 0.5 mg/dL (0.2-1.3)
[2016-06-18] MEDS: busPIRone HCl 5 MG TAB PO SCH (09:45)
[2016-06-18] MEDS: ENOXAPARIN 40 MG/0.4 ML SYRINGE SQ SCH (09:45)
[2016-06-18] MEDS: GABAPENTIN 100 MG CAP PO SCH ×3 (09:46→21:51)
[2016-06-18] MEDS: FAMOTIDINE 20 MG TAB PO SCH ×2 (09:46→21:49)
[2016-06-18] MEDS: lamoTRIgine 25 MG TAB PO SCH ×2 (09:46→21:50)
[2016-06-18] MEDS: FUROSEMIDE 20 MG TAB PO SCH (09:46)
[2016-06-18] MEDS: LISINOPRIL 20 MG TAB PO SCH ×2 (09:47→21:50)
[2016-06-18] MEDS: PARoxetine 20 MG TAB PO SCH (09:47)
[2016-06-18] MEDS: PHENYTOIN SODIUM EXTENDED 100 MG CAP PO SCH (09:48)
[2016-06-18] MEDS: NYSTATIN 100,000 UNIT/GM POWD 15 GM TOPICAL SCH ×2 (10:15→21:50)
[2016-06-18 12:26] LABS: Glucose,Whole Blood 312 mg/dL (75-99)
[2016-06-18 13:23] LABS: Glucose,Whole Blood 306 mg/dL (75-99)
[2016-06-18] MEDS: LINAGLIPTIN 5 MG TABLET PO SCH (13:25)
--- NOTE | 2016-06-18 14:17 | HP ---
DATE OF ADMISSION: DATE OF SERVICE: 06/18/2016 IDENTIFYING DATA: The patient is a 75-year-old female, for the last couple of years, who has been living in assisted living, patient had power of deputy commonwealth's attorney that was her nephew Rajat Hayden who is currently hospitalized at [facility] and that is why she was appointed a public guardian, her name is Sharon Sanders. Patient was transferred from the medical unit to the mental health unit on petition and physician certificate. HISTORY OF PRESENT ILLNESS: The patient has had much admission to the hospital throughout the year for multiple complicated medical problem, patient did try to elope from her assisted living at least a couple of times before and she was wandering in the street, patient was petitioned by the chief of police and according to the petition he stated that he knew her for at least 25 years and he does believe that she is not capable. According to the petition, patient believes that patient inside [facility] are trying to kill her. She will not come down for breakfast or lunch as she has irrational fear of dying. Patient stopped taking care of herself, even she stopped care of her medication. Patient called the police department more than once and she left a message saying that she is going to kill herself and also she will assault staff. I talked with patient's primary care physician, Dr. Azar who has been taking care of this patient for the last couple of years and she stated that the patient has been getting worse, very irritable, agitated, very labile, not able to take care of herself, even refusing her daily medication, neglecting her ADL's. She also threatening to if she does not get whatever she wants. In addition, her primary care physician told me that she has been abusive to the staff in the facility. She does believe that staff will hurt her and even she does believe that the staff killed her cats. Patient has been very impulsive for the last couple of weeks to the point that she throws things to people resulting to bruises. She is neglecting to take her medication, her blood sugar has been not stable for the last couple of weeks. When I talked to the patient, she described feeling hopeless, helpless, frequent crying spells, appetite has been decreased, also she has been feeling tired, no ambition, no motivation. She kept saying "I want to see my cats. Someone killed my cats." She endorses a lot of paranoia and delusional thinking towards the staff at the assisted living facility. She reports having depression since she lost her of more than 42 years who a couple of years ago with stroke. She did verbalize passive suicidal ideation by saying "If I have to go to a prison or assisted living, I will kill myself. I want to live independent." Patient reported that her depression has been getting worse over the last couple of weeks, since her only support system "Rajat" has been hospitalized in [facility] for complication of diabetes. Patient stated that she recently lost several other family members and continued to be very depressed. According to her "I had 11 siblings and now I have only 1 brother living." PAST PSYCHIATRIC HISTORY: Patient stated that this is her first inpatient psychiatric admission, no history of suicidal attempt. Patient was seen in consultation was done a couple of times by Psychiatry for depression and was started on Paxil. Dr. Azar did increase the Paxil to 40 mg daily and added BuSpar 7.5 mg twice a day. Her current home medications: 1. Paxil 40 mg daily. 2. BuSpar 7.5 twice a day. 3. Tylenol p.r.n. 4. Lipitor 40 mg at that time. 5. Lovenox 40 mg daily. 6. Pepcid 20 mg twice a day. 7. Lasix 20 mg in the morning. 8. Neurontin 100 mg in the morning at 200 at noon and at bedtime. 9. Insulin as protocol. 10. Synthroid 50 mcg daily. 11. Lisinopril 20 mg twice a day. 12. Lamotrigine or Lamictal 25 b.i.d. 13. Xanax 0.25 three times a day on a regular basis. 14. Milk of Magnesia. 15. Dilantin 100 mg 3 times a day. 16. Prandin 2 mg 3 times a day. 17. Nuedexta 1 mg b.i.d. for pseudobulbar effect. MEDICAL HISTORY: 1. Insulin dependent diabetes. 2. Hyperlipidemia. 3. Pseudoseizures or conversion disorder. 4. History of obstructive sleep apnea. 5. Hypertension. 6. Gastroesophageal reflux disease. 7. Thyroid problem. 8. History of breast cancer. Family history of psychiatric illness. Patient denied any history of depression or substance abuse in her family. SOCIAL HISTORY: Patient was born and raised in [place]. She is the youngest of 12. She denied any history of physical, verbal, emotional or sexual abuse during childhood. She graduated from high school. She was for 42 years, but she does not have any children as she stated that she did have rheumatic fever when she was young and she was told that she is not able to conceive. 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 As I mentioned before, all her siblings except 1 brother who is 5 years older than her. She denied any legal problem. She stated that she prefers to leave the assisted living and have her own apartment, despite that is seems that she is not capable to take care of her basic needs or her medical needs. SUBSTANCE ABUSE HISTORY: She denies any current substance abuse and she stated that she used to smoke but she stopped a long time ago. For physical examination, please review medical consultation report. ALLERGY: PENICILLIN, ASPIRIN, CEFTIN, HYDROCODONE. VITAL SIGNS: Temperature 98.6, pulse 61, respirations 16, blood pressure 153/67. Abnormal lab result, her blood glucose was 298. MENTAL STATUS EXAMINATION: Patient was seen lying in bed, she is casually dressed but disheveled and unkempt. She was cooperative. There is no aggression. She was alert, oriented to person, place and to the month and the year; however, she could not tell me exactly what is today's date. She is hard of hearing. She gives appropriate eye contact. Her speech was normal in rate, rhythm and volume. Her affect is very labile, tearful in one minute, then she starts getting irritable and angry. When she did realize when she has to stay on the mental unit, there is psychomotor agitation. Her thought process is tangential and there is some loss of association, thought content, feeling of hopeless, helpless, suicidal ideation, paranoia and delusional thinking. Her insight and judgment are poor. MEMORY FUNCTION: She did mini-mental examination and she did score 23 from 30 as she was not able to do ( ) or spell world backward. She could not recall the exact today's date. Also, she did recall 1 from 3 objects after a couple of minutes. Her intellectual function is average. Her strength, it seems that she has good support system, that including her brother and her nephew but her weakness, patient is not willing to accept treatment, also repeated admission to the medical floor due to multiple medical complications and poor compliance with medications. DIAGNOSES: 1. Major depression, recurrent severe with psychotic feature, rule out bipolar disorder type 2, depressed with delusional. 2. 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 3. Hypothyroidism, pseudoseizure, insulin-dependent, hypertension. PLAN: 1. Patient was admitted to the mental health unit on involuntary basis. Will pursue involuntary admission. 2. Will contact her current guardian to discuss patient's condition and treatment plan. 3. I will continue her on Paxil 20 mg; however, I will discontinue the BuSpar to avoid serotonin syndrome. 4. I did discuss with Dr. Azar her seizure medication and she did agree with me that we can discontinue Dilantin as patient has 4 or 5 EEG's normal. 5. I will increase her lamotrigine to 50 mg twice a day and I will continue her on the same dose of gabapentin. 6. I will add low dose of Risperdal to eliminate her paranoid and delusion. 7. Patient will participate in group therapy as tolerated. 8. Length of stay 7 to 10 days. Treatment team will arrange post-discharge placement when the patient is stable MTDD
--- NOTE | 2016-06-18 15:34 | P.CONS ---
History of Present Illness - Reason for Consult Consult date: 06/18/16 Medical management - History of Present Illness This is a 75-year-old female one of Dr. Azar's patient with past medical history of breast cancer, diabetes, GERD, hypertension, hyperlipidemia, obstructive sleep apnea, and thyroid problem who also known to have history of seizure. Patient has been residing in [facility]. She had a recent hospitalization May 15 through May 19 for which she was treated for left-sided pneumonia, metabolic encephalopathy, depression and suicidal ideation. She again was admitted to [facility] form 05/21/16- for metabolic encephalopathyy and anxiety with agitation worsening depression. the lengthy admission was complicated with hypersomnolence related to her ativan qhich was later switched to xanax which she tolerated, buspar was increased then, paxil lamictal and nuexta was unchanged. She was recommended to go to subacute rehab which she adamantly declined and was threatening people if she does not get her way. She was admitted again on 06/03 in our facilit for chest pain along with her increased stress, anxiety and depression. She was discharged to her assisted living place at [facility] the [facility]. By the time she got to her own, she has been neglecting her care, not taking her medications , we tried getting home services for nursing for medication dispensation which she refused. She exhibits suicidality when not around her cats, and threatens to kill herself. she has called the brand lead to her place several times in a day that the senior facility has been for several months to the point of ridiculousness. Multiple ER visits for her behaviors. She is aggressive to nursing staff. Social work consult was placed for possible placement which patient refuses. Consult placed with psychiatry to evaluate for competency to make own decisions. Patient does have a power of trial attorney, Rajat, her nephew , who is indisposed as he is in the hospital and cannot be available for medicql decision making. the police has petitioned her for unpredictable threatening behaviors with paranoia and suicidal ideation. She gets emotional and get severely sad and cries, once the topic is replaced to something she dislikes she gets angry and starts saying leave me alone, "i dont like you" later she says "huh. on everything else that requires a straight answer. She laughs at her mischief and her fierce behaviors and would recant her behavior and says she is only joking, all these after she puts a fist in the nurse's face or have thrown a chair or her shoes at nursing staff. Patient now has a public guardian Sharon Doll. Patient was seen on the observation unit until she was transferred to the psychiatric unit. Patient is now seen on psychiatric unit. She states she did not sleep well and she cried all night. Blood sugars have been high for which to gentle has been added. Hemoglobin A1c is 10. Dilantin has been discontinued by psychiatry. Review of Systems All systems: negative Constitutional: Denies chills, Denies fever Eyes: denies blurred vision, denies pain Ears, nose, mouth and throat: Denies headache, Denies sore throat Cardiovascular: Denies chest pain, Denies shortness of breath Respiratory: Denies cough Gastrointestinal: Denies abdominal pain, Denies diarrhea, Denies nausea, Denies vomiting Genitourinary: Denies dysuria, Denies hematuria Musculoskeletal: Denies myalgias Integumentary: Denies pruritus, Denies rash Neurological: Denies numbness, Denies weakness Psychiatric: Reports anxiety, Reports confusion, Reports depression, Reports insomnia, Reports irritability Endocrine: Denies fatigue, Denies weight change Past Medical History Past Medical History: Cancer, Diabetes Mellitus, GERD/Reflux, Hearing Disorder / Deafness, Hyperlipidemia, Hypertension, Osteoarthritis (OA), Sleep Apnea/CPAP/ BIPAP, Thyroid Disorder Additional Past Medical History / Comment(s): Skin Cancer -left lower lip, right BREAST CANCER. left eye lid lump removed. SEIZURE WHEN HERE LAST8.CATARACTS, UTI,CAREGIVER STATED PT HAS YEAST INFECTION UNDER BREAST AND GROIN FOLDS. History of Any Multi-Drug Resistant Organisms: None Reported Past Surgical History: Breast Surgery Additional Past Surgical History / Comment(s): Removal of skin cancer - left lower lip, [place] BREAST BX, HAD lumped removed from RT breast- THEN. RIGHT MASECTOMY with revision/COMPLICATED BY INFECTION(PER CAREGIVER). Past Anesthesia/Blood Transfusion Reactions: No Reported Reaction Additional Past Anesthesia/Blood Transfusion Reaction / Comm: TAKES HER A LONG TIME TO COME OUT ANESTHESIA Past Psychological History: Anxiety, Depression Additional Psychological History / Comment(s): SPOUSE OF 40 YEARS IN , uses cane.PTS STATED LIVES AT [facility]. Smoking Status: Never smoker Past Alcohol Use History: None Reported Additional Past Alcohol Use History / Comment(s): Patient states she is a lifelong nonsmoker. She denies any medical marijuana, marijuana, street drug or alcohol use. 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 She denies any recent travel. Her pets in the home. Past Drug Use History: None Reported - Past Family History Father Family Medical History: Coronary Artery Disease (CAD) (Father at age 72 from CAD) Additional Family Medical History / Comment(s): of heart disease Mother Family Medical History: Respiratory Disorder (Mother at the age of 79 from lung disease) Additional Family Medical History / Comment(s): of lung disease Brother(s) Family Medical History: Cancer, Coronary Artery Disease (CAD) Sister(s) Family Medical History: Cancer, Coronary Artery Disease (CAD) Additional Family Medical History / Comment(s): Patient has a nephew who cares for her and she has no children. Medications and Allergies Home Medications Medication Instructions Recorded Confirmed Type ALPRAZolam [Xanax] 0.25 mg PO TID 03/27/16 06/18/16 History Atorvastatin [Lipitor] 40 mg PO HS 05/13/16 06/18/16 History Furosemide [Lasix] 20 mg PO QAM 05/13/16 06/18/16 History Levothyroxine Sodium [Synthroid] 50 mcg PO QAM 05/13/16 06/18/16 History Nuedexta 1 tab PO BID 05/13/16 06/18/16 History busPIRone HCL [Buspar] 7.5 mg PO BID 05/13/16 06/18/16 History lamoTRIgine [LaMICtal] 25 mg PO BID 05/13/16 06/18/16 History Gabapentin [Neurontin] 200 mg PO BID 05/29/16 06/18/16 History Nystatin [Nystop] 1 applic TOPICAL BID 05/29/16 06/18/16 History Phenytoin Sodium Extended 100 mg PO TID 05/29/16 06/18/16 History [Dilantin] PARoxetine HCL [Paxil] 40 mg PO QAM 06/03/16 06/18/16 History Allergies Allergy/AdvReac Type Severity Reaction Status Date / Time Penicillins Allergy Unknown Verified 06/18/16 00:22 aspirin AdvReac Severe Chest Pain Verified 06/18/16 00:23 cefuroxime axetil AdvReac Severe Chest Pain Verified 06/18/16 00:23 [From Ceftin] hydrocodone AdvReac Severe Confusion Verified 06/18/16 00:23 Iodinated Contrast Media - AdvReac Unknown Unknown Verified 06/18/16 00:23 Oral and antibiotics-all Allergy Unknown Uncoded 06/18/16 00:23 Physical Exam Vitals: Vital Signs Temp Pulse Resp BP Pulse Ox 06/18/16 09:40 92 20 159/71 06/18/16 05:11 97.8 F 57 L 14 152/70 95 06/17/16 22:08 91 152/75 06/17/16 19:06 98.4 F 77 16 177/86 Intake and Output 06/17/16 06/18/16 06/18/16 22:59 06:59 14:59 Other: Weight 75 kg General appearance: average body habitus, cooperative, no acute distress - EENT Eyes: anicteric sclerae, EOMI, PERRLA, dentition normal, normal appearance ENT: hearing grossly normal, NA/AT, normal oropharynx - Respiratory Respiratory: bilateral: CTA, negative: diminished, dullness, rales, wheezing - Cardiovascular Rhythm: regular Heart sounds: normal: S1, S2 Abnormal Heart Sounds: no systolic murmur, no diastolic murmur, no rub, no S3 Gallop, no S4 Gallop, no click, no other - Gastrointestinal General gastrointestinal: normal bowel sounds, soft - Integumentary Integumentary: normal, normal turgor - Musculoskeletal Musculoskeletal: gait normal, strength equal bilaterally - Psychiatric Psychiatric: A&O x's 3, appropriate affect (inappropriate) Results CBC & Chem 7: 06/18/16 08:37 06/18/16 08:37 Labs: Abnormal Lab Results - Last 24 Hours (Table) 06/17/16 06/18/16 06/18/16 Range/Units 20:00 04:23 06:49 Lymphocytes # (1.0-4.8) k/uL Glucose (74-99) mg/dL POC Glucose (mg/dL) 285 H 247 H 244 H (75-99) mg/dL Hemoglobin A1c (4.2-6.1) % 06/18/16 06/18/16 06/18/16 Range/Units 08:37 08:37 08:37 Lymphocytes # 0.6 L (1.0-4.8) k/uL Glucose 321 H (74-99) mg/dL POC Glucose (mg/dL) (75-99) mg/dL Hemoglobin A1c 10.0 H (4.2-6.1) % 06/18/16 Range/Units 12:22 Lymphocytes # (1.0-4.8) k/uL Glucose (74-99) mg/dL POC Glucose (mg/dL) 312 H (75-99) mg/dL Hemoglobin A1c (4.2-6.1) % Assessment and Plan Plan: 1. Paranoia with suicidality, major depression with mood disorder suspect bipolar 1 disorder, patient currently is petitioned by the police for mental health reasons. Patient has been admitted to the mental health unit. Continue current plan of care. 2 diabetes mellitus type 2 uncontrolled secondary to non-compliance with hemoglobin A1c of 10. Prandin has been increased to 2 mg 3 times daily and Tradjenta 5 mg daily added. Continue patient on Accu-Chek with sliding scale coverage. 3 chronic neuropathy: Continue Neurontin. 4 hyperlipidemia: Patient is on Lipitor 40 mg daily. 5. Dementia with behavior disorder. currently on nuedexta 7 hypothyroidism: Continue patient on levothyroxine 50 g daily. 8 chronic depression and mild diffusion patient has been on nuedexta along with Paxil and Xanax with BuSpar. 9 pseudoseizure: follows closely by neurologist, her Lamictal 25 mg twice a day is for her mood disorder. Dilantin discontinued. 10 chronic edema: Has been on Lasix 20 mg daily. 11 hypertension. Lisinopril 20 mg twice daily. 12. history of breast cancer: Has been on Femara 2.5 mg daily, right breast mastectomy, with residual wound dehisence, no signs of cellulitis, continue [facility] 13 GI prophylaxis: Patient will be on Pepcid 20 mg daily. 14 DVT prophylaxis: Patient will have knee-high KAMRYN hose and Venodyne boots. Impression and plan of care have been directed as dictated by the signing physician. Harleen Chao nurse practitioner acting as scribe for signing physician. Time with Patient: Greater than 30
[2016-06-18 17:59] LABS: Glucose,Whole Blood 271 mg/dL (75-99)
[2016-06-18 20:28] LABS: Glucose,Whole Blood 265 mg/dL (75-99)
[2016-06-18] MEDS ORDERED: risperiDONE ODT 1 MG TAB PO SCH (21:00)
[2016-06-18] MEDS: ATORVASTATIN 40 MG TAB PO SCH (21:49)
[2016-06-19] MEDS: LEVOTHYROXINE 50 MCG TAB PO SCH (06:05)
[2016-06-19 06:18] LABS: Glucose,Whole Blood 298 mg/dL (75-99)
[2016-06-19] MEDS: INSULIN LISPRO (humaLOG) 300 UNIT/3 ML VIAL SQ SCH ×4 (08:42→21:02)
[2016-06-19] MEDS: REPAGLINIDE 1 MG TAB PO SCH ×3 (08:43→17:52)
[2016-06-19] MEDS: ENOXAPARIN 40 MG/0.4 ML SYRINGE SQ SCH (08:44)
[2016-06-19] MEDS: FUROSEMIDE 20 MG TAB PO SCH (08:44)
[2016-06-19] MEDS: LINAGLIPTIN 5 MG TABLET PO SCH (08:45)
[2016-06-19] MEDS: LISINOPRIL 20 MG TAB PO SCH ×2 (08:45→21:05)
[2016-06-19] MEDS: GABAPENTIN 100 MG CAP PO SCH ×3 (08:47→21:42)
[2016-06-19] MEDS: FAMOTIDINE 20 MG TAB PO SCH ×2 (08:47→20:59)
[2016-06-19] MEDS: lamoTRIgine 25 MG TAB PO SCH ×2 (08:48→21:00)
[2016-06-19] MEDS: PARoxetine 20 MG TAB PO SCH (08:49)
[2016-06-19] MEDS: NYSTATIN 100,000 UNIT/GM POWD 15 GM TOPICAL SCH ×2 (08:49→21:05)
[2016-06-19 12:26] LABS: Glucose,Whole Blood 329 mg/dL (75-99)
--- NOTE | 2016-06-19 14:25 | P.PN ---
Progress Note - Text CLINICAL PROBLEMS: Patient complained of " feeling tired ,dizzy and sleepy",she stated that she continues to feel depressed and helpless as "I missing my cats", somatic preoccupied,tearful at times, has been compliant with medications ,did shower with assistance,no aggressive or combative behavior, she stated that she was paranoia in [facility] and felt "Staffs were trying to hurt me",patient is still on 1:1 for her safety . VITALS: Temp:97.8,Pulse:57,Blood Pressure:145/65 Abnormal labs:Blood glucose:between 298 to 329 GAIT:walking with walker but unsteady,high risk for fall MENTAL STATUS EXAM: Patient was on W/Chair ,grooming and hygiene better than yesterday,pleasant on approach,hard of hearing ,labile affect,,alert to person ,place and time,speech is non spontaneous,no articulation difficulties,,she reports depressive symptoms including helpless and worthless feeling,has fear of loosing her independence,denies any hallucinations or suicidal ideation ,limited insight to her physical and cognitive limitation"I do not want [facility] ,I want my own place" ASSESSMENT Patient continue to complain of depression and paranoia however not able to tolerate side-effects:tiredness and fatigue PLAN: 1)Decrease Risperdol to 0.5 mg to minimize sedation 2) Discontinue AM Neurontin to minimize fall risk 3) Consult Physical therapy ,moniter her blood glucose,Continue Paxil 20 mg 4)Court hearing on 06/21
[2016-06-19] MEDS: ACETAMINOPHEN TAB 325 MG TAB PO PRN (15:34)
[2016-06-19 17:22] LABS: Glucose,Whole Blood 338 mg/dL (75-99)
[2016-06-19] MEDS: ATORVASTATIN 40 MG TAB PO SCH (20:59)
[2016-06-19 21:26] LABS: Glucose,Whole Blood 302 mg/dL (75-99)
[2016-06-19] MEDS: risperiDONE 0.5 MG TAB PO SCH (21:26)
[2016-06-20] MEDS: ACETAMINOPHEN TAB 325 MG TAB PO PRN (03:40)
[2016-06-20 07:01] LABS: Glucose,Whole Blood 264 mg/dL (75-99)
[2016-06-20] MEDS: LEVOTHYROXINE 50 MCG TAB PO SCH (07:04)
[2016-06-20] MEDS: REPAGLINIDE 1 MG TAB PO SCH ×3 (08:33→18:05)
[2016-06-20] MEDS: ENOXAPARIN 40 MG/0.4 ML SYRINGE SQ SCH (08:34)
[2016-06-20] MEDS: FAMOTIDINE 20 MG TAB PO SCH ×2 (08:34→20:31)
[2016-06-20] MEDS: FUROSEMIDE 20 MG TAB PO SCH (08:34)
[2016-06-20] MEDS: LINAGLIPTIN 5 MG TABLET PO SCH (08:35)
[2016-06-20] MEDS: LISINOPRIL 20 MG TAB PO SCH ×2 (08:35→21:58)
[2016-06-20] MEDS: lamoTRIgine 25 MG TAB PO SCH (08:35)
[2016-06-20] MEDS: NYSTATIN 100,000 UNIT/GM POWD 15 GM TOPICAL SCH ×2 (08:35→22:38)
[2016-06-20] MEDS: PARoxetine 20 MG TAB PO SCH (08:36)
[2016-06-20] MEDS: INSULIN LISPRO (humaLOG) 300 UNIT/3 ML VIAL SQ SCH ×5 (08:36→20:19)
[2016-06-20 12:52] LABS: Glucose,Whole Blood 401 mg/dL (75-99)
--- NOTE | 2016-06-20 14:56 | P.PN ---
Progress Note - Text DATE OF SERVICE:06/20/2016 SUBJECTIVE: Patient is pleasant on approach saying "I love this place and I love the staffs ,they are taking care of me "Patient denies any suicidal or homicidal ideation, denies any hallucination,still asking about her cats and somatic preoccupied Per nursing staff :patient does require assistance regarding her basic ADLS, still unsteady in her gait and high risk for fall ,PT consultation is pending.She has demonstrate no self harm or behavior problem,compliant with medications. VITALS: Temp:97.8,Pulse:72,Resp.:18,Blood Pressure:170/75 BLOOD GLUCOSE: between 264 to 401 Was seen yesterday in medical consult:REC. diabetes mellitus type 2 uncontrolled secondary to non-compliance with hemoglobin A1c of 10. Prandin has been increased to 2 mg 3 times daily and Tradjenta 5 mg daily added. Continue patient on Accu-Chek with sliding scale coverage. MENTAL STATUS EXAM: Patient was on W/Chair ,grooming and hygiene better ,pleasant on approach,hard of hearing ,labile affect,,alert to person ,place and time,speech is non spontaneous,no articulation difficulties,,she reports some anxiety regarding post-discharge placement,has fear of loosing her independence,denies any hallucinations or suicidal ideation ,limited insight to her physical and cognitive limitation ASSESSMENT Her overall clinical status appears better from admission ,still struggling with physical limitation(Unsteady gait ) PLAN: 1)Continue current dose of Paxil and Neurontin 2)Titrate Lamictal to 200 mg daily to stabilize her mood 3) Consult Physical therapy ,moniter her blood glucose 4)Patient deferred ,team treatment will work on post-discharge placement
[2016-06-20 16:11] LABS: Glucose,Whole Blood 251 mg/dL (75-99)
[2016-06-20] MEDS ORDERED: INSULIN LISPRO (humaLOG) 300 UNIT/3 ML VIAL SQ STA (16:11)
[2016-06-20] MEDS: GABAPENTIN 100 MG CAP PO SCH ×2 (16:58→22:06)
[2016-06-20 17:45] LABS: Glucose,Whole Blood 253 mg/dL (75-99)
[2016-06-20 20:11] LABS: Glucose,Whole Blood 302 mg/dL (75-99)
--- NOTE | 2016-06-20 20:25 | CT ---
EXAMINATION TYPE: CT brain wo con DATE OF EXAM: 06/20/2016 6:06 PM COMPARISON: June 03, [address] HISTORY: Recent syncopal episode. CT DLP: 1103.00 mGycm Automated exposure control for dose reduction was used. FINDINGS: There is no acute intracranial hemorrhage, mass effect, or midline shift identified. The ventricles and sulci are within normal limits in size. The globes are intact and the visualized sinuses are seferino ar. IMPRESSION: NO ACUTE PROCESS.
[2016-06-20] MEDS: ATORVASTATIN 40 MG TAB PO SCH (20:31)
[2016-06-20] MEDS ORDERED: lamoTRIgine 25 MG TAB PO SCH (21:00)
[2016-06-20] MEDS: INSULIN GLARGINE 100 UNIT/ML 10 ML VIAL SQ SCH (21:30)
[2016-06-20] MEDS: risperiDONE 0.5 MG TAB PO SCH (22:05)
[2016-06-21] MEDS: LEVOTHYROXINE 50 MCG TAB PO SCH (06:11)
[2016-06-21 06:19] LABS: Glucose,Whole Blood 226 mg/dL (75-99)
[2016-06-21] MEDS: INSULIN LISPRO (humaLOG) 300 UNIT/3 ML VIAL SQ SCH ×4 (07:45→20:39)
[2016-06-21] MEDS: REPAGLINIDE 1 MG TAB PO SCH ×3 (07:47→18:02)
[2016-06-21] MEDS: INSULIN GLARGINE 100 UNIT/ML 10 ML VIAL SQ SCH ×2 (08:21→20:37)
[2016-06-21] MEDS: ENOXAPARIN 40 MG/0.4 ML SYRINGE SQ SCH (08:49)
[2016-06-21] MEDS: PARoxetine 20 MG TAB PO SCH (08:49)
[2016-06-21] MEDS: FUROSEMIDE 20 MG TAB PO SCH (08:49)
[2016-06-21] MEDS: FAMOTIDINE 20 MG TAB PO SCH ×2 (08:50→20:41)
[2016-06-21] MEDS: lamoTRIgine 100 MG TAB PO SCH ×2 (08:50→20:41)
[2016-06-21] MEDS: LINAGLIPTIN 5 MG TABLET PO SCH (08:50)
[2016-06-21] MEDS: NYSTATIN 100,000 UNIT/GM POWD 15 GM TOPICAL SCH ×2 (08:50→22:20)
[2016-06-21] MEDS: LISINOPRIL 20 MG TAB PO SCH ×2 (08:50→20:41)
--- NOTE | 2016-06-21 10:55 | P.PN ---
Progress Note - Text DATE OF SERVICE:06/21/2016 SUBJECTIVE: Patient is still somatic preoccupied,she continues to fell depressed and anxious regarding her nephew who is still in hospital and her post-discharge placement,reports lot of resentment towards her new guardian "Before I came to hospital I called her couple of times and she was not answering my calls", patient continues to feel dizzy and unsteady PER NURSING STAFF: AT was called yesterday around 16:40 as patient slumped over to right side and was non-responsive to name ,complete work up including Brain CT was negative except ,Blood sugar and Blood Pressure are unstable.Patient is still on 1:1 for fall precaution , needs assistance for her ADLs MAR: Lisinopril was held last night BLOOD GLUCOSE THIS AM:226 ,Hospitalist on board for medical management VITALS:Temp:98.5,Pulse:52,Resp.16,Blood Pressure:150/78 MENTAL STATUS EXAM: Patient was on W/Chair , ,pleasant on approach,hard of hearing ,labile affect,, alert to person ,place and time,speech is non spontaneous,no articulation difficulties,,she reports some anxiety regarding post-discharge placement,has fear of loosing her independence,denies any hallucinations or suicidal ideation ,limited insight to her physical and cognitive limitation ASSESSMENT Her overall clinical status appears better from admission ,still struggling with multiple medical problems and unsteady gait PLAN: 1)Continue current dose of Paxil ,discontinue Neurontin to minimize sedation 2)Increase Lamictal to 200 mg daily to stabilize her mood 3) Consult Physical therapy ,moniter her blood glucose,Hospitalist on board for medical management 4)Patient deferred ,team treatment will work on post-discharge placement
[2016-06-21 12:44] LABS: Glucose,Whole Blood 251 mg/dL (75-99)
[2016-06-21] MEDS: amLODIPine 10 MG TAB PO SCH (13:07)
[2016-06-21 17:41] LABS: Glucose,Whole Blood 219 mg/dL (75-99)
[2016-06-21 20:15] LABS: Glucose,Whole Blood 187 mg/dL (75-99)
[2016-06-21] MEDS: risperiDONE 0.5 MG TAB PO SCH (20:41)
[2016-06-21] MEDS: ATORVASTATIN 40 MG TAB PO SCH (20:41)
[2016-06-21] MEDS: ACETAMINOPHEN TAB 325 MG TAB PO PRN (20:42)
[2016-06-21] MEDS: LORazepam 0.5 MG TAB PO PRN (22:20)
[2016-06-22] MEDS: LEVOTHYROXINE 50 MCG TAB PO SCH (06:06)
[2016-06-22 06:28] LABS: Glucose,Whole Blood 187 mg/dL (75-99)
[2016-06-22] MEDS: LORazepam 0.5 MG TAB PO PRN ×2 (06:46→16:34)
[2016-06-22] MEDS ORDERED: WATER FOR INJECTION, STERILE 10 ML IV ONE ×2 (07:11→16:41)
[2016-06-22] MEDS: ZIPRASIDONE 20 MG VIAL IM PRN (07:20)
[2016-06-22] MEDS: INSULIN LISPRO (humaLOG) 300 UNIT/3 ML VIAL SQ SCH ×4 (07:52→20:23)
[2016-06-22] MEDS: INSULIN GLARGINE 100 UNIT/ML 10 ML VIAL SQ SCH ×2 (07:53→20:23)
[2016-06-22] MEDS: ENOXAPARIN 40 MG/0.4 ML SYRINGE SQ SCH (08:04)
[2016-06-22] MEDS: REPAGLINIDE 1 MG TAB PO SCH ×3 (08:04→17:00)
[2016-06-22] MEDS: NYSTATIN 100,000 UNIT/GM POWD 15 GM TOPICAL SCH ×2 (08:04→21:35)
[2016-06-22] MEDS: FUROSEMIDE 20 MG TAB PO SCH (08:05)
[2016-06-22] MEDS: PARoxetine 20 MG TAB PO SCH (08:05)
[2016-06-22] MEDS: lamoTRIgine 100 MG TAB PO SCH ×2 (08:05→20:30)
[2016-06-22] MEDS: LISINOPRIL 20 MG TAB PO SCH ×2 (08:05→20:30)
[2016-06-22] MEDS: FAMOTIDINE 20 MG TAB PO SCH ×2 (08:05→20:30)
[2016-06-22] MEDS: LINAGLIPTIN 5 MG TABLET PO SCH (08:05)
[2016-06-22] MEDS: amLODIPine 10 MG TAB PO SCH (08:05)
[2016-06-22 12:52] LABS: Glucose,Whole Blood 270 mg/dL (75-99)
[2016-06-22] MEDS: ACETAMINOPHEN TAB 325 MG TAB PO PRN (13:52)
--- NOTE | 2016-06-22 15:41 | P.PN ---
Progress Note - Text SUBJECTIVE: Ms. Tirado had no particular complaints. She currently digressed to past events and experiences in her life. OBJECTIVE: She presented as a disheveled appearing elderly female who was pleasant on approach. She maintained eye contact and appeared to attend to interview. She had difficulty hearing to conversation unless I spoke directly into her ear. She was sitting comfortably in a wheelchair with her one-to-one in attendance. She displayed no abnormality of psychomotor activity. I did not evaluate her gait. Her speech was spontaneous with normal rate, rhythm and volume. She had no articulation difficulty. Her affect was bright, stable and appropriate. She denied depressive cognitions such as hopelessness, helplessness and worthlessness. She did not express ideas reference or paranoid ideation. Her thinking was concrete but her associations were coherent. Her answers to questions were tangential. Nursing staff called me me earlier today because she was acutely agitated. Nursing described her as combative and slapping and grabbing a staff. She refused by mouth indications. She called this receiving 10 mg of Geodon IM. We completed the [facility] Orientation Memory and Concentration test. Her total weighted error score was 8; awaited error score greater than 10 is consistent with dementia. She knew the month and the year. She was able to register the memory phrase "Lalo Austin, [address] [place] [address].". She did not estimate the time correctly within 1 hour at the actual time. She was able to count backwards from 20-1 and name the months of the year backwards from May ( with much encouragement). She remembered 3 elements of the memory phrase. ASSESSMENT: She is an elderly woman who presented to the psychiatric unit with confusion and agitation. She had a episode of agitation earlier this morning requiring treatment with IM medications. During our interview she did not demonstrate signs or symptoms of depression. On formal mental status testing she showed some impairment with memory. PLAN: Continue current treatment, continue one-to-one, encourage participation in therapeutic groups and activities as tolerated, evaluate clinical status and response to treatment on a daily basis.
[2016-06-22 17:30] LABS: Glucose,Whole Blood 215 mg/dL (75-99)
[2016-06-22 20:01] LABS: Glucose,Whole Blood 226 mg/dL (75-99)
[2016-06-22] MEDS: risperiDONE 0.5 MG TAB PO SCH (20:30)
[2016-06-22] MEDS: ATORVASTATIN 40 MG TAB PO SCH (20:30)
[2016-06-23] MEDS: LEVOTHYROXINE 50 MCG TAB PO SCH (05:44)
[2016-06-23 05:51] LABS: Glucose,Whole Blood 208 mg/dL (75-99)
[2016-06-23] MEDS: INSULIN LISPRO (humaLOG) 300 UNIT/3 ML VIAL SQ SCH ×4 (08:16→22:13)
[2016-06-23] MEDS: INSULIN GLARGINE 100 UNIT/ML 10 ML VIAL SQ SCH ×2 (08:17→22:11)
[2016-06-23] MEDS: NYSTATIN 100,000 UNIT/GM POWD 15 GM TOPICAL SCH ×2 (08:20→22:06)
[2016-06-23] MEDS: ENOXAPARIN 40 MG/0.4 ML SYRINGE SQ SCH (08:20)
[2016-06-23] MEDS: REPAGLINIDE 1 MG TAB PO SCH ×3 (08:21→17:54)
[2016-06-23] MEDS: amLODIPine 10 MG TAB PO SCH (08:24)
[2016-06-23] MEDS: LISINOPRIL 20 MG TAB PO SCH ×2 (08:25→22:00)
[2016-06-23] MEDS: FAMOTIDINE 20 MG TAB PO SCH ×2 (08:25→22:00)
[2016-06-23] MEDS: FUROSEMIDE 20 MG TAB PO SCH (08:25)
[2016-06-23] MEDS: LINAGLIPTIN 5 MG TABLET PO SCH (08:25)
[2016-06-23] MEDS: lamoTRIgine 100 MG TAB PO SCH ×2 (08:25→22:00)
[2016-06-23] MEDS: PARoxetine 20 MG TAB PO SCH (08:26)
[2016-06-23] MEDS: LORazepam 0.5 MG TAB PO PRN (10:54)
[2016-06-23 12:46] LABS: Glucose,Whole Blood 305 mg/dL (75-99)
--- NOTE | 2016-06-23 14:29 | P.PN ---
Progress Note - Text SUBJECTIVE: Ms. Tirado had no complaints. She had difficulty hearing and I had to repeat questions several times. Her answers were tangential and she digress to past history. Today, she talked about her relationship with her brother. OBJECTIVE: She presented as a casually groomed elderly woman who was pleasant on approach. She had a very difficult time understanding questions but appeared to attend to the interview. She had a bright facial expression. He' ll no abnormality of psychomotor activity. She had a slow and unsteady gait. She walked with the aid of a wheeled walker with her one-to-one in attendance. Her speech was spontaneous with normal rate, rhythm and volume. Her affect was bright and appropriate. She did not express suicidal thoughts or wishes. She has not expressed depressive cognitions. Her thinking was concrete but her associations were coherent. She did not appear to be responding to internal stimuli. She recalled received 0.5 mg of lorazepam by mouth this morning for restlessness. ASSESSMENT: She does not appear depressed. She appears to have a fluctuating pattern of confusion and restlessness. PLAN: Continue current treatment. Dr. Angeles to resume her care and 2016. Continue with one-to-one.
[2016-06-23] MEDS: ACETAMINOPHEN TAB 325 MG TAB PO PRN (16:47)
[2016-06-23] MEDS ORDERED: INSULIN LISPRO (humaLOG) 300 UNIT/3 ML VIAL SQ ONE (17:30)
[2016-06-23 17:45] LABS: Glucose,Whole Blood 127 mg/dL (75-99)
[2016-06-23 20:26] LABS: Glucose,Whole Blood 199 mg/dL (75-99)
[2016-06-23] MEDS: ATORVASTATIN 40 MG TAB PO SCH (22:00)
[2016-06-23] MEDS: risperiDONE 0.5 MG TAB PO SCH (22:00)
[2016-06-24] MEDS: LORazepam 0.5 MG TAB PO PRN ×2 (05:00→16:21)
[2016-06-24] MEDS: LEVOTHYROXINE 50 MCG TAB PO SCH (05:00)
[2016-06-24] MEDS: ACETAMINOPHEN TAB 325 MG TAB PO PRN (05:00)
[2016-06-24 07:10] LABS: Glucose,Whole Blood 178 mg/dL (75-99)
[2016-06-24] MEDS: REPAGLINIDE 1 MG TAB PO SCH ×3 (07:30→17:57)
[2016-06-24] MEDS: INSULIN LISPRO (humaLOG) 300 UNIT/3 ML VIAL SQ SCH ×4 (07:50→21:49)
[2016-06-24] MEDS: ENOXAPARIN 40 MG/0.4 ML SYRINGE SQ SCH (08:03)
[2016-06-24] MEDS: LINAGLIPTIN 5 MG TABLET PO SCH (10:47)
[2016-06-24] MEDS: amLODIPine 10 MG TAB PO SCH (10:47)
[2016-06-24] MEDS: FUROSEMIDE 20 MG TAB PO SCH (10:47)
[2016-06-24] MEDS: LISINOPRIL 20 MG TAB PO SCH ×2 (10:48→21:46)
[2016-06-24] MEDS: FAMOTIDINE 20 MG TAB PO SCH ×3 (10:49→22:02)
[2016-06-24] MEDS: lamoTRIgine 100 MG TAB PO SCH ×4 (10:49→22:02)
[2016-06-24] MEDS: INSULIN GLARGINE 100 UNIT/ML 10 ML VIAL SQ SCH ×2 (10:50→21:47)
[2016-06-24] MEDS: PARoxetine 20 MG TAB PO SCH (10:56)
[2016-06-24] MEDS: NYSTATIN 100,000 UNIT/GM POWD 15 GM TOPICAL SCH ×2 (10:57→22:01)
[2016-06-24 12:21] LABS: Glucose,Whole Blood 188 mg/dL (75-99)
--- NOTE | 2016-06-24 14:59 | P.PN ---
Subjective SUBJECTIVE: Ms. Tirado reports crying episodes ,ruminating about her cats , stated that she called her brother this morning and he told her that her cats are however she contradicting herself saying "I know my brother is lying , it was false statement ,"patient is aware that she lost her temper this weekend ,was agitated and did require PRN IM Geodon ,trying to justify her behavior saying "If someone take your kids ,what do you do,my cats are my babies" OBJECTIVE: She presented as a disheveled appearing elderly female who was pleasant on approach. She maintained eye contact and appeared to attend to interview. She had difficulty hearing to conversation unless I spoke directly into her ear. She was sitting comfortably in a wheelchair with her one-to-one in attendance. She displayed no abnormality of psychomotor activity. Her affect is labile,at times sobbing as she talked about her cats. Her speech was spontaneous with normal rate, rhythm and volume. She had no articulation difficulty. She denies any hallucinations,denies suicidal and homicidal ideations ,her insight to her physical and cognitive limitation is impaired ASSESSMENT: She is an elderly woman who presented to the psychiatric unit with confusion and agitation.She has some cognitive deficit with depressed mood and labile affect ,has been compliant with medications PLAN: Increase Paxil and Lamictal to control her depression and labile affect add low dose of aricept , continue one-to-one, encourage participation in therapeutic groups and activities as tolerated, evaluate clinical status and response to treatment on a daily basis Objective - Vital Signs Vital signs: Vital Signs Temp 97.5 F L 06/24/16 02:57 Pulse 77 06/24/16 02:57 Resp 18 06/24/16 02:57 BP 125/74 06/24/16 02:57 Pulse Ox 95 06/20/16 16:43 - Labs CBC & Chem 7: 06/18/16 08:37 06/18/16 08:37 Labs: Abnormal Lab Results - Last 24 Hours (Table) 06/23/16 06/23/16 06/24/16 Range/Units 17:39 20:24 06:59 POC Glucose (mg/dL) 127 H 199 H 178 H (75-99) mg/dL 06/24/16 Range/Units 12:20 POC Glucose (mg/dL) 188 H (75-99) mg/dL
[2016-06-24 17:19] LABS: Glucose,Whole Blood 132 mg/dL (75-99)
[2016-06-24 20:07] LABS: Glucose,Whole Blood 169 mg/dL (75-99)
[2016-06-24] MEDS: ATORVASTATIN 40 MG TAB PO SCH ×2 (21:50→22:02)
[2016-06-24] MEDS: DONEPEZIL 5 MG TAB PO SCH ×2 (21:50→22:02)
[2016-06-24] MEDS: risperiDONE 0.5 MG TAB PO SCH ×2 (21:50→22:02)
[2016-06-25] MEDS ORDERED: ZIPRASIDONE 20 MG VIAL IM ONE (01:29)
[2016-06-25] MEDS ORDERED: WATER FOR INJECTION, STERILE 10 ML IV ONE (01:29)
[2016-06-25] MEDS: ZIPRASIDONE 20 MG VIAL IM PRN (01:49)
[2016-06-25] MEDS ORDERED: LORazepam 2 MG/ML SYRINGE IV STA (02:05)
[2016-06-25 05:52] LABS: Glucose,Whole Blood 158 mg/dL (75-99)
[2016-06-25] MEDS: LEVOTHYROXINE 50 MCG TAB PO SCH (06:35)
[2016-06-25] MEDS: INSULIN LISPRO (humaLOG) 300 UNIT/3 ML VIAL SQ SCH ×4 (08:40→21:25)
[2016-06-25] MEDS: INSULIN GLARGINE 100 UNIT/ML 10 ML VIAL SQ SCH ×2 (08:47→21:28)
[2016-06-25] MEDS: REPAGLINIDE 1 MG TAB PO SCH ×3 (09:58→17:20)
[2016-06-25] MEDS: PARoxetine 20 MG TAB PO SCH (09:59)
[2016-06-25] MEDS: amLODIPine 10 MG TAB PO SCH (09:59)
[2016-06-25] MEDS: LISINOPRIL 20 MG TAB PO SCH ×2 (09:59→21:29)
[2016-06-25] MEDS: FUROSEMIDE 20 MG TAB PO SCH (09:59)
[2016-06-25] MEDS: lamoTRIgine 100 MG TAB PO SCH ×3 (10:00→21:24)
[2016-06-25] MEDS: NYSTATIN 100,000 UNIT/GM POWD 15 GM TOPICAL SCH ×2 (10:00→21:24)
[2016-06-25] MEDS: LINAGLIPTIN 5 MG TABLET PO SCH (10:00)
[2016-06-25] MEDS: FAMOTIDINE 20 MG TAB PO SCH ×2 (10:00→21:23)
[2016-06-25] MEDS: ENOXAPARIN 40 MG/0.4 ML SYRINGE SQ SCH (10:23)
--- NOTE | 2016-06-25 10:37 | P.PN ---
Subjective Principal diagnosis: SUBJECTIVE: "I want to go home ,my brother is cleaning my apartment and taking my stuffs", patient reports:poor sleep,irritability,anger outbursts,acting out behavior , patient is aware of her aggressive behavior for last 3 days and trying to justify it saying "I am missing my cats ,I found out that I have new guardian whom I never met and she is trying to put me in [facility]" Patient received couple of PRN Ativan and IM Geodon ,was resistant to take her oral medications last night PER NURSING STAFF NOTE:"Patient was assisted to restroom this shift by nursing staff, Patient ambulated with a strong gate with assistance of a walker without incident, Patient then observed laying on her bed sideways. This copy writer encouraged patient to lay in the center of her bed for safety. Patient moved minimal with assistance from staff. Patient then sat up on the side of her bed and demanded for her clothes, shoes and belongings because she wanted to leave the hospital. Patient was refusing to use a walker or wheelchair for assistance with her ambulation. Patient agreed to use a walker after much encouragement by staff. Patient then was observed walking in the [place] with her auto club safety program coordinator. Patient then was observed kicking at the front door multiple times, attempting to hit and strike out at nursing staff. Patient attempted to throw her shoes at staff also. Patient was making verbal threats to "smash everything". Patient was taken back to her room via wheelchair and given Geodon IM for increase agitation and aggression. " MENTAL STATUS EXAM: Patient was seen laying in her bed ,unkept ,disheveled,labile ,smiling then started to sob talking about her cats and her guardian ,speech is tangential , denies any suicidal or homicidal ideation,denies any hallucination ,endorses paranoia and suspicious feeling towards her brother, able to identify her "Erratic behavior",she is alert and oriented to place,person but not exact date ,insight and judgment are limited ASSESSMENT:Patient has been labile ,impulsive ,did threaten staffs last night , still unpredictable PLAN:Change Risperdol to Seroquel ,add Depakote to control her aggressive behavior ,cognitive behavior therapy was offered and she verbalized understanding,continue Paxil and Lamictal ,same dose Objective - Vital Signs Vital signs: Vital Signs Temp 97.5 F L 06/24/16 02:57 Pulse 66 06/24/16 16:23 Resp 18 06/24/16 16:23 BP 124/61 06/24/16 16:23 Pulse Ox 95 06/20/16 16:43 - Labs CBC & Chem 7: 06/18/16 08:37 06/18/16 08:37 Labs: Abnormal Lab Results - Last 24 Hours (Table) 06/24/16 06/24/16 06/24/16 Range/Units 12:20 17:17 20:06 POC Glucose (mg/dL) 188 H 132 H 169 H (75-99) mg/dL 06/25/16 Range/Units 05:50 POC Glucose (mg/dL) 158 H (75-99) mg/dL
[2016-06-25 12:50] LABS: Glucose,Whole Blood 202 mg/dL (75-99)
[2016-06-25] MEDS: ALPRAZolam 0.5 MG TAB PO PRN (16:01)
[2016-06-25 20:15] LABS: Glucose,Whole Blood 230 mg/dL (75-99)
[2016-06-25] MEDS: ATORVASTATIN 40 MG TAB PO SCH (21:21)
[2016-06-25] MEDS: DIVALPROEX SPRINKLE 125 MG CAP.SPRINK PO SCH (21:23)
[2016-06-25] MEDS: QUEtiapine 50 MG TAB PO SCH (21:24)
[2016-06-26 06:19] LABS: Glucose,Whole Blood 83 mg/dL (75-99)
[2016-06-26] MEDS: LEVOTHYROXINE 50 MCG TAB PO SCH (07:55)
[2016-06-26] MEDS: INSULIN LISPRO (humaLOG) 300 UNIT/3 ML VIAL SQ SCH ×4 (08:13→20:34)
[2016-06-26] MEDS: REPAGLINIDE 1 MG TAB PO SCH ×3 (08:15→17:16)
[2016-06-26] MEDS: FUROSEMIDE 20 MG TAB PO SCH (08:16)
[2016-06-26] MEDS: ENOXAPARIN 40 MG/0.4 ML SYRINGE SQ SCH (08:16)
[2016-06-26] MEDS: amLODIPine 10 MG TAB PO SCH (08:16)
[2016-06-26] MEDS: DIVALPROEX SPRINKLE 125 MG CAP.SPRINK PO SCH ×2 (08:16→20:38)
[2016-06-26] MEDS: FAMOTIDINE 20 MG TAB PO SCH ×2 (08:17→20:35)
[2016-06-26] MEDS: LINAGLIPTIN 5 MG TABLET PO SCH (08:18)
[2016-06-26] MEDS: MEMANTINE 5 MG TAB PO SCH (08:19)
[2016-06-26] MEDS: LISINOPRIL 20 MG TAB PO SCH ×2 (08:19→20:37)
[2016-06-26] MEDS: NYSTATIN 100,000 UNIT/GM POWD 15 GM TOPICAL SCH ×2 (08:19→20:38)
[2016-06-26] MEDS: PARoxetine 20 MG TAB PO SCH (08:20)
--- NOTE | 2016-06-26 08:45 | P.PN ---
Subjective Principal diagnosis: SUBJECTIVE: Patient complains of cough ,tiredness and fatigue this AM ,still endorsing depression related to her cats and post-discharge placement PER NURSING STAFF: Patient was compliant with her oral medication last night,no anger outburst or aggression,slept through night OBJECTIVE: She presented as a disheveled appearing elderly female who was pleasant on approach. She maintained eye contact and appeared to attend to interview. She had difficulty hearing to conversation unless I spoke directly into her ear. She was sitting comfortably in a wheelchair with her one-to-one in attendance. She displayed no abnormality of psychomotor activity. Her affect is labile,at times sobbing as she talked about her cats. Her speech was spontaneous with normal rate, rhythm and volume. She had no articulation difficulty. She denies any hallucinations,denies suicidal and homicidal ideation ,her insight to her physical and cognitive limitation is impaired ASSESSMENT: She is an elderly woman who presented to the psychiatric unit with confusion and agitation.She has some cognitive deficit with depressed mood and labile affect ,has been compliant with medications and no report of aggression or behavior problem last evening PLAN: Continue Paxil 40 mg for depression ,Lamictal and Depakote for behavior disturbance ,changed PRN Ativan to PRN Xanax to minimize fall risk,continue Seroquel for sleep and start Namenda for cognitive deficit ,order Chest xray and CBC to rule out pneumonia,will check Depakote level in 2 days , continue one -to-one, encourage participation in therapeutic groups and activities as tolerated, evaluate clinical status and response to treatment on a daily basis Objective - Vital Signs Vital signs: Vital Signs Temp 98.3 F 06/26/16 06:45 Pulse 53 L 06/26/16 06:45 Resp 20 06/26/16 06:45 BP 127/51 06/26/16 06:45 Pulse Ox 95 06/20/16 16:43 - Labs CBC & Chem 7: 06/18/16 08:37 06/18/16 08:37 Labs: Abnormal Lab Results - Last 24 Hours (Table) 06/25/16 06/25/16 Range/Units 12:48 20:12 POC Glucose (mg/dL) 202 H 230 H (75-99) mg/dL
--- NOTE | 2016-06-26 09:01 | XR ---
EXAMINATION TYPE: XR chest 2V DATE OF EXAM: 06/26/2016 8:54 AM HISTORY: Shortness of breath. COMPARISON: None. TECHNIQUE: 2 views of the chest submitted. FINDINGS: Demonstrated are scattered senescent parenchymal change. There is no evidence for focal infiltrate. The heart is stable. There is pulmonary venous congestion without overt failure. Hilar and mediastinal structures are within normal limits. Degenerative changes are seen of the dorsal spine. IMPRESSION: 1. Chronic changes without evidence for acute pulmonary disease.There is pulmonary venous congestion without overt failure.
[2016-06-26] MEDS: lamoTRIgine 100 MG TAB PO SCH ×2 (09:57→20:37)
[2016-06-26] MEDS: INSULIN GLARGINE 100 UNIT/ML 10 ML VIAL SQ SCH ×2 (10:00→20:34)
[2016-06-26 12:46] LABS: Glucose,Whole Blood 173 mg/dL (75-99)
[2016-06-26] MEDS: ALPRAZolam 0.5 MG TAB PO PRN (16:13)
[2016-06-26 17:11] LABS: Glucose,Whole Blood 100 mg/dL (75-99)
[2016-06-26 20:00] LABS: Glucose,Whole Blood 94 mg/dL (75-99)
[2016-06-26] MEDS: QUEtiapine 50 MG TAB PO SCH (20:35)
[2016-06-26] MEDS: ATORVASTATIN 40 MG TAB PO SCH (20:35)
[2016-06-27 06:58] LABS: Glucose,Whole Blood 68 mg/dL (75-99)
[2016-06-27] MEDS: LEVOTHYROXINE 50 MCG TAB PO SCH (07:06)
[2016-06-27 07:16] LABS: Glucose,Whole Blood 78 mg/dL (75-99)
[2016-06-27] MEDS: INSULIN LISPRO (humaLOG) 300 UNIT/3 ML VIAL SQ SCH ×4 (09:38→20:00)
[2016-06-27] MEDS: REPAGLINIDE 1 MG TAB PO SCH ×3 (09:38→18:03)
[2016-06-27] MEDS: amLODIPine 10 MG TAB PO SCH (09:38)
[2016-06-27] MEDS: MEMANTINE 5 MG TAB PO SCH (09:38)
[2016-06-27] MEDS: PARoxetine 20 MG TAB PO SCH (09:38)
[2016-06-27] MEDS: LISINOPRIL 20 MG TAB PO SCH ×2 (09:39→20:33)
[2016-06-27] MEDS: LINAGLIPTIN 5 MG TABLET PO SCH (09:39)
[2016-06-27] MEDS: FUROSEMIDE 20 MG TAB PO SCH (09:39)
[2016-06-27] MEDS: FAMOTIDINE 20 MG TAB PO SCH ×2 (09:39→20:33)
[2016-06-27] MEDS: ENOXAPARIN 40 MG/0.4 ML SYRINGE SQ SCH (09:39)
[2016-06-27] MEDS: lamoTRIgine 100 MG TAB PO SCH ×2 (09:40→20:33)
[2016-06-27] MEDS: INSULIN GLARGINE 100 UNIT/ML 10 ML VIAL SQ SCH ×2 (09:43→19:58)
[2016-06-27] MEDS: NYSTATIN 100,000 UNIT/GM POWD 15 GM TOPICAL SCH ×2 (10:35→20:34)
[2016-06-27] MEDS: DIVALPROEX SPRINKLE 125 MG CAP.SPRINK PO SCH ×2 (10:35→20:33)
[2016-06-27 12:22] LABS: Glucose,Whole Blood 142 mg/dL (75-99)
[2016-06-27] MEDS: ALPRAZolam 0.5 MG TAB PO PRN (15:18)
--- NOTE | 2016-06-27 17:21 | P.PN ---
Subjective SUBJECTIVE: Patient was sobbing as she asked to be discharged "I am missing my cats , everyone is lying to me and telling me that I will be discharged soon ",labile and needy at times but easy to redirect,does need assistance for her ADLs PER NURSING STAFF: Patient is compliant with her oral medication last night,no anger outburst or aggression,slept through night,was anxious this morning and had PRN Xanax OBJECTIVE: She presented as a disheveled appearing elderly female who was pleasant on approach. She maintained eye contact and appeared to attend to interview. She had difficulty hearing to conversation unless I spoke directly into her ear. She was sitting comfortably in a wheelchair with her one-to-one in attendance. She displayed no abnormality of psychomotor activity. Her affect is labile,at times sobbing as she talked about her cats. Her speech was spontaneous with normal rate, rhythm and volume. She had no articulation difficulty. She denies any hallucinations,denies suicidal and homicidal ideation ,her insight to her physical and cognitive limitation is impaired ASSESSMENT: She is an elderly woman who presented to the psychiatric unit with confusion and agitation.She has some cognitive deficit with depressed mood and labile affect ,has been compliant with medications and no report of aggression or behavior problem for last 2 days PLAN: Continue current medications ,increase Depakote to 250 mg TID to stabilize her mood,waiting for placement Objective - Vital Signs Vital signs: Vital Signs Temp 97.6 F 06/27/16 07:09 Pulse 66 06/27/16 09:30 Resp 18 06/27/16 09:30 BP 116/60 06/27/16 09:30 Pulse Ox 95 06/20/16 16:43 - Labs CBC & Chem 7: 06/18/16 08:37 06/18/16 08:37 Labs: Abnormal Lab Results - Last 24 Hours (Table) 06/27/16 06/27/16 Range/Units 06:56 12:20 POC Glucose (mg/dL) 68 L 142 H (75-99) mg/dL
[2016-06-27 18:13] LABS: Glucose,Whole Blood 107 mg/dL (75-99)
[2016-06-27 19:56] LABS: Glucose,Whole Blood 137 mg/dL (75-99)
[2016-06-27] MEDS: ATORVASTATIN 40 MG TAB PO SCH (20:33)
[2016-06-27] MEDS: QUEtiapine 50 MG TAB PO SCH (20:33)
[2016-06-27] MEDS: NUEDEXTA PO SCH ×2 (21:08→21:09)
[2016-06-28] MEDS: LEVOTHYROXINE 50 MCG TAB PO SCH (06:05)
[2016-06-28 06:13] LABS: Glucose,Whole Blood 73 mg/dL (75-99)
[2016-06-28] MEDS: INSULIN LISPRO (humaLOG) 300 UNIT/3 ML VIAL SQ SCH ×4 (08:06→22:17)
[2016-06-28] MEDS: REPAGLINIDE 1 MG TAB PO SCH ×3 (08:07→17:58)
[2016-06-28] MEDS: LINAGLIPTIN 5 MG TABLET PO SCH (08:08)
[2016-06-28] MEDS: ENOXAPARIN 40 MG/0.4 ML SYRINGE SQ SCH (09:14)
[2016-06-28] MEDS: DIVALPROEX SPRINKLE 125 MG CAP.SPRINK PO SCH ×4 (09:14→22:16)
[2016-06-28] MEDS: amLODIPine 10 MG TAB PO SCH (09:14)
[2016-06-28] MEDS: FAMOTIDINE 20 MG TAB PO SCH ×2 (09:16→22:16)
[2016-06-28] MEDS: FUROSEMIDE 20 MG TAB PO SCH (09:17)
[2016-06-28] MEDS: lamoTRIgine 100 MG TAB PO SCH ×2 (09:17→22:15)
[2016-06-28] MEDS: ALPRAZolam 0.5 MG TAB PO PRN ×2 (09:19→15:20)
[2016-06-28] MEDS: LISINOPRIL 20 MG TAB PO SCH ×2 (09:19→22:16)
[2016-06-28] MEDS: PARoxetine 20 MG TAB PO SCH (09:19)
[2016-06-28] MEDS: MEMANTINE 5 MG TAB PO SCH (09:19)
[2016-06-28] MEDS: INSULIN GLARGINE 100 UNIT/ML 10 ML VIAL SQ SCH ×2 (09:30→20:35)
[2016-06-28] MEDS: NYSTATIN 100,000 UNIT/GM POWD 15 GM TOPICAL SCH ×2 (09:37→22:49)
[2016-06-28 12:20] LABS: Bilirubin, Delta 0.3 mg/dL (0.0-0.2); Total Bilirubin 0.7 mg/dL (0.2-1.3); Total Protein 7.6 g/dL (6.3-8.2)
[2016-06-28 12:21] LABS: Glucose,Whole Blood 163 mg/dL (75-99)
--- NOTE | 2016-06-28 12:26 | P.PN ---
Subjective SUBJECTIVE: Patient was sobbing as she asked to be discharged ",labile and needy at times but easy to redirect,does need assistance for her ADLs,participating in some groups PER NURSING STAFF: Patient refused last night medication ,,no anger outburst or aggression,slept through night,was anxious this morning and had PRN Xanax OBJECTIVE: She presented as a disheveled appearing elderly female who was pleasant on approach. She maintained eye contact and appeared to attend to interview. She had difficulty hearing to conversation unless I spoke directly into her ear. She was sitting comfortably in a wheelchair with her one-to-one in attendance. She displayed no abnormality of psychomotor activity. Her affect is labile,at times sobbing as she talked about her cats. Her speech was spontaneous with normal rate, rhythm and volume. She had no articulation difficulty. She denies any hallucinations,denies suicidal and homicidal ideation ,her insight to her physical and cognitive limitation is impaired ASSESSMENT: She is an elderly woman who presented to the psychiatric unit with confusion and agitation.She has some cognitive deficit with depressed mood and labile affect compliant with medications but does need lot of reinforcement no report of aggression or behavior problem for last 2 days PLAN: Continue current medications ,Check her Depakote level,waiting for placement .Reconsult hospitalist regarding medical management of her Diabetes , had low blood glucose yesterday and this morning Objective - Vital Signs Vital signs: Vital Signs Temp 98.2 F 06/28/16 07:10 Pulse 50 L 06/28/16 07:10 Resp 16 06/28/16 07:10 BP 155/76 06/28/16 07:10 Pulse Ox 95 06/20/16 16:43 - Labs CBC & Chem 7: 06/18/16 08:37 06/18/16 08:37 Labs: Abnormal Lab Results - Last 24 Hours (Table) 06/27/16 06/27/16 06/27/16 Range/Units 12:20 17:59 19:54 POC Glucose (mg/dL) 142 H 107 H 137 H (75-99) mg/dL 06/28/16 Range/Units 06:09 POC Glucose (mg/dL) 73 L (75-99) mg/dL
[2016-06-28] MEDS ORDERED: WATER FOR INJECTION, STERILE 10 ML IV ONE (16:00)
[2016-06-28] MEDS ORDERED: ZIPRASIDONE 20 MG VIAL IM ONE (16:00)
[2016-06-28] MEDS: ZIPRASIDONE 20 MG VIAL IM PRN (16:02)
[2016-06-28 18:00] LABS: Glucose,Whole Blood 138 mg/dL (75-99)
[2016-06-28 20:42] LABS: Glucose,Whole Blood 160 mg/dL (75-99)
[2016-06-28] MEDS: ATORVASTATIN 40 MG TAB PO SCH (22:16)
[2016-06-28] MEDS: QUEtiapine 50 MG TAB PO SCH (22:17)
[2016-06-29] MEDS: LEVOTHYROXINE 50 MCG TAB PO SCH (06:28)
[2016-06-29 06:48] LABS: Glucose,Whole Blood 97 mg/dL (75-99)
[2016-06-29] MEDS: REPAGLINIDE 1 MG TAB PO SCH ×3 (07:48→17:46)
[2016-06-29] MEDS: INSULIN LISPRO (humaLOG) 300 UNIT/3 ML VIAL SQ SCH ×4 (07:50→21:04)
[2016-06-29] MEDS: INSULIN GLARGINE 100 UNIT/ML 10 ML VIAL SQ SCH ×2 (08:02→21:01)
[2016-06-29] MEDS: DIVALPROEX SPRINKLE 125 MG CAP.SPRINK PO SCH ×3 (09:00→21:00)
[2016-06-29] MEDS: FAMOTIDINE 20 MG TAB PO SCH ×2 (09:00→20:59)
[2016-06-29] MEDS: ENOXAPARIN 40 MG/0.4 ML SYRINGE SQ SCH (09:00)
[2016-06-29] MEDS: lamoTRIgine 100 MG TAB PO SCH ×2 (09:00→20:59)
[2016-06-29] MEDS: MEMANTINE 5 MG TAB PO SCH (09:01)
[2016-06-29] MEDS: LINAGLIPTIN 5 MG TABLET PO SCH (09:01)
[2016-06-29] MEDS: PARoxetine 20 MG TAB PO SCH (09:01)
[2016-06-29] MEDS: FUROSEMIDE 20 MG TAB PO SCH (10:05)
[2016-06-29] MEDS: LISINOPRIL 20 MG TAB PO SCH ×2 (10:05→20:59)
[2016-06-29] MEDS: amLODIPine 10 MG TAB PO SCH (10:05)
[2016-06-29] MEDS: NYSTATIN 100,000 UNIT/GM POWD 15 GM TOPICAL SCH ×2 (10:29→21:00)
--- NOTE | 2016-06-29 11:20 | P.PN ---
Progress Note - Text Interval history: Patient is seen in cross coverage today for Dr. Angeles. She initially states that she is in a good mood and then says she is in a bad mood related to thinking she was going home and then that changed. Her Depakote level yesterday is noted to be 14. Per nursing staff she is taking her medications. Per staff she does exhibit some agitation in the afternoon. Mental status exam: She initially is sleeping but does awaken and maintains alertness. She is cooperative, not showing any current agitation. She initially describes her mood as good and then says it's bad related to thinking she was going home and then that changed. She denies any thoughts of harm to self or others. Plan: We'll maintain current psychotropic medications. Monitor for any medication side effects. Consideration for further titration of Depakote if she is compliant and if she is still showing some agitation at times. Continue to cover this patient for Dr. Angeles through the weekend.
[2016-06-29 12:41] LABS: Glucose,Whole Blood 94 mg/dL (75-99)
[2016-06-29 17:43] LABS: Glucose,Whole Blood 134 mg/dL (75-99)
[2016-06-29 18:14] LABS: Basophils # (A) 0.1 k/uL (0-0.2); Basophils % (A) 1 %; CH 29.6; CHCM 34.5; Eosinophils # (A) 0.6 k/uL (0-0.7); Eosinophils % (A) 7 %; HCT 40.2 % (34.0-46.0); HDW 2.53; HGB 13.4 gm/dL (11.4-16.0); Luc % (Auto) 1; Lymphocytes # (A) 0.6 k/uL (1.0-4.8); Lymphocytes % (A) 7 %; MCH 28.7 pg (25.0-35.0); MCHC 33.4 g/dL (31.0-37.0); MCV 86.1 fL (80.0-100.0); Monocytes # (A) 0.4 k/uL (0-1.0); Monocytes % (A) 5 %; Neutrophils # (A) 6.3 k/uL (1.3-7.7); Neutrophils % (A) 79 %; RBC 4.67 m/uL (3.80-5.40); RDW 14.3 % (11.5-15.5); WBC (Perox) 7.86
[2016-06-29 19:43] LABS: Potassium 5.2 mmol/L (3.5-5.1)
[2016-06-29 19:56] LABS: Glucose,Whole Blood 143 mg/dL (75-99)
[2016-06-29] MEDS: ATORVASTATIN 40 MG TAB PO SCH (20:58)
[2016-06-29] MEDS: QUEtiapine 50 MG TAB PO SCH (21:00)
[2016-06-29] MEDS ORDERED: ZIPRASIDONE 20 MG VIAL IM ONE (22:23)
[2016-06-29] MEDS ORDERED: WATER FOR INJECTION, STERILE 10 ML IV ONE (22:23)
[2016-06-29] MEDS: ZIPRASIDONE 20 MG VIAL IM PRN (22:23)
[2016-06-30] MEDS: FAMOTIDINE 20 MG TAB PO SCH ×3 (00:46→22:39)
[2016-06-30] MEDS: lamoTRIgine 100 MG TAB PO SCH ×3 (00:46→22:39)
[2016-06-30] MEDS: ATORVASTATIN 40 MG TAB PO SCH ×2 (00:46→22:39)
[2016-06-30] MEDS: LISINOPRIL 20 MG TAB PO SCH ×3 (00:47→22:39)
[2016-06-30 06:49] LABS: Glucose,Whole Blood 71 mg/dL (75-99)
[2016-06-30 07:09] LABS: Glucose,Whole Blood 70 mg/dL (75-99)
[2016-06-30] MEDS: LEVOTHYROXINE 50 MCG TAB PO SCH (07:30)
[2016-06-30 07:55] LABS: Glucose,Whole Blood 124 mg/dL (75-99)
[2016-06-30] MEDS: REPAGLINIDE 1 MG TAB PO SCH ×3 (09:09→17:36)
[2016-06-30] MEDS: INSULIN LISPRO (humaLOG) 300 UNIT/3 ML VIAL SQ SCH ×4 (09:09→22:17)
[2016-06-30] MEDS: INSULIN GLARGINE 100 UNIT/ML 10 ML VIAL SQ SCH ×2 (09:12→22:20)
[2016-06-30] MEDS: DIVALPROEX SPRINKLE 125 MG CAP.SPRINK PO SCH ×3 (09:13→22:49)
[2016-06-30] MEDS: FUROSEMIDE 20 MG TAB PO SCH (09:13)
[2016-06-30] MEDS: LINAGLIPTIN 5 MG TABLET PO SCH (09:14)
[2016-06-30] MEDS: amLODIPine 10 MG TAB PO SCH (09:14)
[2016-06-30] MEDS: MEMANTINE 5 MG TAB PO SCH (09:14)
[2016-06-30] MEDS: PARoxetine 20 MG TAB PO SCH (09:16)
[2016-06-30] MEDS: ALPRAZolam 0.5 MG TAB PO PRN (09:36)
[2016-06-30] MEDS: NYSTATIN 100,000 UNIT/GM POWD 15 GM TOPICAL SCH ×2 (10:38→22:18)
--- NOTE | 2016-06-30 12:10 | P.PN ---
Progress Note - Text Interval history: Patient is seen in cross coverage for Dr. Angeles. She is found in the lounge coloring a picture with staff present. She seems to relay that she slept last night and is eating well. She makes reference to 2 cats that she has at home. She relays that she feels good. Mental status exam: She is found in the lounge coloring a picture with staff present. She is fully alert. She does not show any agitation. She does not make any reference to thoughts of harm to self or others. She relays "I feel good." She is very hard of hearing. I did not note any significant abnormal involuntary movements. Plan: We'll maintain current psychotropic medications. We'll monitor for any agitation. Her Depakote level was subtherapeutic, consider further titration if tolerating and if there is any agitation. Dr. Angeles will resume care this patient starting tomorrow.
[2016-06-30 12:24] LABS: Glucose,Whole Blood 142 mg/dL (75-99)
[2016-06-30] MEDS ORDERED: WATER FOR INJECTION, STERILE 10 ML IV ONE ×2 (13:58→22:22)
[2016-06-30] MEDS: ZIPRASIDONE 20 MG VIAL IM PRN ×2 (14:22→22:37)
[2016-06-30 17:30] LABS: Glucose,Whole Blood 100 mg/dL (75-99)
[2016-06-30 20:46] LABS: Glucose,Whole Blood 98 mg/dL (75-99)
[2016-06-30] MEDS ORDERED: ZIPRASIDONE 20 MG VIAL IM ONE (22:22)
[2016-06-30] MEDS: QUEtiapine 50 MG TAB PO SCH (22:40)
[2016-06-30] MEDS ORDERED: BACITRACIN OINT 1 EACH PACKET TOPICAL ONE (22:45)
[2016-07-01 04:26] LABS: Glucose,Whole Blood 60 mg/dL (75-99)
[2016-07-01 04:40] LABS: Glucose,Whole Blood 48 mg/dL (75-99)
[2016-07-01] MEDS: LEVOTHYROXINE 50 MCG TAB PO SCH (05:31)
[2016-07-01 05:53] LABS: Glucose,Whole Blood 145 mg/dL (75-99)
[2016-07-01] MEDS: INSULIN GLARGINE 100 UNIT/ML 10 ML VIAL SQ SCH ×3 (08:16→20:31)
[2016-07-01] MEDS: REPAGLINIDE 1 MG TAB PO SCH ×2 (08:17→12:51)
[2016-07-01] MEDS: INSULIN LISPRO (humaLOG) 300 UNIT/3 ML VIAL SQ SCH ×4 (08:18→20:31)
[2016-07-01] MEDS: LINAGLIPTIN 5 MG TABLET PO SCH (08:18)
[2016-07-01] MEDS: FAMOTIDINE 20 MG TAB PO SCH ×2 (09:00→19:59)
[2016-07-01] MEDS: LISINOPRIL 20 MG TAB PO SCH ×2 (09:00→20:00)
[2016-07-01] MEDS: amLODIPine 10 MG TAB PO SCH (09:17)
[2016-07-01] MEDS: DIVALPROEX SPRINKLE 125 MG CAP.SPRINK PO SCH (09:17)
[2016-07-01] MEDS: FUROSEMIDE 20 MG TAB PO SCH (09:17)
[2016-07-01] MEDS: MEMANTINE 5 MG TAB PO SCH (09:18)
[2016-07-01] MEDS: lamoTRIgine 100 MG TAB PO SCH ×2 (09:18→19:59)
[2016-07-01] MEDS: PARoxetine 20 MG TAB PO SCH (09:18)
[2016-07-01] MEDS: NYSTATIN 100,000 UNIT/GM POWD 15 GM TOPICAL SCH ×2 (10:14→20:37)
[2016-07-01 12:25] LABS: Glucose,Whole Blood 191 mg/dL (75-99)
[2016-07-01] MEDS: ALPRAZolam 0.5 MG TAB PO PRN (13:10)
[2016-07-01] MEDS ORDERED: WATER FOR INJECTION, STERILE 10 ML IV ONE (13:29)
[2016-07-01] MEDS: ZIPRASIDONE 20 MG VIAL IM PRN (13:33)
--- NOTE | 2016-07-01 14:38 | P.PN ---
Progress Note - Text SUBJECTIVE: Patient is labile , sobbing as she is missing her cats ,refused her night medications ,lot of anger towards patient safety attendant saying "You told me that I am going home Today ,I am not eating or taking medications till I go home" PER NURSING STAFF: Patient did require PRN Geodon yesterday ,non compliant with oral medication as RX ,her Depakote level was just 14,labile and easy agitated OBJECTIVE: She presented as a disheveled appearing elderly female who was pleasant on approach. She maintained eye contact and appeared to attend to interview. She had difficulty hearing to conversation unless I spoke directly into her ear. She was sitting comfortably in a wheelchair with her one-to-one in attendance. She displayed no abnormality of psychomotor activity. Her affect is labile,at times sobbing as she talked about her cats. Patient denies any psychotic features ,denies any suicidal or homicidal ideation ASSESSMENT: Patient is not consistent with compliance with oral medications ,requesting to be discharged PLAN: 1) Change Seroquel to XR and chane Depakote to ER 750 mg in morning ,continue Paxil and Lamictal,same 2) Recheck her Depakote level in 2 days
[2016-07-01 17:36] LABS: Glucose,Whole Blood 80 mg/dL (75-99)
[2016-07-01] MEDS: ATORVASTATIN 40 MG TAB PO SCH (19:59)
[2016-07-01 20:14] LABS: Glucose,Whole Blood 154 mg/dL (75-99)
[2016-07-02] MEDS: ACETAMINOPHEN TAB 325 MG TAB PO PRN (05:52)
[2016-07-02] MEDS: LEVOTHYROXINE 50 MCG TAB PO SCH (06:02)
[2016-07-02 06:27] LABS: Glucose,Whole Blood 95 mg/dL (75-99)
[2016-07-02] MEDS: DIVALPROEX ER 250 MG TAB.ER.24H PO SCH (09:00)
[2016-07-02] MEDS: amLODIPine 10 MG TAB PO SCH (09:00)
[2016-07-02] MEDS: lamoTRIgine 100 MG TAB PO SCH (09:00)
[2016-07-02] MEDS: FUROSEMIDE 20 MG TAB PO SCH (09:00)
[2016-07-02] MEDS: FAMOTIDINE 20 MG TAB PO SCH (09:00)
[2016-07-02] MEDS: LISINOPRIL 20 MG TAB PO SCH ×2 (09:01→22:02)
[2016-07-02] MEDS: PARoxetine 20 MG TAB PO SCH (09:01)
[2016-07-02] MEDS: LINAGLIPTIN 5 MG TABLET PO SCH (09:01)
[2016-07-02] MEDS: MEMANTINE 5 MG TAB PO SCH (09:01)
[2016-07-02] MEDS: INSULIN GLARGINE 100 UNIT/ML 10 ML VIAL SQ SCH ×2 (09:07→22:00)
[2016-07-02] MEDS: INSULIN LISPRO (humaLOG) 300 UNIT/3 ML VIAL SQ SCH ×4 (09:08→22:01)
[2016-07-02] MEDS: NYSTATIN 100,000 UNIT/GM POWD 15 GM TOPICAL SCH ×2 (09:08→22:03)
--- NOTE | 2016-07-02 11:41 | P.PN ---
Progress Note - Text SUBJECTIVE: Patient demanding to be discharged ,has no complain except "Going home to see my cats". She had difficulty hearing and I had to repeat questions several times. Her answers were tangential ,.perseveration and very concrete in her answers OBJECTIVE: She presented as a casually groomed elderly woman ,unkept ,hard of hearing She had a very difficult time understanding questions but appeared to attend to the interview. No abnormality of psychomotor activity. She had a slow and unsteady gait. She walked with the aid of a wheeled walker with her one-to-one in attendance. Her speech was spontaneous with normal rate, rhythm and volume. Her affect was labile She did not express suicidal thoughts or wishes. She has not expressed depressive cognitions. Her thinking was concrete but her associations were coherent. She did not appear to be responding to internal stimuli. PER NURSING STAFF:patient was irritable ,scratched staff around 1300 hour yesterday and received IM Geodon. ASSESSMENT: She does not appear depressed. She appears to have a fluctuating pattern of confusion and restlessness. PLAN: Adjust medications to be given in AM and Noon to stabilize her mood Continue with one-to-one .Waiting for placement PHYSICAL:Temp:98.7,Pulse:61,Resp.:18,Blood Pressure:170/72 Blood Glucose:95 ,patient does require wound change Q 72 hours for her Pressure ulcer
[2016-07-02] MEDS ORDERED: lamoTRIgine 100 MG TAB PO SCH (12:00)
[2016-07-02] MEDS ORDERED: LISINOPRIL 20 MG TAB PO SCH (12:00)
[2016-07-02 12:32] LABS: Glucose,Whole Blood 114 mg/dL (75-99)
[2016-07-02] MEDS ORDERED: WATER FOR INJECTION, STERILE 10 ML IV ONE ×2 (13:47→22:44)
[2016-07-02] MEDS: ZIPRASIDONE 20 MG VIAL IM PRN ×2 (13:47→22:45)
[2016-07-02 17:12] LABS: Glucose,Whole Blood 172 mg/dL (75-99)
[2016-07-02] MEDS ORDERED: PARoxetine 20 MG TAB PO SCH (19:00)
[2016-07-02 20:03] LABS: Glucose,Whole Blood 184 mg/dL (75-99)
[2016-07-02] MEDS ORDERED: FAMOTIDINE 20 MG TAB PO SCH (21:00)
[2016-07-02] MEDS ORDERED: MEMANTINE 5 MG TAB PO SCH (21:00)
[2016-07-02] MEDS: ATORVASTATIN 40 MG TAB PO SCH (22:02)
[2016-07-03] MEDS: LEVOTHYROXINE 50 MCG TAB PO SCH (06:04)
[2016-07-03 06:19] LABS: Glucose,Whole Blood 71 mg/dL (75-99)
[2016-07-03] MEDS: INSULIN LISPRO (humaLOG) 300 UNIT/3 ML VIAL SQ SCH ×4 (08:00→20:37)
[2016-07-03] MEDS: amLODIPine 10 MG TAB PO SCH ×2 (08:07→09:50)
[2016-07-03] MEDS: FUROSEMIDE 20 MG TAB PO SCH ×2 (08:07→09:50)
[2016-07-03] MEDS: LINAGLIPTIN 5 MG TABLET PO SCH (08:08)
[2016-07-03] MEDS: DIVALPROEX ER 250 MG TAB.ER.24H PO SCH ×2 (08:09→09:50)
[2016-07-03 09:57] LABS: Glucose,Whole Blood 160 mg/dL (75-99)
[2016-07-03] MEDS: INSULIN GLARGINE 100 UNIT/ML 10 ML VIAL SQ SCH ×2 (09:59→22:05)
[2016-07-03 10:12] LABS: Basophils # (A) 0.1 k/uL (0-0.2); Basophils % (A) 1 %; CH 28.8; CHCM 31.6; Eosinophils # (A) 0.5 k/uL (0-0.7); Eosinophils % (A) 5 %; HCT 41.5 % (34.0-46.0); HDW 2.42; HGB 12.8 gm/dL (11.4-16.0); Luc # (Auto) 0.11; Luc % (Auto) 1; Lymphocytes # (A) 0.5 k/uL (1.0-4.8); Lymphocytes % (A) 6 %; MCH 28.1 pg (25.0-35.0); MCHC 30.8 g/dL (31.0-37.0); Mean Platelet Volume 8.1; Monocytes # (A) 0.3 k/uL (0-1.0); Monocytes % (A) 3 %; Neutrophils # (A) 7.2 k/uL (1.3-7.7); Neutrophils % (A) 84 %; RBC 4.54 m/uL (3.80-5.40); RDW 14.3 % (11.5-15.5); WBC 8.6 k/uL (3.8-10.6); WBC (Perox) 9.11
[2016-07-03 10:19] LABS: ALT 36 U/L (9-52); AST 31 U/L (14-36); Alkaline Phosphatase 89 U/L (38-126); Anion Gap 14 mmol/L; Bilirubin, Delta 0.3 mg/dL (0.0-0.2); Blood Urea Nitrogen 22 mg/dL (7-17); Carbon Dioxide 23 mmol/L (22-30); Chloride 104 mmol/L (98-107); MCV 91.4 fL (80.0-100.0); Non-African American GFR(MDRD) >60 (>60 ml/min/1.73 sqM); Sodium 141 mmol/L (137-145); Total Bilirubin 0.7 mg/dL (0.2-1.3); Total Protein 7.5 g/dL (6.3-8.2)
[2016-07-03 10:26] LABS: Potassium 4.8 mmol/L (3.5-5.1)
[2016-07-03] MEDS: NYSTATIN 100,000 UNIT/GM POWD 15 GM TOPICAL SCH ×2 (10:39→21:56)
--- NOTE | 2016-07-03 11:05 | P.PN ---
Subjective SUBJECTIVE: Patient was sobbing ,irritable ,agitated ,kept yelling "I Do not want to talk to you ,I want another doctor ,I want to go home ,I am missing my cats" PER NURSING STAFF: ""pt has been noted to have fine tremors of the upper body and bilat arms. pt has been drooling steadily and speech is garbled at times. pt appears pale. pt is fixated on her 2 cats and talks about how Herman has been put down. pt is resistive to any encouragement from staff regarding her beloved pets. pt at times will say," Maybe it is for the better, someone else can take better care of them then me." pt after that comment will become tearful. pt does appear to like male staff for sitters verses females. pt was resistive on afternoon shift and punching, hitting, scratching staff Geodon IM 10 mg prn given. pt appears to have had for the last 3-4 days Geodon IM PRN injections for the acting out behavior with the staff that is sitting with pt. Medical has not seen pt. scott srinivasan talked with joni ENDS BREAKAGE CLERK with dr [facility]raw[facility] and told Joni of pt's ailments and asked when pt was going to be seen and joni stated that she would talk to dr garcia. reconsult placed back into computer. pt was placed back on the board on 07-01-16 to be reseen for the possible d-cube, yeast , conjunctivitis. Initialized on 07/03/16 05:36 " Patient slept 3.5 hours last night,refusing breakfast ,refused AM medications MENTAL STATUS EXAM:Patient is elderly female ,unkept ,disheveled,agitated , uncooperative ,sobbing and refusing to talk to medical underwriter ,insight and judgement are impaired ASSESSMENT: Patient is not consistent with compliance with oral medications ,requesting to be discharged PLAN: Will order labs to rule out any underlying organic problem ,discontinue PRN Geodon ,order PRN Ativan ,reconsult hospitalist Change XR Seroquel to regular Seroquel and add low dose of Seroquel at noon, continue rest of medications Objective - Vital Signs Vital signs: Vital Signs Temp 98.3 F 07/03/16 06:36 Pulse 60 07/03/16 06:36 Resp 16 07/03/16 06:36 BP 169/71 07/03/16 06:36 Pulse Ox 96 07/02/16 06:20 - Labs CBC & Chem 7: 07/03/16 09:54 07/03/16 09:54 Labs: Abnormal Lab Results - Last 24 Hours (Table) 07/02/16 07/02/16 07/02/16 Range/Units 12:31 17:08 20:02 MCHC (31.0-37.0) g/dL Lymphocytes # (1.0-4.8) k/uL BUN (7-17) mg/dL POC Glucose (mg/dL) 114 H 172 H 184 H (75-99) mg/dL Delta Bilirubin (0.0-0.2) mg/dL 07/03/16 07/03/16 07/03/16 Range/Units 06:10 09:54 09:54 MCHC 30.8 L (31.0-37.0) g/dL Lymphocytes # 0.5 L (1.0-4.8) k/uL BUN 22 H (7-17) mg/dL POC Glucose (mg/dL) 71 L (75-99) mg/dL Delta Bilirubin 0.3 H (0.0-0.2) mg/dL 07/03/16 Range/Units 09:55 MCHC (31.0-37.0) g/dL Lymphocytes # (1.0-4.8) k/uL BUN (7-17) mg/dL POC Glucose (mg/dL) 160 H (75-99) mg/dL Delta Bilirubin (0.0-0.2) mg/dL
[2016-07-03] MEDS ORDERED: QUEtiapine 25 MG TAB PO SCH ×2 (12:00→21:00)
[2016-07-03] MEDS ORDERED: lamoTRIgine 100 MG TAB PO SCH (12:00)
[2016-07-03 13:06] LABS: Glucose,Whole Blood 100 mg/dL (75-99)
[2016-07-03] MEDS: LISINOPRIL 20 MG TAB PO SCH ×2 (13:16→13:17)
[2016-07-03] MEDS: LORazepam 2 MG/ML SYRINGE IM PRN (16:00)
[2016-07-03 18:07] LABS: Glucose,Whole Blood 120 mg/dL (75-99)
[2016-07-03 20:16] LABS: Glucose,Whole Blood 149 mg/dL (75-99)
[2016-07-03] MEDS: PARoxetine 20 MG TAB PO SCH (20:35)
[2016-07-03] MEDS: ATORVASTATIN 40 MG TAB PO SCH ×2 (20:35→20:46)
[2016-07-03] MEDS: FAMOTIDINE 20 MG TAB PO SCH ×2 (20:35→20:46)
[2016-07-03] MEDS: QUEtiapine 50 MG TAB PO SCH ×2 (20:38→20:46)
[2016-07-03] MEDS ORDERED: MEMANTINE 5 MG TAB PO SCH (21:00)
[2016-07-03] MEDS ORDERED: HALOPERIDOL LACTATE 5 MG/ML 1 ML VIAL IM ONE (21:02)
[2016-07-03] MEDS: HALOPERIDOL LACTATE 5 MG/ML 1 ML VIAL IM ONE ×2 (22:11→22:21)
[2016-07-04] MEDS: ACETAMINOPHEN TAB 325 MG TAB PO PRN (00:47)
[2016-07-04] MEDS: LORazepam 2 MG/ML SYRINGE IM PRN (00:48)
[2016-07-04] MEDS: LEVOTHYROXINE 50 MCG TAB PO SCH (05:40)
[2016-07-04 05:54] LABS: Glucose,Whole Blood 85 mg/dL (75-99)
[2016-07-04] MEDS: INSULIN LISPRO (humaLOG) 300 UNIT/3 ML VIAL SQ SCH ×5 (08:00→21:12)
[2016-07-04] MEDS ORDERED: HALOPERIDOL LACTATE 5 MG/ML 1 ML VIAL IM PRN (08:23)
[2016-07-04] MEDS: amLODIPine 10 MG TAB PO SCH (08:48)
[2016-07-04] MEDS: INSULIN GLARGINE 100 UNIT/ML 10 ML VIAL SQ SCH ×2 (08:49→21:02)
[2016-07-04] MEDS: LINAGLIPTIN 5 MG TABLET PO SCH (08:51)
[2016-07-04] MEDS: NYSTATIN 100,000 UNIT/GM POWD 15 GM TOPICAL SCH (08:51)
[2016-07-04] MEDS: FUROSEMIDE 20 MG TAB PO SCH (08:51)
[2016-07-04] MEDS: DIVALPROEX ER 250 MG TAB.ER.24H PO SCH ×2 (08:51→19:37)
[2016-07-04] MEDS: LORazepam 1 MG TAB PO SCH ×3 (08:52→21:58)
[2016-07-04] MEDS ORDERED: HALOPERIDOL 1 MG TAB PO SCH (09:00)
[2016-07-04 12:41] LABS: Glucose,Whole Blood 116 mg/dL (75-99)
[2016-07-04] MEDS: LISINOPRIL 20 MG TAB PO SCH ×2 (12:48→21:58)
--- NOTE | 2016-07-04 13:24 | P.PN ---
Subjective SUBJECTIVE: Patient was sedated on her wheel-chair but able to open her eyes and was smiling ,not able to recall last night incident,asked "Where am I ",patient is still on 1:1 for fall risk She was seen by Hospitalist last evening,was compliant with morning medications LABS:Depakote level is sub therapeutic:37 PER NURSING STAFF:patient slept 4.5 hours after Haldol and Ativan ,has been labile ,easy agitated and uncooperative especially evening time PLEASE REFER TO NURSING NOTE FROM YESTERDAY: 07/04/16 01:10 - Nurse Note by Perla Camargo Acct Num: [id number] : 1940 Patient Age: 75 Pt woke up @ 0017 yelling, swearing, kicking, punching, scratching at staff, attempting to roll out of bed and put herself on the floor. Multiple attempts by 4 staff to redirect, educate and be supportive /c pt all resulted in no success. Pt continued with acting out behaviors. Pt offered Tylenol 650 mg po ; pt refused, yelling and swearing, kicking and swinging (punching and scratching at staff). Pt then given Ativan 1 mg IM. Pt continued same acting out behaviors. Call placed to supervisor computer operations psychiatrist, Dr. Verde, requesting order to be able to put pt's mattress on the floor for her safety in attempting to stop behavior of pt harming herself by putting herself on the floor. Dr. Verde agreed to give order to place pt's mattress on the floor and place pt on her mattress for pt's safety. Mattress from bed 2 (other bed in room) placed on floor and /c 4 staff assist, pt lowered to mattress on floor. Pt continued / c acting out behaviors. Staff then placed pt's mattress next to the one pt is lying on. Both mattresses have clean linen, wedge placed behind mattress. Continue to monitor /c One to One Staff precautions. Will follow up within one hour for effectiveness of Ativan 1 mg IM. Initialized on 07/04/16 01:10 - END OF NOTE 07/03/16 22:22 - Nurse Note by Mary Ellen Cornelius Acct Num: [id number] : 1940 Patient Age: 75 Patient given Haldol 2mg for agitation, hitting and kicking staff Initialized on 07/03/16 22:22 - END OF NOTE MENTAL STATUS EXAM:Patient is elderly female ,unkept ,disheveled,sedated ,not able to participate in session ASSESSMENT:Patient is still labile , aggressive and combative behavior last night PLAN: Increase Depakote to 750 BID to control her mood ,add Zyprexa instead of Seroquel QHS to restore her sleep ,behavioral modification and setting boundaries Objective - Vital Signs Vital signs: Vital Signs Temp 97.3 F L 07/04/16 06:55 Pulse 62 07/04/16 06:55 Resp 18 07/04/16 06:55 BP 151/67 07/04/16 06:55 Pulse Ox 96 07/02/16 06:20 Intake & Output 07/03/16 07/04/16 07/04/16 18:59 06:59 18:59 Weight 75 kg - Labs CBC & Chem 7: 07/03/16 09:54 07/03/16 09:54 Labs: Abnormal Lab Results - Last 24 Hours (Table) 07/03/16 07/03/16 07/04/16 Range/Units 18:05 20:09 12:38 POC Glucose (mg/dL) 120 H 149 H 116 H (75-99) mg/dL
--- NOTE | 2016-07-04 14:10 | P.PN ---
Subjective This is a 75-year-old female one of Dr. Azar's patient with past medical history of breast cancer, diabetes, GERD, hypertension, hyperlipidemia, obstructive sleep apnea, and thyroid problem who also known to have history of seizure. Patient has been residing in [facility]. She had a recent hospitalization May 15 through May 19 for which she was treated for left-sided pneumonia, metabolic encephalopathy, depression and suicidal ideation. She again was admitted to [facility] form 05/21/16- for metabolic encephalopathyy and anxiety with agitation worsening depression. the lengthy admission was complicated with hypersomnolence related to her ativan qhich was later switched to xanax which she tolerated, buspar was increased then, paxil lamictal and nuexta was unchanged. She was recommended to go to subacute rehab which she adamantly declined and was threatening people if she does not get her way. She was admitted again on 06/03 in our facilit for chest pain along with her increased stress, anxiety and depression. She was discharged to her assisted living place at [facility] in the [facility]. By the time she got to her own, she has been neglecting her care, not taking her medications , we tried getting home services for nursing for medication dispensation which she refused. She exhibits suicidality when not around her cats, and threatens to kill herself. she has called the junior mechanical engineer to her place several times in a day that the senior facility has been for several months to the point of ridiculousness. Multiple ER visits for her behaviors. She is aggressive to nursing staff. Social work consult was placed for possible placement which patient refuses. Consult placed with psychiatry to evaluate for competency to make own decisions. Patient does have a power of admitted attorneys, Rajat, her nephew , who is indisposed as he is in the hospital and cannot be available for medicql decision making. the police has petitioned her for unpredictable threatening behaviors with paranoia and suicidal ideation. She gets emotional and get severely sad and cries, once the topic is replaced to something she dislikes she gets angry and starts saying leave me alone, "i dont like you" later she says "huh. on everything else that requires a straight answer. She laughs at her mischief and her fierce behaviors and would recant her behavior and says she is only joking, all these after she puts a fist in the nurse's face or have thrown a chair or her shoes at nursing staff. Patient now has a public guardian Sharon Doll. Patient was seen on the observation unit until she was transferred to the psychiatric unit. Patient is now seen on psychiatric unit. She states she did not sleep well and she cried all night. Blood sugars have been high for which to gentle has been added. Hemoglobin A1c is 10. Dilantin has been discontinued by psychiatry. 07/03: We have been asked to reassess patient regarding a coccyx decubitus ulcer and East infection under her bilateral groins and breast. Patient has had some combative behavior and noncompliance. She apparently did eat a good lunch today. She intermittently is aggressive to nursing staff. Blood sugars have been well controlled with the most recent changes. Objective - Vital Signs Vital signs: Vital Signs Temp 98.3 F 07/03/16 06:36 Pulse 68 07/03/16 14:09 Resp 16 07/03/16 14:09 BP 112/61 07/03/16 14:09 Pulse Ox 96 07/02/16 06:20 Intake & Output 07/02/16 07/03/16 07/03/16 18:59 06:59 18:59 Weight 75 kg - Exam General appearance: average body habitus, cooperative, no acute distress - EENT Eyes: anicteric sclerae, EOMI, PERRLA, dentition normal, normal appearance ENT: hearing grossly normal, NA/AT, normal oropharynx - Respiratory Respiratory: bilateral: CTA, negative: diminished, dullness, rales, wheezing - Cardiovascular Rhythm: regular Heart sounds: normal: S1, S2 Abnormal Heart Sounds: no systolic murmur, no diastolic murmur, no rub, no S3 Gallop, no S4 Gallop, no click, no other - Gastrointestinal General gastrointestinal: normal bowel sounds, soft - Integumentary Integumentary: normal, normal turgor - Musculoskeletal Musculoskeletal: gait normal, strength equal bilaterally - Psychiatric Psychiatric: A&O x's 3, appropriate affect (inappropriate) Skin: Patient has East type infection under bilateral breasts and bilateral groins with significant erythema. Stage II possible stage III pressure ulcer to the coccyx area. No significant drainage. - Labs CBC & Chem 7: 07/03/16 09:54 07/03/16 09:54 Labs: Abnormal Lab Results - Last 24 Hours (Table) 07/02/16 07/03/16 07/03/16 Range/Units 20:02 06:10 09:54 MCHC (31.0-37.0) g/dL Lymphocytes # (1.0-4.8) k/uL BUN 22 H (7-17) mg/dL POC Glucose (mg/dL) 184 H 71 L (75-99) mg/dL Delta Bilirubin 0.3 H (0.0-0.2) mg/dL 07/03/16 07/03/16 07/03/16 Range/Units 09:54 09:55 13:04 MCHC 30.8 L (31.0-37.0) g/dL Lymphocytes # 0.5 L (1.0-4.8) k/uL BUN (7-17) mg/dL POC Glucose (mg/dL) 160 H 100 H (75-99) mg/dL Delta Bilirubin (0.0-0.2) mg/dL Assessment and Plan Plan: 1. Paranoia with suicidality, major depression with mood disorder suspect bipolar 1 disorder, patient currently is petitioned by the police for mental health reasons. Patient has been admitted to the mental health unit. Continue current plan of care. 2 diabetes mellitus type 2 uncontrolled secondary to non-compliance with hemoglobin A1c of 10. Currently on Lantus 10 units twice daily, Humalog scale, Cogentin 5 mg daily. 3 chronic neuropathy: Currently off Neurontin. 4 hyperlipidemia: Patient is on Lipitor 40 mg daily. 5. Dementia with behavior disorder. Patient was on nuedexta 7 hypothyroidism: Continue patient on levothyroxine 50 g daily. 8 chronic depression, recurrent. 9 pseudoseizure: follows closely by neurologist. Dilantin discontinued. 10 chronic edema: Has been on Lasix 20 mg daily. 11 hypertension. Lisinopril 20 mg twice daily. 12. history of breast cancer: Has been on Femara 2.5 mg daily, right breast mastectomy, with residual wound dehisence, no signs of cellulitis, continue [facility] 13. Candidiasis skin infection under bilateral breasts and bilateral groins. Nystatin powder changed to Lotrisone cream. 14. Stage II to stage III decubitus ulcer to the coccyx. Continue local wound care. Impression and plan of care have been directed as dictated by the signing physician. Harleen Chao nurse practitioner acting as scribe for signing physician. Time with Patient: Greater than 30
[2016-07-04 17:34] LABS: Glucose,Whole Blood 106 mg/dL (75-99)
[2016-07-04] MEDS ORDERED: DIVALPROEX ER 250 MG TAB.ER.24H PO SCH (19:00)
[2016-07-04] MEDS: PARoxetine 20 MG TAB PO SCH (19:37)
[2016-07-04 19:57] LABS: Glucose,Whole Blood 153 mg/dL (75-99)
[2016-07-04] MEDS ORDERED: CLOTRIMAZOLE/BETAMETH 1-0.05% CREAM 45 GM TUBE TOPICAL SCH (21:00)
[2016-07-04] MEDS ORDERED: OLANZapine 2.5 MG TAB PO SCH (21:00)
[2016-07-04] MEDS ORDERED: LORazepam 1 MG TAB PO SCH (21:00)
[2016-07-04] MEDS: ATORVASTATIN 40 MG TAB PO SCH (21:58)
[2016-07-04] MEDS: FAMOTIDINE 20 MG TAB PO SCH (22:25)
[2016-07-05] MEDS: LORazepam 2 MG/ML SYRINGE IM PRN (03:29)
[2016-07-05] MEDS ORDERED: LORazepam 2 MG/ML SYRINGE IM STA (03:59)
[2016-07-05 04:34] LABS: Glucose,Whole Blood 116 mg/dL (75-99)
[2016-07-05] MEDS: LEVOTHYROXINE 50 MCG TAB PO SCH (05:43)
[2016-07-05 05:46] LABS: Glucose,Whole Blood 110 mg/dL (75-99)
[2016-07-05] MEDS ORDERED: HALOPERIDOL LACTATE 5 MG/ML 1 ML VIAL IM PRN (07:20)
--- NOTE | 2016-07-05 07:52 | CT ---
EXAMINATION TYPE: CT brain cspine wo con DATE OF EXAM: 07/05/2016 7:42 AM COMPARISON: CT brain June 20, 2016. HISTORY: Fall onto back injury with headache and neck pain. CT DLP: 2073 mGycm. Automated Exposure Control for Dose Reduction was Utilized. TECHNIQUE: CT scan of the head and cervical spine are performed without contrast. FINDINGS: There is no acute intracranial hemorrhage hemorrhage or midline shift identified. There i s ventricular and sulcal prominence consistent with diffuse cerebral atrophy. Is low-attenuation in t he periventricular white matter presumed product of chronic small vessel ischemic change. The globes are intact and the visualized sinuses are clear. Cervical spine is visualized in its entirety from C1 through upper thoracic levels and demonstrates s atisfactory alignment without evidence of acute fracture or dislocation. Prevertebral soft tissue ap pears within normal limits. The C1-C2 articulation is within normal limits on the coronal images. O sseous structures are somewhat demineralized. Vertebral body heights and disc space heights are fairl y well-maintained. There is mild to moderate multilevel anterior spurring. Spinal canal is fairly wel l preserved. Thyroid gland is somewhat small or atrophic. Visualized lung apices show mild peripheral scarring. Exaggerated cervical curvature is present. IMPRESSION: 1. There is no acute fracture or dislocation evident in the cervical spine. 2. No acute intracranial hemorrhage or midline shift is seen. There is mild to moderate diffuse cereb ral atrophy and chronic small vessel ischemic change redemonstrated.
--- NOTE | 2016-07-05 07:55 | CT ---
EXAMINATION TYPE: CT chest wo con DATE OF EXAM: 07/05/2016 7:42 AM COMPARISON: NONE HISTORY: Fall onto back CT DLP: [address] of the chest was performed with lung and mediastinal window settings submitted. The la ck of contrast limits evaluation of the vascular, mediastinal and parenchymal structures including th e upper abdomen. LUNGS: The lungs are clear and free of infiltrate. No atelectasis. No pulmonary nodule or mass is de tected. No pleural effusion. Scattered parenchymal scarring and mild subpleural fibrosis. MEDIASTINUM/BERNADETTE: Thoracic aorta is of normal caliber with limited evaluation given lack of contrast . The heart is enlarged. No evidence for mediastinal mass. No lymph nodes greater than 1cm. UPPER ABDOMEN: Small sliding-type hiatal hernia. OTHER: Degenerative changes thoracic spine without evidence for fracture. T5 hemangioma. IMPRESSION: 1. COPD with parenchymal scarring and mild subpleural fibrosis. 2. Small hiatal hernia. 3. Degenerative changes of the thoracic spine.
[2016-07-05] MEDS: INSULIN LISPRO (humaLOG) 300 UNIT/3 ML VIAL SQ SCH ×4 (08:07→20:06)
[2016-07-05] MEDS: INSULIN GLARGINE 100 UNIT/ML 10 ML VIAL SQ SCH ×2 (08:12→20:12)
[2016-07-05] MEDS ORDERED: BACITRACIN OINT 1 EACH PACKET TOPICAL ONE (08:43)
[2016-07-05] MEDS ORDERED: PARoxetine 10 MG TAB PO SCH (09:00)
[2016-07-05] MEDS: amLODIPine 10 MG TAB PO SCH (09:17)
[2016-07-05] MEDS: LINAGLIPTIN 5 MG TABLET PO SCH (09:17)
[2016-07-05] MEDS: FUROSEMIDE 20 MG TAB PO SCH (09:18)
[2016-07-05] MEDS: DIVALPROEX SPRINKLE 125 MG CAP.SPRINK PO SCH ×2 (10:15→12:57)
[2016-07-05] MEDS: CLOTRIMAZOLE/BETAMETH 1-0.05% CREAM 45 GM TUBE TOPICAL SCH ×2 (10:20→21:13)
--- NOTE | 2016-07-05 12:24 | P.PN ---
Progress Note - Text SUBJECTIVE: Patient was seen in dining room ,eating her breakfast ,patient was not able to participate in session as she is sedated PER NURSING STAFF: Patient has been agitated and combative for last 4-5 days ,lab.work was negative and delirium reaction was ruled out ,was still experiencing sundown change in her behavior ,not able to stay asleep ,received PRN Ativan and Haldol for combative behavior Patient fell on her head ,please refer to Nursing note,did require two steppers ,CT of head :negative ,CT chest :no fracture,continue Neuro-check up PLAN: 1) Will hold AM psychotropic medications as patient is sedated ,as I tried Seroquel and Zyprexa , and were ineffective,will start on Risperdol 2 mg tonight and Trazodone to restore her sleep and prevent sundown combative behavior,we will cut down Depakote dose to minimize sedation,will continue 1:1 and fall precaution
--- NOTE | 2016-07-05 12:31 | P.PN ---
Subjective This is a 75-year-old female one of Dr. Azar's patient with past medical history of breast cancer, diabetes, GERD, hypertension, hyperlipidemia, obstructive sleep apnea, and thyroid problem who also known to have history of seizure. Patient has been residing in [facility]. She had a recent hospitalization May 15 through May 19 for which she was treated for left-sided pneumonia, metabolic encephalopathy, depression and suicidal ideation. She again was admitted to [facility] form 05/21/16- for metabolic encephalopathyy and anxiety with agitation worsening depression. the lengthy admission was complicated with hypersomnolence related to her ativan qhich was later switched to xanax which she tolerated, buspar was increased then, paxil lamictal and nuexta was unchanged. She was recommended to go to subacute rehab which she adamantly declined and was threatening people if she does not get her way. She was admitted again on 06/03 in our facilit for chest pain along with her increased stress, anxiety and depression. She was discharged to her assisted living place at [facility] in the [facility]. By the time she got to her own, she has been neglecting her care, not taking her medications , we tried getting home services for nursing for medication dispensation which she refused. She exhibits suicidality when not around her cats, and threatens to kill herself. she has called the motor operator to her place several times in a day that the senior facility has been for several months to the point of ridiculousness. Multiple ER visits for her behaviors. She is aggressive to nursing staff. Social work consult was placed for possible placement which patient refuses. Consult placed with psychiatry to evaluate for competency to make own decisions. Patient does have a power of assistant prosecuting attorney, Rajat, her nephew , who is indisposed as he is in the hospital and cannot be available for medicql decision making. the police has petitioned her for unpredictable threatening behaviors with paranoia and suicidal ideation. She gets emotional and get severely sad and cries, once the topic is replaced to something she dislikes she gets angry and starts saying leave me alone, "i dont like you" later she says "huh. on everything else that requires a straight answer. She laughs at her mischief and her fierce behaviors and would recant her behavior and says she is only joking, all these after she puts a fist in the nurse's face or have thrown a chair or her shoes at nursing staff. Patient now has a public guardian Sharon Doll. Patient was seen on the observation unit until she was transferred to the psychiatric unit. Patient is now seen on psychiatric unit. She states she did not sleep well and she cried all night. Blood sugars have been high for which to gentle has been added. Hemoglobin A1c is 10. Dilantin has been discontinued by psychiatry. 2: We have been asked to reassess patient regarding a coccyx decubitus ulcer and East infection under her bilateral groins and breast. Patient has had some combative behavior and noncompliance. She apparently did eat a good lunch today. She intermittently is aggressive to nursing staff. Blood sugars have been well controlled with the most recent changes. 07/04: We have been asked to reassess patient regarding the coccyx decubitus ulcer and possible tunneling. Evaluated wound with Q-tip and no tunneling was noted. Continue current plan. Objective - Vital Signs Vital signs: Vital Signs Temp 97.3 F L 07/04/16 06:55 Pulse 82 07/04/16 13:11 Resp 20 07/04/16 13:11 BP 179/86 07/04/16 13:11 Pulse Ox 96 07/02/16 06:20 Intake & Output 07/03/16 07/04/16 07/04/16 18:59 06:59 18:59 Weight 75 kg - Exam General appearance: average body habitus, cooperative, no acute distress - EENT Eyes: anicteric sclerae, EOMI, PERRLA, dentition normal, normal appearance ENT: hearing grossly normal, NA/AT, normal oropharynx - Respiratory Respiratory: bilateral: CTA, negative: diminished, dullness, rales, wheezing - Cardiovascular Rhythm: regular Heart sounds: normal: S1, S2 Abnormal Heart Sounds: no systolic murmur, no diastolic murmur, no rub, no S3 Gallop, no S4 Gallop, no click, no other - Gastrointestinal General gastrointestinal: normal bowel sounds, soft - Integumentary Integumentary: normal, normal turgor - Musculoskeletal Musculoskeletal: gait normal, strength equal bilaterally - Psychiatric Psychiatric: A&O x's 3, appropriate affect (inappropriate) Skin: Patient has East type infection under bilateral breasts and bilateral groins with significant erythema. Stage II possible stage III pressure ulcer to the coccyx area. No significant drainage. - Labs CBC & Chem 7: 07/03/16 09:54 07/03/16 09:54 Labs: Abnormal Lab Results - Last 24 Hours (Table) 07/03/16 07/03/16 07/04/16 Range/Units 18:05 20:09 12:38 POC Glucose (mg/dL) 120 H 149 H 116 H (75-99) mg/dL Assessment and Plan Plan: 1. Paranoia with suicidality, major depression with mood disorder suspect bipolar 1 disorder, patient currently is petitioned by the police for mental health reasons. Patient has been admitted to the mental health unit. Continue current plan of care. 2 diabetes mellitus type 2 uncontrolled secondary to non-compliance with hemoglobin A1c of 10. Currently on Lantus 10 units twice daily, Humalog scale, Cogentin 5 mg daily. 3 chronic neuropathy: Currently off Neurontin. 4 hyperlipidemia: Patient is on Lipitor 40 mg daily. 5. Dementia with behavior disorder. Patient was on nuedexta 7 hypothyroidism: Continue patient on levothyroxine 50 g daily. 8 chronic depression, recurrent. 9 pseudoseizure: follows closely by neurologist. Dilantin discontinued. 10 chronic edema: Has been on Lasix 20 mg daily. 11 hypertension. Lisinopril 20 mg twice daily. 12. history of breast cancer: Has been on Femara 2.5 mg daily, right breast mastectomy, with residual wound dehisence, no signs of cellulitis, continue [facility] 13. Candidiasis skin infection under bilateral breasts and bilateral groins. Nystatin powder changed to Lotrisone cream. 14. Stage II to stage III decubitus ulcer to the coccyx. Continue local wound care. Impression and plan of care have been directed as dictated by the signing physician. Harleen Chao nurse practitioner acting as scribe for signing physician. Time with Patient: Greater than 30
[2016-07-05] MEDS: LISINOPRIL 20 MG TAB PO SCH ×2 (12:38→20:05)
[2016-07-05 12:45] LABS: Glucose,Whole Blood 94 mg/dL (75-99)
[2016-07-05 17:02] LABS: Glucose,Whole Blood 128 mg/dL (75-99)
[2016-07-05 19:43] LABS: Glucose,Whole Blood 95 mg/dL (75-99)
[2016-07-05] MEDS: FAMOTIDINE 20 MG TAB PO SCH (20:05)
[2016-07-05] MEDS: traZODone HCL 50 MG TAB PO SCH (20:05)
[2016-07-05] MEDS: risperiDONE ODT 2 MG TAB PO SCH (20:05)
[2016-07-05] MEDS: ATORVASTATIN 40 MG TAB PO SCH (20:05)
[2016-07-06] MEDS: LEVOTHYROXINE 50 MCG TAB PO SCH (05:34)
[2016-07-06 05:49] LABS: Glucose,Whole Blood 146 mg/dL (75-99)
[2016-07-06] MEDS: INSULIN LISPRO (humaLOG) 300 UNIT/3 ML VIAL SQ SCH ×3 (07:47→18:18)
[2016-07-06] MEDS: INSULIN GLARGINE 100 UNIT/ML 10 ML VIAL SQ SCH (07:50)
[2016-07-06] MEDS: PARoxetine 20 MG TAB PO SCH (08:47)
[2016-07-06] MEDS: amLODIPine 10 MG TAB PO SCH (08:47)
[2016-07-06] MEDS: FUROSEMIDE 20 MG TAB PO SCH (08:47)
[2016-07-06] MEDS: LINAGLIPTIN 5 MG TABLET PO SCH (08:47)
[2016-07-06] MEDS: CLOTRIMAZOLE/BETAMETH 1-0.05% CREAM 45 GM TUBE TOPICAL SCH ×2 (08:47→23:52)
[2016-07-06 12:49] LABS: Glucose,Whole Blood 184 mg/dL (75-99)
[2016-07-06] MEDS: LISINOPRIL 20 MG TAB PO SCH ×2 (12:57→23:47)
--- NOTE | 2016-07-06 16:22 | XR ---
EXAMINATION TYPE: XR chest 1V DATE OF EXAM: 07/06/2016 4:04 PM COMPARISON: 06/26/2016 HISTORY: Cough TECHNIQUE: Single frontal view of the chest is obtained. FINDINGS: The heart is probably enlarged. There is coarsening of interstitial markings. There is no pulmonary consolidation. There is old left-sided healed rib fracture. There are no hilar masses. IMPRESSION: Mild pulmonary fibrotic changes. There is improved aeration of the lungs compared to las t exam. No gross heart failure.
[2016-07-06] MEDS: LORazepam 2 MG/ML SYRINGE IM PRN (17:06)
[2016-07-06] MEDS: HALOPERIDOL LACTATE 5 MG/ML 1 ML VIAL IM PRN (17:07)
[2016-07-06 17:57] LABS: Glucose,Whole Blood 161 mg/dL (75-99)
--- NOTE | 2016-07-06 18:53 | PN ---
DATE OF SERVICE: 07/06/2015 CHIEF COMPLAINT: The patient was admitted due to problems with confusion. She had been wandering in the street. She had paranoid feelings, believing people were trying to kill her in her living facility. She had poor self-care. She stopped medications. She had been calling the police in regard to threats against her. She has a public guardian. INTERVAL HISTORY: Patient has been doing fair. She continues with ups and downs in her mood. She has times where she can be pleasant and will respond appropriately. At other times, she can get restless and agitated. She has had a good appetite. She has not been attending groups. She has been on one-to-one care. She does respond fairly well to staff support, though also she has had some episodes of aggressive behavior when staff have tried to provide self-care. She does seem to respond to getting out on the unit and moving about the unit in her wheelchair. She tolerates her psychotropic medications. MENTAL STATUS: Patient was in her room, sitting in her wheelchair. She gave fair eye contact. She said a few things. Her thoughts were clear, though somewhat disconnected from the subject at hand. She smiled. She said a few pleasant comments. Her affect was in a reasonable range. She had an even mood. She did not appear to be distressed. ASSESSMENT: I will continue the current diagnosis and treatment plan. I will continue psychotropic medications the same. If the patient continues with fluctuations of mood, we may need to look further adjust her psychotropic medications. She has just been started on Risperdal, so she will need time to see if she responds. Will continue to focus on stabilization.
[2016-07-06] MEDS ORDERED: DIVALPROEX ER 500 MG TAB.ER.24H PO SCH (19:00)
[2016-07-06 19:58] LABS: Glucose,Whole Blood 210 mg/dL (75-99)
[2016-07-06 22:41] LABS: Glucose,Whole Blood 147 mg/dL (75-99)
[2016-07-06] MEDS: FAMOTIDINE 20 MG TAB PO SCH (23:46)
[2016-07-06] MEDS: traZODone HCL 50 MG TAB PO SCH (23:46)
[2016-07-06] MEDS: risperiDONE ODT 2 MG TAB PO SCH (23:46)
[2016-07-06] MEDS: ATORVASTATIN 40 MG TAB PO SCH (23:47)
[2016-07-07] MEDS: INSULIN GLARGINE 100 UNIT/ML 10 ML VIAL SQ SCH ×3 (00:14→21:16)
[2016-07-07] MEDS: INSULIN LISPRO (humaLOG) 300 UNIT/3 ML VIAL SQ SCH ×5 (00:15→21:30)
[2016-07-07] MEDS: LORazepam 2 MG/ML SYRINGE IM PRN ×2 (00:35→14:51)
[2016-07-07] MEDS: HALOPERIDOL LACTATE 5 MG/ML 1 ML VIAL IM PRN ×2 (00:35→14:51)
[2016-07-07] MEDS: LEVOTHYROXINE 50 MCG TAB PO SCH (07:27)
[2016-07-07 07:28] LABS: Glucose,Whole Blood 173 mg/dL (75-99)
[2016-07-07] MEDS: LINAGLIPTIN 5 MG TABLET PO SCH (07:55)
[2016-07-07] MEDS: amLODIPine 10 MG TAB PO SCH (07:55)
[2016-07-07] MEDS: FUROSEMIDE 20 MG TAB PO SCH (07:55)
[2016-07-07] MEDS: CLOTRIMAZOLE/BETAMETH 1-0.05% CREAM 45 GM TUBE TOPICAL SCH ×3 (07:55→21:15)
[2016-07-07] MEDS: PARoxetine 20 MG TAB PO SCH (07:57)
[2016-07-07 12:31] LABS: Glucose,Whole Blood 111 mg/dL (75-99)
[2016-07-07] MEDS: LISINOPRIL 20 MG TAB PO SCH ×2 (13:01→20:00)
[2016-07-07 17:40] LABS: Glucose,Whole Blood 139 mg/dL (75-99)
[2016-07-07 19:58] LABS: Glucose,Whole Blood 155 mg/dL (75-99)
[2016-07-07] MEDS: ATORVASTATIN 40 MG TAB PO SCH (19:59)
[2016-07-07] MEDS: risperiDONE ODT 1 MG TAB PO SCH (19:59)
[2016-07-07] MEDS: FAMOTIDINE 20 MG TAB PO SCH (20:00)
[2016-07-07] MEDS: DIVALPROEX SPRINKLE 125 MG CAP.SPRINK PO SCH (20:37)
[2016-07-08] MEDS: LEVOTHYROXINE 50 MCG TAB PO SCH (06:41)
[2016-07-08 07:02] LABS: Glucose,Whole Blood 143 mg/dL (75-99)
--- NOTE | 2016-07-08 08:42 | XR ---
EXAMINATION TYPE: XR chest 1V portable DATE OF EXAM: 07/08/2016 8:35 AM HISTORY: Shortness of breath. COMPARISON: July 06, 2016 TECHNIQUE: Single view of the chest is submitted. FINDINGS: Demonstrated are scattered senescent parenchymal change. There is no evidence for focal infiltrate. The heart is stable. Hilar and mediastinal structures are within normal limits. Degenerative changes are seen of the dorsal spine. IMPRESSION: 1. Chronic changes without evidence for acute pulmonary disease.
[2016-07-08] MEDS: INSULIN LISPRO (humaLOG) 300 UNIT/3 ML VIAL SQ SCH ×5 (09:21→22:01)
[2016-07-08] MEDS: INSULIN GLARGINE 100 UNIT/ML 10 ML VIAL SQ SCH ×2 (09:22→22:01)
[2016-07-08] MEDS: CLOTRIMAZOLE/BETAMETH 1-0.05% CREAM 45 GM TUBE TOPICAL SCH ×2 (09:35→22:00)
[2016-07-08] MEDS: amLODIPine 10 MG TAB PO SCH (09:35)
[2016-07-08] MEDS: FUROSEMIDE 20 MG TAB PO SCH (09:35)
[2016-07-08] MEDS: LINAGLIPTIN 5 MG TABLET PO SCH (09:35)
[2016-07-08] MEDS: FLUoxetine ORAL SOLN 20 MG/5 ML CUP PO SCH (10:47)
--- NOTE | 2016-07-08 10:57 | PN ---
DATE OF SERVICE: 07/07/2016. CHIEF COMPLAINT: The patient was admitted due to problems with confusion. She had been wandering in the street. She had paranoid feelings, believing people were trying to kill her in her living facility. She had poor self-care. She stopped medications. She had been calling the police in regard to threats against her. She has a public guardian. INTERVAL HISTORY: Patient continues to do about the same. It is quite sleepy. She naps on and off in the day. She will get out in the day area in her wheelchair, sometimes she can be a little irritable. She has been fairly reserved in her manner. She has not been as intense as she has been. She continues with one on one, she has been sleeping on and off today she will interact with staff but does not pay too much attention to others. MENTAL STATUS: Patient was in her room and then later in the day area. She did say a few things to me. Her thoughts were little disorganized, though she answered some questions appropriately. Her affect was blunted. She had a listless manner. Her mood was reserved. She did not appear to be distressed. ASSESSMENT: I will continue the current diagnosis and treatment plan. Given the level of sedation the patient has will discontinue medications that may be contributing to sedation. She has been tapered down on Paxil. Discontinue Paxil altogether. I will also stop her prn medications as well as including Haldol and Ativan as well as her trazodone. It is not clear that she benefits in any way from Depakote. Her Depakote level July 03 was 37. There might be consideration for stopping Depakote as well. At this point, I will continue her on Risperdal, though will reduce the dose to 1 mg at bedtime. There might be consideration for starting the patient on Ritalin. Ritalin has an indication for depression. Ritalin has a short half-life which provides safety margin for the medication as it is only in the system for a short period of time. Ritalin does have a tendency towards initiating quicker response in depression. I would look at starting 10 mg in the morning, and possibly titrating up to 10 mg morning and noon and even 20 mg morning 10 mg at noon. I will defer that change at present, we will continue to monitor for her status at this point.
[2016-07-08 12:21] LABS: Glucose,Whole Blood 204 mg/dL (75-99)
[2016-07-08] MEDS: LISINOPRIL 20 MG TAB PO SCH ×2 (12:22→22:02)
[2016-07-08] MEDS ORDERED: risperiDONE ODT 1 MG TAB PO PRN (13:15)
[2016-07-08] MEDS ORDERED: HALOPERIDOL LACTATE 5 MG/ML 1 ML VIAL IM PRN ×2 (13:18→21:51)
--- NOTE | 2016-07-08 14:00 | P.PN ---
Progress Note - Text INTERVAL HISTORY: Patient continues to do about the same ,labile ,irritable ,lot of somatic complains,smiling then sobbing saying "You killed my kitten", she continues with one on one ,less sedated this afternoon ,poor appetite and demanding to be discharged I reviewed Nursing notes and DR Elliott note ,I am reluctant to start patient on PSYCHOLOGY TECH stimulant as it is contraindicated in agitation ,tension and marked anxiety, patient was compliant with night and morning medications ,did not require PRN last night I ordered Chest xray and EKG this AM as patient was complaining of chest pain , Chest X ray :no acute infiltrate . I reviewed old record :patient has had history of pseudo seizure MENTAL STATUS EXAM: Patient was on her wheel chair ,unkept,disheveled ,hard of hearing ,labile affect ,needy at times and very somatic ,denies suicidal and homicidal ideations ASSESSMENT: 1) Cognitive deficit with Behavior problems 2) Depression and anxiety 3) Somatization disorder PLAN: Start Prozac for depression ,more stimulating than Paxil ,Continue Risperdal and Depakote ,add PRN Risperdal,we will continue to monitor her behavior and level of depression
[2016-07-08 17:19] LABS: Glucose,Whole Blood 121 mg/dL (75-99)
[2016-07-08] MEDS: ATORVASTATIN 40 MG TAB PO SCH (22:00)
[2016-07-08] MEDS: DIVALPROEX SPRINKLE 125 MG CAP.SPRINK PO SCH (22:01)
[2016-07-08] MEDS: FAMOTIDINE 20 MG TAB PO SCH (22:01)
[2016-07-08] MEDS: risperiDONE ODT 1 MG TAB PO SCH (22:02)
[2016-07-09] MEDS ORDERED: hydrOXYzine HCL 50 MG/ML 1 ML VIAL IM STA (02:31)
[2016-07-09] MEDS ORDERED: LORazepam 2 MG/ML SYRINGE IM STA (02:31)
[2016-07-09] MEDS: LEVOTHYROXINE 50 MCG TAB PO SCH (06:33)
[2016-07-09 06:40] LABS: Glucose,Whole Blood 177 mg/dL (75-99)
[2016-07-09] MEDS: INSULIN LISPRO (humaLOG) 300 UNIT/3 ML VIAL SQ SCH ×5 (07:46→22:00)
[2016-07-09] MEDS: INSULIN GLARGINE 100 UNIT/ML 10 ML VIAL SQ SCH ×2 (07:49→22:00)
[2016-07-09] MEDS: FLUoxetine ORAL SOLN 20 MG/5 ML CUP PO SCH ×2 (08:00→09:26)
[2016-07-09] MEDS: amLODIPine 10 MG TAB PO SCH ×2 (08:00→09:26)
[2016-07-09] MEDS: FUROSEMIDE 20 MG TAB PO SCH ×2 (08:01→09:26)
[2016-07-09] MEDS: LINAGLIPTIN 5 MG TABLET PO SCH ×2 (08:01→09:26)
[2016-07-09] MEDS: risperiDONE ODT 1 MG TAB PO SCH ×2 (08:01→22:01)
[2016-07-09] MEDS: CLOTRIMAZOLE/BETAMETH 1-0.05% CREAM 45 GM TUBE TOPICAL SCH ×3 (08:01→22:00)
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
[2016-07-09] MEDS ORDERED: risperiDONE ODT 1 MG TAB PO SCH ×2 (12:00→17:00)
[2016-07-09 12:44] LABS: Glucose,Whole Blood 192 mg/dL (75-99)
[2016-07-09] MEDS: LISINOPRIL 20 MG TAB PO SCH ×2 (12:48→22:01)
[2016-07-09 13:24] VITALS: BMI 27.6
[2016-07-09] MEDS: VALPROIC ACID ORAL SOLN 250 MG/5 ML CUP PO SCH ×3 (16:00→22:01)
[2016-07-09] MEDS ORDERED: DIVALPROEX ER 250 MG TAB.ER.24H PO SCH (17:00)
[2016-07-09] MEDS: LORazepam 2 MG/ML SYRINGE IM PRN (20:33)
[2016-07-09] MEDS: ATORVASTATIN 40 MG TAB PO SCH (21:59)
[2016-07-09] MEDS: FAMOTIDINE 20 MG TAB PO SCH (22:00)
[2016-07-10] MEDS: LEVOTHYROXINE 50 MCG TAB PO SCH (06:06)
[2016-07-10 06:25] LABS: Glucose,Whole Blood 169 mg/dL (75-99)
[2016-07-10] MEDS: amLODIPine 10 MG TAB PO SCH (08:35)
[2016-07-10] MEDS: FUROSEMIDE 20 MG TAB PO SCH (08:35)
[2016-07-10] MEDS: LINAGLIPTIN 5 MG TABLET PO SCH (08:35)
[2016-07-10] MEDS: risperiDONE ODT 1 MG TAB PO SCH (08:36)
[2016-07-10] MEDS: VALPROIC ACID ORAL SOLN 250 MG/5 ML CUP PO SCH (08:36)
[2016-07-10] MEDS: FLUoxetine ORAL SOLN 20 MG/5 ML CUP PO SCH (08:38)
[2016-07-10] MEDS: INSULIN LISPRO (humaLOG) 300 UNIT/3 ML VIAL SQ SCH ×4 (08:47→21:10)
[2016-07-10] MEDS: INSULIN GLARGINE 100 UNIT/ML 10 ML VIAL SQ SCH ×2 (08:50→21:10)
[2016-07-10] MEDS: CLOTRIMAZOLE/BETAMETH 1-0.05% CREAM 45 GM TUBE TOPICAL SCH ×2 (08:53→21:17)
[2016-07-10] MEDS: LISINOPRIL 20 MG TAB PO SCH ×2 (12:19→21:11)
[2016-07-10 12:42] LABS: Glucose,Whole Blood 315 mg/dL (75-99)
--- NOTE | 2016-07-10 15:08 | P.PN ---
Subjective CLINICAL PROBLEMS: Patient has been refusing all medications even refusing Insulin saying "I rather than taking any medication",very labile ,sobbing as she requesting to be discharged,she continues to have anger outbursts ,spitting or scratching staff, refusing treatment recommendation,I discussed treatment options and court hearing on Friday ,she replied"I am not going to court and I am not taking any medication ,I "d rather jump into river",patient is unpredictable , has been declining physically and mentally due to poor compliance with medication PER NURSING STAFF: 07/09/16 13:13 - Nurse Note by Ade Garvin [facility] Num: [id number] : 1940 Patient Age: 75 Pt. pushing writers hand away when attempting to give her meds. Pt. states "I will not take them. I want out of this program." When residential mortgage underwriter advised her that she should take her blood pressure meds or she could have an NH or stroke, she stated "I don't care, I want out" Initialized on 07/09/16 13:13 - END OF NOTE MENTAL STATUS EXAM: Patient was on her wheel chair ,unkept,disheveled ,hard of hearing ,labile affect ,refusing medications ,sobbing talking about her mother, verbalized passive suicidal ideation ,having difficulty trusting staff"You are liar ,I want to go home",insight and judgment impaired ASSESSMENT: 1) Cognitive deficit with Behavior problems 2) Depression and anxiety 3) Poor compliance with medications ,still resistant to treatment ,court hearing on Friday ,will recommend medications and transfer to Nursing facility , ordered PT consult Objective - Vital Signs Vital signs: Vital Signs Temp 98.3 F 07/10/16 07:56 Pulse 61 07/10/16 07:56 Resp 18 07/10/16 07:56 BP 155/72 07/10/16 07:56 Pulse Ox 94 L 07/09/16 07:27 Intake & Output 07/09/16 07/10/16 07/10/16 18:59 06:59 18:59 Weight 73.1 kg - Labs CBC & Chem 7: 07/03/16 09:54 07/03/16 09:54 Labs: Abnormal Lab Results - Last 24 Hours (Table) 07/10/16 07/10/16 Range/Units 06:09 12:40 POC Glucose (mg/dL) 169 H 315 H (75-99) mg/dL
[2016-07-10 17:22] LABS: Glucose,Whole Blood 178 mg/dL (75-99)
[2016-07-10 21:01] LABS: Glucose,Whole Blood 353 mg/dL (75-99)
[2016-07-10] MEDS: FAMOTIDINE 20 MG TAB PO SCH (21:10)
[2016-07-10] MEDS: ATORVASTATIN 40 MG TAB PO SCH (21:10)
[2016-07-11] MEDS ORDERED: BACITRACIN OINT 1 EACH PACKET TOPICAL ONE (01:35)
[2016-07-11] MEDS: LEVOTHYROXINE 50 MCG TAB PO SCH (05:43)
[2016-07-11 05:49] LABS: Glucose,Whole Blood 176 mg/dL (75-99)
[2016-07-11] MEDS: INSULIN LISPRO (humaLOG) 300 UNIT/3 ML VIAL SQ SCH ×4 (08:16→20:28)
[2016-07-11] MEDS: INSULIN GLARGINE 100 UNIT/ML 10 ML VIAL SQ SCH ×2 (08:21→20:27)
[2016-07-11] MEDS: amLODIPine 10 MG TAB PO SCH (08:25)
[2016-07-11] MEDS: CLOTRIMAZOLE/BETAMETH 1-0.05% CREAM 45 GM TUBE TOPICAL SCH ×2 (08:25→23:52)
[2016-07-11] MEDS: FUROSEMIDE 20 MG TAB PO SCH (08:26)
[2016-07-11] MEDS: LINAGLIPTIN 5 MG TABLET PO SCH (08:26)
[2016-07-11] MEDS: FLUoxetine ORAL SOLN 20 MG/5 ML CUP PO SCH (08:26)
[2016-07-11 12:54] LABS: Glucose,Whole Blood 289 mg/dL (75-99)
[2016-07-11] MEDS: LISINOPRIL 20 MG TAB PO SCH ×2 (12:54→20:32)
--- NOTE | 2016-07-11 13:18 | P.PN ---
Progress Note - Text SUBJECTIVE: She had no particular complaints. She enjoyed her visit with her nephew ,started to cry when she was served with probate court papers requesting to be discharged OBJECTIVE: She presented as a disheveled appearing elderly female who was pleasant on approach. She maintained eye contact and appeared to attend to interview. She had difficulty hearing to conversation unless I spoke directly into her ear. She was sitting comfortably in a wheelchair with her one-to-one in attendance. She displayed no abnormality of psychomotor activity. I did not evaluate her gait. Her speech was spontaneous with normal rate, rhythm and volume. She had no articulation difficulty. She reports helplessness feeling and grief as she is not able to see her cats She did not express ideas reference or paranoid ideation. Her thinking was concrete but her associations were coherent. Her answers to questions were tangential. Per Nursing Staff:patient had outburst of anger yesterday noon ,spitting on staff and was uncooperative with recommendation ,last evening she was more cooperative ,slept 5-6 hours last night ,did not require PRN IM last night,ate 75% of today breakfast Was seen by PT for evaluation ,report is pending ASSESSMENT: She is an elderly woman who presented to the psychiatric unit with confusion and agitation. She is still labile and unpredictable , was agitated yesterday noon On formal mental status testing she showed some impairment with memory. PLAN: Continue current treatment, continue one-to-one, court hearing tomorrow at 9 AM to assure compliance with medications ,patient called her circulator and wants to go to court
[2016-07-11 18:06] LABS: Glucose,Whole Blood 301 mg/dL (75-99)
[2016-07-11 19:54] LABS: Glucose,Whole Blood 260 mg/dL (75-99)
[2016-07-11] MEDS: ATORVASTATIN 40 MG TAB PO SCH (20:32)
[2016-07-11] MEDS: FAMOTIDINE 20 MG TAB PO SCH (20:32)
[2016-07-12] MEDS ORDERED: diphenhydrAMINE 25 MG CAP PO STA (00:53)
[2016-07-12] MEDS: LORazepam 0.5 MG TAB PO STA ×2 (02:08→02:16)
[2016-07-12] MEDS ORDERED: WATER FOR INJECTION, STERILE 10 ML IV ONE (02:18)
[2016-07-12] MEDS ORDERED: ZIPRASIDONE 20 MG VIAL IM ONE (02:18)
[2016-07-12] MEDS: LORazepam 2 MG/ML SYRINGE IM PRN (02:18)
[2016-07-12] MEDS: ZIPRASIDONE 20 MG VIAL IM PRN (02:18)
[2016-07-12] MEDS: LEVOTHYROXINE 50 MCG TAB PO SCH (06:46)
[2016-07-12 07:04] LABS: Glucose,Whole Blood 170 mg/dL (75-99)
[2016-07-12] MEDS: amLODIPine 10 MG TAB PO SCH (09:21)
[2016-07-12] MEDS: INSULIN LISPRO (humaLOG) 300 UNIT/3 ML VIAL SQ SCH ×4 (09:22→20:55)
[2016-07-12] MEDS: CLOTRIMAZOLE/BETAMETH 1-0.05% CREAM 45 GM TUBE TOPICAL SCH ×3 (09:22→22:30)
[2016-07-12] MEDS: FUROSEMIDE 20 MG TAB PO SCH (09:24)
[2016-07-12] MEDS: FLUoxetine ORAL SOLN 20 MG/5 ML CUP PO SCH (09:24)
[2016-07-12] MEDS: LINAGLIPTIN 5 MG TABLET PO SCH (09:24)
[2016-07-12] MEDS: INSULIN GLARGINE 100 UNIT/ML 10 ML VIAL SQ SCH ×2 (09:54→20:56)
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
[2016-07-12 12:44] LABS: Glucose,Whole Blood 191 mg/dL (75-99)
[2016-07-12] MEDS: LISINOPRIL 20 MG TAB PO SCH ×2 (13:33→21:00)
[2016-07-12 17:17] LABS: Glucose,Whole Blood 235 mg/dL (75-99)
[2016-07-12] MEDS: ATORVASTATIN 40 MG TAB PO SCH (19:35)
[2016-07-12] MEDS: FAMOTIDINE 20 MG TAB PO SCH (19:35)
[2016-07-12 19:58] LABS: Glucose,Whole Blood 220 mg/dL (75-99)
[2016-07-12] MEDS: diphenhydrAMINE 50 MG CAP PO PRN (20:43)
[2016-07-13] MEDS: LEVOTHYROXINE 50 MCG TAB PO SCH (06:39)
[2016-07-13 06:48] LABS: Glucose,Whole Blood 208 mg/dL (75-99)
[2016-07-13] MEDS: INSULIN LISPRO (humaLOG) 300 UNIT/3 ML VIAL SQ SCH ×4 (07:55→20:33)
[2016-07-13] MEDS: FUROSEMIDE 20 MG TAB PO SCH (08:50)
[2016-07-13] MEDS: CLOTRIMAZOLE/BETAMETH 1-0.05% CREAM 45 GM TUBE TOPICAL SCH ×2 (08:50→22:08)
[2016-07-13] MEDS: FLUoxetine ORAL SOLN 20 MG/5 ML CUP PO SCH (08:50)
[2016-07-13] MEDS: amLODIPine 10 MG TAB PO SCH (08:50)
[2016-07-13] MEDS: LINAGLIPTIN 5 MG TABLET PO SCH (08:51)
[2016-07-13] MEDS: INSULIN GLARGINE 100 UNIT/ML 10 ML VIAL SQ SCH ×2 (08:52→20:33)
[2016-07-13] MEDS: diphenhydrAMINE 50 MG CAP PO PRN ×2 (09:55→20:18)
[2016-07-13] MEDS: LISINOPRIL 20 MG TAB PO SCH ×2 (13:53→20:19)
[2016-07-13 13:59] LABS: Glucose,Whole Blood 177 mg/dL (75-99)
--- NOTE | 2016-07-13 15:58 | P.PN ---
Progress Note - Text Interval history: The patient remains on one-to-one supervision she is mobile with a wheelchair. She is interviewed in the [facility]. The patient is quite perseverative and is focused on the well-being of HER-2 cats. She is worried about being placed without her cats. She does require frequent verbal redirection. There has been report that she has been experiencing hives with the cause unknown at this time. There is question as to whether not the nutritional supplement flavoring is triggering this reaction. We have asked for a's follow-up medical consultation regarding that issue. We have been utilizing Benadryl which has been partially effective but would prefer to avoid an anti-cholinergic if possible. The patient has been on the mental health unit for an extended period of time. Mental status exam: The patient is an overweight female appearing her stated age. She is mobile with a wheelchair. She remains on one-to-one supervision. She has spontaneous speech at first her affect is stable but she demonstrates some lability during the course of our brief session. She demonstrates tearfulness when discussing her cats. She does demonstrate some circumstantial and tangential thinking. There is likely some contribution of delusional thought. She is oriented to person place is [facility] in hospital. She states the day is Friday the month is June and the year is somewhere in the . She does not verbalize insight into while she is in the hospital and judgment is impaired subsequently. She demonstrates no verbal or physical aggressiveness towards me during our brief session. Plan: The patient will continue on her current medications. We will await further recommendations regarding the medical reconsultation. Vital signs reviewed. We will continue her on one-to-one safety precautions. No further medication changes at this time.
[2016-07-13] MEDS: LORazepam 2 MG/ML SYRINGE IM PRN (16:21)
[2016-07-13 17:47] LABS: Glucose,Whole Blood 138 mg/dL (75-99)
[2016-07-13] MEDS: ACETAMINOPHEN TAB 325 MG TAB PO PRN (18:04)
[2016-07-13] MEDS: ATORVASTATIN 40 MG TAB PO SCH (20:18)
[2016-07-13 20:26] LABS: Glucose,Whole Blood 230 mg/dL (75-99)
[2016-07-13] MEDS: FAMOTIDINE 20 MG TAB PO SCH (21:59)
[2016-07-14] MEDS: ACETAMINOPHEN TAB 325 MG TAB PO PRN (03:54)
[2016-07-14] MEDS: LORazepam 2 MG/ML SYRINGE IM PRN (05:24)
[2016-07-14 06:22] LABS: Glucose,Whole Blood 169 mg/dL (75-99)
[2016-07-14] MEDS: LEVOTHYROXINE 50 MCG TAB PO SCH (06:26)
[2016-07-14] MEDS ORDERED: WATER FOR INJECTION, STERILE 10 ML IV ONE (06:52)
[2016-07-14] MEDS: ZIPRASIDONE 20 MG VIAL IM PRN (07:09)
[2016-07-14] MEDS: FUROSEMIDE 20 MG TAB PO SCH ×2 (10:24→11:11)
[2016-07-14] MEDS: CLOTRIMAZOLE/BETAMETH 1-0.05% CREAM 45 GM TUBE TOPICAL SCH ×3 (10:24→22:37)
[2016-07-14] MEDS: FLUoxetine ORAL SOLN 20 MG/5 ML CUP PO SCH ×2 (10:24→11:10)
[2016-07-14] MEDS: INSULIN LISPRO (humaLOG) 300 UNIT/3 ML VIAL SQ SCH ×4 (10:24→22:39)
[2016-07-14] MEDS: INSULIN GLARGINE 100 UNIT/ML 10 ML VIAL SQ SCH ×3 (10:24→22:42)
[2016-07-14] MEDS: amLODIPine 10 MG TAB PO SCH ×2 (10:24→11:13)
[2016-07-14] MEDS: LINAGLIPTIN 5 MG TABLET PO SCH ×2 (10:25→11:11)
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
[2016-07-14 12:22] LABS: Glucose,Whole Blood 223 mg/dL (75-99)
[2016-07-14] MEDS: LISINOPRIL 20 MG TAB PO SCH ×2 (13:33→22:39)
--- NOTE | 2016-07-14 14:06 | P.PN ---
Progress Note - Text Interval history: The patient is found in the hallway seated in a wheelchair she continues to have one-to-one supervision. This morning she was observed to be resting quietly in the chair. At other points during the day she was more verbally aggressive but was directable. She has not demonstrated any physical aggression. The patient was seen by Dr. Azar. Vital signs reviewed. Mental status exam: The patient is alert she is cooperative at different times of the day. She seated in her wheelchair. Overall she demonstrates confusion she demonstrates a disorganized thought process with some affect lability. There is likely presence of psychosis. Insight and judgment are impaired. She can be more verbally aggressive at times but this is redirected by staff successfully. No physical aggression observed today. She maintains eye contact. Speech is spontaneous fluent mildly pressured at times. Plan: Continue current psychotropic medications as written. Reviewed Dr. Azar' s documentation. We will continue to monitor the patient for safety and encourage her participation in the milieu.
[2016-07-14 17:57] LABS: Glucose,Whole Blood 201 mg/dL (75-99)
[2016-07-14 20:01] LABS: Glucose,Whole Blood 238 mg/dL (75-99)
[2016-07-14] MEDS: FAMOTIDINE 20 MG TAB PO SCH (22:37)
[2016-07-14] MEDS: ATORVASTATIN 40 MG TAB PO SCH (22:37)
[2016-07-15] MEDS ORDERED: WATER FOR INJECTION, STERILE 10 ML IV ONE
[2016-07-15] MEDS ORDERED: ZIPRASIDONE 20 MG VIAL IM ONE
[2016-07-15] MEDS: ZIPRASIDONE 20 MG VIAL IM PRN (00:03)
[2016-07-15] MEDS: LORazepam 2 MG/ML SYRINGE IM PRN (00:03)
[2016-07-15] MEDS: LEVOTHYROXINE 50 MCG TAB PO SCH (06:20)
[2016-07-15 07:10] LABS: Glucose,Whole Blood 241 mg/dL (75-99)
[2016-07-15] MEDS: INSULIN LISPRO (humaLOG) 300 UNIT/3 ML VIAL SQ SCH ×4 (08:30→20:29)
[2016-07-15] MEDS: INSULIN GLARGINE 100 UNIT/ML 10 ML VIAL SQ SCH ×2 (08:34→20:28)
[2016-07-15] MEDS: FLUoxetine ORAL SOLN 20 MG/5 ML CUP PO SCH (09:44)
[2016-07-15] MEDS: LINAGLIPTIN 5 MG TABLET PO SCH (09:44)
[2016-07-15] MEDS: FUROSEMIDE 20 MG TAB PO SCH (09:44)
[2016-07-15] MEDS: CLOTRIMAZOLE/BETAMETH 1-0.05% CREAM 45 GM TUBE TOPICAL SCH ×2 (10:15→21:22)
[2016-07-15] MEDS: amLODIPine 10 MG TAB PO SCH (10:54)
[2016-07-15] MEDS: LISINOPRIL 20 MG TAB PO SCH ×2 (12:22→21:21)
[2016-07-15 12:59] LABS: Glucose,Whole Blood 190 mg/dL (75-99)
--- NOTE | 2016-07-15 13:49 | P.PN ---
Progress Note - Text Interval history: . She initially states that she is in a good mood and then says she is in a bad mood related to court paper to notify her with next court hearing. Per nursing staff she is taking her medications. Per staff she does exhibit some agitation especially at 2 AM and did require PRN IM Geodon and Ativan for last 2 days Mental status exam: She initially is sleeping but does awaken and maintains alertness. She is cooperative, not showing any current agitation. She initially describes her mood as good and then says it's bad ,perseverating on her cats and her discharge. She denies any thoughts of harm to self or others. Plan:Will start low dose of oral Geodon HS and monitor her compliance with oral medication ,court hearing on 07/17
[2016-07-15 17:26] LABS: Glucose,Whole Blood 157 mg/dL (75-99)
[2016-07-15] MEDS: ACETAMINOPHEN TAB 325 MG TAB PO PRN (17:30)
[2016-07-15 20:00] LABS: Glucose,Whole Blood 224 mg/dL (75-99)
[2016-07-15] MEDS: ATORVASTATIN 40 MG TAB PO SCH (21:21)
[2016-07-15] MEDS: FAMOTIDINE 20 MG TAB PO SCH (21:21)
[2016-07-15] MEDS: ZIPRASIDONE 20 MG CAP PO SCH (21:21)
[2016-07-16] MEDS: LORazepam 2 MG/ML SYRINGE IM PRN (00:04)
[2016-07-16] MEDS: LEVOTHYROXINE 50 MCG TAB PO SCH (05:35)
[2016-07-16 05:42] LABS: Glucose,Whole Blood 214 mg/dL (75-99)
[2016-07-16 06:36] VITALS: TEMP 97.5
[2016-07-16] MEDS: INSULIN GLARGINE 100 UNIT/ML 10 ML VIAL SQ SCH ×2 (08:24→21:01)
[2016-07-16] MEDS: INSULIN LISPRO (humaLOG) 300 UNIT/3 ML VIAL SQ SCH ×4 (08:24→19:52)
[2016-07-16] MEDS: FLUoxetine ORAL SOLN 20 MG/5 ML CUP PO SCH (08:28)
[2016-07-16] MEDS: amLODIPine 10 MG TAB PO SCH (08:28)
[2016-07-16] MEDS: FUROSEMIDE 20 MG TAB PO SCH (08:28)
[2016-07-16] MEDS: LINAGLIPTIN 5 MG TABLET PO SCH (08:29)
[2016-07-16] MEDS: CLOTRIMAZOLE/BETAMETH 1-0.05% CREAM 45 GM TUBE TOPICAL SCH ×2 (08:29→21:50)
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
[2016-07-16 12:21] LABS: Glucose,Whole Blood 240 mg/dL (75-99)
[2016-07-16] MEDS: LISINOPRIL 20 MG TAB PO SCH ×2 (12:47→19:49)
[2016-07-16 17:07] LABS: Glucose,Whole Blood 220 mg/dL (75-99)
[2016-07-16] MEDS: ATORVASTATIN 40 MG TAB PO SCH (19:48)
[2016-07-16] MEDS: LORazepam 0.5 MG TAB PO SCH (19:49)
[2016-07-16] MEDS: ZIPRASIDONE 20 MG CAP PO SCH (19:50)
[2016-07-16 20:17] LABS: Glucose,Whole Blood 229 mg/dL (75-99)
[2016-07-16] MEDS: FAMOTIDINE 20 MG TAB PO SCH (21:03)
[2016-07-17 05:58] LABS: Glucose,Whole Blood 165 mg/dL (75-99)
[2016-07-17] MEDS: LEVOTHYROXINE 50 MCG TAB PO SCH (06:02)
[2016-07-17] MEDS ORDERED: INSULIN GLARGINE 100 UNIT/ML 10 ML VIAL SQ SCH (07:30)
[2016-07-17] MEDS: INSULIN LISPRO (humaLOG) 300 UNIT/3 ML VIAL SQ SCH ×4 (07:35→20:38)
[2016-07-17] MEDS: FLUoxetine ORAL SOLN 20 MG/5 ML CUP PO SCH (08:11)
[2016-07-17] MEDS: FUROSEMIDE 20 MG TAB PO SCH (08:12)
[2016-07-17] MEDS: LINAGLIPTIN 5 MG TABLET PO SCH (08:12)
[2016-07-17] MEDS: amLODIPine 10 MG TAB PO SCH (08:12)
[2016-07-17] MEDS: CLOTRIMAZOLE/BETAMETH 1-0.05% CREAM 45 GM TUBE TOPICAL SCH ×2 (08:13→22:13)
[2016-07-17] MEDS: INSULIN GLARGINE 100 UNIT/ML 10 ML VIAL SQ SCH ×2 (08:34→20:38)
[2016-07-17 12:32] LABS: Glucose,Whole Blood 174 mg/dL (75-99)
[2016-07-17] MEDS: LISINOPRIL 20 MG TAB PO SCH ×2 (13:12→20:25)
[2016-07-17] MEDS: ACETAMINOPHEN TAB 325 MG TAB PO PRN ×2 (14:19→20:25)
[2016-07-17] MEDS ORDERED: IBUPROFEN 800 MG TAB PO PRN (14:52)
--- NOTE | 2016-07-17 15:46 | P.PN ---
Progress Note - Text Interval history: The patient is found in the hallway seated in a wheelchair she continues to have one-to-one supervision. This morning she was observed walking with a walker ,went to probate court for hearing ,had hearing impairement and could not participate in hearing ,court ordered 90 days outpatient and forcing psychotropic medications Mental status exam: The patient is alert she is cooperative at different times of the day. She seated in her wheelchair. Overall she demonstrates confusion she demonstrates a disorganized thought process with some affect lability. Lot of somatization . Insight and judgment are impaired. She can be more verbally aggressive at times but this is redirected by staff successfully. No physical aggression observed today. She maintains eye contact. Speech is spontaneous fluent mildly pressured at times. ASSESSMENT : NEUROCOGNITIVE DISORDER ,Moderate with behavioral disturbances Plan: Continue current psychotropic medications as written. Add low dose of Remeron to restore her sleep . We will continue to monitor the patient for safety and encourage her participation in the milieu.Patient ,most likely ,will be discharged Tomorrow to Rehab.unit
[2016-07-17 17:14] LABS: Glucose,Whole Blood 255 mg/dL (75-99)
[2016-07-17] MEDS: diphenhydrAMINE 50 MG CAP PO PRN (18:00)
[2016-07-17 20:05] LABS: Glucose,Whole Blood 180 mg/dL (75-99)
[2016-07-17] MEDS: ZIPRASIDONE 20 MG CAP PO SCH (20:24)
[2016-07-17] MEDS: LORazepam 0.5 MG TAB PO SCH (20:24)
[2016-07-17] MEDS: ATORVASTATIN 40 MG TAB PO SCH (20:24)
[2016-07-17] MEDS: FAMOTIDINE 20 MG TAB PO SCH (20:25)
[2016-07-17] MEDS ORDERED: MIRTAZAPINE 15 MG TAB PO SCH (21:00)
[2016-07-18] MEDS: LEVOTHYROXINE 50 MCG TAB PO SCH (06:00)
[2016-07-18 06:26] LABS: Glucose,Whole Blood 110 mg/dL (75-99)
[2016-07-18] MEDS: LINAGLIPTIN 5 MG TABLET PO SCH (08:11)
[2016-07-18] MEDS: INSULIN LISPRO (humaLOG) 300 UNIT/3 ML VIAL SQ SCH (08:11)
[2016-07-18] MEDS: CLOTRIMAZOLE/BETAMETH 1-0.05% CREAM 45 GM TUBE TOPICAL SCH (08:43)
[2016-07-18] MEDS: FLUoxetine ORAL SOLN 20 MG/5 ML CUP PO SCH (08:43)
[2016-07-18] MEDS: amLODIPine 10 MG TAB PO SCH (08:43)
[2016-07-18] MEDS: FUROSEMIDE 20 MG TAB PO SCH (08:43)
[2016-07-18] MEDS: INSULIN GLARGINE 100 UNIT/ML 10 ML VIAL SQ SCH (08:49)
[2016-07-18] MEDS: ACETAMINOPHEN TAB 325 MG TAB PO PRN (09:55)
[2016-07-18] MEDS: LISINOPRIL 20 MG TAB PO SCH (11:42)
[2016-07-18 11:43] VITALS: BP 138/63; PULSE 66; RESP 20
[2016-07-18] MEDS ORDERED: LORazepam 1 MG TAB PO STA (12:01)
--- NOTE | 2016-07-19 09:35 | DS ---
DATE OF ADMISSION: 06/17/2016 DATE OF DISCHARGE: 07/18/2016 For complete history for admission please refer that to my initial psychiatric evaluation. ADMITTING DIAGNOSES: 1. Major depression, recurrent, with psychotic feature. 2. 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 DISCHARGE DIAGNOSES: 1. Major neurocognitive disorder, mild to moderate with behavior disturbance. 2. Borderline personality. 3. Somatization disorder. Consulting physician: Routine. Consulting provider is Dr. Azar. Consult reason for medical management. Do you want consulting provider notified: She was already notified. For brief admission notes: Patient was transferred from medical unit to the mental health unit on petition and certificate due to agitation and aggressive behavior. For further history, please refer to the admission notes. SUMMARY OF THE HOSPITAL COURSE: The patient was originally admitted to the mental health unit on petition and clinical certificate but she did defer after she met with her audiovisual technician and she did agree to start mood stabilizer to control her aggressive behavior and agitation. Patient was tried on different mood stabilizer including Depakote liquid as she was very resistant to take on oral medication. Throughout her hospitalization, she was on one to one due to unsteady gait. Also she was seen by physical therapy. Patient was on Geodon p.r.n., and Ativan p.r.n. On July 04 patient decided to not be compliant with all her medication including her insulin and blood pressure and staff has to restrain her to give her insulin dose as her blood glucose was above 300. I did contact her guardian a couple of times. In addition, I met with the commercial lending assistant public guardian on July 12. I did explain to them that patient has been declining physically. She does require to go to rehab facility to improve her gait. Patient was very labile and predictable, so she was started on Geodon and she was receptive to oral medication after she was in the court as I did reapply another petition due to her poor compliance with medication. Court hearing was on July 17, 2016 and my recommendation was that the patient has to be forced to take her psychotropic medication even with injection. Number two, to be transferred physical rehab to improve her gait and to show her compliance with the other medication for her medical illness. The disability representative also gave her a court order for outpatient treatment to be sure that she would be compliant. During her stay here, I did realize that the patient has more behavior problem than anything else especially when she was refusing any medication for almost one week from July 04 until July 12 and she was receiving IM injection. At that time I told her that trying to take her to the court to reinforce treatment plan so she did start taking her oral medication. Patient was able to tolerate Prozac liquid 20 mg in the morning and at bedtime, I did give her low dose of Geodon that might need some increase if she gets very agitated, however, adding low dose of Ativan at night in addition to mirtazapine or Remeron it did help the patient to sleep through the night. Patient has been very friendly with me and staff but she gets easily agitated with me and staff. The day of the discharge, she met with her public guardian again and also, I was in the meeting. Patient was getting agitated with her guardian, kept saying, "I'm firing you because I'm not going to the physical rehab". However, when she was told that she has to do this because of the court order, patient was more receptive. The mental status examination at the time of the discharge, patient was alert, was sitting on wheelchair, gives good eye contact. Her speech is spontaneous. She is hard of hearing. Gets easily agitated when she does not get her own way. She needs very firm boundary and limits on her behavior. She denied any psychotic features. She denied any hopeless or helpless feeling. There is no evidence of psychosis. Her insight and judgment are limited. Cognitive ability she scored 20 from 30 throughout her hospitalization. IMPRESSION: 1. Major neurocognitive disorder, mild to moderate with severe behavior disturbance. 2. Cluster B trait. 3. Multiple medical problems that can affect her mental stability. PLAN: Patient was discharged or was transferred to physical rehab facility. Patient to continue on her medication for her medical problem. In addition, I did give her a prescription for every medication and one month supply of Prozac 20 mg in the morning. Geodon 20 mg at bedtime, mirtazapine 7.5 at bedtime and Ativan 0.5 at bedtime to restore her sleep. Prognosis is guarded due to her behavior problem.
== END 2016-07-18 12:05 | DRG 884 ==
LOC: 3MHU 18:42
PROVIDERS: ADMIT Psychiatry & Neurology Psychiatry; ATTEND Psychiatry & Neurology Psychiatry
DX: F01.51 Vascular dementia, unspecified severity, with behavioral disturbance (principal); L89.159 Pressure ulcer of sacral region, unspecified stage; E11.65 Type 2 diabetes mellitus with hyperglycemia; R45.851 Suicidal ideations; Z91.14 Patient's other noncompliance with medication regimen; E78.5 Hyperlipidemia, unspecified; F41.9 Anxiety disorder, unspecified; F45.0 Somatization disorder; F60.3 Borderline personality disorder; G47.33 Obstructive sleep apnea (adult) (pediatric); H91.90 Unspecified hearing loss, unspecified ear; I10 Essential (primary) hypertension; K21.9 Gastro-esophageal reflux disease without esophagitis; Z79.4 Long term (current) use of insulin; Z82.49 Family history of ischemic heart disease and other diseases of the circulatory system; Z85.3 Personal history of malignant neoplasm of breast; Z85.828 Personal history of other malignant neoplasm of skin; Z86.73 Personal history of transient ischemic attack (TIA), and cerebral infarction without residual deficits; Z88.0 Allergy status to penicillin; Z91.19 Patient's noncompliance with other medical treatment and regimen; Z79.899 Other long term (current) drug therapy
CPT/HCPCS: 70450; 71010; 71020; 71250; 72125; 80051; 80053; 80076; 80164; 82140; 82565; 82947; 83036; 84520; 85025; 93005

== ENCOUNTER 2016-10-02 10:10 | Emergency (ER) | payer MEDICARE, BC ==
[2016-10-02 10:18] VITALS: BP 128/68; RESP 18; TEMP 98.8
--- NOTE | 2016-10-02 10:26 | ED ---
Fall HPI - General Chief Complaint: Fall Stated Complaint: Fall Time Seen by Provider: 10/02/16 10:12 Source: patient, EMS, RN notes reviewed Mode of arrival: EMS Limitations: no limitations - History of Present Illness Initial Comments: 75-year-old female presents emergency department via EMS from [facility] for fall. Patient states she quickly came around loss of balance and fell. Patient states she did strike her head. Patient complains of right hip region pain. Patient states that she has no back pain, upper extremity pain other than some abrasions. Patient denies any loss conscious. Patient denies nausea, vomiting, chest pain, shortness breath, fever or chills. She states she's had a cough for the last week or so states she always has a cough around this time of the year secondary to ALLERGIES. Patient did not ambulate after the fall. Patient denies any foot or ankle pain. - Related Data Home Medications Medication Instructions Recorded Confirmed ALPRAZolam [Xanax] 0.5 mg PO QID 10/02/16 10/02/16 Ibuprofen [Motrin] 800 mg PO TID PRN 10/02/16 10/02/16 Insulin Aspart [NovoLOG] 8 unit SQ DAILY@1700 10/02/16 10/02/16 Insulin Glargine,Hum.rec.anlog 28 unit SQ HS 10/02/16 10/02/16 [Lantus Solostar] Levothyroxine Sodium [Synthroid] 100 mcg PO DAILY 10/02/16 10/02/16 Omeprazole 20 mg PO DAILY@1700 10/02/16 10/02/16 PARoxetine HCL [Paxil] 40 mg PO DAILY 10/02/16 10/02/16 sitaGLIPtin [Januvia] 100 mg PO DAILY 10/02/16 10/02/16 Previous Rx's Medication Instructions Recorded Atorvastatin [Lipitor] 40 mg PO HS 30 Days 07/17/16 Furosemide [Lasix] 20 mg PO QAM 30 Days 07/17/16 Lisinopril [Zestril] 20 mg PO BID 30 Days 07/17/16 Mirtazapine [Remeron] 7.5 mg PO HS 30 Days 07/17/16 Ziprasidone [Geodon] 20 mg PO HS 30 Days 07/17/16 amLODIPine [Norvasc] 10 mg PO DAILY 30 Days 07/17/16 Allergies Allergy/AdvReac Type Severity Reaction Status Date / Time Penicillins Allergy Unknown Verified 10/02/16 10:27 strawberry Allergy Rash/Hives Verified 10/02/16 10:27 aspirin AdvReac Severe Chest Pain Verified 10/02/16 10:27 cefuroxime axetil AdvReac Severe Chest Pain Verified 10/02/16 10:27 [From Ceftin] hydrocodone AdvReac Severe Confusion Verified 10/02/16 10:27 Iodinated Contrast Media - AdvReac Unknown Unknown Verified 10/02/16 10:27 Oral and antibiotics-all Allergy Unknown Uncoded 06/18/16 00:23 Review of Systems ROS Statement: Those systems with pertinent positive or pertinent negative responses have been documented in the HPI. ROS Other: All systems not noted in ROS Statement are negative. Past Medical History Past Medical History: Cancer, Diabetes Mellitus, GERD/Reflux, Hearing Disorder / Deafness, Hyperlipidemia, Hypertension, Osteoarthritis (OA), Sleep Apnea/CPAP/ BIPAP, Thyroid Disorder Additional Past Medical History / Comment(s): Skin Cancer -left lower lip, right BREAST CANCER. left eye lid lump removed. SEIZURE WHEN HERE LAST.CATARACTS, UTI,CAREGIVER STATED PT HAS YEAST INFECTION UNDER BREAST AND GROIN FOLDS. History of Any Multi-Drug Resistant Organisms: None Reported Past Surgical History: Breast Surgery Additional Past Surgical History / Comment(s): Removal of skin cancer - left lower lip, [place] BREAST BX, HAD lumped removed from RT breast- THEN. RIGHT MASECTOMY with revision/COMPLICATED BY INFECTION(PER CAREGIVER). Past Anesthesia/Blood Transfusion Reactions: No Reported Reaction Additional Past Anesthesia/Blood Transfusion Reaction / Comment(s): TAKES HER A LONG TIME TO COME OUT ANESTHESIA Past Psychological History: Anxiety, Depression Additional Psychological History / Comment(s): SPOUSE OF 40 YEARS IN , uses cane.PTS STATED LIVES AT THE [facility]. Smoking Status: Never smoker Past Alcohol Use History: None Reported Additional Past Alcohol Use History / Comment(s): Patient states she is a lifelong nonsmoker. She denies any medical marijuana, marijuana, street drug or alcohol use. 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 She denies any recent travel. Her pets in the home. Past Drug Use History: None Reported - Past Family History Father Family Medical History: Coronary Artery Disease (CAD) (Father at age 72 from CAD) Additional Family Medical History / Comment(s): of heart disease Mother Family Medical History: Respiratory Disorder (Mother at the age of 79 from lung disease) Additional Family Medical History / Comment(s): of lung disease Brother(s) Family Medical History: Cancer, Coronary Artery Disease (CAD) Sister(s) Family Medical History: Cancer, Coronary Artery Disease (CAD) Additional Family Medical History / Comment(s): Patient has a nephew who cares for her and she has no children. General Exam General appearance: alert, in no apparent distress Head exam: Present: atraumatic, normocephalic, normal inspection Eye exam: Present: normal appearance, PERRL, EOMI. Absent: scleral icterus, conjunctival injection, periorbital swelling ENT exam: Present: normal exam, normal oropharynx, mucous membranes moist, TM's normal bilaterally, normal external ear exam Neck exam: Present: normal inspection, full ROM. Absent: tenderness, meningismus, lymphadenopathy Respiratory exam: Present: normal lung sounds bilaterally. Absent: respiratory distress, wheezes, rales, rhonchi, stridor Cardiovascular Exam: Present: regular rate, normal rhythm, normal heart sounds. Absent: systolic murmur, diastolic murmur, rubs, gallop, clicks Extremities exam: Present: other (Abrasions noted to bilateral elbow, mild right hip tenderness no shortening or rotation neurovascular intact lower extremities) Back exam: Present: full ROM. Absent: tenderness Neurological exam: Present: alert, oriented X3, CN II-XII intact, reflexes normal. Absent: motor sensory deficit Skin exam: Present: warm, dry, intact, normal color. Absent: rash Course Vital Signs 10/02/16 10/02/16 10:14 11:05 Temperature 98.8 F Pulse Rate 79 82 Respiratory 18 18 Rate Blood Pressure 128/68 O2 Sat by Pulse 92 L 95 Oximetry Medical Decision Making - Medical Decision Making 75-year-old female presented for fall. This was a mechanical fall. Patient x- ray show no acute fracture. Patient be discharged. Patient's CT shows no acute intracranial bleed no fracture of cervical spine. Disposition Clinical Impression: Fall, Abrasions of multiple sites, Multiple contusions Disposition: HOME SELF-CARE Condition: Stable Instructions: Fall Prevention for Older Adults (ED) Additional Instructions: Please return to the Emergency Department if symptoms worsen or any other concerns. Time of Disposition: 11:28
--- NOTE | 2016-10-02 10:44 | CT ---
EXAMINATION TYPE: CT brain lizeth wo con DATE OF EXAM: 10/02/2016 10:39 AM COMPARISON: 07/05/16 HISTORY: Fall CT DLP: [address] of the brain was performed. The ventricles, basal cisterns and sulci overlying the cerebral convexities demonstrate mild enlargem ent. There is no evidence for intracranial hemorrhage or sulcal effacement. There is decreased attenuatio n about the periventricular white matter and deep white matter of both cerebral hemispheres, compatib le with chronic small vessel ischemia. No mass effects are seen. If symptoms persist consider MRI. Osseous calvarium is intact. IMPRESSION: 1. Age related atrophic and chronic small vessel ischemic change without acute intracranial process seen at this time. CT Cervical Spine: Unenhanced CT of the cervical spine was performed with bone and soft tissue window settings submitted . Coronal and sagittal reconstruction is obtained. There is normal alignment and prevertebral soft tissues. No evidence for acute cervical fracture . Scattered degenerative disc disease and spondylosis. Biapical scarring. IMPRESSION: 1. No evidence for acute fracture or subluxation of the cervical spine.
[2016-10-02 11:06] VITALS: PULSE 82
--- NOTE | 2016-10-02 11:21 | XR ---
EXAMINATION TYPE: XR chest 2V DATE OF EXAM: 10/02/2016 10:45 AM COMPARISON: 07/08/2016 HISTORY: 75-year-old female pain TECHNIQUE: Frontal and lateral views FINDINGS: Heart is normal size. Aorta and pulmonary vasculature within normal limits. There is mild hyperinflat ion with mild interstitial prominence. Some patchy left basilar opacities noted. No pleural effusion. IMPRESSION: 1. Chronic-appearing changes, possible underlying COPD. 2. Some patchy left basilar atelectasis or early infiltrate. Clinical correlation.
--- NOTE | 2016-10-02 11:24 | XR ---
EXAMINATION TYPE: AP view pelvis and 2 views right hip. DATE OF EXAM: 10/02/2016 10:45 AM COMPARISON: NONE HISTORY: 75-year-old female with pain after recent fall. FINDINGS: Degenerative changes lower lumbar spine. There is moderate superolateral joint space narrowing of the right hip and mild on the left with marginal spurring. There is osteopenia without displaced fractur e. IMPRESSION: 1. Moderate right and mild left hip degenerative joint space narrowing. 2. Osteopenia without displaced fracture. If patient nonweightbearing and concern for underlying occu lt osseous injury, MRI can provide more sensitive evaluation.
== END 2016-10-02 12:58 | disposition home or self-care (01) ==
LOC: EC 10:10 → EEVIPCON 10:10 → EC 12:58
DX: S50.02XA Contusion of left elbow, initial encounter (principal); S50.01XA Contusion of right elbow, initial encounter; S70.01XA Contusion of right hip, initial encounter; E11.9 Type 2 diabetes mellitus without complications; K21.9 Gastro-esophageal reflux disease without esophagitis; E07.9 Disorder of thyroid, unspecified; F32.9 Major depressive disorder, single episode, unspecified; F41.9 Anxiety disorder, unspecified; Z79.4 Long term (current) use of insulin; Z79.899 Other long term (current) drug therapy; Z88.0 Allergy status to penicillin; Z88.6 Allergy status to analgesic agent; Z91.041 Radiographic dye allergy status; Z88.1 Allergy status to other antibiotic agents; Z88.5 Allergy status to narcotic agent; Z91.018 Allergy to other foods; W01.10XA Fall on same level from slipping, tripping and stumbling with subsequent striking against unspecified object, initial encounter
CPT/HCPCS: 70450; 71020; 72125; 73502; 99284

== ENCOUNTER 2016-10-03 19:52 | Emergency (ER) | payer MEDICARE, BC ==
[2016-10-03 20:48] VITALS: TEMP 98.9
--- NOTE | 2016-10-03 21:02 | XR ---
EXAMINATION TYPE: XR chest 2V DATE OF EXAM: 10/03/2016 8:56 PM COMPARISON: 10/02/2016 HISTORY: Shortness of breath TECHNIQUE: Frontal and lateral views of the chest are obtained. FINDINGS: Scattered senescent parenchymal changes noted. Hyperinflation compatible with COPD. No evidence for infiltrate. No evidence for atelectasis. The heart is enlarged. There is pulmonary venous congestion. Right infrahilar patchy density. Suspect small effusions. Mediastinal structures are stable and grossly unremarkable. No evidence for hilar prominence. Degenerative changes dorsal spine. IMPRESSION: 1. Correlate for mild congestive failure. Infiltrates of other etiology not excluded. Correlate clini jose and progress studies are advised.
[2016-10-03 21:35] LABS: Basophils # (A) 0.1 k/uL (0-0.2); Basophils % (A) 1 %; CH 30.1; CHCM 33.1; Eosinophils # (A) 0.7 k/uL (0-0.7); Eosinophils % (A) 5 %; HCT 37.9 % (34.0-46.0); HDW 2.98; HGB 12.5 gm/dL (11.4-16.0); Luc % (Auto) 1; Lymphocytes # (A) 0.4 k/uL (1.0-4.8); Lymphocytes % (A) 3 %; MCH 30.1 pg (25.0-35.0); MCV 91.1 fL (80.0-100.0); Mean Platelet Volume 8.2; Monocytes # (A) 0.3 k/uL (0-1.0); Monocytes % (A) 3 %; Neutrophils # (A) 11.3 k/uL (1.3-7.7); Neutrophils % (A) 88 %; RBC 4.16 m/uL (3.80-5.40); RDW 13.9 % (11.5-15.5); WBC 12.8 k/uL (3.8-10.6); WBC (Perox) 13.14
[2016-10-03 21:56] LABS: Anion Gap 13 mmol/L; Blood Urea Nitrogen 17 mg/dL (7-17); Calcium 8.8 mg/dL (8.4-10.2); Carbon Dioxide 25 mmol/L (22-30); Chloride 104 mmol/L (98-107); Glucose 87 mg/dL (74-99); Non-African American GFR(MDRD) 59 (>60 ml/min/1.73 sqM); Potassium 3.7 mmol/L (3.5-5.1); Sodium 142 mmol/L (137-145)
[2016-10-03] MEDS ORDERED: LEVOFLOXACIN 750 MG TAB PO STA (22:30)
--- NOTE | 2016-10-03 22:32 | ED ---
General Adult HPI - General Chief complaint: Psychiatric Symptoms Stated complaint: Mental health Time Seen by Provider: 10/03/16 20:00 Source: patient, EMS Mode of arrival: EMS Limitations: physical limitation - Related Data Home Medications Medication Instructions Recorded Confirmed ALPRAZolam [Xanax] 0.5 mg PO QID 10/02/16 10/03/16 Ibuprofen [Motrin] 800 mg PO TID PRN 10/02/16 10/03/16 Insulin Aspart [NovoLOG] 8 unit SQ DAILY@1700 10/02/16 10/03/16 Insulin Glargine,Hum.rec.anlog 28 unit SQ HS 10/02/16 10/03/16 [Lantus Solostar] Levothyroxine Sodium [Synthroid] 100 mcg PO DAILY 10/02/16 10/03/16 Omeprazole 20 mg PO DAILY@1700 10/02/16 10/03/16 PARoxetine HCL [Paxil] 40 mg PO DAILY 10/02/16 10/03/16 sitaGLIPtin [Januvia] 100 mg PO DAILY 10/02/16 10/03/16 Previous Rx's Medication Instructions Recorded Atorvastatin [Lipitor] 40 mg PO HS 30 Days 07/17/16 Furosemide [Lasix] 20 mg PO QAM 30 Days 07/17/16 Lisinopril [Zestril] 20 mg PO BID 30 Days 07/17/16 Mirtazapine [Remeron] 7.5 mg PO HS 30 Days 07/17/16 Ziprasidone [Geodon] 20 mg PO HS 30 Days 07/17/16 amLODIPine [Norvasc] 10 mg PO DAILY 30 Days 07/17/16 Levofloxacin [Levaquin] 750 mg PO DAILY #7 tab 10/03/16 Allergies Allergy/AdvReac Type Severity Reaction Status Date / Time Penicillins Allergy Unknown Verified 10/03/16 20:00 strawberry Allergy Rash/Hives Verified 10/03/16 20:00 aspirin AdvReac Severe Chest Pain Verified 10/03/16 20:00 cefuroxime axetil AdvReac Severe Chest Pain Verified 10/03/16 20:00 [From Ceftin] hydrocodone AdvReac Severe Confusion Verified 10/03/16 20:00 Iodinated Contrast Media - AdvReac Unknown Unknown Verified 10/03/16 20:00 Oral and antibiotics-all Allergy Unknown Uncoded 06/18/16 00:23 Review of Systems ROS Statement: Those systems with pertinent positive or pertinent negative responses have been documented in the HPI. ROS Other: All systems not noted in ROS Statement are negative. Past Medical History Past Medical History: Cancer, Diabetes Mellitus, GERD/Reflux, Hearing Disorder / Deafness, Hyperlipidemia, Hypertension, Osteoarthritis (OA), Sleep Apnea/CPAP/ BIPAP, Thyroid Disorder Additional Past Medical History / Comment(s): Skin Cancer -left lower lip, right BREAST CANCER. left eye lid lump removed. SEIZURE WHEN HERE LAST8.CATARACTS, UTI,CAREGIVER STATED PT HAS YEAST INFECTION UNDER BREAST AND GROIN FOLDS. History of Any Multi-Drug Resistant Organisms: None Reported Past Surgical History: Breast Surgery Additional Past Surgical History / Comment(s): Removal of skin cancer - left lower lip, [place] BREAST BX, HAD lumped removed from RT breast- THEN. RIGHT MASECTOMY with revision/COMPLICATED BY INFECTION(PER CAREGIVER). Past Anesthesia/Blood Transfusion Reactions: No Reported Reaction Additional Past Anesthesia/Blood Transfusion Reaction / Comment(s): TAKES HER A LONG TIME TO COME OUT ANESTHESIA Past Psychological History: Anxiety, Depression Additional Psychological History / Comment(s): SPOUSE OF 40 YEARS IN , uses cane.PTS STATED LIVES AT [facility]. Smoking Status: Never smoker Past Alcohol Use History: None Reported Additional Past Alcohol Use History / Comment(s): Patient states she is a lifelong nonsmoker. She denies any medical marijuana, marijuana, street drug or alcohol use. 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 She denies any recent travel. Her pets in the home. Past Drug Use History: None Reported - Past Family History Father Family Medical History: Coronary Artery Disease (CAD) (Father at age 72 from CAD) Additional Family Medical History / Comment(s): of heart disease Mother Family Medical History: Respiratory Disorder (Mother at the age of 79 from lung disease) Additional Family Medical History / Comment(s): of lung disease Brother(s) Family Medical History: Cancer, Coronary Artery Disease (CAD) Sister(s) Family Medical History: Cancer, Coronary Artery Disease (CAD) Additional Family Medical History / Comment(s): Patient has a nephew who cares for her and she has no children. General Exam Limitations: physical limitation Course Vital Signs 10/03/16 20:38 Temperature 98.9 F Pulse Rate 80 Respiratory 22 Rate Blood Pressure 119/57 O2 Sat by Pulse 94 L Oximetry Medical Decision Making - Lab Data Result diagrams: 10/03/16 21:15 10/03/16 21:15 Lab Results 10/03/16 10/03/16 10/03/16 Range/Units 21:15 21:15 21:15 WBC 12.8 H (3.8-10.6) k/uL RBC 4.16 (3.80-5.40) m/uL Hgb 12.5 (11.4-16.0) gm/dL Hct 37.9 (34.0-46.0) % MCV 91.1 (80.0-100.0) fL MCH 30.1 (25.0-35.0) pg MCHC 33.0 (31.0-37.0) g/dL RDW 13.9 (11.5-15.5) % Plt Count 239 (150-450) k/uL Neutrophils % 88 % Lymphocytes % 3 % Monocytes % 3 % Eosinophils % 5 % Basophils % 1 % Neutrophils # 11.3 H (1.3-7.7) k/uL Lymphocytes # 0.4 L (1.0-4.8) k/uL Monocytes # 0.3 (0-1.0) k/uL Eosinophils # 0.7 (0-0.7) k/uL Basophils # 0.1 (0-0.2) k/uL Sodium 142 (137-145) mmol/L Potassium 3.7 (3.5-5.1) mmol/L Chloride 104 (98-107) mmol/L Carbon Dioxide 25 (22-30) mmol/L Anion Gap 13 mmol/L BUN 17 (7-17) mg/dL Creatinine 0.93 (0.52-1.04) mg/dL Est GFR (MDRD) Af Amer >60 (>60 ml/min/1.73 sqM) Est GFR (MDRD) Non-Af 59 (>60 ml/min/1.73 sqM) Glucose 87 (74-99) mg/dL Calcium 8.8 (8.4-10.2) mg/dL NT-Pro-B Natriuret Pep 129 pg/mL Disposition Clinical Impression: Pneumonia Disposition: HOME SELF-CARE Condition: Fair Instructions: Pneumonia (ED) Prescriptions: Levofloxacin [Levaquin] 750 mg PO DAILY #7 tab Referrals: Ana Luisa Resendiz MD [Primary Care Provider] - 1-2 days
[2016-10-03] MEDS ORDERED: IPRATROPIUM-ALBUTEROL 3 ML NEB INHALATION STA (22:33)
[2016-10-04 02:35] VITALS: BP 141/86; PULSE 80; RESP 20
== END 2016-10-04 02:30 | disposition home or self-care (01) ==
LOC: EC 19:52
DX: J18.9 Pneumonia, unspecified organism (principal); E11.9 Type 2 diabetes mellitus without complications; E07.9 Disorder of thyroid, unspecified; K21.9 Gastro-esophageal reflux disease without esophagitis; F32.9 Major depressive disorder, single episode, unspecified; F41.9 Anxiety disorder, unspecified; Z85.828 Personal history of other malignant neoplasm of skin; Z85.3 Personal history of malignant neoplasm of breast; Z88.0 Allergy status to penicillin; Z88.6 Allergy status to analgesic agent; Z91.041 Radiographic dye allergy status; Z88.1 Allergy status to other antibiotic agents; Z91.018 Allergy to other foods; Z88.8 Allergy status to other drugs, medicaments and biological substances; Z79.4 Long term (current) use of insulin; Z79.899 Other long term (current) drug therapy
CPT/HCPCS: 36415; 71020; 80048; 83880; 85025; 94640; 99285

== ENCOUNTER 2016-10-09 19:47 | Inpatient (IN) | payer MEDICARE, BC ==
[2016-10-09 21:19] LABS: Basophils % (A) 1 %; CH 29.7; CHCM 33.3; Eosinophils # (A) 0.7 k/uL (0-0.7); Eosinophils % (A) 8 %; HCT 35.3 % (34.0-46.0); HDW 3.14; HGB 11.5 gm/dL (11.4-16.0); Luc # (Auto) 0.17; Luc % (Auto) 2; Lymphocytes # (A) 0.6 k/uL (1.0-4.8); Lymphocytes % (A) 7 %; MCH 29.2 pg (25.0-35.0); MCHC 32.6 g/dL (31.0-37.0); MCV 89.6 fL (80.0-100.0); Monocytes # (A) 0.5 k/uL (0-1.0); Monocytes % (A) 6 %; Neutrophils # (A) 6.4 k/uL (1.3-7.7); Neutrophils % (A) 76 %; RBC 3.94 m/uL (3.80-5.40); RDW 13.6 % (11.5-15.5); WBC 8.4 k/uL (3.8-10.6); WBC (Perox) 8.94
[2016-10-09 21:22] LABS: Appearance,Urine Cloudy (Clear); Bacteria,Urine Few /hpf; Bilirubin,Urine Negative (Negative); Glucose,Urine (UA) Negative (Negative); Ketones,Urine Negative (Negative); Leukocyte Esterase,Urine Large (Negative); Mucus,Urine Rare /hpf; Nitrite,Urine Negative (Negative); PH, Urine 5.5 (5.0-8.0); Particle Count 4321; Protein,Urine Trace (Negative); RBC,Urine 3 /hpf (0-5); Specific Gravity,Urine 1.012 (1.001-1.035); Squamous Epithelial Cell,Urine 9 /hpf (0-4); UA Billing (MACRO vs. MICRO) MICRO; Urobilinogen,Urine <2.0 mg/dL (<2.0); WBC,Urine 42 /hpf (0-5)
[2016-10-09 21:31] LABS: ALT 20 U/L (9-52); AST 15 U/L (14-36); Alkaline Phosphatase 107 U/L (38-126); Amylase <30 U/L (30-110); Anion Gap 11 mmol/L; Blood Urea Nitrogen 12 mg/dL (7-17); Calcium 8.5 mg/dL (8.4-10.2); Carbon Dioxide 25 mmol/L (22-30); Chloride 107 mmol/L (98-107); Glucose 114 mg/dL (74-99); Non-African American GFR(MDRD) >60 (>60 ml/min/1.73 sqM); Potassium 3.7 mmol/L (3.5-5.1); Sodium 143 mmol/L (137-145); Total Bilirubin 0.5 mg/dL (0.2-1.3); Total Protein 6.9 g/dL (6.3-8.2)
[2016-10-09] MEDS ORDERED: IBUPROFEN 600 MG TAB PO STA (21:54)
--- NOTE | 2016-10-09 22:13 | ED ---
Abdominal Pain HPI - General Chief Complaint: Abdominal Pain Stated Complaint: left flank pain Time Seen by Provider: 10/09/16 20:23 Source: patient, RN notes reviewed Mode of arrival: EMS Limitations: no limitations - History of Present Illness Initial Comments: Patient is 75-year-old female presents to the emergency room for evaluation of left sided flank pain. Patient is a very poor historian. Patient states she lives in a detention. Patient states that she fell on her left side about 2 days ago. Patient states having increasing pain and bruising at the area. Spoke with nurse at the patient's detention who states that patient fell about 2 days ago. Today patient was evaluated by the physician and told her that she was fine. Patient began complaining of worsening pain tonight an demanded to be sent to the emergency room. Nurse states that patient was beginning to become combative so they called EMS. Patient does have a history of the beginning stages of dementia. Patient was here 2 days ago and was diagnosed with pneumonia. - Related Data Home Medications Medication Instructions Recorded Confirmed ALPRAZolam [Xanax] 0.5 mg PO TID@0700,1300,1900 10/02/16 10/09/16 Ibuprofen [Motrin] 800 mg PO TID PRN 10/02/16 10/09/16 Insulin Aspart [NovoLOG] 8 unit SQ DAILY@169910/02/16 10/09/16 Insulin Glargine,Hum.rec.anlog 28 unit SQ HS@219910/02/16 10/09/16 [Lantus Solostar] Levothyroxine Sodium [Synthroid] 100 mcg PO DAILY@69910/02/16 10/09/16 Omeprazole 20 mg PO DAILY@169910/02/16 10/09/16 PARoxetine HCL [Paxil] 40 mg PO DAILY@0810/02/16 10/09/16 sitaGLIPtin [Januvia] 100 mg PO DAILY@69910/02/16 10/09/16 Atorvastatin [Lipitor] 40 mg PO HS@209910/09/16 10/09/16 Furosemide [Lasix] 20 mg PO DAILY@0710/09/16 10/09/16 Lisinopril [Zestril] 20 mg PO BID@1200,209910/09/16 10/09/16 Mirtazapine [Remeron] 7.5 mg PO HS@2100 10/09/16 10/09/16 Ziprasidone [Geodon] 20 mg PO BID@0800,2000 10/09/16 10/09/16 amLODIPine [Norvasc] 10 mg PO DAILY@0700 10/09/16 10/09/16 Allergies Allergy/AdvReac Type Severity Reaction Status Date / Time Penicillins Allergy Unknown Verified 10/09/16 20:29 strawberry Allergy Rash/Hives Verified 10/09/16 20:29 aspirin AdvReac Severe Chest Pain Verified 10/09/16 20:29 cefuroxime axetil AdvReac Severe Chest Pain Verified 10/09/16 20:29 [From Ceftin] hydrocodone AdvReac Severe Confusion Verified 10/09/16 20:29 Iodinated Contrast Media - AdvReac Unknown Unknown Verified 10/09/16 20:29 Oral and antibiotics-all Allergy Unknown Uncoded 10/09/16 19:55 Review of Systems ROS Statement: Those systems with pertinent positive or pertinent negative responses have been documented in the HPI. ROS Other: All systems not noted in ROS Statement are negative. Past Medical History Past Medical History: Cancer, Diabetes Mellitus, GERD/Reflux, Hearing Disorder / Deafness, Hyperlipidemia, Hypertension, Osteoarthritis (OA), Sleep Apnea/CPAP/ BIPAP, Thyroid Disorder Additional Past Medical History / Comment(s): Skin Cancer -left lower lip, right BREAST CANCER. left eye lid lump removed. SEIZURE WHEN HERE LAST8.CATARACTS, UTI,CAREGIVER STATED PT HAS YEAST INFECTION UNDER BREAST AND GROIN FOLDS. History of Any Multi-Drug Resistant Organisms: None Reported Past Surgical History: Breast Surgery Additional Past Surgical History / Comment(s): Removal of skin cancer - left lower lip, [place] BREAST BX, HAD lumped removed from RT breast- THEN. RIGHT MASECTOMY with revision/COMPLICATED BY INFECTION(PER CAREGIVER). Past Anesthesia/Blood Transfusion Reactions: No Reported Reaction Additional Past Anesthesia/Blood Transfusion Reaction / Comment(s): TAKES HER A LONG TIME TO COME OUT ANESTHESIA Past Psychological History: Anxiety, Depression Additional Psychological History / Comment(s): SPOUSE OF 40 YEARS IN , uses cane.PTS STATED LIVES AT [facility]. Smoking Status: Never smoker Past Alcohol Use History: None Reported Additional Past Alcohol Use History / Comment(s): Patient states she is a lifelong nonsmoker. She denies any medical marijuana, marijuana, street drug or alcohol use. 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 She denies any recent travel. Her pets in the home. Past Drug Use History: None Reported - Past Family History Father Family Medical History: Coronary Artery Disease (CAD) (Father at age 72 from CAD) Additional Family Medical History / Comment(s): of heart disease Mother Family Medical History: Respiratory Disorder (Mother at the age of 79 from lung disease) Additional Family Medical History / Comment(s): of lung disease Brother(s) Family Medical History: Cancer, Coronary Artery Disease (CAD) Sister(s) Family Medical History: Cancer, Coronary Artery Disease (CAD) Additional Family Medical History / Comment(s): Patient has a nephew who cares for her and she has no children. General Exam - General Exam Comments Initial Comments: Sitting in exam room, uncooperative during exam, Limitations: no limitations General appearance: alert, in no apparent distress Head exam: Present: atraumatic, normocephalic, normal inspection Eye exam: Present: normal appearance ENT exam: Present: normal exam Neck exam: Present: normal inspection Respiratory exam: Present: normal lung sounds bilaterally. Absent: respiratory distress Cardiovascular Exam: Present: regular rate, normal rhythm, normal heart sounds GI/Abdominal exam: Present: soft, normal bowel sounds. Absent: distended, tenderness, guarding, rebound, rigid Back exam: Present: CVA tenderness (L) (Ecchymosis over left flank area. Tenderness on palpating over the area. Patient has full range of motion of the hip. No pain on palpating over the abdomen. No rib tenderness.) Neurological exam: Present: alert Psychiatric exam: Present: normal affect Skin exam: Present: warm, dry, intact, normal color. Absent: rash Course Vital Signs 10/09/16 10/10/16 10/10/16 19:55 00:22 02:05 Temperature 98.6 F 98.0 F 97.3 F L Pulse Rate 71 89 64 Respiratory 18 18 18 Rate Blood Pressure 117/52 171/66 120/62 O2 Sat by Pulse 94 L 95 98 Oximetry - Reevaluation(s) Reevaluation #1: 10/10/16 01:18 Patient pulled rolled down and rolled out of bed. Patient states she hit her head. Patient states she's having a headache. No neuro deficits. No loss of consciousness. Medical Decision Making - Medical Decision Making Patient is a 75-year-old female presents to the emergency room for evaluation of left-sided flank pain and bruising. Patient had fallen 2 days ago. Patient was brought here by her detention for increasing pain. Patient noted to have pneumonia which appeared worse from last chest x-ray. Patient had been has already been started on Levaquin. Urinalysis also suspicious for urinary tract infection. Case discussed Dr. Bae. Patient's primary care provider on chart is Dr. Resendiz. Dr. Fisher was contacted by Dr. Bae. Dr. Fisher stated that because patient is in a detention and sees the in house physician there , that patient needs to be admitted under the on-call physician tonpiter. Patient will be admitted for failed outpatient treatment of pneumonia and urinary tract infection. While patient was waiting for bed upstairs, patient pulled on her railing and fell out of the bed. Patient states that she hit her head. Patient denies loss of consciousness. Patient denies any other increasing pain. Brain CT was ordered for patient. Patient refused. Patient has no neuro deficits. - Lab Data Result diagrams: 10/09/16 21:01 10/09/16 21:01 Lab Results 10/09/16 10/09/16 10/09/16 Range/Units 21:01 21:01 21:01 WBC 8.4 (3.8-10.6) k/uL RBC 3.94 (3.80-5.40) m/uL Hgb 11.5 (11.4-16.0) gm/dL Hct 35.3 (34.0-46.0) % MCV 89.6 (80.0-100.0) fL MCH 29.2 (25.0-35.0) pg MCHC 32.6 (31.0-37.0) g/dL RDW 13.6 (11.5-15.5) % Plt Count 259 (150-450) k/uL Neutrophils % 76 % Lymphocytes % 7 % Monocytes % 6 % Eosinophils % 8 % Basophils % 1 % Neutrophils # 6.4 (1.3-7.7) k/uL Lymphocytes # 0.6 L (1.0-4.8) k/uL Monocytes # 0.5 (0-1.0) k/uL Eosinophils # 0.7 (0-0.7) k/uL Basophils # 0.0 (0-0.2) k/uL Sodium 143 (137-145) mmol/L Potassium 3.7 (3.5-5.1) mmol/L Chloride 107 (98-107) mmol/L Carbon Dioxide 25 (22-30) mmol/L Anion Gap 11 mmol/L BUN 12 (7-17) mg/dL Creatinine 0.80 (0.52-1.04) mg/dL Est GFR (MDRD) Af Amer >60 (>60 ml/min/1.73 sqM) Est GFR (MDRD) Non-Af >60 (>60 ml/min/1.73 sqM) Glucose 114 H (74-99) mg/dL Calcium 8.5 (8.4-10.2) mg/dL Total Bilirubin 0.5 (0.2-1.3) mg/dL AST 15 (14-36) U/L ALT 20 (9-52) U/L Alkaline Phosphatase 107 (38-126) U/L Total Protein 6.9 (6.3-8.2) g/dL Albumin 3.4 L (3.5-5.0) g/dL Amylase <30 L (30-110) U/L Lipase 60 (23-300) U/L Urine Color Yellow Urine Appearance Cloudy H (Clear) Urine pH 5.5 (5.0-8.0) Ur Specific [place] 1.012 (1.001-1.035) Urine Protein Trace H (Negative) Urine Glucose (UA) Negative (Negative) Urine Ketones Negative (Negative) Urine Blood Negative (Negative) Urine Nitrite Negative (Negative) Urine Bilirubin Negative (Negative) Urine Urobilinogen <2.0 (<2.0) mg/dL Ur Leukocyte Esterase Large H (Negative) Urine RBC 3 (0-5) /hpf Urine WBC 42 H (0-5) /hpf Ur Squamous Epith Cells 9 H (0-4) /hpf Urine Bacteria Few H (None) /hpf Hyaline Casts 2 (0-2) /lpf Urine Mucus Rare H (None) /hpf - Radiology Data Radiology results: report reviewed, image reviewed Disposition Clinical Impression: Pneumonia, UTI (urinary tract infection) Disposition: ADMITTED IP TO THIS HOSP Condition: Stable Decision Date: 10/09/16
--- NOTE | 2016-10-09 22:34 | XR ---
EXAM: XR Chest, 2 Views CLINICAL HISTORY: Reason: Pain TECHNIQUE: Frontal and lateral views of the chest. COMPARISON: Chest radiography 10/03/16 FINDINGS: Lungs: Vague opacity at the peripheral aspect of the left upper to lower lung. No other airspace disease. Pleural space: Multilevel spine degenerative changes. No pleural effusion or pneumothorax. Heart: Mild cardiomegaly. Mediastinum: No mediastinal or hilar enlargement. Trachea is normal. Bones/joints: Unremarkable. IMPRESSION: Vague opacity at the peripheral aspect of the left upper to lower lung is nonspecific but could represent pneumonia in the right clinical setting. This appears slightly more conspicuous than on the prior examination.
[2016-10-09] MEDS ORDERED: NALOXONE 0.4 MG/ML 1 ML VIAL IV PRN (23:31)
[2016-10-09] MEDS ORDERED: DOXYCYCLINE 100 MG in SODIUM CHLORIDE 0.9% 100 ML IVPB ONE (23:44)
[2016-10-10] MEDS: SODIUM CHLORIDE 0.9% 1,000 ML IV SCH ×2 (00:22→14:37)
[2016-10-10] MEDS: IBUPROFEN 400 MG TAB PO PRN ×2 (02:57→06:28)
[2016-10-10] MEDS ORDERED: LEVOFLOXACIN 500MG-D5W PMX 500 MG in DEXTROSE/WATER 1 100ML.BAG IVPB STA (08:34)
[2016-10-10 08:58] LABS: Basophils % (A) 1 %; CH 29.6; CHCM 32.7; Eosinophils # (A) 0.6 k/uL (0-0.7); Eosinophils % (A) 11 %; HCT 30.7 % (34.0-46.0); HDW 3.11; Hypochromasia Slight; Luc # (Auto) 0.12; Luc % (Auto) 2; Lymphocytes # (A) 0.4 k/uL (1.0-4.8); Lymphocytes % (A) 7 %; MCH 29.3 pg (25.0-35.0); MCHC 32.3 g/dL (31.0-37.0); MCV 90.8 fL (80.0-100.0); Monocytes # (A) 0.4 k/uL (0-1.0); Monocytes % (A) 6 %; Neutrophils # (A) 4.3 k/uL (1.3-7.7); Neutrophils % (A) 74 %; RBC 3.39 m/uL (3.80-5.40); RDW 13.5 % (11.5-15.5); WBC 5.9 k/uL (3.8-10.6)
[2016-10-10 08:59] LABS: ALT 19 U/L (9-52); AST 11 U/L (14-36); Alkaline Phosphatase 90 U/L (38-126); Anion Gap 9 mmol/L; Blood Urea Nitrogen 12 mg/dL (7-17); Calcium 7.8 mg/dL (8.4-10.2); Carbon Dioxide 25 mmol/L (22-30); Chloride 109 mmol/L (98-107); Glucose 115 mg/dL (74-99); HGB 9.9 gm/dL (11.4-16.0); Non-African American GFR(MDRD) >60 (>60 ml/min/1.73 sqM); Potassium 3.4 mmol/L (3.5-5.1); Sodium 143 mmol/L (137-145); Total Bilirubin 0.4 mg/dL (0.2-1.3); Total Protein 5.8 g/dL (6.3-8.2)
[2016-10-10] MEDS ORDERED: ZIPRASIDONE 20 MG CAP PO SCH ×2 (11:36→20:00)
[2016-10-10] MEDS: ALPRAZolam 0.5 MG TAB PO SCH ×2 (11:43→18:09)
[2016-10-10] MEDS: LISINOPRIL 20 MG TAB PO SCH ×2 (11:43→21:21)
[2016-10-10] MEDS: ZIPRASIDONE 20 MG CAP PO SCH ×2 (11:43→19:53)
[2016-10-10 12:38] LABS: Glucose,Whole Blood 118 mg/dL (75-99)
--- NOTE | 2016-10-10 14:01 | P.PN ---
Progress Note - Text IDENTIFYING DATA: Ms Tirado is a 75-year-old woman who has history of dementia with behavioral disturbances. She presented to the emergency room with complaints of pain, a history of falling and increasing aggression and agitation. She was admitted to medicine with diagnosis of pneumonia and a urinary tract infection. HISTORY OF PRESENT ILLNESS: According to the information and medical record she presented for evaluation left flank pain. The ER physician spoke with her nurse at [facility] who reported that she fell 2 days prior to admission. She complained of [facility] at the [facility] and demanded to be sent to the emergency room. She was "beginning to become combative" so the [facility] called EMS. She presented to the ER on October 04 with a history of aggression. She told the EPS nurse that she was upset because of the food at the [facility]p was "terrible". She rdescribed conflict with staff where she "became scared" and grabbed glasses of one of the aides. She perseverated about not being arrested or being sent to longterm. We discharged her back to the [facility]. PAST PSYCHIATRIC HISTORY: She was discharged from psychiatry service on 2016 with diagnoses of major neurocognitive disorder with disturbances. Her psychotropic medications at discharge included Ativan 0.5 mg at bedtime, fluoxetine oral solution 20 mg daily, mirtazapine 7.5 mg at bedtime and Geodon 20 mg at bedtime. MENTAL STATUS EXAM: She presented as a sedated elderly woman who was resting quietly in bed. She was markedly obtunded and unable to provide information. She did not respond to her name but awoke when I shook her. She quickly return to sleep. She has not received a when necessary for sedation but received her scheduled dose of Geodon 20 mg and Xanax 0.5 mg at 1143. IMPRESSIONS: Primary unable to complete a full psychiatric assessment because she is markedly obtunded. She has history of a major neurocognitive disorder with behavioral disturbances in and she is become more agitated and aggressive at the [facility]. I suspect that the change her behaviors are related to the worsening of her physical health. PLAN: Continue current psychotropic medications. Will follow.
--- NOTE | 2016-10-10 15:58 | P.HPIM ---
History of Present Illness H&P Date: 10/10/16 Chief Complaint: Sepsis/UTI, possible left upper lobe pneumonia, advanced dementia, encephal 75-year-old female one of Dr. Azar's patient who was in the hospital last back in June he was in the psych service for over one month she is known to have history of diabetes hypertension hyperlipidemia and chronic history of dementia obstructive sleep apnea hypothyroidism and multiple other who is known to have severe history of dementia and worsening behavioral problem. Patient apparently has been living in assisted living in the last few month she brought to the emergency room for evaluation on 10/09/2016 for not feeling well fever or chills significant change mental status with flank pain as well and worsening cough shortness of breath and hypoxia. Her workup showed positive few a culture was done also chest x-ray showed suspicion for elevation and possible pneumonia in the left upper lobe. Patient was started on IV antibiotics and admitted to the hospital with above problem. Review of Systems Constitutional: Reports anorexia, Reports chronic pain, Reports fatigue, Reports lethargy, Reports malaise, Reports poor appetite, Reports weakness, Reports weight loss, Denies as per HPI, Denies chills, Denies chronic headaches , Denies daytime sleepiness, Denies fever, Denies night sweats, Denies sweats, Denies weight gain Eyes: bilateral as per HPI Ears: bilateral: decreased hearing Ears, nose, mouth and throat: Reports ant. neck pain, Reports nasal congestion, Reports sinus pain, Reports sinus pressure, Denies as per HPI, Denies bleeding gums, Denies dental pain, Denies dysphagia, Denies epistaxis, Denies headache, Denies hoarseness, Denies mouth pain, Denies nasal discharge, Denies neck fullness/pressure, Denies neck lump, Denies nose pain, Denies odynophagia, Denies post-nasal drip, Denies swelling in mouth, Denies swelling in throat, Denies sore throat, Denies vertigo, Denies voice changes Cardiovascular: Reports dyspnea on exertion, Reports orthopnea, Reports paroxysmal nocturnal dyspnea, Denies as per HPI, Denies chest pain, Denies claudication, Denies decreased exercise tolerance, Denies edema, Denies high blood pressure, Denies irregular heart beat, Denies leg edema, Denies lightheadedness, Denies palpitations, Denies phlebitis, Denies rapid heart beat , Denies shortness of breath, Denies syncope Respiratory: Reports congestion, Reports cough, Reports cough with sputum, Reports dyspnea, Denies as per HPI, Denies excessive sputum, Denies hemoptysis, Denies home oxygen, Denies pain, Denies pain on inspiration, Denies pleurisy, Denies respiratory infections, Denies sleep apnea, Denies snoring, Denies wheezing Gastrointestinal: Reports bloating, Reports dyspepsia, Reports early satiety, Reports indigestion, Reports nausea, Denies as per HPI, Denies abdominal pain, Denies belching, Denies BRBPR, Denies change in bowel habits, Denies coffee ground emesis, Denies constipation, Denies diarrhea, Denies excessive gas, Denies heartburn, Denies hematemesis, Denies hematochezia, Denies jaundice, Denies lactose intolerance, Denies loss of appetite, Denies melena, Denies vomiting Genitourinary: Reports nocturia, Reports urgency, Reports urinary frequency, Denies as per HPI, Denies abnormal vaginal bleeding, Denies decreased libido, Denies difficulty conceiving, Denies difficulty voiding, Denies dysmenorrhea, Denies dyspareunia, Denies dysuria, Denies flank pain, Denies genital sores, Denies hematuria, Denies hot flashes, Denies incomplete emptying, Denies kidney stones, Denies menorrhagia, Denies mixed incontinence, Denies pelvic pain, Denies post void dribbling, Denies , Denies prolapse symptoms, Denies stress incontinence, Denies urge incontinence, Denies vaginal discharge, Denies vaginal dryness, Denies vaginal itching, Denies vaginal odor Musculoskeletal: Reports low back pain, Reports muscle cramps, Reports muscle weakness, Reports myalgias, Reports neck pain, Denies as per HPI, Denies arm numbness/tingling, Denies atrophy, Denies fractures, Denies frequent falls, Denies gait dysfunction, Denies hot joints, Denies leg numbness/tingling, Denies limitation of motion, Denies loss of height, Denies morning stiffness, Denies neck stiffness, Denies prior amputations, Denies redness of joints, Denies shooting arm pain, Denies shooting leg pain Musculoskeletal: bilateral: ankle pain Integumentary: Reports rash, Reports sores, Denies as per HPI, Denies acne, Denies boils, Denies brittle nails, Denies change in hair/nails, Denies color changes, Denies darkening of skin, Denies depigmentation, Denies dryness, Denies foot/leg ulcers, Denies growths, Denies hirsutism, Denies lesions, Denies onychomycosis, Denies pruritus, Denies striae, Denies unusual bruising, Denies wounds Neurological: Reports ataxia, Reports tingling, Denies as per HPI, Denies aphasia, Denies balance difficulties, Denies burning pain, Denies change in mentation, Denies change in smell/taste, Denies change in speech, Denies confusion, Denies convulsions, Denies double vision, Denies gait dysfunction, Denies head injury, Denies headaches, Denies hearing difficulties, Denies lack of coordination, Denies loss of vision, Denies memory loss, Denies migraines, Denies motor disturbance, Denies numbness, Denies paralysis, Denies paresthesias , Denies seizures, Denies sensory deficit, Denies spasticity, Denies syncope, Denies tic, Denies transient paralysis, Denies tremors, Denies vertigo, Denies weakness, Denies visual changes Psychiatric: Reports anhedonia, Reports anxiety, Reports anxiety attacks, Reports depression, Reports difficulty concentrating, Reports disorientation, Reports irritability, Reports memory loss, Reports mood swings, Reports paranoia , Reports sadness/tearfulness, Reports sleep disturbances, Denies as per HPI, Denies change in appetite, Denies change in libido, Denies change in sleep habits, Denies confusion, Denies hallucinations, Denies hopelessness, Denies hypersomnia, Denies insomnia, Denies suicidal ideation Endocrine: Reports cold intolerance, Reports deepening of the voice, Reports excessive sweating, Reports fatigue, Reports flushing, Denies as per HPI, Denies excessive thirst, Denies heat intolerance, Denies high blood sugars, Denies increase in ring/shoe/hat size, Denies low blood sugars, Denies nocturia , Denies palpitations, Denies polydipsia, Denies polyphagia, Denies polyuria, Denies proptosis, Denies recent glucocorticoid use, Denies thyroid mass, Denies weight change Hematologic/Lymphatic: Reports easy bruising, Denies as per HPI, Denies easy bleeding, Denies lymphadenopathy, Denies lymphedema, Denies thrombophilia Allergic/Immunologic: Reports allergic rhinitis, Denies as per HPI, Denies anaphylaxis, Denies angioedema, Denies gluten intolerance, Denies persistent infections, Denies seasonal allergies, Denies urticaria, Denies wheezing Past Medical History Past Medical History: Cancer, Diabetes Mellitus, GERD/Reflux, Hearing Disorder / Deafness, Hyperlipidemia, Hypertension, Osteoarthritis (OA), Sleep Apnea/CPAP/ BIPAP, Thyroid Disorder Additional Past Medical History / Comment(s): Skin Cancer -left lower lip, right BREAST CANCER. left eye lid lump removed. SEIZURE WHEN HERE LAST8.CATARACTS, UTI,CAREGIVER STATED PT HAS YEAST INFECTION UNDER BREAST AND GROIN FOLDS. History of Any Multi-Drug Resistant Organisms: None Reported Past Surgical History: Breast Surgery Additional Past Surgical History / Comment(s): Removal of skin cancer - left lower lip, [place] BREAST BX, HAD lumped removed from RT breast- THEN. RIGHT MASECTOMY with revision/COMPLICATED BY INFECTION(PER CAREGIVER). Past Anesthesia/Blood Transfusion Reactions: No Reported Reaction Additional Past Anesthesia/Blood Transfusion Reaction / Comment(s): TAKES HER A LONG TIME TO COME OUT ANESTHESIA Past Psychological History: Anxiety, Depression Additional Psychological History / Comment(s): SPOUSE OF 40 YEARS IN , uses cane.PTS STATED LIVES AT [facility]. Smoking Status: Never smoker Past Alcohol Use History: None Reported Additional Past Alcohol Use History / Comment(s): Patient states she is a lifelong nonsmoker. She denies any medical marijuana, marijuana, street drug or alcohol use. 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 She denies any recent travel. Her pets in the home. Past Drug Use History: None Reported - Past Family History Father Family Medical History: Coronary Artery Disease (CAD) (Father at age 72 from CAD) Additional Family Medical History / Comment(s): of heart disease Mother Family Medical History: Respiratory Disorder (Mother at the age of 79 from lung disease) Additional Family Medical History / Comment(s): of lung disease Brother(s) Family Medical History: Cancer, Coronary Artery Disease (CAD) Sister(s) Family Medical History: Cancer, Coronary Artery Disease (CAD) Additional Family Medical History / Comment(s): Patient has a nephew who cares for her and she has no children. Medications and Allergies Home Medications Medication Instructions Recorded Confirmed Type ALPRAZolam [Xanax] 0.5 mg PO TID@0700,1300,1900 10/02/16 10/09/16 History Ibuprofen [Motrin] 800 mg PO TID PRN 10/02/16 10/09/16 History Insulin Aspart [NovoLOG] 8 unit SQ DAILY@1700 10/02/16 10/09/16 History Insulin Glargine,Hum.rec.anlog 28 unit SQ HS@2200 10/02/16 10/09/16 History [Lantus Solostar] Levothyroxine Sodium [Synthroid] 100 mcg PO DAILY@0700 10/02/16 10/09/16 History Omeprazole 20 mg PO DAILY@1700 10/02/16 10/09/16 History PARoxetine HCL [Paxil] 40 mg PO DAILY@0800 10/02/16 10/09/16 History sitaGLIPtin [Januvia] 100 mg PO DAILY@0700 10/02/16 10/09/16 History Atorvastatin [Lipitor] 40 mg PO HS@209910/09/16 10/09/16 History Furosemide [Lasix] 20 mg PO DAILY@0700 10/09/16 10/09/16 History Lisinopril [Zestril] 20 mg PO BID@1200,2100 10/09/16 10/09/16 History Mirtazapine [Remeron] 7.5 mg PO HS@209910/09/16 10/09/16 History Ziprasidone [Geodon] 20 mg PO BID@0800,199910/09/16 10/09/16 History amLODIPine [Norvasc] 10 mg PO DAILY@0700 10/09/16 10/09/16 History Allergies Allergy/AdvReac Type Severity Reaction Status Date / Time Penicillins Allergy Unknown Verified 10/09/16 20:29 strawberry Allergy Rash/Hives Verified 10/09/16 20:29 aspirin AdvReac Severe Chest Pain Verified 10/09/16 20:29 cefuroxime axetil AdvReac Severe Chest Pain Verified 10/09/16 20:29 [From Ceftin] hydrocodone AdvReac Severe Confusion Verified 10/09/16 20:29 Iodinated Contrast Media - AdvReac Unknown Unknown Verified 10/09/16 20:29 Oral and antibiotics-all Allergy Unknown Uncoded 10/09/16 19:55 Physical Exam Vitals: Vital Signs Temp Pulse Pulse Pulse Resp BP BP 10/10/16 07:00 97.4 F L 57 L 20 133/65 10/10/16 03:06 97.7 F 65 18 123/67 10/10/16 02:05 97.3 F L 64 18 120/62 10/10/16 00:22 98.0 F 89 18 171/66 Pulse Ox 10/10/16 07:00 90 L 10/10/16 03:06 96 10/10/16 02:05 98 10/10/16 00:22 95 Intake and Output 10/09/16 10/10/16 10/10/16 22:59 06:59 14:59 Intake Total 60 Balance 60 Intake: Oral 60 Other: Weight 83 kg - Constitutional General appearance: no average body habitus, no cooperative, disheveled, no mild distress, no morbidly obese, no acute distress, no obese, no severe distress, no thin - EENT Eyes: abnormal pupil, no anicteric sclerae, no disc margins sharp, no edentulous , no EOMI, no PERRLA, no fundus normal, no photophobia, no dentition normal, no poor dentition, no ptosis, no scleral icterus, normal appearance ENT: hard of hearing, no hearing grossly normal, no NA/AT, normal oropharynx, no other, no pharyngeal erythema, no thrush, no tonsillar exudates, no tonsillar swelling - Neck Neck: no lymphadenopathy, normal ROM, no other, no rigidity, no stridor, no thyromegaly Carotids: bilateral: upstroke normal Thyroid: bilateral: normal size - Respiratory Respiratory: left: dullness, rales, rhonchi, bilateral: diminished, wheezing, prolonged expiration - Cardiovascular Rhythm: regular Heart sounds: normal: S1, S2 Abnormal Heart Sounds: systolic murmur, S3 Gallop - Gastrointestinal General gastrointestinal: no absent bowel sounds, no decreased bowel sounds, distended, no hepatomegaly, no hyperactive bowel sounds, no normal bowel sounds , no organomegaly, no rigid, no scaphoid, soft, no splenomegaly, no tenderness, no umbilical hernia, no ventral hernia - Integumentary Integumentary: no calor, no cellulitis, no cyanotic, no decreased turgor, no flushed, no jaundiced, normal, no normal turgor, pale, rash, no ulcer - Neurologic Neurologic: CNII-XII intact - Musculoskeletal Musculoskeletal: no gait normal, generalized weakness, strength equal bilaterally, no right sided weakness, no left sided weakness - Psychiatric Psychiatric: no A&O x's 3, no appropriate affect, no intact judgment & insight Results CBC & Chem 7: 10/10/16 08:33 10/10/16 08:33 Thrombosis Risk Factor Assmnt - DVT/VTE Prophylaxis DVT/VTE Prophylaxis: Pharmacologic Prophylaxis ordered, Mechanical Prophylaxis ordered - Choose All That Apply Any of the Below Risk Factors Present?: Yes Each Factor Represents 1 point: Obesity (BMI >25), Serious lung disease incl. pneumonia (< 1month) Other Risk Factors: Yes Each Risk Factor Represents 2 Points: Patient confined to bed Each Risk Factor Represents 3 Points: Age 75 years or older Thrombosis Risk Factor Assessment Total Risk Factor Score: 7 Thrombosis Risk Factor Assessment Level: High Risk Assessment and Plan Plan: 1 sepsis/SIRS: Combination of UTI and possible pneumonia with her current symptoms including change of mental status positive few a mild tachycardia mild hypoxia continued to treat patient patient was giving doxycycline in the emergency room will continue patient on Levaquin and if possible Rocephin. 2 UTI: UA was positive awaiting for the final culture patient will be on Levaquin and possible Rocephin. 3 left upper lobe pneumonia: We'll continue patient on O2 antibiotics and updraft treatment. 4 dementia and worsening behavioral problem: Patient has been on Geodon, Paxil, Remeron and continue to see psych on regular basis. 5 diabetes: Patient is on Januvia along with NovoLog 8 units before meals meals and long acting Lantus 28 units daily resume both medication. 6 mild systolic congestive heart failure: Chronic has been on Zestril and furosemide continue medication. 7 hypertension: Remain on Norvasc 10 mg a day Zestril 20 mg twice a day with good result so far. 8 hyperlipidemia: Continue Lipitor at 40 mg daily. 9 severe GERD: Continue patient on omeprazole 20 mg daily. 10 history of seizure: With no seizure activity lately he has been off Lamictal. 11 history of breast cancer has been off for lately. 12 hypothyroidism: Patient was on levothyroxine 50 g previously we'll resume medication hopefully. 13 chronic neuropathy: Has been on gabapentin 100 mg twice a day medication has been stopped since she left the psych unit last time. 14 DVT prophylaxis: Patient will be on heparin subcutaneous. 15 GI prophylaxis: Patient will be on omeprazole 20 mg daily. CODE STATUS full code. Expectation from this admission: Patient be in the hospital for more than 2 nights.
[2016-10-10 17:20] LABS: Glucose,Whole Blood 123 mg/dL (75-99)
[2016-10-10] MEDS: INSULIN LISPRO (humaLOG) 300 UNIT/3 ML VIAL SQ SCH (17:28)
[2016-10-10] MEDS: IBUPROFEN 800 MG TAB PO PRN (18:09)
[2016-10-10] MEDS: PANTOPRAZOLE 40 MG TABLET PO SCH (18:09)
[2016-10-10] MEDS: MIRTAZAPINE 15 MG TAB PO SCH (19:52)
[2016-10-10] MEDS: ATORVASTATIN 40 MG TAB PO SCH (19:53)
[2016-10-10] MEDS ORDERED: HALOPERIDOL LACTATE 5 MG/ML 1 ML VIAL IM PRN (20:08)
[2016-10-10 21:25] LABS: Glucose,Whole Blood 172 mg/dL (75-99)
[2016-10-10] MEDS: INSULIN GLARGINE 100 UNIT/ML 10 ML VIAL SQ SCH (21:25)
[2016-10-11 07:49] LABS: Glucose,Whole Blood 114 mg/dL (75-99)
[2016-10-11] MEDS: amLODIPine 10 MG TAB PO SCH (08:12)
[2016-10-11] MEDS: LINAGLIPTIN 5 MG TABLET PO SCH (08:12)
[2016-10-11] MEDS: FUROSEMIDE 20 MG TAB PO SCH (08:12)
[2016-10-11] MEDS: LEVOTHYROXINE 100 MCG TAB PO SCH (08:13)
[2016-10-11] MEDS: ZIPRASIDONE 20 MG CAP PO SCH ×2 (08:13→22:34)
[2016-10-11] MEDS: PARoxetine 20 MG TAB PO SCH (08:13)
[2016-10-11] MEDS: ALPRAZolam 0.5 MG TAB PO SCH ×4 (08:13→22:34)
[2016-10-11] MEDS: IBUPROFEN 800 MG TAB PO PRN ×2 (08:20→15:48)
[2016-10-11] MEDS: LEVOFLOXACIN 500 MG TAB PO SCH (08:58)
[2016-10-11 12:22] LABS: Glucose,Whole Blood 146 mg/dL (75-99)
[2016-10-11] MEDS: LISINOPRIL 20 MG TAB PO SCH ×2 (13:10→22:35)
[2016-10-11 17:35] LABS: Glucose,Whole Blood 182 mg/dL (75-99)
[2016-10-11] MEDS: PANTOPRAZOLE 40 MG TABLET PO SCH (17:58)
[2016-10-11] MEDS: INSULIN LISPRO (humaLOG) 300 UNIT/3 ML VIAL SQ SCH (18:37)
[2016-10-11 21:43] LABS: Glucose,Whole Blood 125 mg/dL (75-99)
[2016-10-11] MEDS: MIRTAZAPINE 15 MG TAB PO SCH (22:34)
[2016-10-11] MEDS: ATORVASTATIN 40 MG TAB PO SCH (22:35)
[2016-10-12] MEDS: INSULIN GLARGINE 100 UNIT/ML 10 ML VIAL SQ SCH (00:44)
[2016-10-12] MEDS: FUROSEMIDE 20 MG TAB PO SCH (06:43)
[2016-10-12] MEDS: LINAGLIPTIN 5 MG TABLET PO SCH (06:43)
[2016-10-12] MEDS: LEVOTHYROXINE 100 MCG TAB PO SCH (06:43)
[2016-10-12] MEDS: amLODIPine 10 MG TAB PO SCH (06:44)
[2016-10-12 07:25] LABS: Glucose,Whole Blood 99 mg/dL (75-99)
[2016-10-12] MEDS: ALPRAZolam 0.5 MG TAB PO SCH ×2 (07:54→13:32)
[2016-10-12] MEDS: LEVOFLOXACIN 500 MG TAB PO SCH (07:54)
[2016-10-12] MEDS: ZIPRASIDONE 20 MG CAP PO SCH (07:54)
[2016-10-12] MEDS: PARoxetine 20 MG TAB PO SCH (07:54)
[2016-10-12 08:36] LABS: Basophils # (A) 0.1 k/uL (0-0.2); Basophils % (A) 1 %; CH 29.4; CHCM 32.6; Eosinophils # (A) 0.6 k/uL (0-0.7); Eosinophils % (A) 9 %; HCT 39.6 % (34.0-46.0); HDW 3.15; HGB 12.4 gm/dL (11.4-16.0); Hypochromasia Slight; Luc % (Auto) 2; Lymphocytes # (A) 0.5 k/uL (1.0-4.8); Lymphocytes % (A) 9 %; MCH 28.4 pg (25.0-35.0); MCHC 31.3 g/dL (31.0-37.0); MCV 90.6 fL (80.0-100.0); Mean Platelet Volume 8.5; Monocytes # (A) 0.4 k/uL (0-1.0); Monocytes % (A) 7 %; Neutrophils # (A) 4.6 k/uL (1.3-7.7); Neutrophils % (A) 73 %; RBC 4.37 m/uL (3.80-5.40); RDW 13.5 % (11.5-15.5); WBC 6.2 k/uL (3.8-10.6); WBC (Perox) 6.33
[2016-10-12 09:06] LABS: Anion Gap 10 mmol/L; Blood Urea Nitrogen 15 mg/dL (7-17); Calcium 8.8 mg/dL (8.4-10.2); Carbon Dioxide 25 mmol/L (22-30); Chloride 109 mmol/L (98-107); Glucose 125 mg/dL (74-99); Non-African American GFR(MDRD) >60 (>60 ml/min/1.73 sqM); Potassium 3.8 mmol/L (3.5-5.1); Sodium 144 mmol/L (137-145)
[2016-10-12 11:31] LABS: Glucose,Whole Blood 177 mg/dL (75-99)
[2016-10-12] MEDS: LISINOPRIL 20 MG TAB PO SCH (11:32)
--- NOTE | 2016-10-12 14:45 | PN ---
DATE OF SERVICE: 10/11/2016 INTERVAL HISTORY: Ms. Tirado is a 75-year-old female with known history of dementia with major neurocognitive disorder and behavioral disturbance, hypothyroidism, obstructive sleep apnea and multiple other medical problems, was brought to the hospital for not feeling well and fever and chills and change in mental status with left flank pain and worsening cough and sputum production and hypoxia. Patient was found to have acute urinary tract infection but the urine cultures showed multiple laura, possible contaminant sample. Patient also found to have pneumonia and is currently on antibiotics in the form levofloxacin. Patient refused to take IV pain medications and currently placed on p.o. levofloxacin. Patient was seen by Psychiatry as well. Patient was started back on her psychotropic medications. Complete review of systems could not be obtained on the patient. Otherwise, patient denied any complaints of chest pain, tolerating a p.o. diet. Patient was restrained overnight and which has been released today. Social Work is following for facility with continuous monitoring, possibly extended care facility. CURRENT MEDICATIONS: Reviewed. PHYSICAL EXAMINATION: A 75-year-old female lying in the bed comfortably, awake, alert, oriented x2 to 3. Appears to be in no apparent distress. VITALS: Blood pressure is 134/64, pulse is 61, respirations 18, temperature afebrile, pulse ox 95% on room air. HEENT: Atraumatic, normocephalic. Neck is supple. No JVD. CVS EXAM: S1, S2 heard. No murmurs, no gallop. LUNGS: Bilateral air entry is present. No wheezing. No crackles. Decreased breath sounds bilateral basally. Nonlabored breathing. Abdomen is soft, nontender. Bowel sounds are present. 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 EXTREMITIES: No edema. Pulses are palpable and bilaterally. No clubbing or cyanosis. PSYCHIATRIC: Cooperative. LABORATORY DATA: Reviewed. IMPRESSION: 1. Acute urinary tract infection and possible pneumonia. 2. Altered mental status, possible exacerbated due to underlying infection. 3. Dementia with acute behavioral changes. 4. Restrictive left upper lobe pneumonia. 5. Chronic neurocognitive impairment and ( ), currently at [facility] home. 6. Diabetes mellitus type 2, insulin dependent. Patient is on Januvia as well. 7. Hypertension. 8. Hyperlipidemia. 9. Gastroesophageal reflux disease. 10. History of seizure disorder, no recent seizure activity noted. Currently off antiepileptic medications. 11. History of breast cancer. 12. Hypothyroidism. 13. Peripheral neuropathy, diabetic. 14. Gastrointestinal and deep venous thrombosis prophylaxis. 15. CODE STATUS is FULL. DISCUSSION AND PLAN: Patient will be continued on antibiotics in the form of levofloxacin and continue the home medications. Continue the blood pressure medications and insulin dosing and followup closely. Urine cultures showed multiple organisms, possible contaminant sample. Patient clinically improved, hence may transfer to extended-care facility in the next 1 or 2 days.
[2016-10-12] MEDS: IBUPROFEN 800 MG TAB PO PRN (15:09)
[2016-10-12] MEDS: PANTOPRAZOLE 40 MG TABLET PO SCH (15:09)
[2016-10-12 17:07] LABS: Glucose,Whole Blood 160 mg/dL (75-99)
[2016-10-12] MEDS: INSULIN LISPRO (humaLOG) 300 UNIT/3 ML VIAL SQ SCH (17:46)
[2016-10-12] MEDS ORDERED: LISINOPRIL 20 MG TAB ONE (22:00)
[2016-10-12] MEDS ORDERED: ATORVASTATIN 40 MG TAB ONE (22:00)
[2016-10-12] MEDS ORDERED: INSULIN GLARGINE 100 UNIT/ML 10 ML VIAL SQ ONE (22:00)
[2016-10-12] MEDS ORDERED: ALPRAZolam 0.5 MG TAB ONE (22:00)
[2016-10-12] MEDS ORDERED: ZIPRASIDONE 20 MG VIAL IM ONE (22:00)
[2016-10-12] MEDS ORDERED: MIRTAZAPINE 15 MG TAB ONE (22:00)
[2016-10-12 23:05] LABS: Glucose,Whole Blood 205 mg/dL (75-99)
[2016-10-13 07:31] LABS: Glucose,Whole Blood 121 mg/dL (75-99)
[2016-10-13] MEDS: ZIPRASIDONE 20 MG CAP PO SCH ×3 (08:07→21:42)
[2016-10-13] MEDS: INSULIN GLARGINE 100 UNIT/ML 10 ML VIAL SQ SCH ×2 (08:07→21:42)
[2016-10-13] MEDS: ALPRAZolam 0.5 MG TAB PO SCH ×4 (08:07→21:41)
[2016-10-13] MEDS: ATORVASTATIN 40 MG TAB PO SCH ×2 (08:07→21:42)
[2016-10-13] MEDS: LISINOPRIL 20 MG TAB PO SCH ×3 (08:07→21:42)
[2016-10-13] MEDS: MIRTAZAPINE 15 MG TAB PO SCH ×2 (08:07→21:41)
[2016-10-13] MEDS: amLODIPine 10 MG TAB PO SCH (09:30)
[2016-10-13] MEDS: FUROSEMIDE 20 MG TAB PO SCH (09:30)
[2016-10-13] MEDS: LEVOTHYROXINE 100 MCG TAB PO SCH (09:31)
[2016-10-13] MEDS: LINAGLIPTIN 5 MG TABLET PO SCH (09:31)
[2016-10-13] MEDS: LEVOFLOXACIN 500 MG TAB PO SCH (09:31)
[2016-10-13] MEDS: PARoxetine 20 MG TAB PO SCH (09:31)
--- NOTE | 2016-10-13 09:35 | XR ---
EXAMINATION TYPE: XR abdomen 2V DATE OF EXAM: 10/13/2016 9:17 AM COMPARISON: NONE HISTORY: Pain TECHNIQUE: One view abdominal series FINDINGS: Left lower lobe infiltrate and small effusion. Contained debris throughout the entire colon correlate for constipation or fecal impaction. Arthropathy of the hips. IMPRESSION: 1. Significant retained fecal debris correlate for constipation. 2. Left basilar atelectasis or infiltrate with tiny effusion.
--- NOTE | 2016-10-13 09:37 | US ---
EXAMINATION TYPE: US kidneys/renal and bladder DATE OF EXAM: 10/13/2016 9:00 AM COMPARISON: CT 2016 CLINICAL HISTORY: left flank pain; diabetic per patient history EXAM MEASUREMENTS: Right Kidney: 10.9 x 4.3 x 3.8 cm Left Kidney: 10.0 x 5.6 x 5.7 cm Post Void Residual Volume: not assessed on inpatient Right Kidney: mid pole cortical cyst = 0.8 x 0.6 x 0.6cm Left Kidney: No hydronephrosis or masses seen Bladder: wnl Bilateral Jets seen: Yes IMPRESSION: Mid pole hypoechoic nodule is indeterminate. Small solid lesion not excluded. No hydronephrosis or ne phrolithiasis.
[2016-10-13 12:35] LABS: Glucose,Whole Blood 234 mg/dL (75-99)
[2016-10-13] MEDS ORDERED: LACTULOSE 20 GM/30 ML CUP PO PRN (13:57)
[2016-10-13 17:34] LABS: Glucose,Whole Blood 274 mg/dL (75-99)
[2016-10-13] MEDS: INSULIN LISPRO (humaLOG) 300 UNIT/3 ML VIAL SQ SCH (17:55)
[2016-10-13] MEDS: PANTOPRAZOLE 40 MG TABLET PO SCH (17:55)
[2016-10-13 22:14] LABS: Glucose,Whole Blood 129 mg/dL (75-99)
--- NOTE | 2016-10-14 07:15 | PN ---
DATE OF SERVICE: 10/13/2016 INTERVAL HISTORY: Ms. Tirado is a 75-year-old female with a known history of underlying neurocognitive disorder, hypothyroidism, obstructive sleep apnea and multiple other medical problems including dementia, admitted to the hospital with complaints of not feeling well and fever and chills and also complaints of left flank pain. Patient is currently being treated for urinary tract infection. Urine culture showed skin laura. The patient does not have any leukocytosis. Patient had ultrasound of the kidney showed mid pole hypoechoic nodule is indeterminate, small solid lesion not excluded. No hydronephrosis or nephrolithiasis noted. Abdominal x-ray showed significant retained fecal debris, correlate for constipation. Left basilar atelectasis or infiltrate with tiny effusion. Patient otherwise denied any complaints of fever or chills. No acute overnight issues. CURRENT MEDICATIONS: Reviewed. PHYSICAL EXAMINATION: A 75-year-old female, sitting up in a chair, comfortable, Awake, alert, oriented x2 to 3. Appears to be in no apparent distress. VITALS: Blood pressure is 112/58, pulse is 62, respiration 19, temperature afebrile, pulse ox 97% on room air. HEENT: Atraumatic, normocephalic. Neck is supple. No JVD. CVS EXAM: S1, S2 heard. No murmurs, no gallop, no rub. LUNGS: Bilateral air entry is present. No wheezing, no crackles. Nonlabored breathing. ABDOMEN: Soft, nontender. Bowel sounds are present. EXTREMITIES: No edema. Pulses palpable bilaterally. No clubbing or cyanosis. PSYCHIATRIC: Cooperative. ACID LEVELER: Awake, alert, oriented x2 to 3. Able to move all her extremities. IMPRESSION: 1. Acute urinary tract infection. 2. Acute left lower lobe pneumonia. 3. Altered mental status secondary to metabolic encephalopathy due to infection, improved at this time. 4. Dementia with acute behavioral change, improved now. 5. Left flank pain, mostly due to constipation. 6. Chronic neurocognitive impairment. Continue with antipsychotic medications that she has been taking at the [facility] home, stable now. Patient was seen by Psychiatry. 7. Diabetes type 2, insulin dependent, as well as on Januvia. 8. Hypertension, controlled. 9. Hyperlipidemia. 10. Gastroesophageal reflux disease. 11. History of seizure disorder, not on any medication at this time. No seizure activity ( ). 12. History of breast cancer. 13. Hypothyroidism. 14. Diabetic peripheral neuropathy. 15. Gastrointestinal and deep venous thrombosis prophylaxis. 16. Code status is FULL. DISCUSSION AND PLAN: Patient will be continued on antibiotics in the form of levofloxacin ( ) skin laura. Will continue the levofloxacin for pneumonia as well. Patient will be added on lactulose and ( ) for constipation and enema if required. Will continue the current management and follow up closely. Further recommendations based the clinical course.
[2016-10-14 08:08] LABS: Glucose,Whole Blood 143 mg/dL (75-99)
[2016-10-14] MEDS: FUROSEMIDE 20 MG TAB PO SCH (08:18)
[2016-10-14] MEDS: PARoxetine 20 MG TAB PO SCH (08:18)
[2016-10-14] MEDS: LINAGLIPTIN 5 MG TABLET PO SCH (08:18)
[2016-10-14] MEDS: ZIPRASIDONE 20 MG CAP PO SCH ×2 (08:18→21:23)
[2016-10-14] MEDS: ALPRAZolam 0.5 MG TAB PO SCH ×3 (08:18→18:42)
[2016-10-14] MEDS: amLODIPine 10 MG TAB PO SCH (08:18)
[2016-10-14] MEDS: LEVOFLOXACIN 500 MG TAB PO SCH (08:18)
[2016-10-14] MEDS: LEVOTHYROXINE 100 MCG TAB PO SCH (08:19)
[2016-10-14 11:53] LABS: Glucose,Whole Blood 255 mg/dL (75-99)
[2016-10-14] MEDS ORDERED: POLYETHYLENE GLYCOL 3350 17 GM POWD.PACK PO STA (12:25)
[2016-10-14] MEDS: LISINOPRIL 20 MG TAB PO SCH ×2 (12:42→21:23)
--- NOTE | 2016-10-14 16:45 | PN ---
DATE OF SERVICE: 10/12/2016 INTERVAL HISTORY: Ms. Tirado is a 75-year-old female with known history of dementia with major neurocardiogenic disorder and behavioral disturbance and hypothyroidism and obstructive sleep apnea and multiple other medical problems who was brought to the hospital for not feeling well with fever and chills and altered mental status. Patient today is also complaining of left flank pain. Also the chest x-ray was ordered. Otherwise patient is being treated for pneumonia left-sided to levofloxacin. Denied any nausea or vomiting. Patient is tolerating p.o. diet. No complaints of short of breath. No acute overnight issues. Complete review of systems negative as above. Patient is currently not agitated and is taking her medications. No acute overnight issues. CURRENT MEDICATIONS: Reviewed. PHYSICAL EXAMINATION: A 75-year-old female lying in bed comfortably, awake, alert, oriented x2 to 3, appears to be in no apparent distress. VITALS: Blood pressure is 125/79, pulse is 54, respirations 18, temperature afebrile, pulse ox 95% on room air. HEENT: Atraumatic, normocephalic. Neck is supple. No JVD. CVS: S1, S2 heard. No murmurs, no gallop, no rub. LUNGS: Bilateral air entry is present. No wheezing. No crackles. Nonlabored breathing. ABDOMEN: Soft, nontender, bowel sounds present. 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 No focal deficit. EXTREMITIES: No edema. Pulses palpable bilaterally. No clubbing or cyanosis. PSYCHIATRIC: Cooperative. LABORATORY DATA: WBC 6.2, hemoglobin 12.4, platelets 256, sodium 144, potassium 3.8, chloride 109, bicarb 25, BUN 15, creatinine 0.6, calcium 8.8. IMPRESSION: 1. Acute urinary tract infection and left lower lobe pneumonia. Continue the levofloxacin at this time. 2. Altered mental status, possible metabolic encephalopathy due to infection, improved now. 3. Dementia with acute behavioral changes. 4. Chronic neurocognitive impairment and behavioral changes, [facility] 5. Left upper lobe pneumonia. 6. Hypertension. 7. Hyperlipidemia. 8. Diabetes type 2 insulin-dependent. The patient is on Januvia as well. 9. Gastroesophageal reflux disease. 10. History of seizure disorder. No recent seizure activity noted. Currently off antiepileptic drugs. 11. History of breast cancer. 12. Hypothyroidism. 13. Peripheral neuropathy, diabetic. 14. Gastrointestinal and deep venous thrombosis prophylaxis. 15. Code status is full. DISCUSSION AND PLAN: Patient will be continue don levofloxacin. Urine culture showed multiple organisms, possible contaminant sample. Patient still complaining of left flank pain and lower ribcage pain possibly due to constipation and will check abdominal x-ray as well as ultrasound. Will follow closely. Further recommendations based on clinical course. Anticipate discharge to extended care facility. PIYUSH
[2016-10-14 16:58] LABS: Glucose,Whole Blood 266 mg/dL (75-99)
[2016-10-14] MEDS: IBUPROFEN 800 MG TAB PO PRN (17:17)
[2016-10-14] MEDS: PANTOPRAZOLE 40 MG TABLET PO SCH (17:55)
[2016-10-14] MEDS: INSULIN LISPRO (humaLOG) 300 UNIT/3 ML VIAL SQ SCH (17:55)
[2016-10-14 20:51] LABS: Glucose,Whole Blood 219 mg/dL (75-99)
[2016-10-14] MEDS: ATORVASTATIN 40 MG TAB PO SCH (21:23)
[2016-10-14] MEDS: MIRTAZAPINE 15 MG TAB PO SCH (21:23)
[2016-10-14] MEDS: INSULIN GLARGINE 100 UNIT/ML 10 ML VIAL SQ SCH (21:30)
[2016-10-15 07:23] LABS: Glucose,Whole Blood 136 mg/dL (75-99)
[2016-10-15] MEDS: PARoxetine 20 MG TAB PO SCH (07:37)
[2016-10-15] MEDS: ALPRAZolam 0.5 MG TAB PO SCH ×2 (07:37→12:00)
[2016-10-15] MEDS: FUROSEMIDE 20 MG TAB PO SCH (07:37)
[2016-10-15] MEDS: LINAGLIPTIN 5 MG TABLET PO SCH (07:37)
[2016-10-15] MEDS: ZIPRASIDONE 20 MG CAP PO SCH (07:37)
[2016-10-15] MEDS: amLODIPine 10 MG TAB PO SCH (07:37)
[2016-10-15] MEDS: LEVOFLOXACIN 500 MG TAB PO SCH (07:37)
[2016-10-15] MEDS: LEVOTHYROXINE 100 MCG TAB PO SCH (07:37)
[2016-10-15] MEDS: IBUPROFEN 800 MG TAB PO PRN (07:37)
[2016-10-15 09:56] LABS: Basophils # (A) 0.1 k/uL (0-0.2); Basophils % (A) 1 %; CH 29.5; CHCM 32.3; Eosinophils # (A) 0.9 k/uL (0-0.7); Eosinophils % (A) 11 %; HCT 35.3 % (34.0-46.0); HDW 2.99; HGB 11.3 gm/dL (11.4-16.0); Hypochromasia Slight; Luc # (Auto) 0.12; Luc % (Auto) 2; Lymphocytes # (A) 0.6 k/uL (1.0-4.8); Lymphocytes % (A) 8 %; MCH 29.3 pg (25.0-35.0); MCV 91.7 fL (80.0-100.0); Mean Platelet Volume 8.2; Monocytes # (A) 0.4 k/uL (0-1.0); Monocytes % (A) 5 %; Neutrophils % (A) 75 %; RBC 3.85 m/uL (3.80-5.40); RDW 13.6 % (11.5-15.5); WBC (Perox) 8.54
[2016-10-15 10:16] LABS: Anion Gap 8 mmol/L; Blood Urea Nitrogen 18 mg/dL (7-17); Calcium 8.5 mg/dL (8.4-10.2); Carbon Dioxide 28 mmol/L (22-30); Chloride 106 mmol/L (98-107); Glucose 217 mg/dL (74-99); Non-African American GFR(MDRD) >60 (>60 ml/min/1.73 sqM); Sodium 142 mmol/L (137-145)
[2016-10-15 11:36] LABS: Glucose,Whole Blood 279 mg/dL (75-99)
[2016-10-15] MEDS: LISINOPRIL 20 MG TAB PO SCH (12:00)
--- NOTE | 2016-10-15 12:37 | PN ---
DATE OF SERVICE: 10/14/2016 Ms. Tirado is a 75-year-old female with known history of underlying neuro cognitive disorder and hypothyroidism and obstructive sleep apnea and multiple other medical problems, admitted to the hospital with complaints of not feeling well, fever or chills and complaints of left flank pain. The patient was found to have urinary tract infection, urine culture showed skin laura. Otherwise, the patient also having left lower lobe pneumonia. Currently on Levofloxacin. Patient was constipated and that patient had BM yesterday. Otherwise, the patient still complaining of left lower quadrant pain. Abdominal x-ray showed constipation. The patient will be given Miralax again today. Continued on lactulose. Otherwise the patient is stable for discharge to extended care facility in next 24 hours. No complaints of chest pain. No shortness of breath. No fever. No chills. No acute overnight issues. Complete review of systems could not be obtained from the patient. CURRENT MEDICATIONS: Reviewed. PHYSICAL EXAMINATION: A 75 -year-old female lying in bed comfortably, awake, alert, oriented x3. Appears to be in no apparent distress. VITALS: Blood pressure is 134/57, pulse is 58, respirations 16, temperature afebrile. Pulse ox 95% on room air. HEENT: Atraumatic, normocephalic. Neck is supple. No JVD. CVS: S1, S2 heard. No murmurs. LUNGS: Bilateral air entry is present. No wheezing. No crackles. ABDOMEN: Soft, nontender. Bowel sounds present. ( ) No guarding. No rigidity. No guarding or rigidity. 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 EXTREMITIES: No edema. Pulses palpable bilaterally. No clubbing or cyanosis. PSYCHIATRY: Cooperative. LABORATORY DATA: Reviewed. IMPRESSION: 1. Left upper quadrant pain most likely due to constipation, as well as left lower lobe pneumonia. Continue stool softeners and continue with antibiotics. 2. Acute urinary tract infection. Urine culture showed skin laura. 3. Acute left lower lobe pneumonia negative. 4. Altered mental status secondary to acute metabolic encephalopathy due to infection, improved now. 5. Dementia with acute behavioral change, improved now. 6. Chronic neurocognitive impairment, continue antipsychotic medications as she has been taking at [facility] home. Stable now. Patient was seen by psychiatry. 7. Type 2 diabetes mellitus, insulin-dependent as well as Januvia. 8. Hypertension. 9. Hyperlipidemia. 10. Gastroesophageal reflux disease. 11. History of seizure disorder, not on any antiepileptic drugs at this time. 12. No seizure activity for the past several years. 13. History of breast cancer. 14. Hypothyroidism. 15. Diabetic peripheral neuropathy. 16. Gastrointestinal and deep venous thrombosis prophylaxis. 17. FULL CODE. DISCUSSION AND PLAN: The patient will be continued on antibiotics. Continue with stool softeners and laxatives. Follow-up closely. Anticipate transfer to an extended care facility tomorrow. PIYUSH
--- NOTE | 2016-10-15 15:08 | DS ---
DATE OF ADMISSION: 10/10/2016 DATE OF DISCHARGE: 10/15/2016 DISCHARGE DIAGNOSES: 1. Left upper quadrant pain secondary to constipation, resolved at this time. 2. Left lower lobe pneumonia. 3. Acute urinary tract infection. Urine culture showed skin laura, improved symptomatically. 4. Altered mental status secondary to metabolic encephalopathy due to infection, improved now. 5. Dementia with acute behavioral changes, currently at baseline. 6. Chronic neurocognitive impairment. Continue with antipsychotic medications which she has been taking while she was at the [facility] home, stable now. Psychiatry recommends to continue the same medications. 7. Type 2 diabetes mellitus, insulin-dependent. Patient is also on Januvia. 8. Hypertension. 9. Hyperlipidemia. 10. Gastroesophageal reflux disease. 11. History of seizure disorder. No recent seizures noted. 12. History of breast cancer. 13. Hypothyroidism. 14. Diabetic peripheral neuropathy. 15. Gastrointestinal and deep venous thrombosis prophylaxis. 16. Patient is FULL CODE. HOSPITAL COURSE: Ms. Tirado is a 75-year-old female with known history of multiple medical problems as discussed above, admitted to the hospital with fever, chills, and complaints of left flank pain. Patient was found to have urinary tract infection as well as left lower lobe infiltrates and was treated for pneumonia, continued on antibiotics in the form of levofloxacin. Patient had abdominal x-ray showed constipation and significant retained fecal debris. The patient was started on stool softeners and laxatives. Patient did have bowel movement yesterday and today and much improvement of symptoms. Otherwise, patient's laboratory data has been stable at this time and continued on insulin dosing for diabetes mellitus along with sliding scale and urine culture showed mix of laura. Patient did improve symptomatically and is stable for discharge to extended care facility as the patient is unable to be followed at the [facility] home anymore. DISCHARGE PHYSICAL EXAMINATION: A 75-year-old female lying in the bed comfortably, awake and alert x2 to 3, appears to be in no apparent distress. VITALS: Blood pressure is 138/65, pulse is 50, respirations 18, temperature is afebrile, pulse ox 93% on room air. HEENT: Atraumatic, normocephalic. Neck is supple. No JVD. CVS EXAM: S1, S2 heard. No murmurs, no gallop. LUNGS: Bilateral air entry is present. No wheezing. No crackles. ABDOMEN: Soft, nontender. Bowel sounds are present. No guarding. No rigidity. 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 Able to move all her extremities. EXTREMITIES: No edema. Pulses palpable bilaterally. No clubbing or cyanosis. PSYCHIATRIC: Cooperative. LABORATORY DATA: WBC is 8.0, hemoglobin 11.3, platelets 276, MCV 91.7. Sodium 142, potassium 4.0, chloride 106, bicarb is 28. BUN 80, creatinine 0.8, calcium 8.5. Discharge physical examination done. Discharge medications include: 1. Ibuprofen 800 mg p.o. t.i.d. p.r.n. for pain. 2. NovoLog 8 units subQ daily. 3. Insulin glargine 28 units subQ at bedtime. 4. Levothyroxine 100 mcg p.o. daily. 5. Omeprazole 20 mg p.o. daily. 6. Paxil 40 mg p.o. daily. 7. Sitagliptin 100 mg p.o. daily. 8. Atorvastatin 40 mg p.o. at bedtime. 9. Lasix 20 mg p.o. daily. 10. Lisinopril 20 mg p.o. b.i.d. 11. Mirtazapine 7.5 mg p.o. at bedtime. 12. Geodon 20 mg p.o. b.i.d. 13. Amlodipine 10 mg p.o. daily. 14. Xanax 0.5 mg p.o. t.i.d. p.r.n. for anxiety. 15. Colace 100 mg p.o. b.i.d. p.r.n. for constipation. 16. Levofloxacin 500 mg q.24 hours for 2 more days to complete a total 7 days. Activity as tolerated. Heart-healthy and diabetic diet. Follow with the primary care physician in 1 to 3 days. Patient will be transferred to extended care facility in stable condition. Time taken more than 35 minutes including 18 minutes counseling the patient and coordinating care.
[2016-10-15 15:39] VITALS: BP 112/57; PULSE 62; RESP 16; TEMP 97.6
== END 2016-10-15 16:00 | DRG 871 ==
LOC: EC 19:47 → 4MS4W 23:36 → OBSVTOIN 10-10 09:40 → 4MS4W 10-10 17:04
PROVIDERS: ADMIT Hospitalist; ATTEND Hospitalist
DX: A41.9 Sepsis, unspecified organism (principal); J18.9 Pneumonia, unspecified organism; G93.41 Metabolic encephalopathy; F01.51 Vascular dementia, unspecified severity, with behavioral disturbance; I11.0 Hypertensive heart disease with heart failure; E11.42 Type 2 diabetes mellitus with diabetic polyneuropathy; I50.22 Chronic systolic (congestive) heart failure; J98.11 Atelectasis; B37.2 Candidiasis of skin and nail; N39.0 Urinary tract infection, site not specified; G40.909 Epilepsy, unspecified, not intractable, without status epilepticus; E78.5 Hyperlipidemia, unspecified; K21.9 Gastro-esophageal reflux disease without esophagitis; E03.9 Hypothyroidism, unspecified; H91.90 Unspecified hearing loss, unspecified ear; K59.00 Constipation, unspecified; G47.33 Obstructive sleep apnea (adult) (pediatric); F41.9 Anxiety disorder, unspecified; F32.9 Major depressive disorder, single episode, unspecified; H26.9 Unspecified cataract; M19.91 Primary osteoarthritis, unspecified site; Z85.828 Personal history of other malignant neoplasm of skin; Z91.81 History of falling; Z78.1 Physical restraint status; Z85.3 Personal history of malignant neoplasm of breast; Z79.84 Long term (current) use of oral hypoglycemic drugs; Z79.4 Long term (current) use of insulin; Z79.899 Other long term (current) drug therapy; W06.XXXA Fall from bed, initial encounter
CPT/HCPCS: 36415; 71020; 74020; 76770; 80048; 80053; 81001; 82150; 83690; 85025; 87086; 96361; 96365; 99285

== ENCOUNTER 2016-10-16 03:00 | Emergency (ER) | payer MEDICARE, BC ==
[2016-10-16 03:06] VITALS: BP 122/60; PULSE 73; RESP 20; TEMP 97.7
--- NOTE | 2016-10-16 03:16 | ED ---
Psych HPI - General Chief Complaint: Psychiatric Symptoms Stated Complaint: ALTERED MENTAL STATUS Time Seen by Provider: 10/16/16 03:01 Source: EMS Mode of arrival: EMS Limitations: altered mental status (Underlying dementia) - History of Present Illness Initial Comments: This patient is a 75-year-old woman sent in from [facility]term to be evaluated after she was reportedly aggressive towards staff there. The patient is not able to describe the events that are leading up to her coming here. She denies complaints and states that she would like to go back to her residence. MD Complaint: other -: hour(s) History of same: Yes Quality: intermittent Improves With: none Worsens With: none - Related Data Home Medications Medication Instructions Recorded Confirmed Ibuprofen [Motrin] 800 mg PO TID PRN 10/02/16 10/09/16 Insulin Aspart [NovoLOG] 8 unit SQ DAILY@169910/02/16 10/09/16 Insulin Glargine,Hum.rec.anlog 28 unit SQ HS@219910/02/16 10/09/16 [Lantus Solostar] Levothyroxine Sodium [Synthroid] 100 mcg PO DAILY@0700 10/02/16 10/09/16 Omeprazole 20 mg PO DAILY@169910/02/16 10/09/16 PARoxetine HCL [Paxil] 40 mg PO DAILY@0810/02/16 10/09/16 sitaGLIPtin [Januvia] 100 mg PO DAILY@0700 10/02/16 10/09/16 Atorvastatin [Lipitor] 40 mg PO HS@209910/09/16 10/09/16 Furosemide [Lasix] 20 mg PO DAILY@0710/09/16 10/09/16 Lisinopril [Zestril] 20 mg PO BID@1200,209910/09/16 10/09/16 Mirtazapine [Remeron] 7.5 mg PO HS@209910/09/16 10/09/16 Ziprasidone [Geodon] 20 mg PO BID@0800,199910/09/16 10/09/16 amLODIPine [Norvasc] 10 mg PO DAILY@0710/09/16 10/09/16 Previous Rx's Medication Instructions Recorded ALPRAZolam [Xanax] 0.5 mg PO TID@0700,1300,1900 PRN 10/15/16 #15 Docusate [Colace] 100 mg PO BID PRN #30 capsule 10/15/16 Levofloxacin [Levaquin] 500 mg PO Q24H #2 tab 10/15/16 Allergies Allergy/AdvReac Type Severity Reaction Status Date / Time Penicillins Allergy Unknown Verified 10/16/16 03:05 strawberry Allergy Rash/Hives Verified 10/16/16 03:05 aspirin AdvReac Severe Chest Pain Verified 10/16/16 03:05 cefuroxime axetil AdvReac Severe Chest Pain Verified 10/16/16 03:05 [From Ceftin] hydrocodone AdvReac Severe Confusion Verified 10/16/16 03:05 Iodinated Contrast Media - AdvReac Unknown Unknown Verified 10/16/16 03:05 Oral and antibiotics-all Allergy Unknown Uncoded 10/16/16 03:05 Review of Systems ROS Statement: Those systems with pertinent positive or pertinent negative responses have been documented in the HPI. ROS Other: All systems not noted in ROS Statement are negative. Limitations: ROS unobtainable due to patients medical condition Respiratory: Denies: dyspnea Cardiovascular: Denies: chest pain Gastrointestinal: Denies: abdominal pain, vomiting Past Medical History Past Medical History: Cancer, Diabetes Mellitus, GERD/Reflux, Hearing Disorder / Deafness, Hyperlipidemia, Hypertension, Osteoarthritis (OA), Sleep Apnea/CPAP/ BIPAP, Thyroid Disorder Additional Past Medical History / Comment(s): Skin Cancer -left lower lip, right BREAST CANCER. left eye lid lump removed. SEIZURE WHEN HERE LAST8.CATARACTS, UTI,CAREGIVER STATED PT HAS YEAST INFECTION UNDER BREAST AND GROIN FOLDS. History of Any Multi-Drug Resistant Organisms: None Reported Past Surgical History: Breast Surgery Additional Past Surgical History / Comment(s): Removal of skin cancer - left lower lip, [place] BREAST BX, HAD lumped removed from RT breast- THEN. RIGHT MASECTOMY with revision/COMPLICATED BY INFECTION(PER CAREGIVER). Past Anesthesia/Blood Transfusion Reactions: No Reported Reaction Additional Past Anesthesia/Blood Transfusion Reaction / Comment(s): TAKES HER A LONG TIME TO COME OUT ANESTHESIA Past Psychological History: Anxiety, Depression Additional Psychological History / Comment(s): SPOUSE OF 40 YEARS IN , uses cane.PTS STATED LIVES AT [facility]. Smoking Status: Never smoker Past Alcohol Use History: None Reported Additional Past Alcohol Use History / Comment(s): Patient states she is a lifelong nonsmoker. She denies any medical marijuana, marijuana, street drug or alcohol use. 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 She denies any recent travel. Her pets in the home. Past Drug Use History: None Reported - Past Family History Father Family Medical History: Coronary Artery Disease (CAD) (Father at age 72 from CAD) Additional Family Medical History / Comment(s): of heart disease Mother Family Medical History: Respiratory Disorder (Mother at the age of 79 from lung disease) Additional Family Medical History / Comment(s): of lung disease Brother(s) Family Medical History: Cancer, Coronary Artery Disease (CAD) Sister(s) Family Medical History: Cancer, Coronary Artery Disease (CAD) Additional Family Medical History / Comment(s): Patient has a nephew who cares for her and she has no children. General Exam Limitations: altered mental status General appearance: alert, in no apparent distress Head exam: Present: atraumatic, normocephalic Respiratory exam: Present: normal lung sounds bilaterally. Absent: respiratory distress, wheezes, rales, rhonchi, stridor Cardiovascular Exam: Present: regular rate, normal rhythm, normal heart sounds. Absent: systolic murmur, diastolic murmur, rubs, gallop GI/Abdominal exam: Present: soft. Absent: distended, tenderness, guarding, rebound, mass Extremities exam: Present: normal inspection, normal capillary refill. Absent: pedal edema, calf tenderness Neurological exam: Present: alert. Absent: motor sensory deficit Skin exam: Present: warm, dry, intact, normal color. Absent: rash Course Vital Signs 10/16/16 03:02 Temperature 97.7 F Pulse Rate 73 Respiratory 20 Rate Blood Pressure 122/60 O2 Sat by Pulse 99 Oximetry Medical Decision Making - Lab Data Result diagrams: 10/16/16 03:11 10/16/16 03:11 Lab Results 10/16/16 10/16/16 Range/Units 03:11 03:11 WBC 11.9 H (3.8-10.6) k/uL RBC 4.06 (3.80-5.40) m/uL Hgb 12.0 (11.4-16.0) gm/dL Hct 36.8 (34.0-46.0) % MCV 90.6 (80.0-100.0) fL MCH 29.6 (25.0-35.0) pg MCHC 32.7 (31.0-37.0) g/dL RDW 13.7 (11.5-15.5) % Plt Count 312 (150-450) k/uL Neutrophils % 81 % Lymphocytes % 6 % Monocytes % 3 % Eosinophils % 9 % Basophils % 0 % Neutrophils # 9.6 H (1.3-7.7) k/uL Lymphocytes # 0.7 L (1.0-4.8) k/uL Monocytes # 0.3 (0-1.0) k/uL Eosinophils # 1.1 H (0-0.7) k/uL Basophils # 0.1 (0-0.2) k/uL Sodium 142 (137-145) mmol/L Potassium 3.9 (3.5-5.1) mmol/L Chloride 107 (98-107) mmol/L Carbon Dioxide 22 (22-30) mmol/L Anion Gap 13 mmol/L BUN 22 H (7-17) mg/dL Creatinine 0.80 (0.52-1.04) mg/dL Est GFR (MDRD) Af Amer >60 (>60 ml/min/1.73 sqM) Est GFR (MDRD) Non-Af >60 (>60 ml/min/1.73 sqM) Glucose 172 H (74-99) mg/dL Calcium 9.0 (8.4-10.2) mg/dL Disposition Clinical Impression: Dementia Disposition: HOME SELF-CARE Condition: Poor Instructions: Dementia (ED) Referrals: Brayan Garcia MD [Primary Care Provider] - 1-2 days
[2016-10-16 03:22] LABS: Basophils # (A) 0.1 k/uL (0-0.2); Basophils % (A) 0 %; CH 29.6; CHCM 32.8; Eosinophils # (A) 1.1 k/uL (0-0.7); Eosinophils % (A) 9 %; HCT 36.8 % (34.0-46.0); HDW 3.01; Luc # (Auto) 0.12; Luc % (Auto) 1; Lymphocytes # (A) 0.7 k/uL (1.0-4.8); Lymphocytes % (A) 6 %; MCH 29.6 pg (25.0-35.0); MCHC 32.7 g/dL (31.0-37.0); MCV 90.6 fL (80.0-100.0); Mean Platelet Volume 7.6; Monocytes # (A) 0.3 k/uL (0-1.0); Monocytes % (A) 3 %; Neutrophils # (A) 9.6 k/uL (1.3-7.7); Neutrophils % (A) 81 %; RBC 4.06 m/uL (3.80-5.40); RDW 13.7 % (11.5-15.5); WBC 11.9 k/uL (3.8-10.6); WBC (Perox) 11.94
[2016-10-16 03:33] LABS: Anion Gap 13 mmol/L; Blood Urea Nitrogen 22 mg/dL (7-17); Carbon Dioxide 22 mmol/L (22-30); Chloride 107 mmol/L (98-107); Glucose 172 mg/dL (74-99); Non-African American GFR(MDRD) >60 (>60 ml/min/1.73 sqM); Potassium 3.9 mmol/L (3.5-5.1); Sodium 142 mmol/L (137-145)
[2016-10-16] MEDS ORDERED: LORazepam 2 MG/ML SYRINGE IV STA (03:46)
== END 2016-10-16 05:58 | disposition home or self-care (01) ==
LOC: EC 03:00
DX: F03.90 Unspecified dementia, unspecified severity, without behavioral disturbance, psychotic disturbance, mood disturbance, and anxiety (principal); E11.9 Type 2 diabetes mellitus without complications; K21.9 Gastro-esophageal reflux disease without esophagitis; E78.5 Hyperlipidemia, unspecified; I10 Essential (primary) hypertension; M19.90 Unspecified osteoarthritis, unspecified site; E07.9 Disorder of thyroid, unspecified; Z85.3 Personal history of malignant neoplasm of breast; Z85.828 Personal history of other malignant neoplasm of skin; F32.9 Major depressive disorder, single episode, unspecified; F41.9 Anxiety disorder, unspecified; Z79.4 Long term (current) use of insulin; Z79.899 Other long term (current) drug therapy; Z88.0 Allergy status to penicillin; Z88.6 Allergy status to analgesic agent; Z91.041 Radiographic dye allergy status; Z88.1 Allergy status to other antibiotic agents; Z91.018 Allergy to other foods; Z88.8 Allergy status to other drugs, medicaments and biological substances
CPT/HCPCS: 36415; 80048; 85025; 99284; 96374; J2060

== ENCOUNTER 2016-10-16 15:13 | Emergency (ER) | payer MEDICARE, BC ==
--- NOTE | 2016-10-16 15:32 | ED ---
General Adult HPI - General Source: patient, EMS, RN notes reviewed Mode of arrival: EMS Limitations: altered mental status <Chris Alberto - Last Filed: 11/03/16 07:45> <Ryan Chand - Last Filed: 11/13/16 07:27> - General Chief complaint: Psychiatric Symptoms Stated complaint: MENTAL HEALTH Time Seen by Provider: 10/16/16 15:15 - History of Present Illness Initial comments: This is a 75-year-old female presents to the emergency department from a retirement because she was combative at the retirement. Patient was already seen in the emergency department earlier in the day for the same combativeness. Patient was sent back to the retirement however when she arrived she became combative with staff she was thrown thinks his spitting up before. Patient herself denies this and states that if she were to go back now she would never do any of those things. Patient states she's being treated for a urinary tract infection and pneumonia her drug she does indicate she started Levaquin yesterday. There was no indication the patient was having any fevers or difficulty breathing. There is no redness or induration of the patient complaining of abdominal pain or chest pain. Patient had no vomiting or diarrhea. There is no indication of any injury or trauma recently. (Chris Alberto) - Related Data Home Medications Medication Instructions Recorded Confirmed Ibuprofen [Motrin] 800 mg PO TID PRN 10/02/16 11/11/16 Insulin Aspart [NovoLOG] 8 unit SQ W/SUPPER 10/02/16 11/11/16 Insulin Glargine,Hum.rec.anlog 28 unit SQ HS@2200 10/02/16 11/11/16 [Lantus Solostar] Levothyroxine Sodium [Synthroid] 100 mcg PO DAILY@69910/02/16 11/11/16 PARoxetine HCL [Paxil] 40 mg PO DAILY@79910/02/16 11/11/16 sitaGLIPtin [Januvia] 100 mg PO DAILY@69910/02/16 11/11/16 Atorvastatin [Lipitor] 40 mg PO HS@2100 10/09/16 11/11/16 Furosemide [Lasix] 20 mg PO DAILY@69910/09/16 11/11/16 Lisinopril [Zestril] 20 mg PO BID@1200,2100 10/09/16 11/11/16 Ziprasidone [Geodon] 20 mg PO BID@0800,2000 10/09/16 11/11/16 amLODIPine [Norvasc] 10 mg PO DAILY@0700 10/09/16 11/11/16 Albuterol Nebulized [Ventolin 2.5 mg INHALATION RT-Q4H PRN 11/05/16 11/11/16 Nebulized] Docusate [Colace] 100 mg PO BID 11/05/16 11/11/16 Linagliptin [Tradjenta] 5 mg PO DAILY 11/05/16 11/11/16 Metoprolol Succinate (ER) [Toprol 25 mg PO DAILY 11/05/16 11/11/16 Xl] Mirtazapine [Remeron ODT] 30 mg PO HS 11/05/16 11/11/16 OLANZapine [ZyPREXA] 7.5 mg PO HS 11/05/16 11/11/16 Pantoprazole Sodium 20 mg PO AC-BRKFST 11/05/16 11/11/16 Previous Rx's Medication Instructions Recorded ALPRAZolam [Xanax] 0.5 mg PO TID@0700,1300,1900 PRN 10/15/16 #15 Allergies Allergy/AdvReac Type Severity Reaction Status Date / Time Penicillins Allergy Unknown Verified 11/11/16 14:24 strawberry Allergy Rash/Hives Verified 11/11/16 14:24 aspirin AdvReac Severe Chest Pain Verified 11/11/16 14:24 cefuroxime axetil AdvReac Severe Chest Pain Verified 11/11/16 14:24 [From Ceftin] hydrocodone AdvReac Severe Confusion Verified 11/11/16 14:24 Iodinated Contrast Media - AdvReac Unknown Unknown Verified 11/11/16 14:24 Oral and antibiotics-all Allergy Unknown Uncoded 11/11/16 13:46 Review of Systems ROS Other: All systems not noted in ROS Statement are negative. <Chris Alberto - Last Filed: 11/03/16 07:45> ROS Other: All systems not noted in ROS Statement are negative. <Ryan Chand - Last Filed: 11/13/16 07:27> ROS Statement: Those systems with pertinent positive or pertinent negative responses have been documented in the HPI. Past Medical History Past Medical History: Cancer, Diabetes Mellitus, GERD/Reflux, Hearing Disorder / Deafness, Hyperlipidemia, Hypertension, Osteoarthritis (OA), Sleep Apnea/CPAP/ BIPAP, Thyroid Disorder Additional Past Medical History / Comment(s): Skin Cancer -left lower lip, right BREAST CANCER. left eye lid lump removed. SEIZURE WHEN HERE LAST8.CATARACTS, UTI,CAREGIVER STATED PT HAS YEAST INFECTION UNDER BREAST AND GROIN FOLDS. History of Any Multi-Drug Resistant Organisms: None Reported Past Surgical History: Breast Surgery Additional Past Surgical History / Comment(s): Removal of skin cancer - left lower lip, [place] BREAST BX, HAD lumped removed from RT breast- THEN. RIGHT MASECTOMY with revision/COMPLICATED BY INFECTION(PER CAREGIVER). Past Anesthesia/Blood Transfusion Reactions: No Reported Reaction Additional Past Anesthesia/Blood Transfusion Reaction / Comment(s): TAKES HER A LONG TIME TO COME OUT ANESTHESIA Past Psychological History: Anxiety, Depression Additional Psychological History / Comment(s): SPOUSE OF 40 YEARS IN , uses cane.PTS STATED LIVES AT [facility]. Smoking Status: Never smoker Past Alcohol Use History: None Reported Additional Past Alcohol Use History / Comment(s): Patient states she is a lifelong nonsmoker. She denies any medical marijuana, marijuana, street drug or alcohol use. 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 She denies any recent travel. Her pets in the home. Past Drug Use History: None Reported - Past Family History Father Family Medical History: Coronary Artery Disease (CAD) (Father at age 72 from CAD) Additional Family Medical History / Comment(s): of heart disease Mother Family Medical History: Respiratory Disorder (Mother at the age of 79 from lung disease) Additional Family Medical History / Comment(s): of lung disease Brother(s) Family Medical History: Cancer, Coronary Artery Disease (CAD) Sister(s) Family Medical History: Cancer, Coronary Artery Disease (CAD) Additional Family Medical History / Comment(s): Patient has a nephew who cares for her and she has no children. <Chris Alberto - Last Filed: 11/03/16 07:45> General Exam Limitations: altered mental status <Chris Alberto - Last Filed: 11/03/16 07:45> <Ryan Chand - Last Filed: 11/13/16 07:27> - General Exam Comments Initial Comments: GENERAL: Patient is well-developed and well-nourished. Patient is nontoxic and well- hydrated and is in no acute distress. ENT: Neck is soft and supple. No significant lymphadenopathy is noted. Oropharynx is clear. Moist mucous membranes. Neck has full range of motion without eliciting any pain. EYES: The sclera were anicteric and conjunctiva were pink and moist. Extraocular movements were intact and pupils were equal round and reactive to light. Eyelids were unremarkable. PULMONARY: Unlabored respirations. Good breath sounds bilaterally. No audible rales rhonchi or wheezing was noted. CARDIOVASCULAR: There is a regular rate and rhythm without any murmurs gallops or rubs. ABDOMEN: Soft and nontender with normal bowel sounds. No palpable organomegaly was noted. There is no palpable pulsatile mass. SKIN: Skin is clear with no lesions or rashes and otherwise unremarkable. NEUROLOGIC: Patient is alert and oriented 2. Patient is not aggressive here but she is very repetitive in her questioning. Patient keeps asking to be sent back to the retirement. MUSCULOSKELETAL: Normal extremities with adequate strength and full range of motion. No lower extremity swelling or edema. No calf tenderness. LYMPHATICS: No significant lymphadenopathy is noted PSYCHIATRIC: Patient denies wanting to harm anybody patient denies any suicidal ideations. According to staff patient is becoming violent and aggressive (Chris Alberto) Medical Decision Making - Lab Data Result diagrams: 10/16/16 16:09 10/16/16 16:09 <Chris Alberto - Last Filed: 11/03/16 07:45> - Lab Data Result diagrams: 10/16/16 16:09 10/16/16 16:09 <Ryan Chand - Last Filed: 11/13/16 07:27> - Medical Decision Making Dr. Valles will be taking over the care of this patient at 9 PM (Chris Alberto) Patient is seen by [facility] and cleared from their standpoint. (Ryan Chand) - Lab Data Lab Results 10/16/16 10/16/16 10/16/16 Range/Units 16:09 16:09 18:30 WBC 9.8 (3.8-10.6) k/uL RBC 4.16 (3.80-5.40) m/uL Hgb 12.1 (11.4-16.0) gm/dL Hct 38.2 (34.0-46.0) % MCV 91.7 (80.0-100.0) fL MCH 29.1 (25.0-35.0) pg MCHC 31.7 (31.0-37.0) g/dL RDW 13.8 (11.5-15.5) % Plt Count 264 (150-450) k/uL Neutrophils % 81 % Lymphocytes % 5 % Monocytes % 3 % Eosinophils % 9 % Basophils % 1 % Neutrophils # 8.0 H (1.3-7.7) k/uL Lymphocytes # 0.5 L (1.0-4.8) k/uL Monocytes # 0.3 (0-1.0) k/uL Eosinophils # 0.9 H (0-0.7) k/uL Basophils # 0.1 (0-0.2) k/uL Sodium 141 (137-145) mmol/L Potassium 4.3 (3.5-5.1) mmol/L Chloride 104 (98-107) mmol/L Carbon Dioxide 25 (22-30) mmol/L Anion Gap 12 mmol/L BUN 19 H (7-17) mg/dL Creatinine 0.70 (0.52-1.04) mg/dL Est GFR (MDRD) Af Amer >60 (>60 ml/min/1.73 sqM) Est GFR (MDRD) Non-Af >60 (>60 ml/min/1.73 sqM) Glucose 241 H (74-99) mg/dL Calcium 8.8 (8.4-10.2) mg/dL Total Bilirubin 0.4 (0.2-1.3) mg/dL AST 17 (14-36) U/L ALT 22 (9-52) U/L Alkaline Phosphatase 101 (38-126) U/L Total Protein 7.0 (6.3-8.2) g/dL Albumin 3.6 (3.5-5.0) g/dL Urine Color Light Yellow Urine Appearance Clear (Clear) Urine pH 5.0 (5.0-8.0) Ur Specific [place] 1.005 (1.001-1.035) Urine Protein Negative (Negative) Urine Glucose (UA) Negative (Negative) Urine Ketones Negative (Negative) Urine Blood Negative (Negative) Urine Nitrite Negative (Negative) Urine Bilirubin Negative (Negative) Urine Urobilinogen <2.0 (<2.0) mg/dL Ur Leukocyte Esterase Negative (Negative) Urine Opiates Screen Not Detected (NotDetected) Ur Oxycodone Screen Not Detected (NotDetected) Urine Methadone Screen Not Detected (NotDetected) Ur Propoxyphene Screen Not Detected (NotDetected) Ur Barbiturates Screen Not Detected (NotDetected) U Tricyclic Antidepress Not Detected (NotDetected) Ur Phencyclidine Scrn Not Detected (NotDetected) Ur Amphetamines Screen Not Detected (NotDetected) U Methamphetamines Scrn Not Detected (NotDetected) U Benzodiazepines Scrn Detected H (NotDetected) Urine Cocaine Screen Not Detected (NotDetected) U Marijuana (THC) Screen Not Detected (NotDetected) Serum Alcohol <10 mg/dL Disposition <Chris Alberto - Last Filed: 11/03/16 07:45> <Ryan Chand - Last Filed: 11/13/16 07:27> Clinical Impression: Dementia Disposition: HOME SELF-CARE Condition: Poor Referrals: Ana Luisa Resendiz MD [Primary Care Provider] - 1-2 days
[2016-10-16 16:29] LABS: Basophils # (A) 0.1 k/uL (0-0.2); Basophils % (A) 1 %; CH 29.8; CHCM 32.6; Eosinophils # (A) 0.9 k/uL (0-0.7); Eosinophils % (A) 9 %; HCT 38.2 % (34.0-46.0); HDW 2.97; HGB 12.1 gm/dL (11.4-16.0); Luc # (Auto) 0.11; Luc % (Auto) 1; Lymphocytes # (A) 0.5 k/uL (1.0-4.8); Lymphocytes % (A) 5 %; MCH 29.1 pg (25.0-35.0); MCHC 31.7 g/dL (31.0-37.0); MCV 91.7 fL (80.0-100.0); Mean Platelet Volume 8.1; Monocytes # (A) 0.3 k/uL (0-1.0); Monocytes % (A) 3 %; Neutrophils % (A) 81 %; RBC 4.16 m/uL (3.80-5.40); RDW 13.8 % (11.5-15.5); WBC 9.8 k/uL (3.8-10.6); WBC (Perox) 10.34
[2016-10-16 16:32] LABS: ALT 22 U/L (9-52); AST 17 U/L (14-36); Alcohol <10 mg/dL; Alkaline Phosphatase 101 U/L (38-126); Anion Gap 12 mmol/L; Blood Urea Nitrogen 19 mg/dL (7-17); Calcium 8.8 mg/dL (8.4-10.2); Carbon Dioxide 25 mmol/L (22-30); Chloride 104 mmol/L (98-107); Glucose 241 mg/dL (74-99); Non-African American GFR(MDRD) >60 (>60 ml/min/1.73 sqM); Potassium 4.3 mmol/L (3.5-5.1); Sodium 141 mmol/L (137-145); Total Bilirubin 0.4 mg/dL (0.2-1.3)
--- NOTE | 2016-10-16 16:57 | XR ---
EXAMINATION TYPE: XR chest 1V portable DATE OF EXAM: 10/16/2016 4:52 PM COMPARISON: 10/09/2016 INDICATION: Difficulty breathing TECHNIQUE: Single frontal view of the chest is obtained. Patient is rotated to the left. FINDINGS: The heart size is normal. The pulmonary vasculature is normal. Retrocardiac infiltrate may be present. There is poor visualization left diaphragm. IMPRESSION: 1. Clinical correlation recommended for retrocardiac infiltrate.
[2016-10-16 18:42] LABS: Appearance,Urine Clear (Clear); Bilirubin,Urine Negative (Negative); Glucose,Urine (UA) Negative (Negative); Ketones,Urine Negative (Negative); Leukocyte Esterase,Urine Negative (Negative); Nitrite,Urine Negative (Negative); Protein,Urine Negative (Negative); Specific Gravity,Urine 1.005 (1.001-1.035); UA Billing (MACRO vs. MICRO) CHEM; Urobilinogen,Urine <2.0 mg/dL (<2.0)
[2016-10-16] MEDS ORDERED: LORazepam 2 MG/ML SYRINGE IM STA (23:23)
[2016-10-17 02:32] VITALS: RESP 18
[2016-10-17 06:05] VITALS: BP 148/65; PULSE 63; TEMP 97.1
== END 2016-10-17 06:05 | disposition home or self-care (01) ==
LOC: EC 15:13
DX: F03.90 Unspecified dementia, unspecified severity, without behavioral disturbance, psychotic disturbance, mood disturbance, and anxiety (principal); E11.9 Type 2 diabetes mellitus without complications; E07.9 Disorder of thyroid, unspecified; E78.5 Hyperlipidemia, unspecified; I10 Essential (primary) hypertension; K21.9 Gastro-esophageal reflux disease without esophagitis; F32.9 Major depressive disorder, single episode, unspecified; Z85.3 Personal history of malignant neoplasm of breast; Z85.828 Personal history of other malignant neoplasm of skin; Z88.0 Allergy status to penicillin; Z88.6 Allergy status to analgesic agent; Z91.041 Radiographic dye allergy status; Z88.1 Allergy status to other antibiotic agents; Z88.5 Allergy status to narcotic agent; Z91.018 Allergy to other foods; Z79.4 Long term (current) use of insulin; Z79.899 Other long term (current) drug therapy
CPT/HCPCS: 96372 ×2; 99285 ×2; 96374; 99284; 36415; 80053; 80048; 85025; 81003; 80306; 80320; 71010; J2060

== ENCOUNTER 2016-11-05 19:21 | Emergency (ER) | payer MEDICARE, BC ==
[2016-11-05 19:32] VITALS: BP 141/72; PULSE 60; RESP 16; TEMP 98.4
--- NOTE | 2016-11-05 20:14 | ED ---
General Adult HPI - General Chief complaint: Psychiatric Symptoms Stated complaint: mental health Time Seen by Provider: 11/05/16 19:23 Source: EMS, RN notes reviewed, old records reviewed Mode of arrival: EMS Limitations: altered mental status - History of Present Illness Initial comments: This is a 76-year-old female here for evaluation patient presents today for evaluation of altered mental status combative behavior. Is brought in the ER by EMS, patient's regular history, states she has no complaints. Patient is not combative and is cooperative here in the emergency room. - Related Data Home Medications Medication Instructions Recorded Confirmed Ibuprofen [Motrin] 800 mg PO TID PRN 10/02/16 11/05/16 Insulin Aspart [NovoLOG] 8 unit SQ W/SUPPER 10/02/16 11/05/16 Insulin Glargine,Hum.rec.anlog 28 unit SQ HS@2200 10/02/16 11/05/16 [Lantus Solostar] Levothyroxine Sodium [Synthroid] 100 mcg PO DAILY@0710/02/16 11/05/16 PARoxetine HCL [Paxil] 40 mg PO DAILY@0810/02/16 11/05/16 sitaGLIPtin [Januvia] 100 mg PO DAILY@0710/02/16 11/05/16 Atorvastatin [Lipitor] 40 mg PO HS@2100 10/09/16 11/05/16 Furosemide [Lasix] 20 mg PO DAILY@0710/09/16 11/05/16 Lisinopril [Zestril] 20 mg PO BID@1200,2100 10/09/16 11/05/16 Ziprasidone [Geodon] 20 mg PO BID@0800,199910/09/16 11/05/16 amLODIPine [Norvasc] 10 mg PO DAILY@0710/09/16 11/05/16 Albuterol Nebulized [Ventolin 2.5 mg INHALATION RT-Q4H PRN 11/05/16 11/05/16 Nebulized] Docusate [Colace] 100 mg PO BID 11/05/16 11/05/16 Linagliptin [Tradjenta] 5 mg PO DAILY 11/05/16 11/05/16 Metoprolol Succinate (ER) [Toprol 25 mg PO DAILY 11/05/16 11/05/16 Xl] Mirtazapine [Remeron ODT] 30 mg PO HS 11/05/16 11/05/16 OLANZapine [ZyPREXA] 7.5 mg PO HS 11/05/16 11/05/16 Pantoprazole Sodium 20 mg PO AC-BRKFST 11/05/16 11/05/16 Previous Rx's Medication Instructions Recorded ALPRAZolam [Xanax] 0.5 mg PO TID@0700,1300,1900 PRN 10/15/16 #15 Allergies Allergy/AdvReac Type Severity Reaction Status Date / Time Penicillins Allergy Unknown Verified 11/05/16 19:44 strawberry Allergy Rash/Hives Verified 11/05/16 19:44 aspirin AdvReac Severe Chest Pain Verified 11/05/16 19:44 cefuroxime axetil AdvReac Severe Chest Pain Verified 11/05/16 19:44 [From Ceftin] hydrocodone AdvReac Severe Confusion Verified 11/05/16 19:44 Iodinated Contrast Media - AdvReac Unknown Unknown Verified 11/05/16 19:44 Oral and antibiotics-all Allergy Unknown Uncoded 11/05/16 19:32 Review of Systems ROS Statement: Those systems with pertinent positive or pertinent negative responses have been documented in the HPI. ROS Other: All systems not noted in ROS Statement are negative. Past Medical History Past Medical History: Cancer, Diabetes Mellitus, GERD/Reflux, Hearing Disorder / Deafness, Hyperlipidemia, Hypertension, Osteoarthritis (OA), Sleep Apnea/CPAP/ BIPAP, Thyroid Disorder Additional Past Medical History / Comment(s): Skin Cancer -left lower lip, right BREAST CANCER. left eye lid lump removed. SEIZURE WHEN HERE LAST8.CATARACTS, UTI,CAREGIVER STATED PT HAS YEAST INFECTION UNDER BREAST AND GROIN FOLDS. History of Any Multi-Drug Resistant Organisms: None Reported Past Surgical History: Breast Surgery Additional Past Surgical History / Comment(s): Removal of skin cancer - left lower lip, [place] BREAST BX, HAD lumped removed from RT breast- THEN. RIGHT MASECTOMY with revision/COMPLICATED BY INFECTION(PER CAREGIVER). Past Anesthesia/Blood Transfusion Reactions: No Reported Reaction Additional Past Anesthesia/Blood Transfusion Reaction / Comment(s): TAKES HER A LONG TIME TO COME OUT ANESTHESIA Past Psychological History: Anxiety, Depression Additional Psychological History / Comment(s): SPOUSE OF 40 YEARS IN , uses cane.PTS STATED LIVES AT [facility]. Smoking Status: Never smoker Past Alcohol Use History: None Reported Additional Past Alcohol Use History / Comment(s): Patient states she is a lifelong nonsmoker. She denies any medical marijuana, marijuana, street drug or alcohol use. 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 She denies any recent travel. Her pets in the home. Past Drug Use History: None Reported - Past Family History Father Family Medical History: Coronary Artery Disease (CAD) (Father at age 72 from CAD) Additional Family Medical History / Comment(s): of heart disease Mother Family Medical History: Respiratory Disorder (Mother at the age of 79 from lung disease) Additional Family Medical History / Comment(s): of lung disease Brother(s) Family Medical History: Cancer, Coronary Artery Disease (CAD) Sister(s) Family Medical History: Cancer, Coronary Artery Disease (CAD) Additional Family Medical History / Comment(s): Patient has a nephew who cares for her and she has no children. General Exam Limitations: altered mental status General appearance: alert, in no apparent distress Head exam: Present: atraumatic, normocephalic, normal inspection Eye exam: Present: normal appearance, PERRL, EOMI. Absent: scleral icterus, conjunctival injection, periorbital swelling ENT exam: Present: normal exam, mucous membranes moist Neck exam: Present: normal inspection. Absent: tenderness, meningismus, lymphadenopathy Respiratory exam: Present: normal lung sounds bilaterally. Absent: respiratory distress, wheezes, rales, rhonchi, stridor Cardiovascular Exam: Present: regular rate, normal rhythm, normal heart sounds. Absent: systolic murmur, diastolic murmur, rubs, gallop, clicks GI/Abdominal exam: Present: soft, normal bowel sounds. Absent: distended, tenderness, guarding, rebound, rigid Extremities exam: Present: normal inspection, full ROM, normal capillary refill. Absent: tenderness, pedal edema, joint swelling, calf tenderness Back exam: Present: normal inspection Neurological exam: Present: alert, oriented X3, CN II-XII intact Psychiatric exam: Present: normal affect, normal mood Skin exam: Present: warm, dry, intact, normal color. Absent: rash Course Vital Signs 11/05/16 19:24 Temperature 98.4 F Pulse Rate 60 Respiratory 16 Rate Blood Pressure 141/72 O2 Sat by Pulse 94 L Oximetry - Reevaluation(s) Reevaluation #1: 11/05/16 22:18 The chest or patient back to family care, they're refusing to take the patient back to take the patient back, requesting psychiatric evaluation Reevaluation #2: 11/05/16 22:18 Patient's medically clear for psychiatric evaluation Medical Decision Making - Medical Decision Making 76 female who was seen and evaluated by psychiatry, patient noncombative, will be transferred back to [facility] care facility. - Lab Data Lab Results 11/05/16 Range/Units 22:20 POC Glucose (mg/dL) 182 H (75-99) mg/dL POC Glu Mold Runner ID Cindy Clayton Disposition Clinical Impression: Bipolar 2 disorder, major depressive episode, Major depress, sev w/ psych, Anxiety, Cognitive and behavioral changes Disposition: HOME SELF-CARE Condition: Good Instructions: Conduct Disorder (ED) Referrals: None,Stated [Primary Care Provider] - 1-2 days
[2016-11-05] MEDS ORDERED: MIRTAZAPINE 15 MG TAB PO STA (22:09)
[2016-11-05] MEDS ORDERED: OLANZapine 2.5 MG TAB PO STA (22:09)
[2016-11-05] MEDS ORDERED: LISINOPRIL 20 MG TAB PO STA (22:09)
[2016-11-05] MEDS ORDERED: ALPRAZolam 0.5 MG TAB PO STA (22:09)
[2016-11-05] MEDS ORDERED: ZIPRASIDONE 20 MG CAP PO STA (22:09)
[2016-11-05] MEDS ORDERED: ATORVASTATIN 40 MG TAB PO STA (22:09)
[2016-11-05 22:22] LABS: Glucose,Whole Blood 182 mg/dL (75-99)
== END 2016-11-05 23:21 | disposition home or self-care (01) ==
LOC: EC 19:21
DX: F31.81 Bipolar II disorder (principal); F41.9 Anxiety disorder, unspecified; G31.84 Mild cognitive impairment of uncertain or unknown etiology; E11.9 Type 2 diabetes mellitus without complications; I10 Essential (primary) hypertension; E78.5 Hyperlipidemia, unspecified; K21.9 Gastro-esophageal reflux disease without esophagitis; E07.9 Disorder of thyroid, unspecified; Z85.3 Personal history of malignant neoplasm of breast; Z85.828 Personal history of other malignant neoplasm of skin; Z79.4 Long term (current) use of insulin; Z79.84 Long term (current) use of oral hypoglycemic drugs; Z79.899 Other long term (current) drug therapy; Z88.0 Allergy status to penicillin; Z88.6 Allergy status to analgesic agent; Z88.1 Allergy status to other antibiotic agents; Z88.5 Allergy status to narcotic agent; Z91.018 Allergy to other foods; Z91.041 Radiographic dye allergy status
CPT/HCPCS: 36415; 82075; 99285

== ENCOUNTER 2016-11-10 09:01 | Emergency (ER) | payer MEDICARE, BC ==
[2016-11-10 09:14] VITALS: BP 127/57; PULSE 67; RESP 18; TEMP 97.8
[2016-11-10 10:26] LABS: Appearance,Urine Clear (Clear); Bacteria,Urine Rare /hpf; Bilirubin,Urine Negative (Negative); Glucose,Urine (UA) Negative (Negative); Ketones,Urine Negative (Negative); Leukocyte Esterase,Urine Moderate (Negative); Mucus,Urine Rare /hpf; Nitrite,Urine Negative (Negative); Particle Count 1438; Protein,Urine Negative (Negative); RBC,Urine 1 /hpf (0-5); Specific Gravity,Urine 1.004 (1.001-1.035); Squamous Epithelial Cell,Urine 1 /hpf (0-4); UA Billing (MACRO vs. MICRO) MICRO; Urobilinogen,Urine <2.0 mg/dL (<2.0); WBC,Urine 2 /hpf (0-5)
[2016-11-10 11:04] LABS: Basophils # (A) 0.1 k/uL (0-0.2); Basophils % (A) 1 %; CH 29.8; CHCM 33.8; Eosinophils # (A) 0.6 k/uL (0-0.7); Eosinophils % (A) 8 %; HCT 35.6 % (34.0-46.0); HDW 2.75; HGB 11.7 gm/dL (11.4-16.0); Luc # (Auto) 0.12; Luc % (Auto) 2; Lymphocytes # (A) 0.4 k/uL (1.0-4.8); Lymphocytes % (A) 5 %; MCH 29.2 pg (25.0-35.0); MCV 88.5 fL (80.0-100.0); Mean Platelet Volume 8.6; Monocytes # (A) 0.3 k/uL (0-1.0); Monocytes % (A) 4 %; Neutrophils # (A) 6.5 k/uL (1.3-7.7); Neutrophils % (A) 81 %; RBC 4.02 m/uL (3.80-5.40); RDW 13.5 % (11.5-15.5); WBC (Perox) 8.12
--- NOTE | 2016-11-10 11:14 | ED ---
General Adult HPI - General Chief complaint: Psychiatric Symptoms Stated complaint: court pet Time Seen by Provider: 11/10/16 09:17 Source: patient, RN notes reviewed Mode of arrival: EMS Limitations: no limitations - History of Present Illness Initial comments: Patient 76-year-old female who presents emergency room today with chief complaint of needing psych consult. 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 Patient states she is very upset because they are taking with her cats. She denies any other physical complaints or any other symptoms at this time. Patient denies any recent fever, chills, shortness of breath, chest pain, back pain, abdominal pain, nausea or vomiting, numbness or tingling, dysuria or hematuria, constipation or diarrhea, headaches or visual changes, or any other complaints. - Related Data Home Medications Medication Instructions Recorded Confirmed Ibuprofen [Motrin] 800 mg PO TID PRN 10/02/16 11/05/16 Insulin Aspart [NovoLOG] 8 unit SQ W/SUPPER 10/02/16 11/05/16 Insulin Glargine,Hum.rec.anlog 28 unit SQ HS@2200 10/02/16 11/05/16 [Lantus Solostar] Levothyroxine Sodium [Synthroid] 100 mcg PO DAILY@0710/02/16 11/05/16 PARoxetine HCL [Paxil] 40 mg PO DAILY@0800 10/02/16 11/05/16 sitaGLIPtin [Januvia] 100 mg PO DAILY@0710/02/16 11/05/16 Atorvastatin [Lipitor] 40 mg PO HS@2100 10/09/16 11/05/16 Furosemide [Lasix] 20 mg PO DAILY@0710/09/16 11/05/16 Lisinopril [Zestril] 20 mg PO BID@1200,209910/09/16 11/05/16 Ziprasidone [Geodon] 20 mg PO BID@0800,199910/09/16 11/05/16 amLODIPine [Norvasc] 10 mg PO DAILY@0700 10/09/16 11/05/16 Albuterol Nebulized [Ventolin 2.5 mg INHALATION RT-Q4H PRN 11/05/16 11/05/16 Nebulized] Docusate [Colace] 100 mg PO BID 11/05/16 11/05/16 Linagliptin [Tradjenta] 5 mg PO DAILY 11/05/16 11/05/16 Metoprolol Succinate (ER) [Toprol 25 mg PO DAILY 11/05/16 11/05/16 Xl] Mirtazapine [Remeron ODT] 30 mg PO HS 11/05/16 11/05/16 OLANZapine [ZyPREXA] 7.5 mg PO HS 11/05/16 11/05/16 Pantoprazole Sodium 20 mg PO AC-BRKFST 11/05/16 11/05/16 Previous Rx's Medication Instructions Recorded ALPRAZolam [Xanax] 0.5 mg PO TID@0700,1300,1900 PRN 10/15/16 #15 Allergies Allergy/AdvReac Type Severity Reaction Status Date / Time Penicillins Allergy Unknown Verified 11/05/16 19:44 strawberry Allergy Rash/Hives Verified 11/05/16 19:44 aspirin AdvReac Severe Chest Pain Verified 11/05/16 19:44 cefuroxime axetil AdvReac Severe Chest Pain Verified 11/05/16 19:44 [From Ceftin] hydrocodone AdvReac Severe Confusion Verified 11/05/16 19:44 Iodinated Contrast Media - AdvReac Unknown Unknown Verified 11/05/16 19:44 Oral and antibiotics-all Allergy Unknown Uncoded 11/05/16 19:32 Review of Systems ROS Statement: Those systems with pertinent positive or pertinent negative responses have been documented in the HPI. ROS Other: All systems not noted in ROS Statement are negative. Past Medical History Past Medical History: Cancer, Diabetes Mellitus, GERD/Reflux, Hearing Disorder / Deafness, Hyperlipidemia, Hypertension, Osteoarthritis (OA), Sleep Apnea/CPAP/ BIPAP, Thyroid Disorder Additional Past Medical History / Comment(s): Skin Cancer -left lower lip, right BREAST CANCER. left eye lid lump removed. SEIZURE WHEN HERE LAST8.CATARACTS, UTI,CAREGIVER STATED PT HAS YEAST INFECTION UNDER BREAST AND GROIN FOLDS. History of Any Multi-Drug Resistant Organisms: None Reported Past Surgical History: Breast Surgery Additional Past Surgical History / Comment(s): Removal of skin cancer - left lower lip, [place] BREAST BX, HAD lumped removed from RT breast- THEN. RIGHT MASECTOMY with revision/COMPLICATED BY INFECTION(PER CAREGIVER). Past Anesthesia/Blood Transfusion Reactions: No Reported Reaction Additional Past Anesthesia/Blood Transfusion Reaction / Comment(s): TAKES HER A LONG TIME TO COME OUT ANESTHESIA Past Psychological History: Anxiety, Depression Additional Psychological History / Comment(s): SPOUSE OF 40 YEARS IN , uses cane.PTS STATED LIVES AT [facility]. Smoking Status: Never smoker Past Alcohol Use History: None Reported Additional Past Alcohol Use History / Comment(s): Patient states she is a lifelong nonsmoker. She denies any medical marijuana, marijuana, street drug or alcohol use. 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 She denies any recent travel. Her pets in the home. Past Drug Use History: None Reported - Past Family History Father Family Medical History: Coronary Artery Disease (CAD) (Father at age 72 from CAD) Additional Family Medical History / Comment(s): of heart disease Mother Family Medical History: Respiratory Disorder (Mother at the age of 79 from lung disease) Additional Family Medical History / Comment(s): of lung disease Brother(s) Family Medical History: Cancer, Coronary Artery Disease (CAD) Sister(s) Family Medical History: Cancer, Coronary Artery Disease (CAD) Additional Family Medical History / Comment(s): Patient has a nephew who cares for her and she has no children. General Exam - General Exam Comments Initial Comments: General: The patient is awake and alert, in no distress, and does not appear acutely ill. Eye: Pupils are equal, round and reactive to light, extra-ocular movements are intact. No nystagmus. There is normal conjunctiva bilaterally. No signs of icterus. Ears, nose, mouth and throat: There are moist mucous membranes and no oral lesions. Neck: The neck is supple, there is no tenderness or JVD. Cardiovascular: There is a regular rate and rhythm. No murmur, rub or gallop is appreciated. Respiratory: Lungs are clear to auscultation, respirations are non-labored, breath sounds are equal. No wheezes, stridor, rales, or rhonchi. Gastrointestinal: [Soft, non-distended, non-tender abdomen without masses or organomegaly noted. There is no rebound or guarding present. No CVA tenderness. Bowel sounds are unremarkable.] Musculoskeletal: Normal ROM, no tenderness. Strength 5/5. Sensation intact. Pulses equal bilaterally 2+. Neurological: A&O x 3. CN II-XII intact, There are no obvious motor or sensory deficits. Coordination appears grossly intact. Speech is normal. Skin: Skin is warm and dry and no rashes or lesions are noted. Psychiatric: Cooperative, appropriate mood & affect, normal judgment. Limitations: no limitations Course Vital Signs 11/10/16 09:08 Temperature 97.8 F Pulse Rate 67 Respiratory 18 Rate Blood Pressure 127/57 O2 Sat by Pulse 95 Oximetry Medical Decision Making - Medical Decision Making She has been seen here in the emergency room by [facility]. They recommend that patient may be discharged home. - Lab Data Result diagrams: 11/10/16 09:42 Lab Results 11/10/16 11/10/16 Range/Units 09:42 10:12 WBC 8.0 (3.8-10.6) k/uL RBC 4.02 (3.80-5.40) m/uL Hgb 11.7 (11.4-16.0) gm/dL Hct 35.6 (34.0-46.0) % MCV 88.5 (80.0-100.0) fL MCH 29.2 (25.0-35.0) pg MCHC 33.0 (31.0-37.0) g/dL RDW 13.5 (11.5-15.5) % Plt Count 229 (150-450) k/uL Neutrophils % 81 % Lymphocytes % 5 % Monocytes % 4 % Eosinophils % 8 % Basophils % 1 % Neutrophils # 6.5 (1.3-7.7) k/uL Lymphocytes # 0.4 L (1.0-4.8) k/uL Monocytes # 0.3 (0-1.0) k/uL Eosinophils # 0.6 (0-0.7) k/uL Basophils # 0.1 (0-0.2) k/uL Urine Color Light Yellow Urine Appearance Clear (Clear) Urine pH 6.0 (5.0-8.0) Ur Specific [place] 1.004 (1.001-1.035) Urine Protein Negative (Negative) Urine Glucose (UA) Negative (Negative) Urine Ketones Negative (Negative) Urine Blood Negative (Negative) Urine Nitrite Negative (Negative) Urine Bilirubin Negative (Negative) Urine Urobilinogen <2.0 (<2.0) mg/dL Ur Leukocyte Esterase Moderate H (Negative) Urine RBC 1 (0-5) /hpf Urine WBC 2 (0-5) /hpf Ur Squamous Epith Cells 1 (0-4) /hpf Urine Bacteria Rare H (None) /hpf Hyaline Casts 3 H (0-2) /lpf Urine Mucus Rare H (None) /hpf Urine Opiates Screen Not Detected (NotDetected) Ur Oxycodone Screen Not Detected (NotDetected) Urine Methadone Screen Not Detected (NotDetected) Ur Propoxyphene Screen Not Detected (NotDetected) Ur Barbiturates Screen Not Detected (NotDetected) U Tricyclic Antidepress Not Detected (NotDetected) Ur Phencyclidine Scrn Not Detected (NotDetected) Ur Amphetamines Screen Not Detected (NotDetected) U Methamphetamines Scrn Not Detected (NotDetected) U Benzodiazepines Scrn Not Detected (NotDetected) Urine Cocaine Screen Not Detected (NotDetected) U Marijuana (THC) Screen Not Detected (NotDetected) Disposition Clinical Impression: Mental health problem Disposition: HOME SELF-CARE Condition: Stable Additional Instructions: Please follow-up with family doctor in the next 2 days of symptoms have not improved. Please return to emergency room if the symptoms increase or worsen or for any other concerns. Referrals: Warren Simmons DO [Primary Care Provider] - 1-2 days Time of Disposition: 11:15
[2016-11-10 11:15] LABS: ALT 27 U/L (9-52); AST 21 U/L (14-36); Alkaline Phosphatase 118 U/L (38-126); Anion Gap 10 mmol/L; Blood Urea Nitrogen 14 mg/dL (7-17); Calcium 8.8 mg/dL (8.4-10.2); Carbon Dioxide 24 mmol/L (22-30); Chloride 106 mmol/L (98-107); Glucose 258 mg/dL (74-99); Non-African American GFR(MDRD) >60 (>60 ml/min/1.73 sqM); Potassium 4.3 mmol/L (3.5-5.1); Sodium 140 mmol/L (137-145); Total Bilirubin 0.6 mg/dL (0.2-1.3); Total Protein 7.1 g/dL (6.3-8.2)
== END 2016-11-10 11:58 | disposition home or self-care (01) ==
LOC: EC 09:01
DX: F32.9 Major depressive disorder, single episode, unspecified (principal); F41.9 Anxiety disorder, unspecified; E11.9 Type 2 diabetes mellitus without complications; K21.9 Gastro-esophageal reflux disease without esophagitis; M19.90 Unspecified osteoarthritis, unspecified site; E78.5 Hyperlipidemia, unspecified; I10 Essential (primary) hypertension; E07.9 Disorder of thyroid, unspecified; Z79.4 Long term (current) use of insulin; Z79.899 Other long term (current) drug therapy; Z88.0 Allergy status to penicillin; Z88.1 Allergy status to other antibiotic agents; Z91.018 Allergy to other foods; Z91.041 Radiographic dye allergy status; Z88.5 Allergy status to narcotic agent; Z85.3 Personal history of malignant neoplasm of breast; Z85.828 Personal history of other malignant neoplasm of skin
CPT/HCPCS: 36415; 80053; 80306; 81001; 82075; 85025; 87086; 99284

== ENCOUNTER 2016-11-11 13:42 | Emergency (ER) | payer MEDICARE, BC ==
[2016-11-11] MEDS ORDERED: LORazepam 1 MG TAB PO STA (13:58)
[2016-11-11 14:02] VITALS: RESP 18
--- NOTE | 2016-11-11 14:48 | ED ---
General Adult HPI - General Chief complaint: Psychiatric Symptoms Stated complaint: Mental Health Time Seen by Provider: 11/11/16 13:54 Source: patient, EMS, RN notes reviewed, old records reviewed Mode of arrival: EMS Limitations: no limitations - History of Present Illness Initial comments: Chief complaint and history of present illness a 76-year-old female lives in the dementia unit [facility]. The patient's been sent here 3 times in the last week because of becoming obstreperous, attacking staff and threatening suicide by starving herself. Today she barricaded herself in her room would not let staff inside. - Related Data Home Medications Medication Instructions Recorded Confirmed Ibuprofen [Motrin] 800 mg PO TID PRN 10/02/16 11/11/16 Insulin Aspart [NovoLOG] 8 unit SQ W/SUPPER 10/02/16 11/11/16 Insulin Glargine,Hum.rec.anlog 28 unit SQ HS@2200 10/02/16 11/11/16 [Lantus Solostar] Levothyroxine Sodium [Synthroid] 100 mcg PO DAILY@0700 10/02/16 11/11/16 PARoxetine HCL [Paxil] 40 mg PO DAILY@0800 10/02/16 11/11/16 sitaGLIPtin [Januvia] 100 mg PO DAILY@0700 10/02/16 11/11/16 Atorvastatin [Lipitor] 40 mg PO HS@2100 10/09/16 11/11/16 Furosemide [Lasix] 20 mg PO DAILY@0710/09/16 11/11/16 Lisinopril [Zestril] 20 mg PO BID@1200,2100 10/09/16 11/11/16 Ziprasidone [Geodon] 20 mg PO BID@0800,199910/09/16 11/11/16 amLODIPine [Norvasc] 10 mg PO DAILY@0710/09/16 11/11/16 Albuterol Nebulized [Ventolin 2.5 mg INHALATION RT-Q4H PRN 11/05/16 11/11/16 Nebulized] Docusate [Colace] 100 mg PO BID 11/05/16 11/11/16 Linagliptin [Tradjenta] 5 mg PO DAILY 11/05/16 11/11/16 Metoprolol Succinate (ER) [Toprol 25 mg PO DAILY 11/05/16 11/11/16 Xl] Mirtazapine [Remeron ODT] 30 mg PO HS 11/05/16 11/11/16 OLANZapine [ZyPREXA] 7.5 mg PO HS 11/05/16 11/11/16 Pantoprazole Sodium 20 mg PO AC-BRKFST 11/05/16 11/11/16 Previous Rx's Medication Instructions Recorded ALPRAZolam [Xanax] 0.5 mg PO TID@0700,1300,1900 PRN 10/15/16 #15 Allergies Allergy/AdvReac Type Severity Reaction Status Date / Time Penicillins Allergy Unknown Verified 11/11/16 14:24 strawberry Allergy Rash/Hives Verified 11/11/16 14:24 aspirin AdvReac Severe Chest Pain Verified 11/11/16 14:24 cefuroxime axetil AdvReac Severe Chest Pain Verified 11/11/16 14:24 [From Ceftin] hydrocodone AdvReac Severe Confusion Verified 11/11/16 14:24 Iodinated Contrast Media - AdvReac Unknown Unknown Verified 11/11/16 14:24 Oral and antibiotics-all Allergy Unknown Uncoded 11/11/16 13:46 Review of Systems ROS Statement: Those systems with pertinent positive or pertinent negative responses have been documented in the HPI. Review of systems. This time patient's denying headache chest pain shortness of breath she says her legs hurt when she has to sit still. No complaint of nausea vomiting or diarrhea. All systems are reviewed. Past medical problems significant for breast cancer, diabetes, GERD, hearing disorder. Hyperlipidemia , hypertension, osteoarthritis. Sleep apnea. Hypothyroidism. Skin cancer. Surgeries breast mastectomy, family history noncontributory. Nonsmoker nondrinker ROS Other: All systems not noted in ROS Statement are negative. Past Medical History Past Medical History: Cancer, Diabetes Mellitus, GERD/Reflux, Hearing Disorder / Deafness, Hyperlipidemia, Hypertension, Osteoarthritis (OA), Sleep Apnea/CPAP/ BIPAP, Thyroid Disorder Additional Past Medical History / Comment(s): Skin Cancer -left lower lip, right BREAST CANCER. left eye lid lump removed. SEIZURE WHEN HERE LAST8-29- 16.CATARACTS, UTI,CAREGIVER STATED PT HAS YEAST INFECTION UNDER BREAST AND GROIN FOLDS. History of Any Multi-Drug Resistant Organisms: None Reported Past Surgical History: Breast Surgery Additional Past Surgical History / Comment(s): Removal of skin cancer - left lower lip, [place] BREAST BX, HAD lumped removed from RT breast- THEN. RIGHT MASECTOMY with revision/COMPLICATED BY INFECTION(PER CAREGIVER). Past Anesthesia/Blood Transfusion Reactions: No Reported Reaction Additional Past Anesthesia/Blood Transfusion Reaction / Comment(s): TAKES HER A LONG TIME TO COME OUT ANESTHESIA Past Psychological History: Anxiety, Depression Additional Psychological History / Comment(s): SPOUSE OF 40 YEARS IN , uses cane.PTS STATED LIVES AT [facility]. Smoking Status: Never smoker Past Alcohol Use History: None Reported Additional Past Alcohol Use History / Comment(s): Patient states she is a lifelong nonsmoker. She denies any medical marijuana, marijuana, street drug or alcohol use. 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 She denies any recent travel. Her pets in the home. Past Drug Use History: None Reported - Past Family History Father Family Medical History: Coronary Artery Disease (CAD) (Father at age 72 from CAD) Additional Family Medical History / Comment(s): of heart disease Mother Family Medical History: Respiratory Disorder (Mother at the age of 79 from lung disease) Additional Family Medical History / Comment(s): of lung disease Brother(s) Family Medical History: Cancer, Coronary Artery Disease (CAD) Sister(s) Family Medical History: Cancer, Coronary Artery Disease (CAD) Additional Family Medical History / Comment(s): Patient has a nephew who cares for her and she has no children. General Exam - General Exam Comments Initial Comments: General: The patient is awake and alert, RN of hearing, unhappy with being brought to the emergency room. States she has a home with rolling wants to go home. She has 2 cats there were meter. They're being cared for by her niece. She was afraid of the get up with the cats down the couldn't find a home for them. Vital signs temp 97.9 pulse 74 respiratory rate 18 pulse ox 99% room air blood pressure 117/56 Eye: Pupils are equal, round and reactive to light, extra-ocular movements are intact ; there is normal conjunctiva bilaterally. No signs of icterus. Ears, nose, mouth and throat: There are moist mucous membranes and no oral lesions. Neck: The neck is supple, there is no tenderness . Cardiovascular: There is a regular rate and rhythm. No murmur, rub or gallop is appreciated. Respiratory: Lungs are clear to auscultation, respirations are non-labored, breath sounds are equal. No wheezes, stridor, rales, or rhonchi. Gastrointestinal: Soft, non-distended, non-tender abdomen without masses or organomegaly noted. There is no rebound or guarding present. No CVA tenderness. Bowel sounds are unremarkable. Back: There is no tenderness to palpation in the midline. There is no obvious deformity. No rashes noted. Musculoskeletal: Normal ROM, no tenderness, I'll pedal edema.. Planes of lower extremity any, chronic from sitting. Neurological: CN II-XII intact, There are no obvious motor or sensory deficits. Coordination appears grossly intact. Speech is normal. Hard of hearing, repetitious Skin: Skin is warm and dry and no rashes or lesions are noted. Psychiatric: Dementia, not cooperative. Angry obstreperous Limitations: no limitations Course Vital Signs 11/11/16 11/12/16 11/12/16 13:47 00:52 02:46 Temperature 97.9 F 97.2 F L 97.5 F L Pulse Rate 74 55 L 53 L Respiratory 18 18 18 Rate Blood Pressure 117/56 105/57 165/68 O2 Sat by Pulse 99 97 97 Oximetry Medical Decision Making - Medical Decision Making Labs within normal limits. I completed a certificate for admission. The patient be admitted to a geriatric facility for dementia and depression. - Lab Data Result diagrams: 11/11/16 14:05 11/11/16 14:05 Lab Results 11/11/16 11/11/16 11/11/16 Range/Units 14:05 14:05 17:37 WBC 7.7 (3.8-10.6) k/uL RBC 4.07 (3.80-5.40) m/uL Hgb 12.2 (11.4-16.0) gm/dL Hct 35.8 (34.0-46.0) % MCV 87.8 (80.0-100.0) fL MCH 29.9 (25.0-35.0) pg MCHC 34.0 (31.0-37.0) g/dL RDW 13.6 (11.5-15.5) % Plt Count 213 (150-450) k/uL Neutrophils % 75 % Lymphocytes % 8 % Monocytes % 4 % Eosinophils % 11 % Basophils % 0 % Neutrophils # 5.8 (1.3-7.7) k/uL Lymphocytes # 0.6 L (1.0-4.8) k/uL Monocytes # 0.3 (0-1.0) k/uL Eosinophils # 0.9 H (0-0.7) k/uL Basophils # 0.0 (0-0.2) k/uL Sodium 141 (137-145) mmol/L Potassium 4.3 (3.5-5.1) mmol/L Chloride 105 (98-107) mmol/L Carbon Dioxide 23 (22-30) mmol/L Anion Gap 13 mmol/L BUN 14 (7-17) mg/dL Creatinine 0.70 (0.52-1.04) mg/dL Est GFR (MDRD) Af Amer >60 (>60 ml/min/1.73 sqM) Est GFR (MDRD) Non-Af >60 (>60 ml/min/1.73 sqM) Glucose 194 H (74-99) mg/dL Calcium 8.9 (8.4-10.2) mg/dL Urine Color Light Yellow Urine Appearance Clear (Clear) Urine pH 6.5 (5.0-8.0) Ur Specific [place] 1.006 (1.001-1.035) Urine Protein Negative (Negative) Urine Glucose (UA) Negative (Negative) Urine Ketones Negative (Negative) Urine Blood Negative (Negative) Urine Nitrite Negative (Negative) Urine Bilirubin Negative (Negative) Urine Urobilinogen <2.0 (<2.0) mg/dL Ur Leukocyte Esterase Trace H (Negative) Urine RBC <1 (0-5) /hpf Urine WBC <1 (0-5) /hpf Ur Squamous Epith Cells 1 (0-4) /hpf Urine Mucus Rare H (None) /hpf Urine Opiates Screen Not Detected (NotDetected) Ur Oxycodone Screen Not Detected (NotDetected) Urine Methadone Screen Not Detected (NotDetected) Ur Propoxyphene Screen Not Detected (NotDetected) Ur Barbiturates Screen Not Detected (NotDetected) U Tricyclic Antidepress Not Detected (NotDetected) Ur Phencyclidine Scrn Not Detected (NotDetected) Ur Amphetamines Screen Not Detected (NotDetected) U Methamphetamines Scrn Not Detected (NotDetected) U Benzodiazepines Scrn Detected H (NotDetected) Urine Cocaine Screen Not Detected (NotDetected) U Marijuana (THC) Screen Not Detected (NotDetected) Serum Alcohol <10 mg/dL Disposition Clinical Impression: Depression Disposition: TRANSFER TO PSYCH HOSP/UNIT Condition: Fair Referrals: Warren Simmons DO [Primary Care Provider] - 1-2 days
[2016-11-11 14:57] LABS: Basophils % (A) 0 %; CH 29.9; CHCM 34.1; Eosinophils # (A) 0.9 k/uL (0-0.7); Eosinophils % (A) 11 %; HCT 35.8 % (34.0-46.0); HDW 2.75; HGB 12.2 gm/dL (11.4-16.0); Luc # (Auto) 0.12; Luc % (Auto) 2; Lymphocytes # (A) 0.6 k/uL (1.0-4.8); Lymphocytes % (A) 8 %; MCH 29.9 pg (25.0-35.0); MCV 87.8 fL (80.0-100.0); Mean Platelet Volume 8.1; Monocytes # (A) 0.3 k/uL (0-1.0); Monocytes % (A) 4 %; Neutrophils # (A) 5.8 k/uL (1.3-7.7); Neutrophils % (A) 75 %; RBC 4.07 m/uL (3.80-5.40); RDW 13.6 % (11.5-15.5); WBC 7.7 k/uL (3.8-10.6); WBC (Perox) 7.53
[2016-11-11 15:42] LABS: Alcohol <10 mg/dL; Anion Gap 13 mmol/L; Blood Urea Nitrogen 14 mg/dL (7-17); Calcium 8.9 mg/dL (8.4-10.2); Carbon Dioxide 23 mmol/L (22-30); Chloride 105 mmol/L (98-107); Glucose 194 mg/dL (74-99); Non-African American GFR(MDRD) >60 (>60 ml/min/1.73 sqM); Potassium 4.3 mmol/L (3.5-5.1); Sodium 141 mmol/L (137-145)
[2016-11-11 17:58] LABS: Appearance,Urine Clear (Clear); Bilirubin,Urine Negative (Negative); Glucose,Urine (UA) Negative (Negative); Ketones,Urine Negative (Negative); Leukocyte Esterase,Urine Trace (Negative); Mucus,Urine Rare /hpf; Nitrite,Urine Negative (Negative); PH, Urine 6.5 (5.0-8.0); Particle Count 599; Protein,Urine Negative (Negative); RBC,Urine <1 /hpf (0-5); Specific Gravity,Urine 1.006 (1.001-1.035); Squamous Epithelial Cell,Urine 1 /hpf (0-4); UA Billing (MACRO vs. MICRO) MICRO; Urobilinogen,Urine <2.0 mg/dL (<2.0); WBC,Urine <1 /hpf (0-5)
[2016-11-11] MEDS ORDERED: LORazepam 2 MG/ML SYRINGE IM STA ×2 (18:48→19:51)
[2016-11-12 02:47] VITALS: BP 165/68; PULSE 53; TEMP 97.5
[2016-11-12] MEDS ORDERED: LORazepam 2 MG/ML SYRINGE IM STA (03:11)
--- NOTE | 2016-11-14 08:13 | CDI ---
Documentation Clarification OP Dear Dr. Gael Aaron Please do addendum to ED report that provides clinical impression and disposition. Thank you, Jonny Lr Dethistler Operator If you have any questions, please contact Social Science Research Assistant at [phone] [facility]
== END 2016-11-12 03:22 ==
LOC: EC 13:42
DX: F32.9 Major depressive disorder, single episode, unspecified (principal); F03.90 Unspecified dementia, unspecified severity, without behavioral disturbance, psychotic disturbance, mood disturbance, and anxiety; R45.851 Suicidal ideations; K21.9 Gastro-esophageal reflux disease without esophagitis; E11.9 Type 2 diabetes mellitus without complications; E78.5 Hyperlipidemia, unspecified; I10 Essential (primary) hypertension; E03.9 Hypothyroidism, unspecified; F41.9 Anxiety disorder, unspecified; Z85.3 Personal history of malignant neoplasm of breast; Z85.828 Personal history of other malignant neoplasm of skin; Z79.4 Long term (current) use of insulin; Z79.84 Long term (current) use of oral hypoglycemic drugs; Z79.899 Other long term (current) drug therapy; Z88.0 Allergy status to penicillin; Z88.1 Allergy status to other antibiotic agents; Z88.5 Allergy status to narcotic agent; Z88.6 Allergy status to analgesic agent; Z91.018 Allergy to other foods; Z91.041 Radiographic dye allergy status
CPT/HCPCS: 99285; 96372 ×3; 82075; 36415; 80048; 85025; 81001; 80306; 80320; J2060 ×2